=== PATIENT | female | born 1970 | race Caucasian/White ===

== ENCOUNTER 2018-01-03 08:00 | Outpatient (RCR) | payer OTHER, SELFPAY ==
--- NOTE | 2018-01-04 18:41 | HP.FCE ---
HP OT Functional Capacity Eval - Reference Duration Sedentary Sedentary Light Light Light Medium Medium Medium Heavy Very Heavy Heavy Occasional (0-33% of day) Frequent (34-66% of day) Constant (67-100% of day) 10 # Negligible Negligible 15 # 8 # Negligible 20 # 10# Negli. 35 # 18 # 7 # 50 # 25 # 10 # 75 # 100 # >100 # 38 # 50 # >50 # 15 # 20 # >20 # - Patient Information Height: 5 ft 3 in Hand Dominance: R hand - Medical History Medical History Including Restrictions: Rheumatoid Arthritis, Osteoarthritis, fibromyalgia, massive stroke 3 yrs ago, nerve damage to back and goes to pain mngmt to assist with her back, L and R hip replacements, R shoulder sx, L ankle fx w/ pins/plates, jarrett L hip to knee. Left knee donor bodne surgery to prepare for TKR but complication of right femor injury requiring jarrett placement 3 different times. 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 - Pain Pain: Pt demonstrates 6/10 pain in L knee, R cervical spine 7/10 pain. - Work History Work History: Pt is unemployed at this time. 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 - Behavioral Behavioral: calm pleasant behavior, painful after sitting for amount of time. - ADLS ADLS: Pt is independent with ADLs overall, occassionally requires assist with socks/shoes. Needs assist with hygiene of cutting her toenails. She lives in a 1 level house with her spouse. She has 1 plus 1 plateform steps, to enter with 2 handrails. She ambulates with a straight cane in community, furniture walker in house. Her bathroom contains a tub/shower with grab bars, shower chair, and she has a standard commode. She is independent w/ cooking, attempts vaccuming, but her spouse usually ends up helping and her spouse completes laundry in basement. She still drives. - Physical Examination Physical Examination: Pt demonstrates decreased activity tolerance and pain limiting her ability to complete specific tasks. ROM: R UE WFL, L UE WFL except internal rotation, L LE WFL, R LE, limitied hip flexion Strength: Pt demo decreased generalized strength. L UE 3+/5, R UE 3+/5, L LE 3/5, R LE 3+/5 Right Newspaper Carriers Supervisor Strength Average: 18.33 Left Newspaper Carriers Supervisor Strength Average: 25.00 Right Lateral Pinch Average: 1.33 Left Lateral Pinch Average: 3.33 Right Tripod Pinch Average: 1.33 Left Tripod Pinch Average: 2.66 Comments: Limited hand strength Sensation: Numbness Tingling L LE , R LE foot to knee, inconsistant tingling in bilateral fingers Fine Motor: Pt states she has difficulty with opening containers, medication containers, difficulty zipping, unable to button, difficulty with snaps, wears a lot of slip on shoes secondary to difficulty with bending down to tie shoes. Balance: Pt states she has had falls at home when her left leg gives out. - Non Material Handling Activities Bending: She is able to bend to get purse and lift 15lbs. Unable to lift more weight. Squatting: Pt able to squat without resistant. Unable to squat with resistance. Kneeling: Pt unable to kneel for testing. Reaching out/up: Pt able to reach out and up without weight, pt unable to reach out and up with weight. Walking: Pt able to ambulate with cane, 3 minutes then required rest break, fatigues easily and has burning pain in L LE after ambulation. Standing: Pt able to stand for 3 minutes at a time then requires seated rest break. Sitting: Pt able to sit for 35 minutes before having to stand for her back pain. Climbing Stairs: Pt unable to climb full flight of steps. Climbed up/down 7 steps then needed to go find a chair to sit in. - Dynamic Occasional Lifting Capacity Floor Lift: Pt able to lift blue box 15 lbs off floor slightly then had to return back to floor. Was not able to bring box all the way up from floor. Knee Lift: Pt unable to complete lift with box no weight Waist Lift: Pt able to complete waist lift 15lbs. Shoulder Lift: Pt unable to complete shoulder lift with weight. Overhead Lift: Pt unable to complete overhead lift with weight. Carrying: Unable to carry groceries. Pt unable to carry box with 15lbs. Comments: Pt states able to move west from oven with using bilateral hands on her own.
== END 2018-01-03 17:00 | disposition home or self-care (01) ==
LOC: OT 08:00
PROVIDERS: Family Provider Student in an Organized Health Care Education/Training Program; PCP Student in an Organized Health Care Education/Training Program; Visit Provider Student in an Organized Health Care Education/Training Program
DX: M54.5 Low back pain (principal); M79.604 Pain in right leg; M79.605 Pain in left leg; G89.29 Other chronic pain
CPT/HCPCS: 97165

== ENCOUNTER → 2018-01-19 09:39 | Outpatient (CLI) | payer OTHER, SELFPAY ==
[2018-01-19 12:21] LABS: Absolute Lymphocyte Count 1.31 X10^3/ul (0.83-4.51); Absolute Neutrophil Count 6.7 X10^3/uL (2.0-7.7); Basophil# 0.03 X10^3/uL; Basophil% 0.3 % (0-1); Eosinophil# 0.15 X10^3/uL; Eosinophils% 1.7 % (0-5); Hematocrit 43.9 % (37-47); Lymphocyte # 1.31 X10^3/ul (4.0); Lymphocyte % 14.8 % (19-41); Mean Corp Hgb Conc 31.9 g/gl (32-36); Mean Corpuscular Hgb 30.8 pg (27.0-32.0); Mean Corpuscular Volume 96.5 fL (81-99); Mean Platelet Vol. 9.8 fl (6.2-12.0); Monocyte# 0.66 X10^3/uL; Monocyte% 7.4 % (0-10); Neutrophil % 75.7 % (47-70); Platelet Count 334 K/mm3 (150-450); RBC Distribution Width CV 15.3 % (11.6-14.6); RBC Distribution Width SD 52.7 fl (35.1-43.9); Red Blood Count 4.55 M/mm3 (4.2-5.4); White Blood Count 8.9 K/mm3 (4.4-11.0)
[2018-01-19 12:22] LABS: POSITIVE COUNT NO; POSITIVE DIFFERENTIAL NO; POSITIVE MORPHOLOGY NO
[2018-01-19 12:26] LABS: ALB/GLOB Ratio 0.9 RATIO (0.9-2.4); AST(SGOT) 23 U/L (15-37); Alanine Aminotransfer ALT/SGPT 26 U/L (13-56); Albumin, Serum 3.6 g/dL (3.2-5.0); Alkaline Phosphatase 89 U/L (45-117); Anion Gap 9 (5-15); BUN 14 mg/dL (7-18); Calcium,Total 8.4 mg/dL (8.5-10.1); Chloride 105 mmol/L (98-107); Creatinine, Serum 0.67 mg/dL (0.55-1.02); EST Glomerular Filtration Rate 100 mL/min (>60); Est Glom Filt Rate - Afr Amer 121 mL/min (>60); Globulin 3.9 g/dL (2.2-4.2); Glucose 91 mg/dL (74-106); Potassium 3.8 mmol/L (3.5-5.1); Protein, Total 7.5 g/dL (6.4-8.2); Sodium Level 142 mmol/L (136-145)
== END ==
PROVIDERS: Family Provider Student in an Organized Health Care Education/Training Program; PCP Student in an Organized Health Care Education/Training Program; Visit Provider Internal Medicine Rheumatology
DX: M06.09 Rheumatoid arthritis without rheumatoid factor, multiple sites (principal); M79.7 Fibromyalgia; J45.909 Unspecified asthma, uncomplicated; I25.2 Old myocardial infarction; E11.9 Type 2 diabetes mellitus without complications; Z79.899 Other long term (current) drug therapy
CPT/HCPCS: 36415; 80053; 85025

== ENCOUNTER 2018-02-12 22:26 | Emergency (ER) | payer OTHER, SELFPAY ==
[2018-02-12 22:27] VITALS: BP 124/29; PULSE 71; RESP 16; TEMP 36.1; O2SAT 99; BMI 30.1
[2018-02-12 22:55] VITALS: PULSE 87; RESP 21; O2SAT 92
--- NOTE | 2018-02-12 22:57 | ED.VISSUMM ---
- ER Visit Summary Date of Service: 02/12/18 Chief Complaint: [] Restlessness and combative towards family while intoxicated with alcohol History of Present Illness: The patient is a 47 F stated he came from work from work [employer] and his is intoxicated with alcohol. He thinks it might of mixed with her medications. She drinks alcohol frequently. She is on no benzos. He thinks she is on a sleeping pill and some pain pills and he stated that she was jittery and argumentative and brought her in to make sure that she was in renal failure. She has had this acutely in the past. Patient denies any symptoms. Physical Examination: Vital signs reviewed General: Well-nourished well-developed the patient is fidgety and intoxicated. Head: Normocephalic atraumatic Eyes: Pupils equal round and reactive to light extraocular movements intact ENT: TMs clear no hemotympanum no trauma Neck: Nontender full range of motion Cardiovascular: Regular rate rhythm no murmurs normal S1-S2 Respiratory: No distress clear to auscultation bilaterally chest nontender Abdomen: Soft nontender nondistended normal bowel sounds no masses Back: Nontender no CVA tenderness Extremities: Nontender active range of motion ?4 extremities no trauma Skin: Normal color no trauma Neuro alert oriented cranial nerves II through XII intact normal strength sensation reflexes Test Results: [] Emergency Department Course and Treatment: [] Patient given IV fluids. Lab work obtained. Monitored in the department. She slept for several hours. She awoke and without any complaints. She will be discharged. I feel this is secondary to polysubstance intoxication. Treatment Plan: [] Disposition: [] Impression: [] Altered mental status secondary to intoxication This note was generated with [employer] dictation software. It may contain incorrect words, spelling, and punctuation that were not noted in review of the chart prior to signing ED Disposition - Plan for ED Patient: Chief Complaint: Alt LOC Referrals: Jacob Teixeira DO [Primary Care Provider] -
[2018-02-12] MEDS: 0.9% Normal Saline 1,000 ML 1000 ML IV (23:24)
[2018-02-12 23:30] LABS: Bedside Glucose 120 mg/dL (70-110)
--- NOTE | 2018-02-12 23:33 | ED.RN ---
Addendum entered by Karlee Brunner 02/13/18 01:26: PT ON 4L NC. Original Note: PT 87-88% ON ROOM AIR SAT. THIS RN PLACED PT ON 4L NC, PT O2 NOW 97-99% ON 2L NC. PT DROWSY, SPASTIC FLARING OF ARMS AND LEGS. PT AROUSABLE TO CALLING AND LIGHT PAIN. PT FLINCHED WITH IV START. PT MOUTH SUCTIONED BY THIS RN FOR INCREASED ORAL SECRETIONS. SECRETIONS CLEAR. PT AWOKE TO SUCTIONING. PT FAMILY AT BEDSIDE REPORT PT HAS BEEN SNEAKING ALCOHOL. PT TAKES MANY MEDICATIONS, SEES DR. SANDOVAL FOR PAIN MANAGEMENT. NO SEIZURE ACTIVITY NOTED. SPOUSE REPORTS PT AMBULATED TO CAR TO COME TO ED. PT HYPOTENSIVE. NS FLUIDS HUNG. DR. WILCOX INFORMED OF ALL FINDINGS BY THIS RN. NO NEW ORDERS AT THIS TIME. WILL CONTINUE TO MONITOR.
[2018-02-12 23:45] LABS: Anion Gap 8 (5-15); BUN 17 mg/dL (7-18); BUN/Creat Ratio 21.7 RATIO (10-20); Calcium,Total 7.8 mg/dL (8.5-10.1); Chloride 108 mmol/L (98-107); Creatinine, Serum 0.78 mg/dL (0.55-1.02); EST Glomerular Filtration Rate 83 mL/min (>60); Est Glom Filt Rate - Afr Amer 100 mL/min (>60); Estimated Creatinine Clearance 72.17 ml/min; Glucose 100 mg/dL (74-106); Magnesium 2.2 mg/dL (1.6-2.6); Potassium 4.4 mmol/L (3.5-5.1); Sodium Level 140 mmol/L (136-145)
[2018-02-12 23:56] LABS: Hematocrit 36.9 % (37-47); Hemoglobin 12.1 g/dl (12.0-15.0); Mean Corp Hgb Conc 32.8 g/gl (32-36); Mean Corpuscular Hgb 30.8 pg (27.0-32.0); Mean Corpuscular Volume 93.9 fL (81-99); RBC Distribution Width CV 15.7 % (11.6-14.6); RBC Distribution Width SD 54.5 fl (35.1-43.9); Red Blood Count 3.93 M/mm3 (4.2-5.4); White Blood Count 10.1 K/mm3 (4.4-11.0)
[2018-02-12 23:57] LABS: Absolute Lymphocyte Count 1.44 X10^3/ul (0.83-4.51); Absolute Neutrophil Count 7.4 X10^3/uL (2.0-7.7); Basophil# 0.01 X10^3/uL; Basophil% 0.1 % (0-1); Eosinophil# 0.07 X10^3/uL; Eosinophils% 0.7 % (0-5); Lymphocyte # 1.44 X10^3/ul (4.0); Lymphocyte % 14.3 % (19-41); Mean Platelet Vol. 9.3 fl (6.2-12.0); Monocyte# 1.18 X10^3/uL; Monocyte% 11.7 % (0-10); Neutrophil # 7.35 X10^3/uL (2.7-7.7); Neutrophil % 72.9 % (47-70); POSITIVE COUNT NO; POSITIVE DIFFERENTIAL NO; POSITIVE MORPHOLOGY NO; Platelet Count 298 K/mm3 (150-450)
[2018-02-13] VITALS (9 sets, daily range): BP systolic 77–141; BP diastolic 44–89; PULSE 66–79; RESP 11–34; O2SAT 95–100
--- NOTE | 2018-02-13 01:20 | ED.RN ---
PT MOVED TO TRAUMA 2 TO BE CLOSER TO NURSES STATION AT 2330. PT STILL HYPOTENSIVE, PT LESS RESPONSIVE. DR. WILCOX INFORMED AND AT BEDSIDE TO EVALUATE PT. PT FAMILY AT BEDSIDE 18 G IV IN RIGHT AC INITIATED BY CHIVO SIMMONS. PT CONTINUES TO FINISH INTIAL FLUID BOLUS OF NS. PT WITH SNORING RESPIRES, FAMILY REPORTS HX OF SNORING, AND FAMILY HX OF SLEEP APNEA, BUT PT HAS NOT BEEN OFFICIALLY DX WITH SLEEP APNEA.
--- NOTE | 2018-02-13 02:31 | ED.DEP ---
ED Disposition - Plan for ED Patient: Disposition: Home or Assisted Living Chief Complaint: Alt LOC Instructions: ED Altered Loc Referrals: Jacob Teixeira DO [Primary Care Provider] -
[2018-02-13] MEDS: Ondansetron 4 MG/2 ML Vial IV (03:18)
[2018-02-13] MEDS: 0.9% Normal Saline 1,000 ML 200 ML IV (03:18)
== END 2018-02-13 06:23 | disposition home or self-care (01) ==
PROVIDERS: Emergency Provider Emergency Medicine; Family Provider Student in an Organized Health Care Education/Training Program; PCP Student in an Organized Health Care Education/Training Program
DX: F10.129 Alcohol abuse with intoxication, unspecified (principal); T51.0X1A Toxic effect of ethanol, accidental (unintentional), initial encounter; Y90.9 Presence of alcohol in blood, level not specified; I10 Essential (primary) hypertension; M79.7 Fibromyalgia; M06.9 Rheumatoid arthritis, unspecified; Z79.899 Other long term (current) drug therapy
CPT/HCPCS: 80048; 82962; 83735; 85025; 96361; 96374; 99285; J7030; J2405

== ENCOUNTER 2018-03-30 22:44 | Observation (INO) | payer OTHER, SELFPAY ==
[2018-03-30 22:44] VITALS: TEMP 37.1; BMI 31.1
--- NOTE | 2018-03-30 23:32 | EKG12_ITS ---
Test Reason : Blood Pressure : / mmHG Vent. Rate : 143 BPM Atrial Rate : 116 BPM P-R Int : 134 ms QRS Dur : 080 ms QT Int : 354 ms P-R-T Axes : 051 047 051 degrees QTc Int : 546 ms Sinus tachycardia with frequent Premature ventricular complexes Confirmed by HILARIO OWENS, SYBIL ([id number]), proposal editor ALICJA VALENTE ([id number] on 04/04/2018 2:05:38 PM Referred By: ERMA Confirmed By:SYBIL RICH MD
[2018-03-30 23:44] VITALS: BP 169/146; PULSE 85; RESP 20; O2SAT 96
[2018-03-30 23:56] LABS: Bedside Glucose 125 mg/dL (70-110)
[2018-03-31] VITALS (21 sets, daily range): BP systolic 83–137; BP diastolic 44–69; PULSE 74–94; RESP 16–18; TEMP 36.4–37.1; O2SAT 92–96; BMI 31.4; BMI 31.5
[2018-03-31 00:10] LABS: Bacteria 0 SEEN /hpf (None Seen); Mucous, Urine 0 SEEN /hpf (<or=2+); Red Blood Cells-Urine 0 SEEN /hpf (0-5)
[2018-03-31 00:13] LABS: Absolute Lymphocyte Count 0.38 X10^3/ul (0.83-4.51); Absolute Neutrophil Count 5.1 X10^3/uL (2.0-7.7); Hematocrit 38.8 % (37-47); Hemoglobin 12.2 g/dl (12.0-15.0); Lymphocyte # 0.38 X10^3/ul (4.0); Lymphocyte % 5.9 % (19-41); Mean Corp Hgb Conc 31.4 g/gl (32-36); Mean Corpuscular Hgb 31.8 pg (27.0-32.0); Mean Platelet Vol. 9.6 fl (6.2-12.0); Monocyte# 0.93 X10^3/uL; Monocyte% 14.4 % (0-10); Neutrophil # 5.12 X10^3/uL (2.7-7.7); Neutrophil % 79.5 % (47-70); Platelet Count 316 K/mm3 (150-450); RBC Distribution Width CV 16.1 % (11.6-14.6); Red Blood Count 3.84 M/mm3 (4.2-5.4); White Blood Count 6.4 K/mm3 (4.4-11.0)
[2018-03-31 00:14] LABS: POSITIVE COUNT NO; POSITIVE DIFFERENTIAL YES
[2018-03-31 00:15] LABS: Differential Indicated SCAN CRITERIA MET; POSITIVE MORPHOLOGY NO
[2018-03-31 00:16] LABS: Color, Urine Yellow (Yellow); Glucose, Dipstick Normal (Normal); Ketone-Dipstick Negative (Negative); Leukocyte Esterase-Dipstick 25 /ul (Negative); Nitrite-Dipstick Negative (Negative); Occult Blood-Urine 25 /ul (Negative); Protein-Dipstick 30 mg/dl (Negative); Urine Bilirubin Dipstick Negative (Negative); Urine Clarity Sl. Cloudy (Clear); Urine Urobilinogen Normal (Normal)
[2018-03-31 00:18] LABS: Vista UDS pH Range 5
[2018-03-31 00:23] LABS: Lactic Acid 1.6 mmol/L (0.4-2.0)
[2018-03-31 00:25] LABS: Partial Thromboplast Time 26.4 Seconds (24.1-36.2); Prothrombin Time (Protime)PT. 13.5 SECONDS (11.7-14.9)
[2018-03-31 00:29] LABS: Hyaline Cast 10-25 SEEN /lpf (0-5)
[2018-03-31 00:29] LABS: ALB/GLOB Ratio 0.9 RATIO (0.9-2.4); AST(SGOT) 20 U/L (15-37); Alanine Aminotransfer ALT/SGPT 25 U/L (13-56); Albumin, Serum 3.7 g/dL (3.2-5.0); Alkaline Phosphatase 126 U/L (45-117); Anion Gap 9 (5-15); BUN 34 mg/dL (7-18); BUN/Creat Ratio 8.8 RATIO (10-20); Chloride 99 mmol/L (98-107); Creatinine, Serum 3.86 mg/dL (0.55-1.02); EST Glomerular Filtration Rate 13 mL/min (>60); Est Glom Filt Rate - Afr Amer 16 mL/min (>60); Estimated Creatinine Clearance 13.94 ml/min; Globulin 3.9 g/dL (2.2-4.2); Glucose 107 mg/dL (74-106); Potassium 5.8 mmol/L (3.5-5.1); Protein, Total 7.6 g/dL (6.4-8.2); Sodium Level 135 mmol/L (136-145)
[2018-03-31 00:30] LABS: Amorphous Sediment 1+; Squamous Epithelial Cells - UA 25-50 SEEN /hpf (5-10); White Blood Cells 0-5 SEEN /hpf (0-5)
[2018-03-31 00:37] LABS: Amphetamine Urine VISTA NEGATIVE (<1000 ng/mL); Barbiturate Urine VISTA NEGATIVE (< 200 ng/mL); Benzodiazepine Urine VISTA NEGATIVE (< 200 ng/mL); Cocaine Urine VISTA NEGATIVE (< 300 ng/mL); Ecstacy Urine VISTA NEGATIVE (< 500 ng/mL); Methadone Urine VISTA NEGATIVE (< 300 ng/mL); PCP Urine VISTA NEGATIVE (< 25 ng/mL); THC Urine VISTA POSITIVE (< 50 ng/mL)
--- NOTE | 2018-03-31 00:37 | CT_ITS ---
STUDY: CT BRAIN WITHOUT CONTRAST REASON FOR EXAM: Female, 47 years old. Mental status change with nystagmus. Patient has history of previous CVA. RADIATION DOSAGE (If Supplied By Facility): CTDIvol = ( 44.99 ) mGy, DLP = ( 745.49 ) mGycm TECHNIQUE: Transaxial CT imaging of the brain was performed without administration of intravenous contrast material. Multiplanar reformations are submitted for interpretation. Individualized dose optimization techniques were used for this CT. COMPARISON: CT of the head dated August 15, 2013. FINDINGS: Normal soft tissue structures. Normal calvarium. There is encephalomalacia involving the right temporal lobe, right parietal and frontal lobes consistent with old infarct. The appearance has worsened since previous CT. There are areas of decreased attenuation within the white matter tracts of the supratentorial brain, consistent with microvascular disease changes. Normal basal ganglia and thalami. Normal brainstem. Normal cerebellum. There is no intracranial hemorrhage. There is minimal atherosclerotic calcification of intracranial arteries. Normal visualized paranasal sinuses. There are bilateral conchal bullosa. There is some fluid in the right conchal bullosa. CT/Brain/Head without Contrast IMPRESSION: 1. Sequela of large right middle cerebral artery territory infarct with moderate involutional changes which have progressed since the previous CT. 2. No CT evidence of acute intracranial hemorrhage. Electronically Signed: Verna Manzano MD at 1:43 EDT , Service support ,
--- NOTE | 2018-03-31 00:51 | ED.RN ---
PT DOES NOT WANT A CT DONE. NOTIFIED. STATES IS NOT ABLE TO MAKE THAT DECISION AND TO SEND PT FOR SCAN. PT PLACED UP FOR IMAGING
--- NOTE | 2018-03-31 01:59 | ED.DCSUM_ITS ---
- ER Visit Summary Date of Service: 03/31/18 Chief Complaint: Change in mental status and abnormal movement History of Present Illness: The patient is a 47 F who was brought to the emergency department by and family because of confusion, change in mental status and abnormal movement of her extremities. states she had this in the past and it was related to medication. She is disoriented and unable to contribute with respect to history. is not able to give much history other than her complaining of not being able to sit still and he states she has had no vomiting. He has not noted any rash or swelling. There is no history of bruising. She is in pain management and seen by Dr. Armenta. states she has history of renal failure, hypertension, rheumatoid arthritis and fibromyalgia. Per old records a history of overdose. Physical Examination: Patient's vitals were unobtainable. First blood pressure reading was 93/51. She is not hypoxic nor is she febrile. Head is atraumatic normocephalic. Pupils equal round reactive. There is nystagmus noted. TMs normal. Nares patent. Uvula midline. Posterior pharynx without erythema or exudate. Neck is supple. Heart is regular without murmur, gallop or rub. Lungs are clear to auscultation. Abdomen is soft. She has no CVA tenderness noted. There is no skin lesions noted. She does have bruising. Apparently she struck a tree when mowing the yard on Monday. Test Results: CBC is unremarkable other than MCV of 101. Electro panel was sodium 135 and potassium 5.8. Creatinine 3.86. Hepatic profile is marked for an alk phos of 162. Coags normal. Lactate is 1.6, which is normal. Alcohol is 14. Tox screen is positive for opiates and cannabis. CT of the head reveals sequelae of large left middle cerebral artery infarct with no acute process noted. Emergency Department Course and Treatment: To evaluate patient's change in mental status CT of the head was obtained with history of CVA from review of records. This was obtained to rule out bleed and also the fact that she had recent trauma. Tox screen was obtained because of documentation of prior overdose. She has history of alcohol use. Since she has nystagmus abnormal movement inappropriate interaction concerned this may represent a Warnekes encephalopathy reason for IV thiamine. UA is contaminated specimen. EKG sinus rhythm with respiratory variation. The computer is double counting the prominent peaked T waves. Treatment Plan: Since patient is not at baseline and has acute change in mental status further testing is warranted and she will require admission to the hospital. Disposition: Admit PCU Impression: 1. Acute change in mental status 2. History of alcohol use 3. History of drug use 4. Renal failure with creatinine of 3.86. 5. Mild hyperkalemia, 5.8 6. History of hypertension 7. History of prior left hemispheric stroke in the distribution of the middle cerebral artery This note was generated with [employer] dictation software. It may contain incorrect words, spelling, and punctuation that were not noted in review of the chart prior to signing ED Disposition - Plan for ED Patient: Chief Complaint: Overdose Referrals: Jacob Teixeira DO [Primary Care Provider] -
--- NOTE | 2018-03-31 02:41 | EKG12_ITS ---
Test Reason : AM EKG Blood Pressure : / mmHG Vent. Rate : 082 BPM Atrial Rate : 082 BPM P-R Int : 142 ms QRS Dur : 086 ms QT Int : 358 ms P-R-T Axes : 056 060 062 degrees QTc Int : 418 ms Normal sinus rhythm Normal ECG When compared with ECG of 02-SEP-2017 19:31, No significant change was found Diffuse J point elevation, maybe early repolariaztion Confirmed by KARLI LYNN ([id number]), publishing editor AILCJA VALENTE ([id number]) on 04/18/2018 7:18:00 PM Referred By: DR PLUMMER Confirmed By:KARLI LYNN
[2018-03-31] MEDS: 0.9% Normal Saline 1,000 ML 150 ML IV ×2 (03:07→11:47)
[2018-03-31 03:30] LABS: Hematocrit 36.1 % (37-47); Hemoglobin 11.5 g/dl (12.0-15.0); Mean Corp Hgb Conc 31.9 g/gl (32-36); Mean Corpuscular Hgb 31.6 pg (27.0-32.0); Mean Corpuscular Volume 99.2 fL (81-99); Mean Platelet Vol. 9.1 fl (6.2-12.0); Platelet Count 253 K/mm3 (150-450); RBC Distribution Width CV 16.1 % (11.6-14.6); RBC Distribution Width SD 58.1 fl (35.1-43.9); Red Blood Count 3.64 M/mm3 (4.2-5.4); White Blood Count 6.8 K/mm3 (4.4-11.0)
[2018-03-31 03:39] LABS: Scan Indicated on CBC? Y/N NO
--- NOTE | 2018-03-31 03:40 | MRI_ITS ---
STUDY: MRI BRAIN WITHOUT CONTRAST REASON FOR EXAM: Female, 47 years old. Confusion and altered mental status. TECHNIQUE: Standardized multiplanar fat and water weighted pulse sequences were obtained. Multiple images are limited by patient motion. COMPARISON: CT of the head dated March 31, 2018. FINDINGS: There is mild cerebral atrophy with widening of the extra-axial spaces and ventricular dilatation. There are a limited number of small white matter hyperintensities, distributed throughout the deep white matter tracts of the cerebral hemispheres, consistent with mild chronic white matter ischemic changes. There is encephalomalacia involving the right temporal lobe, right frontal and parietal lobes consistent with old infarct. There is abnormal T2 hyperintensity within the brain adjacent to the infarct consistent with gliosis. There is no evidence for recent intracranial ischemia or other cause of cytotoxic edema on diffusion weighted imaging (DWI). Normal T2* images of the brain without demonstrated susceptibility artifact. There is no demonstrated hemosiderin stain. Normal bilateral basal ganglia. Normal thalami. There is no extra-axial fluid accumulation. Normal flow voids within the major intracranial circulation suggesting patency by spin echo criteria. Normal sella turcica, pituitary gland, infundibular stalk, optic chiasm and hypothalamus. Normal tectal plate and pineal gland. Normal midbrain, nba and medulla. Normal cerebellum. There are large basal cisterns. Normal bilateral temporal bones. Normal bilateral internal auditory canals. No demonstrated orbital abnormality, within the constraints of a routine brain study. Normal visualized paranasal sinuses. Normal calvarium and skull base. Normal visualized soft tissue structures. Normal visualized upper cervical spine. MRI/Brain without Contrast IMPRESSION: 1. Involutional changes of the brain, as described above. 2. Technically limited MRI due to patient motion. 3. No MR evidence for acute infarct. Electronically Signed: Verna Manzano MD at 10:34 EDT , Service support ,
[2018-03-31] MEDS: Dextrose 10%-Water 250 ML 125 ML IV (03:54)
[2018-03-31] MEDS: Dextrose 50%-Water 25 GM/50 ML DISP.SYRIN IV (03:57)
--- NOTE | 2018-03-31 04:02 | PCM.HP.STD ---
Problem List (1) Mental confusion Status: Acute (2) ARF (acute renal failure) Status: Acute (3) Chronic low back pain Status: Chronic (4) History of drug overdose Status: Chronic (5) History of fibromyalgia Status: Chronic (6) History of rheumatoid arthritis Status: Chronic (7) Hypertension Status: Chronic History of Present Illness Date of Admission: 03/31/18 Chief Complaint: Alter Mental status The patient is a 47 year old female w/ h/o EtOH abuse, drug abuse, left hemispheric stroke, and HTN admitted for alter mental status. She was unable to provide any history. History is taken . He said that his had jerky movement yesterday. She took pain meds and it helped her. He does not know what pain meds or how much she takes. She was more confused today so he took her to the ED. Past Medical History Past Medical History (Chronic Problems): Chronic Problems Hypertension (Chronic) Tobacco abuse disorder (Chronic) History of rheumatoid arthritis (Chronic) History of fibromyalgia (Chronic) Chronic low back pain (Chronic) History of drug overdose (Chronic) Allergies progesterone Allergy (Verified 02/12/18 22:32) Itching varenicline tartrate [From Chantix] Allergy (Verified 02/12/18 22:32) Other Home Medications: Ambulatory Orders Medication Instructions Recorded Venlafaxine XR [Effexor Xr] 225 mg PO DAILY 01/08/14 Levalbuterol HCl [Xopenex Aerosols] 0.63 mg INHALATION Q8H PRN 03/26/14 Senna [Senokot] 1 tablet PO BID 03/26/14 Hydrocodone Bitart/Apap 5-325 1 - 2 tablet PO Q4H PRN PRN #30 04/07/14 [[place] 5/325] tablet Tizanidine HCl [Zanaflex] 4 mg PO Q6H PRN PRN #60 tablet 04/07/14 Abatacept [Orencia Clickject] 125 mg SQ QWEEK 11/12/16 Furosemide [Lasix] 20 mg PO DAILY 11/12/16 Metoprolol(XL)Succ [Toprol Xl 12.5 mg PO DAILY 11/12/16 (Beta Prudence)] Mirtazapine [Remeron Orally 30 mg PO QHS 11/12/16 Disintegrating] Pregabalin [Lyrica] 60 mg PO DAILY 11/12/16 Surgical History: total hip arthroplasty, - - Multiple surgeries for left femur due to rheumatoid arthritis and osteoarthritis Psychiatric History: No pertinent psych hx [employer] History: No pertinent [employer] history Smoking Status: Current every day smoker Tobacco Use: Cigarettes - *Family History Maternal History Items: No pertinent history Review of Systems Cardiovascular: Denies: Chest Pain, Palpitations Respiratory: Denies: Cough, Shortness of breath at rest, Sputum production Gastrointestinal: Denies: Abdominal Pain, Nausea, Vomiting Musculoskeletal: Denies: Joint Pain, Joint Tenderness Skin: Denies: Rash, Wounds Neurological: Denies: Numbness, Tingling, Focal weakness Psychiatric: Denies: Anxiety, Depression, Homicidal Ideations, Suicidal Ideations Hematologic/ Lymphatic: Denies: Easy Bruising, Easy Bleeding Unable to obtain accurate/complete ROS d/t: Obtain from . Pt unable to provide. VTE Information - Inpt Only VTE Present on Admission: No VTE Mechan Device Prophylaxis: SCD's VTE Pharm Prophylaxis ordered?: Yes Patient Problems: Active and Suspected Problems Mental confusion (Acute) ARF (acute renal failure) (Acute) - Physical Exam General: Confused, Disoriented HEENT: Atraumatic, PERRLA, EOMI, Normocephalic Neck: Supple, No JVD, Negative Carotid Bruits Lungs: Clear to auscultation, Normal air movement Cardiovascular: Regular rate, No murmurs Abdomen: Bowel Sounds Present, Soft, Non Tender Extremities: No edema, Capillary Refill Less than 3 Seconds Skin: No rashes, No breakdown Musculoskeletal: No Tenderness to Palpation of Joints or Extremities Neurological: - - Move all extremities Psych/Mental Status: Delusions Vital Signs Temp Pulse Resp BP Pulse Ox 98.2 F 92 18 137/57 H 94 03/31/18 02:45 03/31/18 02:45 03/31/18 02:45 03/31/18 02:45 03/31/18 02:45 Oxygen Flow Rate (L/min) 2 Oxygen Delivery Method Nasal Cannula Weight: 78 kg Body Mass Index (BMI) 31.4 Laboratory Tests Past 24 Hrs 03/31/18 03/31/18 03/31/18 03:14 03:14 03:14 WBC RBC Hgb Hct MCV MCH MCHC RDW RDW Differential Plt Count MPV Sodium Potassium Chloride Carbon Dioxide Anion Gap BUN Creatinine Est GFR (MDRD) Af Amer Est GFR (MDRD) Non-Af BUN/Creatinine Ratio Glucose Calcium Ammonia 15.0 Troponin I Pending Vitamin B12 Pending Folate Pending TSH Pending 03/31/18 03/31/18 03:14 03:14 WBC 6.8 RBC 3.64 L Hgb 11.5 L Hct 36.1 L MCV 99.2 H MCH 31.6 MCHC 31.9 L RDW 16.1 H RDW Differential 58.1 H Plt Count 253 MPV 9.1 Sodium Pending Potassium Pending Chloride Pending Carbon Dioxide Pending Anion Gap Pending BUN Pending Creatinine Pending Est GFR (MDRD) Af Amer Pending Est GFR (MDRD) Non-Af Pending BUN/Creatinine Ratio Pending Glucose Pending Calcium Pending Ammonia Troponin I Vitamin B12 Folate TSH Assessment/Plan Active and Suspected Problems Mental confusion (Acute) ARF (acute renal failure) (Acute) 47 year old female w/ h/o EtOH abuse, drug abuse, left hemispheric stroke, and HTN admitted for alter mental status. 1) AMS: Probably from decrease narcotics clearance secondary to ARF. CT negative for acute finding. Will get MRI in AM to r/o stroke. Ammonia wnl. Will get B12 / folate and TSH. 2) ARF: UA is dirty sample. Probably azotemia. Hydration. 3) Hyperkalemia: Will give calcium and insulin. Will hold kayexalate given AMS. Serial labs. 4) Chronic issues: EtOH abuse, drug abuse, left hemispheric stroke, and HTN Supportive care. C/w home meds. Hold ACEI.
[2018-03-31 04:21] LABS: Bedside Glucose 83 mg/dL (70-110)
[2018-03-31 04:27] LABS: Anion Gap 9 (5-15); BUN 34 mg/dL (7-18); BUN/Creat Ratio 10.4 RATIO (10-20); Calcium,Total 7.4 mg/dL (8.5-10.1); Chloride 101 mmol/L (98-107); Creatinine, Serum 3.27 mg/dL (0.55-1.02); EST Glomerular Filtration Rate 16 mL/min (>60); Est Glom Filt Rate - Afr Amer 19 mL/min (>60); Estimated Creatinine Clearance 16.46 ml/min; Glucose 85 mg/dL (74-106); Potassium 5.2 mmol/L (3.5-5.1); Sodium Level 136 mmol/L (136-145)
[2018-03-31 04:50] LABS: Folates, (Folic Acid) > 100.00 ng/mL (3.1-55.4)
[2018-03-31 05:01] LABS: Bedside Glucose 135 mg/dL (70-110)
--- NOTE | 2018-03-31 10:10 | NURSING ---
Dr. Salmeron called and spoke to this RN regarding pt. Dr. Salmeron stated that MRI was negative for stroke and that NIHSS could be discontinued.
--- NOTE | 2018-03-31 11:29 | PCM.PN.HOSP ---
Patient Problems: Active and Suspected Problems Mental confusion (Acute) ARF (acute renal failure) (Acute) Subjective: Patient is a 47-year-old female with a history of alcohol and drug abuse, and history of left hemispheric stroke and hypertension was admitted for altered mental status. Patient was unable to give any history at that time and according to who gives a history that and he had complained that patient was having jerking movements. These have resolved with demonstration of pain meds and does not know how much she took. She was found to be confused and so she was brought into the ED. the head was negative for any acute finding. He was managed for altered mental status possibly drug-induced. MRI is pending this morning. Neurology has been consulted. Patient seen and examined this morning. She was alert and oriented and able to communicate. She says she determined much of what happened yesterday but remember that she was a bit confused. She complained of jerking movements of her extremities which were witnessed by adjusto writer operator during review. According to nurse patient is less obtunded and is very alert today. She denies any fever or chills, any cough or chest pain, any shortness of breath, any abdominal pain, any diarrhea vomiting. No history of such tremors in the past. Vitals/I&O's: Vital Signs Temp Pulse Resp BP Pulse Ox 97.9 F 75 16 136/65 H 93 03/31/18 10:09 03/31/18 11:00 03/31/18 10:09 03/31/18 10:09 03/31/18 10:09 Oxygen Flow Rate (L/min) 2 Oxygen Delivery Method Room Air Weight: 171 lb 15.369 oz Body Mass Index (BMI) 31.4 Intake and Output for Last 24 Hours 03/29/18 03/30/18 03/31/18 23:59 23:59 23:59 Intake Total 616 / 616 Balance 616 / 616 General: Alert, Oriented x3, Cooperative HEENT: Atraumatic, PERRLA, EOMI, Normocephalic Oral: Dry Mucosa Neck: Supple, No JVD, Negative Carotid Bruits Lungs: Clear to auscultation, Normal air movement, No rhonchi, - - Had moderate wheezing in mid and lower lung roca. Few crackles auscultated bibasally. Cardiovascular: Regular rate, Regular Rhythm, Normal S1, Normal S2, No murmurs Abdomen: Bowel Sounds Present, Soft, Non Tender, Non-Distended, No Hepato-splenomegaly Extremities: No clubbing, No cyanosis, No edema, Capillary Refill Less than 3 Seconds Skin: No rashes, No breakdown Musculoskeletal: No Tenderness to Palpation of Joints or Extremities Lymphatic: No Cervical, Supraclavicular, or Inguinal Adenopathy Neurological: Cranial nerves II-XII grossly intact, Deep Tendon Reflexes 2+/4 and Symmetrical, Motor Exam 5/5 strength throughout, - - Patient had myoclonic jerks of all extremities during review. Psych/Mental Status: Normal Affect, Appropriate, Alert and oriented to time, place, person, mood and affect Laboratory Results 03/31/18 03:14: Ammonia 15.0 03/31/18 03:14: Troponin I < 0.015, Folate > 100.00 H, TSH 0.80 03/31/18 03:14: Vitamin B12 Pending 03/31/18 03:14: WBC 6.8, RBC 3.64 L, Hgb 11.5 L, Hct 36.1 L, MCV 99.2 H, MCH 31.6, MCHC 31.9 L, RDW 16.1 H, RDW Differential 58.1 H, Plt Count 253, MPV 9.1 03/31/18 03:14: Sodium 136, Potassium 5.2 H, Chloride 101, Carbon Dioxide 26.0, Anion Gap 9, BUN 34 H, Creatinine 3.27 H, Estim Creat Clear Calc 16.46, Est GFR (MDRD) Af Amer 19 L, Est GFR (MDRD) Non-Af 16 L, BUN/Creatinine Ratio 10.4, Glucose 85, Calcium 7.4 L 03/31/18 04:03: POC Glucose 83 03/31/18 04:56: POC Glucose 135 H Current Medications Albuterol/Ipratropium (Duoneb) 3 ml INHALATION Q4H.RT PRN PRN Reason: cough/ SOB Sodium Chloride () 1,000 mls @ 150 mls/hr IV .Q6H40M [facility] [place] Last Admin: 03/31/18 03:07 Dose: 150 mls/hr Magnesium Hydroxide (Milk Of Magnesia) 30 ml PO DAILY PRN PRN PRN Reason: Constipation Polyethylene Glycol (Miralax) 34 gm PO X1 PRN PRN Reason: Bowel Movement Sodium Chloride () 5 - 30 ml IV UD PRN PRN Reason: SALINE FLUSH Medical Necessity - Tobacco Use Smoking Status: Current every day smoker Tobacco Use: Cigarettes Assessment/Plan Active and Suspected Problems Mental confusion (Acute) ARF (acute renal failure) (Acute) 47-year-old female with a history of alcohol abuse, drug abuse, history of left hemispheric stroke with no residual effects and hypertension. She was admitted for altered mental status. CT of head was negative. MRI is pending. 1. Altered mental status likely drug-induced versus stroke Patient's confusion is resolved. Only complains of repeated myoclonic jerks. NIH stroke scale was up to 25 yesterday. Is down to just about [address] Head was negative. Neurology consulted. Will await rec's. MRI pending. Will follow TSH was normal. Vitamin B12 and folate were also normal. 2. Acute renal failure with hyperkalemia, likely due to rhabdomyolysis Baseline creatinine is around 0.78. Creatinine was 3.86 on admission and is down to 3.27 today. UA showed only leukocyte esterase of 25 a renal gallbladder of about 25. However there was 0 RBCs seen. This is concerning for possible rhabdomyolysis. This is further supported by the elevated ALP of 126, though other liver enzymes are WNL K is 5.2 todaY; BUN is 34; eGFR is 19 Will check creatinine kinase levels. Check urine sodium and urine creatinine to check FeNa will get nephrology consult Will also get renal ultrasound. Will give kayexalate for hyperkalemia Hydrate with IV fluid normal saline;on IVF NS @ 150cc/hr. Will increase to 250cc/hr and monitor urine output. Output was 616mls over last 24 hrs UTox was positive for opiates and cannabinoids 3. Hyperkalemia K is 5.2 today. Was 5.8 on admission received kayexalate will monitor; 4. Myoclonic jerks likely due to DYAN and azotemia neurology consulted; will await recs will monitor liver enzymes were WNL 5. HTN: controlled. Will monitor. ACEi and lasix on hold due to DYAN 6.History of left hemispheric stroke: no residual effects. 7. DVT prophylaxis: heparin Code Visit Inpatient E&M: 96004 [facility] Hosp L3
--- NOTE | 2018-03-31 11:43 | PN_ITS ---
Patient Problems: Active and Suspected Problems Mental confusion (Acute) ARF (acute renal failure) (Acute) Subjective: Patient is a 47-year-old female with a history of alcohol and drug abuse, and history of left hemispheric stroke and hypertension was admitted for altered mental status. Patient was unable to give any history at that time and according to who gives a history that and he had complained that patient was having jerking movements. These have resolved with demonstration of pain meds and does not know how much she took. She was found to be confused and so she was brought into the ED. the head was negative for any acute finding. He was managed for altered mental status possibly drug-induced. MRI is pending this morning. Neurology has been consulted. Patient seen and examined this morning. She was alert and oriented and able to communicate. She says she determined much of what happened yesterday but remember that she was a bit confused. She complained of jerking movements of her extremities which were witnessed by life underwriter during review. According to nurse patient is less obtunded and is very alert today. She denies any fever or chills, any cough or chest pain, any shortness of breath, any abdominal pain , any diarrhea vomiting. No history of such tremors in the past. Vitals/I&O's: Vital Signs Temp Pulse Resp BP Pulse Ox 97.9 F 75 16 136/65 H 93 03/31/18 10:09 03/31/18 11:00 03/31/18 10:09 03/31/18 10:09 03/31/18 10:09 Oxygen Flow Rate (L/min) 2 Oxygen Delivery Method Room Air Weight: 171 lb 15.369 oz Body Mass Index (BMI) 31.4 Intake and Output for Last 24 Hours 03/29/18 03/30/18 03/31/18 23:59 23:59 23:59 Intake Total 616 / 616 Balance 616 / 616 General: Alert, Oriented x3, Cooperative HEENT: Atraumatic, PERRLA, EOMI, Normocephalic Oral: Dry Mucosa Neck: Supple, No JVD, Negative Carotid Bruits Lungs: Clear to auscultation, Normal air movement, No rhonchi, - - Had moderate wheezing in mid and lower lung roca. Few crackles auscultated bibasally. Cardiovascular: Regular rate, Regular Rhythm, Normal S1, Normal S2, No murmurs Abdomen: Bowel Sounds Present, Soft, Non Tender, Non-Distended, No Hepato- splenomegaly Extremities: No clubbing, No cyanosis, No edema, Capillary Refill Less than 3 Seconds Skin: No rashes, No breakdown Musculoskeletal: No Tenderness to Palpation of Joints or Extremities Lymphatic: No Cervical, Supraclavicular, or Inguinal Adenopathy Neurological: Cranial nerves II-XII grossly intact, Deep Tendon Reflexes 2+/4 and Symmetrical, Motor Exam 5/5 strength throughout, - - Patient had myoclonic jerks of all extremities during review. Psych/Mental Status: Normal Affect, Appropriate, Alert and oriented to time, place, person, mood and affect Laboratory Results 03/31/18 03:14: Ammonia 15.0 03/31/18 03:14: Troponin I < 0.015, Folate > 100.00 H, TSH 0.80 03/31/18 03:14: Vitamin B12 Pending 03/31/18 03:14: WBC 6.8, RBC 3.64 L, Hgb 11.5 L, Hct 36.1 L, MCV 99.2 H, MCH 31.6, MCHC 31.9 L, RDW 16.1 H, RDW Differential 58.1 H, Plt Count 253, MPV 9.1 03/31/18 03:14: Sodium 136, Potassium 5.2 H, Chloride 101, Carbon Dioxide 26.0, Anion Gap 9, BUN 34 H, Creatinine 3.27 H, Estim Creat Clear Calc 16.46, Est GFR (MDRD) Af Amer 19 L, Est GFR (MDRD) Non-Af 16 L, BUN/Creatinine Ratio 10.4, Glucose 85, Calcium 7.4 L 03/31/18 04:03: POC Glucose 83 03/31/18 04:56: POC Glucose 135 H Current Medications Albuterol/Ipratropium (Duoneb) 3 ml INHALATION Q4H.RT PRN PRN Reason: cough/ SOB Sodium Chloride () 1,000 mls @ 150 mls/hr IV .Q6H40M [facility] Last Admin: 03/31/18 03:07 Dose: 150 mls/hr Magnesium Hydroxide (Milk Of Magnesia) 30 ml PO DAILY PRN PRN PRN Reason: Constipation Polyethylene Glycol (Miralax) 34 gm PO X1 PRN PRN Reason: Bowel Movement Sodium Chloride () 5 - 30 ml IV UD PRN PRN Reason: SALINE FLUSH Medical Necessity - Tobacco Use Smoking Status: Current every day smoker Tobacco Use: Cigarettes Assessment/Plan Active and Suspected Problems Mental confusion (Acute) ARF (acute renal failure) (Acute) 47-year-old female with a history of alcohol abuse, drug abuse, history of left hemispheric stroke with no residual effects and hypertension. She was admitted for altered mental status. CT of head was negative. MRI is pending. 1. Altered mental status likely drug-induced versus stroke * Patient's confusion is resolved. Only complains of repeated myoclonic jerks. * NIH stroke scale was up to 25 yesterday. Is down to just about 1 today. * CT Head was negative. * Neurology consulted. Will await rec's. * MRI pending. Will follow * TSH was normal. Vitamin B12 and folate were also normal. 2. Acute renal failure with hyperkalemia, likely due to rhabdomyolysis * Baseline creatinine is around 0.78. Creatinine was 3.86 on admission and is down to 3.27 today. * UA showed only leukocyte esterase of 25 a renal gallbladder of about 25. However there was 0 RBCs seen. This is concerning for possible rhabdomyolysis. This is further supported by the elevated ALP of 126, though other liver enzymes are WNL * K is 5.2 todaY; BUN is 34; eGFR is 19 * Will check creatinine kinase levels. * Check urine sodium and urine creatinine to check FeNa * will get nephrology consult * Will also get renal ultrasound. Will give kayexalate for hyperkalemia * Hydrate with IV fluid normal saline;on IVF NS @ 150cc/hr. Will increase to 250cc/hr and monitor urine output. Output was 616mls over last 24 hrs * UTox was positive for opiates and cannabinoids * 3. Hyperkalemia * K is 5.2 today. Was 5.8 on admission * received kayexalate * will monitor; * 4. Myoclonic jerks likely due to DYAN and azotemia * neurology consulted; will await recs * will monitor * liver enzymes were WNL 5. HTN: controlled. Will monitor. ACEi and lasix on hold due to DYAN 6.History of left hemispheric stroke: no residual effects. 7. DVT prophylaxis: heparin Code Visit Inpatient E&M: [id number] Subs Hosp L3
--- NOTE | 2018-03-31 11:44 | US_ITS ---
STUDY: RENAL ULTRASOUND - COMPLETE REASON FOR EXAM: Female, 47 years old. Acute renal failure. TECHNIQUE: Ultrasound evaluation of the kidneys was performed with real-time and static avila-scale imaging. Imaging was degraded by patient condition and the presence of bowel gas. COMPARISON: Bilateral renal ultrasound July 11, 2014. FINDINGS: RIGHT KIDNEY: Normal location of the right kidney, with mild renal atrophy compared to previous exam. The right kidney now measures 9.6 x 4.1 x 4.4 cm, compared to 11.0 x 6.1 x 4.9 cm on previous study. There is an overall normal cortex of the right kidney, although cortical thickness is decreased. Borderline increased renal cortical echogenicity. The renal cortex today measures 1.2 cm, but was 1.7 cm previous study. There is no right renal mass or cyst. There are no right renal calculi. There is no right hydronephrosis. DISTAL RIGHT URETER: There is non-visualization of the distal right ureter. There is no demonstrated right ureterovesical junction calculus. There is a visualized right ureteral jet. LEFT KIDNEY: Normal location of the left kidney, with slight renal atrophy compared to previous exam. The left kidney now measures 10.0 x 4.5 x 5.3 cm, compared to 11.0 x 4.9 x 5.3 cm on previous study. There is an overall normal cortex of the right kidney, although cortical thickness is slightly decreased. Borderline to mild increased renal cortical echogenicity. The renal cortex today measures 1.6 cm, but was 1.8 cm previous study. There is no left renal mass or cyst. There are no left renal calculi. There is no left hydronephrosis. DISTAL LEFT URETER: There is non-visualization of the distal left ureter. There is no demonstrated left ureterovesical junction calculus. There is a visualized left ureteral jet. BLADDER: The distended urinary bladder has a volume of 121.7 ml. The empty urinary bladder has a volume of 68.8 ml. There is a normal wall thickness of the distended urinary bladder. There is no demonstrated mass within the urinary bladder. There are no demonstrated bladder calculi. US/Kidney and Bladder IMPRESSION: 1. Mild to moderate post void urinary bladder retention, as noted. No hydronephrosis. 2. Bilateral renal measurements are within normal limits, but mildly decreased in size from previous study, raising concern of mild interval atrophy since 2013. Borderline increased renal cortical echogenicity may also reflect long-standing medical renal disease. Electronically Signed: Garrett Kent MD at 14:16 EDT , Service support ,
[2018-03-31 13:24] LABS: CPK Total, Creatine Kinase 177 U/L (26-192)
--- NOTE | 2018-03-31 13:29 | NURSING ---
pt arrived without pt's home medication list. pt's states he will bring it this evening. no accurate medication list in system at this time
--- NOTE | 2018-03-31 13:36 | PCM.CONS.R ---
Consultation - Renal 03/31/18 PCP/ Referring MD: Requesting physician: [] Primary care physician: Jacob Teixeira Reason for Consultation:: DYAN - History of Present Illness History of Present Illness: The patient is a 47 year old female w/ h/o ETOH abuse, polysubstance abuse with tobacco, alcohol, marijuana, left hemispheric stroke, and HTN admitted for alter mental status. She was unable to provide any history. She was unable to recall events. Chart reviewed from [facility] and [facility]. Her spouse at bedside noticed jerking movements since yesterday with confusion and decreased mentation, increased somnolence. She does have a baseline tremor however not as severe as it is now. She has been taking pain medications but unknown amount and name of drug. She has a history of RA. She has been hospitalized frequently for altered mental status, dehydration. MRI brain without acute findings but technically limited due to motion artifact. Creatinine on 02/12 during ER visit was 0.78. Creatinine this admission was elevated at 3.86 improved to 3.27 today, potassium 5.8 improved to 5.2 today with medical therapy. She states she takes potassium supplements with her Lasix. She complains of wheezing and cough. She smokes about 1.5 pack a day. She did notice a drop in her urinary output. Currently receiving IV fluids. Renal US ordered pending report. Home medications include lasix, norco, flexeril, lyrica and abatacept with prednisone for rheumatoid arthritis. Tox screen was positive for cannabinoids and opiates. She admits to forgetting her meds and then takes a double dose. - Allergies Allergies: Allergies progesterone Allergy (Verified 02/12/18 22:32) Itching varenicline tartrate [From Chantix] Allergy (Verified 02/12/18 22:32) Other - Current Medications Current Medications: Current Medications Albuterol/Ipratropium (Duoneb) 3 ml INHALATION Q4H.RT PRN PRN Reason: cough/ SOB Sodium Chloride () 1,000 mls @ 250 mls/hr IV .Q4H TOO Last Admin: 03/31/18 13:29 Dose: Not Given Magnesium Hydroxide (Milk Of Magnesia) 30 ml PO DAILY PRN PRN PRN Reason: Constipation Polyethylene Glycol (Miralax) 34 gm PO X1 PRN PRN Reason: Bowel Movement Sodium Chloride () 5 - 30 ml IV UD PRN PRN Reason: SALINE FLUSH - Past Medical History Past Medical History (Chronic Problems): Chronic Problems Hypertension (Chronic) Tobacco abuse disorder (Chronic) History of rheumatoid arthritis (Chronic) History of fibromyalgia (Chronic) Chronic low back pain (Chronic) History of drug overdose (Chronic) - Past Surgical History Surgical History: total hip arthroplasty, - - Multiple surgeries for left femur due to rheumatoid arthritis and osteoarthritis - Social History Marital Status: Smoking Status: Current every day smoker Alcohol: Occasional Drugs: Marijuana - Family History Maternal History Items: No pertinent history Review of Systems Constitutional: Reports: Weakness, Fatigue. Denies: Anorexia, Chills, Fever Eyes: Denies: Blurred vision HEENT: Denies: Head Aches Cardiovascular: Reports: Light Headedness. Denies: Chest Pain, Edema, Syncope Respiratory: Reports: Wheezing. Denies: Cough, Shortness of Breath Gastrointestinal: Denies: Abdominal Pain, Constipation, Diarrhea, Nausea, Vomiting Genitourinary: Denies: Dysuria, Retention Musculoskeletal: Reports: Foot Pain, Joint Pain - Hips, knees, ankle. History of rheumatoid arthritis., Joint stiffness. Denies: Arm Pain Neurological: Reports: Confusion, Tremor - Jerking movements, - - Altered mental status Psychiatric: Reports: Anxiety Endocrine: Denies: Change in Body Habitus Hematologic/ Lymphatic: Denies: Anemia, Petechiae Patient Problems: Active and Suspected Problems Mental confusion (Acute) ARF (acute renal failure) (Acute) - Physical Exam General: Alert, Oriented x3, Cooperative, No apparent distress, Well developed, Well nourished, - - Jerking movements in her upper extremity HEENT: PERRLA, EOMI Oral: Dry Mucosa Neck: Supple, No JVD Lungs: Wheezes Cardiovascular: Regular rate, No rub noted Abdomen: Bowel Sounds Present, Soft, Non Tender, Non-Distended, Obese Extremities: No edema Skin: No rashes Musculoskeletal: No Muscle Wasting Neurological: - - Mild clonic movements of her upper extremity, asterixis Psych/Mental Status: Normal Affect, Appropriate, Alert and oriented to time, place, person, mood and affect Vital Signs Temp Pulse Resp BP Pulse Ox 97.9 F 75 16 136/65 H 93 03/31/18 10:09 03/31/18 11:00 03/31/18 10:03/31/18 10:09 03/31/18 10:09 Oxygen Flow Rate (L/min) 2 Oxygen Delivery Method Room Air Weight: 78 kg Body Mass Index (BMI) 31.4 Intake and Output for Last 24 Hours 03/29/18 03/30/18 03/31/18 23:59 23:59 23:59 Intake Total 1324 / 1324 Balance 1324 / 1324 Laboratory Tests Past 24 Hrs 03/31/18 03/31/18 03/31/18 03:14 03:14 03:14 WBC RBC Hgb Hct MCV MCH MCHC RDW RDW Differential Plt Count MPV Sodium Potassium Chloride Carbon Dioxide Anion Gap BUN Creatinine Estim Creat Clear Calc Est GFR (MDRD) Af Amer Est GFR (MDRD) Non-Af BUN/Creatinine Ratio Glucose Calcium Ammonia 15.0 Total Creatine Kinase Troponin I < 0.015 Vitamin B12 Pending Folate > 100.00 H TSH 0.80 03/31/18 03/31/18 03/31/18 03:14 03:14 03:14 WBC 6.8 RBC 3.64 L Hgb 11.5 L Hct 36.1 L MCV 99.2 H MCH 31.6 MCHC 31.9 L RDW 16.1 H RDW Differential 58.1 H Plt Count 253 MPV 9.1 Sodium 136 Potassium 5.2 H Chloride 101 Carbon Dioxide 26.0 Anion Gap 9 BUN 34 H Creatinine 3.27 H Estim Creat Clear Calc 16.46 Est GFR (MDRD) Af Amer 19 L Est GFR (MDRD) Non-Af 16 L BUN/Creatinine Ratio 10.4 Glucose 85 Calcium 7.4 L Ammonia Total Creatine Kinase 177 Troponin I Vitamin B12 Folate TSH POC Glucose 03/31/18 03/31/18 04:56 04:03 POC Glucose 135 H 83 Assessment/Plan Active and Suspected Problems Mental confusion (Acute) ARF (acute renal failure) (Acute) 1. DYAN suspect due to prerenal azotemia from dehydration. Check urine sodium and creatinine for Fena. Continue with IV hydration. Decrease IV rate to 100 cc/min. Agree with discontinuation of Lasix. Kidney ultrasound report. 2. Altered mental status likely due to polysubstance abuse, narcotics, muscle relaxants in the presence of acute renal failure. 3. Myoclonic movements Suspect due to polysubstance use. 4. Hypertension with low blood pressure continue with hydration. 5. Agree with holding Lasix. 6. Hyperkalemia due to renal failure and potassium supplements. Follow low potassium diet. Kayexalate as needed. 7. Daily labs as ordered.
[2018-03-31 15:27] LABS: Anion Gap 5 (5-15); BUN 27 mg/dL (7-18); BUN/Creat Ratio 15.5 RATIO (10-20); Calcium,Total 7.9 mg/dL (8.5-10.1); Chloride 106 mmol/L (98-107); Creatinine, Serum 1.74 mg/dL (0.55-1.02); EST Glomerular Filtration Rate 33 mL/min (>60); Est Glom Filt Rate - Afr Amer 40 mL/min (>60); Estimated Creatinine Clearance 30.93 ml/min; Glucose 77 mg/dL (74-106); Potassium 5.4 mmol/L (3.5-5.1); Sodium Level 137 mmol/L (136-145)
[2018-03-31] MEDS: 0.9% Normal Saline 1,000 ML 100 ML IV ×2 (15:30→21:23)
[2018-03-31 15:44] LABS: Urine Sodium 69 mmol/L (Not Establ.)
[2018-03-31] MEDS: Sodium Polystyrene Sulfonate 15 GM/60 ML UDC 30 GM PO (17:11)
[2018-03-31] MEDS: Mirtazapine 15 MG Tablet 45 MG PO (21:22)
[2018-03-31] MEDS: Atorvastatin Calcium 80 MG Tablet PO (21:22)
[2018-03-31] MEDS: oxyCODONE CR 15 MG Tablet PO (22:20)
[2018-04-01] VITALS (7 sets, daily range): BP systolic 111–144; BP diastolic 78–97; PULSE 75–85; RESP 16–18; TEMP 36.8; O2SAT 93–97
--- NOTE | 2018-04-01 02:41 | EKG12_ITS ---
Test Reason : AM EKG Blood Pressure : / mmHG Vent. Rate : 075 BPM Atrial Rate : 075 BPM P-R Int : 136 ms QRS Dur : 086 ms QT Int : 356 ms P-R-T Axes : 063 056 061 degrees QTc Int : 397 ms Normal sinus rhythm Normal ECG When compared with ECG of 31-MAR-2018 05:26, MANUAL COMPARISON REQUIRED, DATA IS UNCONFIRMED Confirmed by KARLI LYNN ([id number]), development editor ALICJA VALENTE ([id number] on 04/18/2018 7:25:58 PM Referred By: ARUNA Confirmed By:KARLI LYNN
[2018-04-01] MEDS: 0.9% Normal Saline 1,000 ML 100 ML IV (03:49)
[2018-04-01 07:37] LABS: Albumin, Serum 2.9 g/dL (3.2-5.0); BUN 16 mg/dL (7-18); BUN/Creat Ratio 18.2 RATIO (10-20); Calcium,Total 7.6 mg/dL (8.5-10.1); Chloride 108 mmol/L (98-107); Creatinine, Serum 0.88 mg/dL (0.55-1.02); EST Glomerular Filtration Rate 73 mL/min (>60); Est Glom Filt Rate - Afr Amer 88 mL/min (>60); Estimated Creatinine Clearance 61.16 ml/min; Glucose 70 mg/dL (74-106); Phosphorus 2.5 mg/dL (2.5-4.9); Potassium 4.6 mmol/L (3.5-5.1); Sodium Level 140 mmol/L (136-145)
--- NOTE | 2018-04-01 09:16 | PCM.PN.REN ---
Patient Problems: Active and Suspected Problems Mental confusion (Acute) ARF (acute renal failure) (Acute) Subjective: no complaints. Feeling better. Tremors resolved. Renal fxn back to baseline. Potassium level stable. - Physical Exam General: Alert, Oriented x3, Cooperative Neck: Supple Lungs: Rales - rt base Cardiovascular: Regular rate Abdomen: Bowel Sounds Present, Soft, Non Tender, Non-Distended Extremities: No edema Skin: No rashes Vital Signs Temp Pulse Resp BP Pulse Ox 98.3 F 78 18 111/78 97 04/01/18 03:50 04/01/18 06:54 04/01/18 03:50 04/01/18 03:50 04/01/18 07:52 Oxygen Flow Rate (L/min) 2 Oxygen Delivery Method Nasal Cannula Weight: 78 kg Body Mass Index (BMI) 31.4 Intake and Output for Last 24 Hours 03/30/18 03/31/18 04/01/18 23:59 23:59 23:59 Intake Total 3089 / 3089 1980 Output Total 1100 / 1100 Balance 3089 / 3089 881 / 881 Laboratory Tests Past 24 Hrs 03/31/18 03/31/18 03/31/18 03:14 14:25 14:25 Sodium Potassium Chloride Carbon Dioxide Anion Gap BUN Creatinine Estim Creat Clear Calc Est GFR (MDRD) Af Amer Est GFR (MDRD) Non-Af BUN/Creatinine Ratio Glucose Calcium Phosphorus Total Creatine Kinase 177 Albumin Ur Random Sodium 69 Urine Creatinine 152.00 03/31/18 04/01/18 14:40 02:50 Sodium 137 140 Potassium 5.4 H 4.6 Chloride 106 108 H Carbon Dioxide 26.0 26.0 Anion Gap 5 BUN 27 H 16 Creatinine 1.74 H 0.88 Estim Creat Clear Calc 30.93 61.16 Est GFR (MDRD) Af Amer 40 L 88 Est GFR (MDRD) Non-Af 33 L 73 BUN/Creatinine Ratio 15.5 18.2 Glucose 77 70 L Calcium 7.9 L 7.6 L Phosphorus 2.5 Total Creatine Kinase Albumin 2.9 L Ur Random Sodium Urine Creatinine Medical Necessity - Tobacco Use Smoking Status: Current every day smoker Tobacco Use: Cigarettes Assessment/Plan Active and Suspected Problems Mental confusion (Acute) ARF (acute renal failure) (Acute) 1. DAYN due to prerenal azotemia from dehydration. Kidney ultrasound mildly echogenic kidneys but otherwise stable. Creatinine back to baseline. Ok to dc home from renal standpoint. Continue to hold diuretics and potassium supplements. Follow up with me as needed. 2. Altered mental status likely due to polysubstance abuse, narcotics, muscle relaxants in the presence of acute renal failure. 3. Myoclonic movements resolved due to polysubstance use. 4. Hypertension stable 5. Hyperkalemia due to renal failure and potassium supplements resolved.
[2018-04-01] MEDS: Folic Acid 1 MG Tablet 2 MG PO (09:36)
[2018-04-01] MEDS: Ferrous Sulfate 325 MG Tablet PO (09:36)
[2018-04-01] MEDS: Aspirin 81 MG TAB.CHEW PO (09:36)
[2018-04-01] MEDS: oxyCODONE CR 15 MG Tablet PO (09:37)
[2018-04-01] MEDS: Metoprolol Tartrate 25 MG Tablet 12.5 MG PO (09:37)
[2018-04-01] MEDS: Venlafaxine XR 75 MG Capsule 225 MG PO (09:37)
--- NOTE | 2018-04-01 09:57 | PCM.PN.HOSP ---
Subjective: Patient is a 47-year-old female with a history of alcohol and drug abuse, and history of left hemispheric stroke and hypertension was admitted for altered mental status. Patient was unable to give any history at that time and according to who gives a history that and he had complained that patient was having jerking movements. These have resolved with demonstration of pain meds and does not know how much she took. She was found to be confused and so she was brought into the ED. the head was negative for any acute finding. SHe was managed for altered mental status possibly drug-induced. MRI of the brain requested. Neurology consulted. Patient's also was noted to have AK I which was thought to be likely due to prerenal cause. Nephrology was also consulted. Patient seen and examined this morning. She feels very well. Myoclonic jerks have fully resolved. She denies any fever or chills and feels well enough to go home. She denies any cough shortness of breath, abdominal pain, diarrhea vomiting. Review of systems otherwise negative. Vitals/I&O's: Vital Signs Temp Pulse Resp BP Pulse Ox 98.2 F 85 16 144/97 H 93 04/01/18 09:30 04/01/18 09:37 04/01/18 09:30 04/01/18 09:37 04/01/18 09:30 Oxygen Flow Rate (L/min) 2 Oxygen Delivery Method Room Air Weight: 171 lb 15.369 oz Body Mass Index (BMI) 31.4 Intake and Output for Last 24 Hours 03/30/18 03/31/18 04/01/18 23:59 23:59 23:59 Intake Total 3089 / 3089 1980 Output Total 1100 / 1100 Balance 3089 / 3089 881 / 881 General: Alert, Oriented x3, Cooperative, No apparent distress HEENT: Atraumatic, PERRLA, EOMI, Normocephalic Oral: Moist Mucosa Neck: Supple, No JVD, Negative Carotid Bruits Lungs: Clear to auscultation, Normal air movement, No rhonchi, No wheeze, No rales Cardiovascular: Regular rate, Regular Rhythm, Normal S1, Normal S2, No murmurs Abdomen: Bowel Sounds Present, Soft, Non Tender, Non-Distended, No Hepato-splenomegaly Extremities: No clubbing, No cyanosis, No edema, Capillary Refill Less than 3 Seconds Skin: No rashes, No breakdown Musculoskeletal: No Tenderness to Palpation of Joints or Extremities, No Muscle Wasting Lymphatic: No Cervical, Supraclavicular, or Inguinal Adenopathy Neurological: Cranial nerves II-XII grossly intact, Neuro grossly intact, Motor Exam 5/5 strength throughout, - - Myoclonic jerks have resolved Psych/Mental Status: Normal Affect, Appropriate, Alert and oriented to time, place, person, mood and affect Laboratory Results 03/31/18 03:14: Total Creatine Kinase 177 03/31/18 14:25: Ur Random Sodium 69 03/31/18 14:25: Urine Creatinine 152.00 03/31/18 14:40: Sodium 137, Potassium 5.4 H, Chloride 106, Carbon Dioxide 26.0, Anion Gap 5, BUN 27 H, Creatinine 1.74 H, Estim Creat Clear Calc 30.93, Est GFR (MDRD) Af Amer 40 L, Est GFR (MDRD) Non-Af 33 L, BUN/Creatinine Ratio 15.5, Glucose 77, Calcium 7.9 L 04/01/18 02:50: Sodium 140, Potassium 4.6, Chloride 108 H, Carbon Dioxide 26.0, BUN 16, Creatinine 0.88, Estim Creat Clear Calc 61.16, Est GFR (MDRD) Af Amer 88, Est GFR (MDRD) Non-Af 73, BUN/Creatinine Ratio 18.2, Glucose 70 L, Calcium 7.6 L, Phosphorus 2.5, Albumin 2.9 L Current Medications Hydrocodone Bitart/Acetaminophen ([place] 5mg-325mg) 1 - 2 tablet PO Q4H PRN PRN PRN Reason: SEVERE PAIN (6-10/10) Albuterol Sulfate (Ventolin Aerosols) 2.5 mg INHALATION Q4H PRN PRN PRN Reason: SOB &/OR WHEEZING Albuterol/Ipratropium (Duoneb) 3 ml INHALATION Q4H.RT PRN PRN Reason: cough/ SOB Aspirin (Aspirin, Baby) 81 mg PO DAILY@0800 [facility] Last Admin: 04/01/18 09:36 Dose: 81 mg Atorvastatin Calcium (Lipitor) 80 mg PO QHS [facility] Last Admin: 03/31/18 21:22 Dose: 80 mg Estradiol (Estrace Vaginal Cream) gm VAGINAL DAILY [facility] Last Admin: 04/01/18 09:36 Dose: 325 mg Folic Acid (Folic Acid) 2 mg PO DAILY@0800 [facility] Last Admin: 04/01/18 09:36 Dose: 2 mg Magnesium Hydroxide (Milk Of Magnesia) 30 ml PO DAILY PRN PRN PRN Reason: Constipation Methotrexate (Methotrexate) 20 mg PO Q7D [facility] Metoprolol Tartrate (Lopressor (Beta Prudence)) 12.5 mg PO DAILY [facility] Last Admin: 04/01/18 09:37 Dose: 12.5 mg Mirtazapine (Remeron) 45 mg PO QHS [facility] Last Admin: 03/31/18 21:22 Dose: 45 mg Nicotine (Nicoderm Cq (Pbkc)) 21 mg TRANSDERM. DAILY [facility] Last Admin: 04/01/18 09:38 Dose: Not Given Non-Formulary Medication (Abatacept [Orencia Clickject]) 125 mg SQ QWEEK [facility] Oxycodone HCl (Oxycontin) 15 mg PO BID [facility] Last Admin: 04/01/18 09:37 Dose: 15 mg Polyethylene Glycol (Miralax) 34 gm PO X1 PRN PRN Reason: Bowel Movement Sodium Chloride () 5 - 30 ml IV UD PRN PRN Reason: SALINE FLUSH Venlafaxine HCl (Effexor Xr) 225 mg PO DAILY [facility] Last Admin: 04/01/18 09:37 Dose: 225 mg Medical Necessity - Tobacco Use Smoking Status: Current every day smoker Tobacco Use: Cigarettes Assessment/Plan 47-year-old female with a history of alcohol abuse, drug abuse, history of left hemispheric stroke with no residual effects and hypertension. She was admitted for altered mental status. CT of head was negative. MRI brain showed only involutional changes fo the brain; no evidence of acute infarct 1. Altered mental status likely drug-induced resolved. Stroke ruled out with negative CT head and MRI brain patient currently AO x 3. will monitor 2. Acute renal failure with hyperkalemia, likely due to prerenal causes. resolving. CR down to baseline; was 3.86 on admission; now down to 0.88 today renal ultrasounds showed mild reduction in kidney size consistent with medical renal disease. hyperkalemia has resolved; K today is 4.7 nephrology on board. OK to dc from their standpoint. 3. Hyperkalemia resolved with administration of kayexalate. K today is 4.6 will dc lisinopril permanently and start losartan. will monitor; 4. Myoclonic jerks likely due to DYAN and azotemia resolved. 5. HTN: fairly controlled. on metoprolol. lisinopril dced. Will start losartan 25mg daily. Lasix also dced for now, per discussion with nephro. To folow up with PCP and title i director on outpatient basis to decide whether to resume it or not. 6. Rheumatoid arthritis: stable. on methotrexate 7.History of left hemispheric stroke: no residual effects. 7. DVT prophylaxis: heparin Disposition: DC home today to follow-up with PCP and title i director. This note was generated with [employer] dictation software. It may contain incorrect words, spelling, and punctuation that were not noted in checking the note before signing. Code Visit Inpatient E&M: 21915 Subs Hosp L3
--- NOTE | 2018-04-01 10:07 | PN_ITS ---
Subjective: Patient is a 47-year-old female with a history of alcohol and drug abuse, and history of left hemispheric stroke and hypertension was admitted for altered mental status. Patient was unable to give any history at that time and according to who gives a history that and he had complained that patient was having jerking movements. These have resolved with demonstration of pain meds and does not know how much she took. She was found to be confused and so she was brought into the ED. the head was negative for any acute finding. SHe was managed for altered mental status possibly drug-induced. MRI of the brain requested. Neurology consulted. Patient's also was noted to have AK I which was thought to be likely due to prerenal cause. Nephrology was also consulted. Patient seen and examined this morning. She feels very well. Myoclonic jerks have fully resolved. She denies any fever or chills and feels well enough to go home. She denies any cough shortness of breath, abdominal pain, diarrhea vomiting. Review of systems otherwise negative. Vitals/I&O's: Vital Signs Temp Pulse Resp BP Pulse Ox 98.2 F 85 16 144/97 H 93 04/01/18 09:30 04/01/18 09:37 04/01/18 09:30 04/01/18 09:37 04/01/18 09:30 Oxygen Flow Rate (L/min) 2 Oxygen Delivery Method Room Air Weight: 171 lb 15.369 oz Body Mass Index (BMI) 31.4 Intake and Output for Last 24 Hours 03/30/18 03/31/18 04/01/18 23:59 23:59 23:59 Intake Total 3089 / 3089 1980 Output Total 1100 / 1100 Balance 3089 / 3089 881 / 881 General: Alert, Oriented x3, Cooperative, No apparent distress HEENT: Atraumatic, PERRLA, EOMI, Normocephalic Oral: Moist Mucosa Neck: Supple, No JVD, Negative Carotid Bruits Lungs: Clear to auscultation, Normal air movement, No rhonchi, No wheeze, No rales Cardiovascular: Regular rate, Regular Rhythm, Normal S1, Normal S2, No murmurs Abdomen: Bowel Sounds Present, Soft, Non Tender, Non-Distended, No Hepato- splenomegaly Extremities: No clubbing, No cyanosis, No edema, Capillary Refill Less than 3 Seconds Skin: No rashes, No breakdown Musculoskeletal: No Tenderness to Palpation of Joints or Extremities, No Muscle Wasting Lymphatic: No Cervical, Supraclavicular, or Inguinal Adenopathy Neurological: Cranial nerves II-XII grossly intact, Neuro grossly intact, Motor Exam 5/5 strength throughout, - - Myoclonic jerks have resolved Psych/Mental Status: Normal Affect, Appropriate, Alert and oriented to time, place, person, mood and affect Laboratory Results 03/31/18 03:14: Total Creatine Kinase 177 03/31/18 14:25: Ur Random Sodium 69 03/31/18 14:25: Urine Creatinine 152.00 03/31/18 14:40: Sodium 137, Potassium 5.4 H, Chloride 106, Carbon Dioxide 26.0, Anion Gap 5, BUN 27 H, Creatinine 1.74 H, Estim Creat Clear Calc 30.93, Est GFR (MDRD) Af Amer 40 L, Est GFR (MDRD) Non-Af 33 L, BUN/Creatinine Ratio 15.5, Glucose 77, Calcium 7.9 L 04/01/18 02:50: Sodium 140, Potassium 4.6, Chloride 108 H, Carbon Dioxide 26.0, BUN 16, Creatinine 0.88, Estim Creat Clear Calc 61.16, Est GFR (MDRD) Af Amer 88 , Est GFR (MDRD) Non-Af 73, BUN/Creatinine Ratio 18.2, Glucose 70 L, Calcium 7.6 L, Phosphorus 2.5, Albumin 2.9 L Current Medications Hydrocodone Bitart/Acetaminophen ([place] 5mg-325mg) 1 - 2 tablet PO Q4H PRN PRN PRN Reason: SEVERE PAIN (6-10/10) Albuterol Sulfate (Ventolin Aerosols) 2.5 mg INHALATION Q4H PRN PRN PRN Reason: SOB &/OR WHEEZING Albuterol/Ipratropium (Duoneb) 3 ml INHALATION Q4H.RT PRN PRN Reason: cough/ SOB Aspirin (Aspirin, Baby) 81 mg PO DAILY@0800 [facility] Last Admin: 04/01/18 09:36 Dose: 81 mg Atorvastatin Calcium (Lipitor) 80 mg PO QHS [facility] Last Admin: 03/31/18 21:22 Dose: 80 mg Estradiol (Estrace Vaginal Cream) gm VAGINAL DAILY [facility] ([facility]) [facility] Last Admin: 04/01/18 09:36 Dose: 325 mg Folic Acid (Folic Acid) 2 mg PO DAILY@0800 [facility] Last Admin: 04/01/18 09:36 Dose: 2 mg Magnesium Hydroxide (Milk Of Magnesia) 30 ml PO DAILY PRN PRN PRN Reason: Constipation Methotrexate (Methotrexate) 20 mg PO Q7D [facility] Metoprolol Tartrate (Lopressor (Beta Prudence)) 12.5 mg PO DAILY [facility] Last Admin: 04/01/18 09:37 Dose: 12.5 mg Mirtazapine (Remeron) 45 mg PO QHS [facility] Last Admin: 03/31/18 21:22 Dose: 45 mg Nicotine (Nicoderm Cq (Pbkc)) 21 mg TRANSDERM. DAILY [facility] Last Admin: 04/01/18 09:38 Dose: Not Given Non-Formulary Medication (Abatacept [Orencia Clickject]) 125 mg SQ QWEEK [facility] Oxycodone HCl (Oxycontin) 15 mg PO BID [facility] Last Admin: 04/01/18 09:37 Dose: 15 mg Polyethylene Glycol (Miralax) 34 gm PO X1 PRN PRN Reason: Bowel Movement Sodium Chloride () 5 - 30 ml IV UD PRN PRN Reason: SALINE FLUSH Venlafaxine HCl (Effexor Xr) 225 mg PO DAILY [facility] Last Admin: 04/01/18 09:37 Dose: 225 mg Medical Necessity - Tobacco Use Smoking Status: Current every day smoker Tobacco Use: Cigarettes Assessment/Plan 47-year-old female with a history of alcohol abuse, drug abuse, history of left hemispheric stroke with no residual effects and hypertension. She was admitted for altered mental status. CT of head was negative. MRI brain showed only involutional changes fo the brain; no evidence of acute infarct 1. Altered mental status likely drug-induced * resolved. Stroke ruled out with negative CT head and MRI brain * patient currently AO x 3. * will monitor * * 2. Acute renal failure with hyperkalemia, * likely due to prerenal causes. * resolving. * CR down to baseline; was 3.86 on admission; now down to 0.88 today * renal ultrasounds showed mild reduction in kidney size consistent with medical renal disease. * hyperkalemia has resolved; K today is 4.7 * nephrology on board. OK to dc from their standpoint. * 3. Hyperkalemia * resolved with administration of kayexalate. K today is 4.6 * will dc lisinopril permanently and start losartan. * will monitor; * 4. Myoclonic jerks likely due to DYAN and azotemia * resolved. * * 5. HTN: * fairly controlled. on metoprolol. * lisinopril dced. Will start losartan 25mg daily. Lasix also dced for now, per discussion with nephro. To folow up with PCP and melt house supervisor on outpatient basis to decide whether to resume it or not. * 6. Rheumatoid arthritis: stable. on methotrexate 7.History of left hemispheric stroke: no residual effects. 7. DVT prophylaxis: heparin Disposition: DC home today to follow-up with PCP and melt house supervisor. This note was generated with [employer] dictation software. It may contain incorrect words, spelling, and punctuation that were not noted in checking the note before signing. Code Visit Inpatient E&M: 77914 Subs Hosp L3
--- NOTE | 2018-04-01 10:15 | DCINST_ITS ---
- Discharge Diagnoses Current Active Problems: Current Active and Chronic Problems Mental confusion (Acute) ARF (acute renal failure) (Acute) You will use the following diet at home:: Cardiac Your food should be the consistency of: Regular Your liquids should be the consistency of: Regular/Thin Discharge Activity: Return to Normal Activity May resume sexual activity in: No Restrictions Weight Bearing Status: Weight bearing as tolerated Instructions: ED Confusion, ED Altered Loc, Healthy Kidneys, Kidney Disease: Eating Less Sodium Allergies/Adverse Reactions: Allergies progesterone Allergy (Verified 02/12/18 22:32) Itching varenicline tartrate [From Chantix] Allergy (Verified 02/12/18 22:32) Other Medications to take at Discharge Venlafaxine XR [Effexor Xr] 225 mg PO DAILY 01/08/14 Hydrocodone Bitart/Apap 5-325 [[place] 5/325] 1 - 2 tablet PO Q4H PRN PRN #30 tablet 04/07/14 Abatacept [Orencia Clickject] 125 mg SQ QWEEK 11/12/16 Mirtazapine [Remeron Orally Disintegrating] 45 mg PO QHS 11/12/16 Albuterol Inhaler [Ventolin Hfa (SP)] 2 puff INHALATION Q4H PRN PRN 03/31/18 Aspirin 81 mg PO DAILY 03/31/18 Atorvastatin Calcium [Lipitor] 80 mg PO QHS 03/31/18 Esomeprazole Mag Trihydrate [Nexium] 40 mg PO DAILY 03/31/18 Estradiol [Estrace Vaginal Cream] 1 dose VAGINAL DAILY 03/31/18 Ferrous Sulfate [Iron] 1 tablet PO DAILY 03/31/18 Folic Acid 2 mg PO DAILY@0800 03/31/18 Methotrexate 20 mg PO Q7D 03/31/18 Metoprolol Tartrate [Lopressor (beta fan)] 12.5 mg PO DAILY 03/31/18 Nicotine [Nicotine Patch] 1 each TD DAILY 03/31/18 Oxycodone Myristate [Xtampza ER] 13.5 mg PO BID 03/31/18 Losartan Potassium [Cozaar] 25 mg PO DAILY #30 tab 04/01/18 The following prescriptions were given: Losartan Potassium [Cozaar] 25 mg PO DAILY #30 tab Primary Care Physician: Jacob Teixeira DO [Primary Care Provider] - Please follow up with your Primary Care Physician in: two weeks Please Follow Up With: Yamila Perkins DO When: two weeks Proposed Discharge Date: 04/01/18
--- NOTE | 2018-04-01 10:16 | DS.PCM_ITS ---
Discharge Date and Diagnosis Date of Admission: 03/31/18 Date of Discharge: 04/01/18 - Primary Discharge Diagnosis Active and Suspected Problems Mental confusion (Acute) likely drug induced ARF (acute renal failure) (Acute) - Secondary Discharge Diagnosis Chronic Problems Hypertension (Chronic) Tobacco abuse disorder (Chronic) History of rheumatoid arthritis (Chronic) History of fibromyalgia (Chronic) Chronic low back pain (Chronic) History of drug overdose (Chronic) Hospital Course and Treatment Imaging Results: Diagnostic Data Brain CT 03/31/18 00:37 IMPRESSION: 1. Sequela of large right middle cerebral artery territory infarct with moderate involutional changes which have progressed since the previous CT. 2. No CT evidence of acute intracranial hemorrhage. Electronically Signed: Verna Manzano MD at 1:43 EDT , Service support , Brain MRI 03/31/18 03:40 IMPRESSION: 1. Involutional changes of the brain, as described above. 2. Technically limited MRI due to patient motion. 3. No MR evidence for acute infarct. Electronically Signed: Verna Manzano MD at 10:34 EDT , Service support , Renal Ultrasound 03/31/18 11:44 IMPRESSION: 1. Mild to moderate post void urinary bladder retention, as noted. No hydronephrosis. 2. Bilateral renal measurements are within normal limits, but mildly decreased in size from previous study, raising concern of mild interval atrophy since 2013. Borderline increased renal cortical echogenicity may also reflect long-standing medical renal disease. Electronically Signed: Garrett Kent MD at 14:16 EDT , Service support , nephrology Operations: None, - - left DFO, allograft to lateral femoral condyle Procedures: None Summary of Care Provided: Patient is a 47-year-old female with a history of alcohol and drug abuse, and history of left hemispheric stroke and hypertension was admitted for altered mental status on 03/31/18. Patient was unable to give any history at that time. said she had been having associated jerky movements which resolved with taking pain meds that he could not tell exactly how much she took. CT head was ngative for any acute intracranial pathology. MRI was also negative. She was noted to have DYAN with Cr being 3.86 on admission. UA was positive for blood, but no rbc's, and ALP was slightly elevated at 126. A suspicion of rhabdomyolysis was entertained, but this was ruled out with CPK level of ~ 177. Nephrology was consulted, and Cr trended down with IVF resuscitation. Patient's baclofen, lyrica, lisinopril and lasix were held o/a of altered mental status likely due to drugs, and DYAN. Cr trended down to 0.74, altered mental status resolved and patient remained stable. She had hyperkalemia due to Dyan, with K peaking at 5.8, and resolving with administration of kayexalate. At time of discharge, K was 4.6. Renal ultrasound showed mildly decreased renal measurements bilaterally, but still within normal limits and borderline increased renal cortical echogenicity, reflecting long standing medical renal disease. Lisinopril was permanently discontinued o/a of hyperkalemia and patient was started on losartan 25mg daily at discharge. Baclofen and lyrica were also discontinued at discharge. Patient counseled extensively on stoppage of lyrica and baclofen due to altered mental status. She was discharged home on 04/01/18. She is to follow up with her PCP and pediatric neuropsychologist. Discharge Diet: - - cardiac diet Discharge Activity: Return to Normal Activity May resume sexual activity in: No Restrictions Weight Bearing Status: Weight bearing as tolerated Home Medications: Medications to take at Discharge Venlafaxine XR [Effexor Xr] 225 mg PO DAILY 01/08/14 Hydrocodone Bitart/Apap 5-325 [[place] 5/325] 1 - 2 tablet PO Q4H PRN PRN #30 tablet 04/07/14 Abatacept [Orencia Clickject] 125 mg SQ QWEEK 11/12/16 Mirtazapine [Remeron Orally Disintegrating] 45 mg PO QHS 11/12/16 Albuterol Inhaler [Ventolin Hfa (SP)] 2 puff INHALATION Q4H PRN PRN 03/31/18 Aspirin 81 mg PO DAILY 03/31/18 Atorvastatin Calcium [Lipitor] 80 mg PO QHS 03/31/18 Esomeprazole Mag Trihydrate [Nexium] 40 mg PO DAILY 03/31/18 Estradiol [Estrace Vaginal Cream] 1 dose VAGINAL DAILY 03/31/18 Ferrous Sulfate [Iron] 1 tablet PO DAILY 03/31/18 Folic Acid 2 mg PO DAILY@0800 03/31/18 Methotrexate 20 mg PO Q7D 03/31/18 Metoprolol Tartrate [Lopressor (beta fan)] 12.5 mg PO DAILY 03/31/18 Nicotine [Nicotine Patch] 1 each TD DAILY 03/31/18 Oxycodone Myristate [Xtampza ER] 13.5 mg PO BID 03/31/18 Losartan Potassium [Cozaar] 25 mg PO DAILY #30 tab 04/01/18 Following Prescrptions Were Given to Patient: Losartan Potassium [Cozaar] 25 mg PO DAILY #30 tab Primary Care Physician: Jacob Teixeira DO [Primary Care Provider] - Please follow up with your Primary Care Physician in: two weeks Please Follow Up With: Yamila Perkins DO When: two weeks Patient Instructions: Healthy Kidneys, Kidney Disease: Eating Less Sodium, ED Altered Loc, ED Confusion Minutes spent on discharge:: 40 Patient Condition:: Good Medical Necessity - Tobacco Use Smoking Status: Current every day smoker Tobacco Use: Cigarettes Meaningful Use Info Meaningful Use Diagnoses (Choose all that apply): None applicable Code Visit Inpatient E&M: 54887 Disch Hosp
[2018-04-02 13:15] LABS: Vitamin B12 225 pg/mL (211-911)
--- NOTE | 2018-04-05 16:10 | CASEMGMT ---
RN NOVA Discharge F/U phone call Lace: 10 Strata: 3 Call date: 04/05/18 Discharge Date: 04/01/18 Time of Call: 1610 Attempted and no answer at this time, message left for pt to call this RN NOVA back. SStaten IRIS BHATT
== END 2018-04-01 13:00 | disposition home or self-care (01) | DRG 684 ==
LOC: ED 23:36 → PCU 03-31 02:30
PROVIDERS: Internal Medicine Nephrology; Admitting Provider Internal Medicine; Emergency Provider Emergency Medicine; Family Provider Student in an Organized Health Care Education/Training Program; PCP Student in an Organized Health Care Education/Training Program; Visit Provider Student in an Organized Health Care Education/Training Program
DX: N17.9 Acute kidney failure, unspecified (principal); R41.82 Altered mental status, unspecified; M79.7 Fibromyalgia; I10 Essential (primary) hypertension; M06.9 Rheumatoid arthritis, unspecified; F17.210 Nicotine dependence, cigarettes, uncomplicated; E87.5 Hyperkalemia; E86.0 Dehydration; M54.5 Low back pain; G89.29 Other chronic pain; F12.10 Cannabis abuse, uncomplicated; F10.10 Alcohol abuse, uncomplicated; Y90.0 Blood alcohol level of less than 20 mg/100 ml; F11.10 Opioid abuse, uncomplicated; Z86.73 Personal history of transient ischemic attack (TIA), and cerebral infarction without residual deficits; Z86.59 Personal history of other mental and behavioral disorders; Z79.82 Long term (current) use of aspirin; Z79.899 Other long term (current) drug therapy; G25.3 Myoclonus
CPT/HCPCS: 36415; 70450; 70551; 76770; 80048; 80053; 80069; 80307; 80320; 81001; 82140; 82550; 82570; 82607; 82746; 82962; 83605; 84300; 84443; 84484; 85025; 85027; 85610; 85730; 87040; 87086; 87088; 93005; 96361; 96365; 96375; 97162; 97166; 99218; 99284; 99406; J7030; J7040; J7050; P9612; G0378; G0480; J0610; J3490

== ENCOUNTER → 2018-04-10 10:55 | Outpatient (CLI) | payer OTHER, SELFPAY ==
--- NOTE | 2018-04-10 10:55 | DT_ITS ---
This patient was seen during an EMR downtime April 09, 2018 - April 16, 2018. This patient may have a combination of paper and electronic documentation or all paper documentation. All documentation is viewable within the e-chart portion of [employer] for each patient visit.
[2018-04-16 17:19] LABS: BUN 17 mg/dL (7-18); BUN/Creat Ratio 19.5 RATIO (10-20); Creatinine, Serum 0.87 mg/dL (0.55-1.02); EST Glomerular Filtration Rate 74 mL/min (>60); Est Glom Filt Rate - Afr Amer 90 mL/min (>60); Glucose 111 mg/dL (74-106); Protein, Total 7.9 g/dL (6.4-8.2)
[2018-04-16 17:20] LABS: ALB/GLOB Ratio 0.9 RATIO (0.9-2.4); AST(SGOT) 25 U/L (15-37); Alanine Aminotransfer ALT/SGPT 27 U/L (13-56); Albumin, Serum 3.7 g/dL (3.2-5.0); Alkaline Phosphatase 117 U/L (45-117); Anion Gap 10 (5-15); Calcium,Total 9.3 mg/dL (8.5-10.1); Chloride 101 mmol/L (98-107); Globulin 4.2 g/dL (2.2-4.2); Potassium 4.6 mmol/L (3.5-5.1); Sodium Level 141 mmol/L (136-145)
[2018-04-16 17:49] LABS: Hematocrit 44.6 % (37-47); Hemoglobin 14.2 g/dl (12.0-15.0); Mean Corp Hgb Conc 31.8 g/gl (32-36); Mean Corpuscular Hgb 31.4 pg (27.0-32.0); Mean Corpuscular Volume 98.7 fL (81-99); RBC Distribution Width CV 15.8 % (11.6-14.6); Red Blood Count 4.52 M/mm3 (4.2-5.4); White Blood Count 13.1 K/mm3 (4.4-11.0)
[2018-04-16 17:50] LABS: Absolute Lymphocyte Count 1.77 X10^3/ul (0.83-4.51); Absolute Neutrophil Count 9.7 X10^3/uL (2.0-7.7); Basophil# 0.04 X10^3/uL; Basophil% 0.3 % (0-1); Eosinophil# 0.06 X10^3/uL; Eosinophils% 0.5 % (0-5); Lymphocyte # 1.77 X10^3/ul (4.0); Lymphocyte % 13.5 % (19-41); Mean Platelet Vol. 9.5 fl (6.2-12.0); Monocyte# 1.47 X10^3/uL; Monocyte% 11.2 % (0-10); Neutrophil # 9.72 X10^3/uL (2.7-7.7); POSITIVE COUNT NO; POSITIVE DIFFERENTIAL NO; POSITIVE MORPHOLOGY NO; Platelet Count 351 K/mm3 (150-450); RBC Distribution Width SD 56.1 fl (35.1-43.9)
== END ==
PROVIDERS: Family Provider Student in an Organized Health Care Education/Training Program; PCP Student in an Organized Health Care Education/Training Program; Visit Provider Internal Medicine Rheumatology
DX: M06.09 Rheumatoid arthritis without rheumatoid factor, multiple sites (principal); Z79.899 Other long term (current) drug therapy; M79.7 Fibromyalgia; J45.909 Unspecified asthma, uncomplicated; I63.8 Other cerebral infarction; E11.9 Type 2 diabetes mellitus without complications
CPT/HCPCS: 36415; 80053; 85025

== ENCOUNTER 2018-04-23 17:17 | Inpatient (IN) | payer OTHER, SELFPAY ==
[2018-04-23] VITALS (11 sets, daily range): BP systolic 60–124; BP diastolic 48–65; PULSE 103–152; RESP 20–27; TEMP 36.6–37.2; O2SAT 94–98; BMI 29.7; BMI 29.8
[2018-04-23] MEDS: 0.9% Normal Saline 1,000 ML 1000 ML IV (18:10)
[2018-04-23] MEDS: 0.9% Normal Saline 1,000 ML 999 ML IV ×2 (18:10→19:00)
--- NOTE | 2018-04-23 18:12 | EKG12_ITS ---
Test Reason : Blood Pressure : / mmHG Vent. Rate : 104 BPM Atrial Rate : 104 BPM P-R Int : 122 ms QRS Dur : 090 ms QT Int : 364 ms P-R-T Axes : 064 074 078 degrees QTc Int : 478 ms Sinus tachycardia Otherwise normal ECG Confirmed by REJI OWENS, MARCIANO ([id number]), writer editor ALICJA VALENTE ([id number] on 04/25/2018 3:36:13 PM Referred By: Ariella Guillermo Confirmed By:MARCIANO MENDOZA MD
--- NOTE | 2018-04-23 18:22 | CT_ITS ---
STUDY: CT ABDOMEN AND PELVIS WITHOUT CONTRAST REASON FOR EXAM: Female, 47 years old. Right-sided abdominal pain and diarrhea x1 week RADIATION DOSAGE (If Supplied By Facility): CTDIvol = ( 12.52 ) mGy, DLP = ( 1024.33 ) mGycm TECHNIQUE: Transaxial images were obtained from the dome of the diaphragm to the symphysis pubis without oral contrast, and without intravenous contrast. Sagittal and coronal images were reconstructed. Individualized dose optimization techniques were used for this CT. COMPARISON: None. FINDINGS: The study is limited, being performed without oral and intravenous contrast. The visualized lung bases are unremarkable. The visualized portions of the heart are within normal limits. Normal liver. Normal gallbladder and extrahepatic biliary system. Normal spleen. Normal pancreas. Normal bilateral adrenal glands. Normal right kidney. Normal left kidney. There is a small hiatal hernia. There is mild dilatation with air-fluid levels of several loops of proximal small bowel. The distal small bowel appears normal. Normal colon. There is non-visualization of the appendix. There are calcified plaques of the abdominal aorta. Normal inferior vena cava. Normal retroperitoneum. The majority of the pelvic images are limited due to scanning artifact caused by bilateral hip implants. The urinary bladder is poorly visualized. There is a small umbilical hernia containing fat. Bilateral hip implants are noted. There is minimal endplate spondylosis of the lumbar vertebrae. CT/Abdomen/Pelvis without Cont IMPRESSION: 1. Small hiatal hernia. 2. Mild dilatation with air-fluid levels of several loops of proximal small bowel. This may represent a mild focal ileus. 3. Limited evaluation of pelvic structures due to artifact caused by bilateral hip replacements. 4. Small fat-containing umbilical hernia. 5. There is no evidence of free intra-abdominal or intrapelvic air or fluid. Electronically Signed: Hipolito Monteiro MD at 20:44 EDT , Service support ,
--- NOTE | 2018-04-23 18:23 | RAD_ITS ---
STUDY: X-RAY CHEST REASON FOR EXAM: Female, 47 years old. Low blood pressure TECHNIQUE: Frontal and lateral views COMPARISON: September 02, 2017 FINDINGS: The lungs are clear and expanded. There is no demonstrated pleural abnormality. Normal size heart. Normal mediastinum and audrey. Normal visualized pulmonary arteries. Normal visualized aortic arch and descending thoracic aorta. Degenerative changes of the thoracic spine. Normal visualized ribs, clavicles, and shoulders. There is no demonstrated abnormality of the visualized soft tissue structures of the upper abdomen. RAD/Chest PA and Lateral IMPRESSION: Normal x-ray examination of the chest. Electronically Signed: Chaitanya Mace DO at 19:55 EDT Tel [phone], Service support ,
--- NOTE | 2018-04-23 18:24 | ED.VISSUMM ---
- ER Visit Summary Date of Service: 04/23/18 Chief Complaint: [Dizziness] History of Present Illness: The patient is a 47 F [who presents the emergency department with 4-5 days of dizziness. She has been having copious loose watery diarrhea nonbloody for the past 4-5 days. For a while it was every 10 minutes. No nausea or vomiting. She has lower abdominal pain and cramping. No fevers or chills. She states that she feels dizzy and sometimes her vision gets blurry and she fell 6 times today.] Physical Examination: [] Pressure 70 systolic heart rate 118 no fever WN WD NAD PERRL EOMI Dry mucous membranes NECK supple and nontender, no masses RRR no murmur rub or gallop, no peripheral edema, symmetric radial pulses End expiratory wheezing no respiratory distress ABDOMEN is soft tenderness in the suprapubic and right lower quadrant, normal bowel sounds, no distension, no rebound or guarding SKIN perirectal excoriation of the skin with no open wounds or abscesses Alert and Oriented x3, CN II-XII in tact, no motor or sensory deficits, gait normal No lymphadenopathy Test Results: [] Emergency Department Course and Treatment: [Given fluids. Patient was given 3 L of fluids. Blood pressure did improve. Heart rate did improve. She had a leukocytosis of 13.3. CT showed ileus. Urinalysis is pending. Barrier cream was placed around the rectum for her excoriation. Labs were significant for acute renal failure with creatinine of 2.95. We were unable to obtain lactic acid. I do think the patient likely has hypotension and acute renal failure from severe dehydration from her diarrhea. Enteric stool culture is pending. She will be admitted to the hospital.] Treatment Plan: [] Disposition: [Admit] Impression: [1. Diarrhea 2. Acute renal failure 3. Hypotension fluid responsive] This note was generated with [employer] dictation software. It may contain incorrect words, spelling, and punctuation that were not noted in review of the chart prior to signing ED Disposition - Plan for ED Patient: Chief Complaint: Dizziness Referrals: Jacob Teixeira DO [Primary Care Provider] -
[2018-04-23 18:51] LABS: Absolute Lymphocyte Count 0.76 X10^3/ul (0.83-4.51); Absolute Neutrophil Count 11.3 X10^3/uL (2.0-7.7); Basophil# 0.01 X10^3/uL; Basophil% 0.1 % (0-1); Eosinophil# 0.02 X10^3/uL; Eosinophils% 0.2 % (0-5); Hematocrit 38.8 % (37-47); Hemoglobin 12.7 g/dl (12.0-15.0); Lymphocyte # 0.76 X10^3/ul (4.0); Lymphocyte % 5.7 % (19-41); Mean Corp Hgb Conc 32.7 g/gl (32-36); Mean Corpuscular Hgb 31.4 pg (27.0-32.0); Mean Corpuscular Volume 95.8 fL (81-99); Mean Platelet Vol. 9.6 fl (6.2-12.0); Monocyte# 1.13 X10^3/uL; Monocyte% 8.5 % (0-10); Neutrophil # 11.32 X10^3/uL (2.7-7.7); Neutrophil % 85.1 % (47-70); POSITIVE COUNT NO; POSITIVE DIFFERENTIAL NO; POSITIVE MORPHOLOGY NO; Platelet Count 175 K/mm3 (150-450); RBC Distribution Width CV 15.3 % (11.6-14.6); RBC Distribution Width SD 53.2 fl (35.1-43.9); Red Blood Count 4.05 M/mm3 (4.2-5.4); White Blood Count 13.3 K/mm3 (4.4-11.0)
[2018-04-23 19:14] LABS: ALB/GLOB Ratio 0.9 RATIO (0.9-2.4); AST(SGOT) 34 U/L (15-37); Alanine Aminotransfer ALT/SGPT 25 U/L (13-56); Albumin, Serum 3.1 g/dL (3.2-5.0); Alkaline Phosphatase 80 U/L (45-117); Anion Gap 9 (5-15); BUN 19 mg/dL (7-18); BUN/Creat Ratio 6.4 RATIO (10-20); Calcium,Total 7.8 mg/dL (8.5-10.1); Chloride 99 mmol/L (98-107); Creatinine, Serum 2.95 mg/dL (0.55-1.02); EST Glomerular Filtration Rate 18 mL/min (>60); Est Glom Filt Rate - Afr Amer 22 mL/min (>60); Estimated Creatinine Clearance 19.08 ml/min; Globulin 3.4 g/dL (2.2-4.2); Glucose 100 mg/dL (74-106); Potassium 3.4 mmol/L (3.5-5.1); Protein, Total 6.5 g/dL (6.4-8.2); Sodium Level 133 mmol/L (136-145)
--- NOTE | 2018-04-23 19:25 | NURSING ---
LAB CALLED WITH POSITIVE OCCULT BLOOD - IRIS HONEYCUTT NOTIFIED
--- NOTE | 2018-04-23 20:02 | ED.RN ---
NOTIFIED OF THE PT LACTIC OF 2.0
[2018-04-23 20:19] LABS: Bacteria 0 SEEN /hpf (None Seen); Mucous, Urine 0 SEEN /hpf (<or=2+); White Blood Cells 0 SEEN /hpf (0-5)
[2018-04-23 20:20] LABS: Color, Urine Yellow (Yellow); Glucose, Dipstick Normal (Normal); Ketone-Dipstick Negative (Negative); Leukocyte Esterase-Dipstick 25 /ul (Negative); Nitrite-Dipstick Negative (Negative); Occult Blood-Urine 150 /ul (Negative); Protein-Dipstick 30 mg/dl (Negative); Specific Gravity, Urine 1.005 (1.002-1.030); Urine Bilirubin Dipstick Negative (Negative); Urine Clarity Clear (Clear); Urine Urobilinogen Normal (Normal); Urine pH 6.5 (5.0 - 8.0)
--- NOTE | 2018-04-23 20:31 | ED.RN ---
lab called and stated the lactic acid level was too clotted at this time and unable to give results. Previous results are not correct and should be disregarded. At this time well will not attempt to redraw. Dr. Dumont made aware of this.
[2018-04-23] MEDS: 0.9% Normal Saline 1,000 ML 150 ML IV (21:06)
[2018-04-23 21:11] LABS: Red Blood Cells-Urine 0-5 SEEN /hpf (0-5); Squamous Epithelial Cells - UA 0-5 SEEN /hpf (5-10)
--- NOTE | 2018-04-23 21:26 | HP.PCM_ITS ---
Problem List (1) Diarrhea Status: Acute Qualifiers: Diarrhea type: presumed infectious Qualified Code(s): R19.7 - Diarrhea, unspecified (2) ARF (acute renal failure) Status: Acute Qualifiers: Acute renal failure type: unspecified Qualified Code(s): N17.9 - Acute kidney failure, unspecified (3) Tobacco abuse disorder Status: Chronic (4) History of rheumatoid arthritis Status: Chronic (5) History of fibromyalgia Status: Chronic (6) Chronic low back pain Status: Chronic History of Present Illness Date of Admission: 04/23/18 Chief Complaint: DIARRHEA, DIZZY The patient is a 47 year old female patient who presents to the ER with the chief complaint of diarrhea. Onset of this began five days ago with several loose stools daily. She denies travel or sick contacts. No recent antibiotic exposure either. She has fallen six times today and was dizzy and having blurry vision as a result of her dehydration. Kidney function shows acute renal failure and she is starting to feel better with IV hydration. She will be admitted for observation for IV hydration. Past Medical History Past Medical History (Chronic Problems): Chronic Problems Hypertension (Chronic) Tobacco abuse disorder (Chronic) History of rheumatoid arthritis (Chronic) History of fibromyalgia (Chronic) Chronic low back pain (Chronic) History of drug overdose (Chronic) Allergies progesterone Allergy (Verified 04/23/18 17:18) Itching varenicline tartrate [From Chantix] Allergy (Verified 04/23/18 17:18) Other Home Medications: Ambulatory Orders Medication Instructions Recorded Venlafaxine XR [Effexor Xr] 225 mg PO DAILY 01/08/14 Abatacept [Orencia Clickject] 125 mg SQ QWEEK 11/12/16 Mirtazapine [Remeron Orally 45 mg PO QHS 11/12/16 Disintegrating] Albuterol Inhaler [Ventolin Hfa 2 puff INHALATION Q4H PRN PRN 03/31/18 (SP)] Aspirin 81 mg PO DAILY 03/31/18 Atorvastatin Calcium [Lipitor] 80 mg PO QHS 03/31/18 Esomeprazole Mag Trihydrate 40 mg PO DAILY 03/31/18 [Nexium] Estradiol [Estrace Vaginal Cream] 1 dose VAGINAL DAILY 03/31/18 Ferrous Sulfate [Iron] 1 tablet PO DAILY 03/31/18 Folic Acid 2 mg PO DAILY@0800 03/31/18 Methotrexate 20 mg PO Q7D 03/31/18 Metoprolol Tartrate [Lopressor 12.5 mg PO DAILY 03/31/18 (beta fan)] Nicotine [Nicotine Patch] 1 each TD DAILY 03/31/18 Oxycodone Myristate [Xtampza ER] 13.5 mg PO BID 03/31/18 Losartan Potassium [Cozaar] 25 mg PO DAILY #30 tab 04/01/18 Hydrocodone/Acetaminophen [Vicodin 1 each PO BID 04/23/18 Es 7.5-300 mg Tablet] Surgical History: total hip arthroplasty, - - Multiple surgeries for left femur due to rheumatoid arthritis and osteoarthritis Smoking Status: Current every day smoker - *Family History Maternal History Items: No pertinent history Review of Systems Constitutional: Reports: Weakness, Fatigue. Denies: Chills, Fever, Weight Change HEENT: Denies: Head Aches, Sinus Congestion, Sinus Drainage Cardiovascular: Denies: Chest Pain, Palpitations Respiratory: Denies: Cough, Shortness of breath at rest, Sputum production Gastrointestinal: Reports: Diarrhea, Nausea. Denies: Abdominal Pain, Vomiting Genitourinary: Denies: Dysuria Musculoskeletal: Reports: Joint Pain. Denies: Joint Tenderness Skin: Denies: Rash, Wounds Neurological: Denies: Numbness, Tingling, Focal weakness Psychiatric: Denies: Anxiety, Depression, Homicidal Ideations, Suicidal Ideations Hematologic/ Lymphatic: Denies: Easy Bruising, Easy Bleeding VTE Information - Inpt Only VTE Present on Admission: No VTE Mechan Device Prophylaxis: None VTE Pharm Prophylaxis ordered?: Yes Patient Problems: Active and Suspected Problems Diarrhea (Acute) - Physical Exam General: Alert, Oriented x3, Cooperative HEENT: Atraumatic, Normocephalic Neck: Supple Lungs: Clear to auscultation, Normal air movement Cardiovascular: Regular rate, Regular Rhythm, Normal S1, Normal S2, No murmurs Abdomen: Soft, Non Tender, Hypoactive Bowel Sounds, Obese Extremities: No edema, Capillary Refill Less than 3 Seconds Skin: No rashes Musculoskeletal: No Tenderness to Palpation of Joints or Extremities Neurological: Neuro grossly intact Psych/Mental Status: Normal Affect, Appropriate Vital Signs Temp Pulse Resp BP Pulse Ox 97.9 F 103 H 24 H 107/65 98 04/23/18 17:18 04/23/18 21:02 04/23/18 21:02 04/23/18 21:02 04/23/18 21:02 Oxygen Flow Rate (L/min) 2 Oxygen Delivery Method Nasal Cannula Weight: 167 lb 12.348 oz Body Mass Index (BMI) 29.7 Finger Stick Blood Glucose 120 Microbiology Past 72 Hours 04/23/18 18:17 Stool Occult Blood (ARNOLDO) - Final Stool Occult Blood Positive Laboratory Tests Past 24 Hrs 04/23/18 04/23/18 04/23/18 18:35 18:35 18:35 WBC 13.3 H RBC 4.05 L Hgb 12.7 Hct 38.8 MCV 95.8 MCH 31.4 MCHC 32.7 RDW 15.3 H RDW Differential 53.2 H Plt Count 175 MPV 9.6 Immature Gran % (Auto) 0.400 Neut % (Auto) 85.1 H Lymph % (Auto) 5.7 L [place] % (Auto) 8.5 Eos % (Auto) 0.2 Baso % (Auto) 0.1 Absolute Neuts (auto) 11.3 H Absolute Lymphs (auto) 0.76 L Total Counted Not Reportable Sodium 133 L Potassium 3.4 L Chloride 99 Carbon Dioxide 25.0 Anion Gap 9 BUN 19 H Creatinine 2.95 H Estim Creat Clear Calc 19.08 Est GFR (MDRD) Af Amer 22 L Est GFR (MDRD) Non-Af 18 L BUN/Creatinine Ratio 6.4 L Glucose 100 Lactic Acid Calcium 7.8 L Total Bilirubin 0.50 AST 34 ALT 25 Alkaline Phosphatase 80 Troponin I < 0.015 Total Protein 6.5 Albumin 3.1 L Globulin 3.4 Albumin/Globulin Ratio 0.9 Cortisol 27.20 H Urine Color Urine Clarity Urine pH Ur Specific [place] Urine Protein Urine Glucose (UA) Urine Ketones Urine Occult Blood Urine Nitrite Urine Bilirubin Urine Urobilinogen Ur Leukocyte Esterase Urine RBC Urine WBC Ur Squamous Epith Cells Urine Bacteria Urine Mucus 04/23/18 04/23/18 19:02 20:10 WBC RBC Hgb Hct MCV MCH MCHC RDW RDW Differential Plt Count MPV Immature Gran % (Auto) Neut % (Auto) Lymph % (Auto) [place] % (Auto) Eos % (Auto) Baso % (Auto) Absolute Neuts (auto) Absolute Lymphs (auto) Total Counted Sodium Potassium Chloride Carbon Dioxide Anion Gap BUN Creatinine Estim Creat Clear Calc Est GFR (MDRD) Af Amer Est GFR (MDRD) Non-Af BUN/Creatinine Ratio Glucose Lactic Acid Cancelled Calcium Total Bilirubin AST ALT Alkaline Phosphatase Troponin I Total Protein Albumin Globulin Albumin/Globulin Ratio Cortisol Urine Color Yellow Urine Clarity Clear Urine pH 6.5 Ur Specific [place] 1.005 Urine Protein 30 H Urine Glucose (UA) Normal Urine Ketones Negative Urine Occult Blood 150 H Urine Nitrite Negative Urine Bilirubin Negative Urine Urobilinogen Normal Ur Leukocyte Esterase 25 H Urine RBC 0-5 SEEN Urine WBC 0 SEEN Ur Squamous Epith Cells 0-5 SEEN Urine Bacteria 0 SEEN Urine Mucus 0 SEEN Assessment/Plan All Active Problems Mental confusion (Acute) ARF (acute renal failure) (Acute) Diarrhea (Acute) Chronic Problems Hypertension (Chronic) Tobacco abuse disorder (Chronic) History of rheumatoid arthritis (Chronic) History of fibromyalgia (Chronic) Chronic low back pain (Chronic) History of drug overdose (Chronic) Plan - admit to medical surgical floor - soft diet as tolerated - IV normal saline at 150cc/hour - CBC, BMP in am - continue routine home medications for stable medical conditions - she asked several times about her pain medications and I am concerned that she has opiate dependency. - LMWH for DVT prophylaxis Code Visit OBSV E&M: 52351 Initial observation care L2
[2018-04-23 22:48] LABS: Lactic Acid 1.3 mmol/L (0.4-2.0)
[2018-04-23] MEDS: Mirtazapine 15 MG Tablet 45 MG PO (23:06)
[2018-04-23] MEDS: Atorvastatin Calcium 80 MG Tablet PO (23:06)
[2018-04-23] MEDS: HYDROcodone Bitartrate/Apap 5/325 Tablet PO (23:07)
[2018-04-24] VITALS (9 sets, daily range): BP systolic 83–132; BP diastolic 46–82; PULSE 64–109; RESP 16–20; TEMP 36.3–37.7; O2SAT 93–97
[2018-04-24] MEDS: oxyCODONE CR 15 MG Tablet PO ×3 (03:28→22:17)
[2018-04-24] MEDS: Menthol/Lanolin/Calamine/Znox 113 GM Tube 1 APPLIC TOPICAL ×3 (03:30→22:17)
[2018-04-24] MEDS: Albuterol 2.5 MG/3 ML VIAL.NEB. INHALATION ×3 (04:00→20:40)
[2018-04-24] MEDS: 0.9% Normal Saline 1,000 ML 150 ML IV ×3 (04:30→20:24)
--- NOTE | 2018-04-24 04:46 | RAD_ITS ---
STUDY: X-RAY - RIGHT ANKLE REASON FOR EXAM: Female, 47 years old. Fall. TECHNIQUE: 3 view(s) of the ankle. COMPARISON: None. FINDINGS: Alignment is normal. Oblique mildly displaced fracture distal metaphysis fibula. Tibia is normal. Mortise joint well-maintained. Mild lateral soft tissue swelling. RAD/Ankle min 3 Views IMPRESSION: Mildly displaced fracture of the distal fibula with adjacent soft tissue swelling. Electronically Signed: Nicolás Fishman MD at 6:14 EDT , Service support ,
[2018-04-24 06:07] LABS: Absolute Lymphocyte Count 1.34 X10^3/ul (0.83-4.51); Absolute Neutrophil Count 7.8 X10^3/uL (2.0-7.7); Basophil# 0.01 X10^3/uL; Basophil% 0.1 % (0-1); Eosinophil# 0.11 X10^3/uL; Eosinophils% 1.1 % (0-5); Hematocrit 34.2 % (37-47); Hemoglobin 11.1 g/dl (12.0-15.0); Lymphocyte # 1.34 X10^3/ul (4.0); Mean Corp Hgb Conc 32.5 g/gl (32-36); Mean Corpuscular Hgb 31.9 pg (27.0-32.0); Mean Corpuscular Volume 98.3 fL (81-99); Mean Platelet Vol. 10.1 fl (6.2-12.0); Monocyte# 0.98 X10^3/uL; Monocyte% 9.5 % (0-10); Neutrophil # 7.83 X10^3/uL (2.7-7.7); Neutrophil % 75.9 % (47-70); Platelet Count 160 K/mm3 (150-450); RBC Distribution Width CV 15.4 % (11.6-14.6); RBC Distribution Width SD 52.9 fl (35.1-43.9); Red Blood Count 3.48 M/mm3 (4.2-5.4); White Blood Count 10.3 K/mm3 (4.4-11.0)
[2018-04-24 06:14] LABS: POSITIVE COUNT NO; POSITIVE DIFFERENTIAL NO; POSITIVE MORPHOLOGY NO
[2018-04-24 06:30] LABS: Anion Gap 7 (5-15); BUN 14 mg/dL (7-18); BUN/Creat Ratio 11.2 RATIO (10-20); Calcium,Total 6.9 mg/dL (8.5-10.1); Chloride 108 mmol/L (98-107); Creatinine, Serum 1.25 mg/dL (0.55-1.02); EST Glomerular Filtration Rate 48 mL/min (>60); Est Glom Filt Rate - Afr Amer 58 mL/min (>60); Estimated Creatinine Clearance 45.03 ml/min; Glucose 84 mg/dL (74-106); Potassium 3.5 mmol/L (3.5-5.1); Sodium Level 137 mmol/L (136-145)
--- NOTE | 2018-04-24 06:31 | NURSING ---
Left a message for Dr. Arevalo to call back to [facility] regarding a consult.
--- NOTE | 2018-04-24 07:11 | PCM.PN.BLA ---
Progress Note The patient is a 47-year-old female with a past medical history of tobacco dependence, rheumatoid arthritis, fibromyalgia, narcotic dependence on long-acting oxycodone, chronic low back pain and hypertension who presented to the emergency department at [facility] on 04/23/2018 complaining of diarrhea for the preceding 5 days. She denied any recent antibiotic usage. She complained of dizziness and had fallen 6 times on 04/23/2018. Vital signs at presentation to the emergency room were temperature 97.9, pulse rate 118, blood pressure 70/49, respiratory rate 27 and she was 94% saturated on room air. White blood cell count was elevated at 13.3 and hemoglobin was 12.7. Platelets were within normal limits. There were 85% neutrophils. Sodium was low at 133 and potassium was low at 3.4. The BUN was 19 with a creatinine of 2.95. Creatinine on 04/10/2018 was 0.87. Lactic acid was 1.3. UA was unremarkable. A CT scan of the abdomen and pelvis was obtained and showed a small hiatal hernia and mild dilatation with air-fluid levels of several loops of proximal small bowel. Stool Hemoccult was positive. She is chronically on immunosuppressive agents and takes Orencia and methotrexate. She was admitted to the hospital for hydration for diarrhea. After she went to the medical surgical floor she started to complain of right ankle pain and x-ray was obtained and showed mildly displaced fracture of the distal fibula with adjacent soft tissue swelling. Dr. Arevalo has been consulted. Tmax over the past 24 hours is 99.9. Pressure improved with hydration and the current blood pressure is 106/57. Lab today shows a white blood cell count of 10.3 with 76% neutrophils. Hemoglobin is 11.1 and platelets are 160,000. Creatinine has decreased from 2.95 at admission to 1.25 today with hydration. Enteric pathogen panel is negative. Fecal leukocytes are positive. O&P are pending. PT was seen independently and in conjunction with Paolo SALGUERO. Pain is adequately controlled. I agree with the PE as documented by Paolo with no exceptions. The plan of care was discussed with Paolo and orders have been written. Also discussed plan for treatment of the displaced fibula fracture with Dr. Arevalo. She is at high risk for infection since she is on 2 immunosuppressive agents for treatment of rheumatoid arthritis. The fibula is minimally displaced and the decision was made to place her in a cast with nonweightbearing as opposed to pinning the bone. She will be nonweightbearing on the right lower extremity and with her widespread arthritis may need to go to [facility] at discharge.
--- NOTE | 2018-04-24 07:23 | NURSING ---
New orders to collect stool for cdiff, lab will obtain from specimen collected in ED.
--- NOTE | 2018-04-24 07:24 | PN_ITS ---
Progress Note The patient is a 47-year-old female with a past medical history of tobacco dependence, rheumatoid arthritis, fibromyalgia, narcotic dependence on long- acting oxycodone, chronic low back pain and hypertension who presented to the emergency department at [facility] on 04/23/2018 complaining of diarrhea for the preceding 5 days. She denied any recent antibiotic usage. She complained of dizziness and had fallen 6 times on 04/23/2018. Vital signs at presentation to the emergency room were temperature 97.9, pulse rate 118, blood pressure 70/49, respiratory rate 27 and she was 94% saturated on room air. White blood cell count was elevated at 13.3 and hemoglobin was 12.7. Platelets were within normal limits. There were 85% neutrophils. Sodium was low at 133 and potassium was low at 3.4. The BUN was 19 with a creatinine of 2.95. Creatinine on 04/10/2018 was 0.87. Lactic acid was 1.3. UA was unremarkable. A CT scan of the abdomen and pelvis was obtained and showed a small hiatal hernia and mild dilatation with air-fluid levels of several loops of proximal small bowel. Stool Hemoccult was positive. She is chronically on immunosuppressive agents and takes Orencia and methotrexate. She was admitted to the hospital for hydration for diarrhea. After she went to the medical surgical floor she started to complain of right ankle pain and x-ray was obtained and showed mildly displaced fracture of the distal fibula with adjacent soft tissue swelling. Dr. Arevalo has been consulted. Tmax over the past 24 hours is 99.9. Pressure improved with hydration and the current blood pressure is 106/57. Lab today shows a white blood cell count of 10.3 with 76% neutrophils. Hemoglobin is 11.1 and platelets are 160,000. Creatinine has decreased from 2.95 at admission to 1.25 today with hydration. Enteric pathogen panel is negative. Fecal leukocytes are positive. O&P are pending. PT was seen independently and in conjunction with Paolo SALGUERO. Pain is adequately controlled. I agree with the PE as documented by Paolo with no exceptions. The plan of care was discussed with Paolo and orders have been written. Also discussed plan for treatment of the displaced fibula fracture with Dr. Arevalo. She is at high risk for infection since she is on 2 immunosuppressive agents for treatment of rheumatoid arthritis. The fibula is minimally displaced and the decision was made to place her in a cast with nonweightbearing as opposed to pinning the bone. She will be nonweightbearing on the right lower extremity and with her widespread arthritis may need to go to halfway at discharge.
[2018-04-24] MEDS: HYDROcodone Bitartrate/Apap 5/325 Tablet PO ×2 (07:50→20:15)
[2018-04-24] MEDS: 0.9% NaCl Peripheral Flush Adult/Peds IV ×2 (07:51→10:30)
--- NOTE | 2018-04-24 09:15 | PCM.PROGNOTE ---
Patient Problems: Active and Suspected Problems Diarrhea (Acute) Subjective: Patient presented to the ER yesterday after falling 6 times, she broke ankle in process. She was found to be dehydrated. - Physical Exam General: Alert, Oriented x3, Cooperative, No apparent distress Vital Signs Temp Pulse Resp BP Pulse Ox 99.9 F H 109 H 18 106/57 L 96 04/24/18 03:15 04/24/18 04:00 04/24/18 04:00 04/24/18 03:15 04/24/18 04:00 Oxygen Flow Rate (L/min) 2 Oxygen Delivery Method Nasal Cannula Weight: 76.4 kg Body Mass Index (BMI) 29.8 Intake and Output for Last 24 Hours 04/22/18 04/23/18 04/24/18 23:59 23:59 23:59 Intake Total 2192 / 2192 Output Total 600 / 600 Balance 1592 / 1592 Laboratory Tests Past 24 Hrs 04/23/18 04/24/18 04/24/18 22:11 05:40 05:40 WBC 10.3 RBC 3.48 L Hgb 11.1 L Hct 34.2 L MCV 98.3 MCH 31.9 MCHC 32.5 RDW 15.4 H RDW Differential 52.9 H Plt Count 160 MPV 10.1 Immature Gran % (Auto) 0.400 Neut % (Auto) 75.9 H Lymph % (Auto) 13.0 L [place] % (Auto) 9.5 Eos % (Auto) 1.1 Baso % (Auto) 0.1 Absolute Neuts (auto) 7.8 H Absolute Lymphs (auto) 1.34 Total Counted Not Reportable Sodium 137 Potassium 3.5 Chloride 108 H Carbon Dioxide 22.0 Anion Gap 7 BUN 14 Creatinine 1.25 H Estim Creat Clear Calc 45.03 Est GFR (MDRD) Af Amer 58 L Est GFR (MDRD) Non-Af 48 L BUN/Creatinine Ratio 11.2 Glucose 84 Lactic Acid 1.3 Calcium 6.9 L Medical Necessity - Tobacco Use Smoking Status: Current every day smoker Tobacco Use: Cigarettes Assessment/Plan All Active Problems Mental confusion (Acute) ARF (acute renal failure) (Acute) Diarrhea (Acute) Right fibular fracture - mild displacement Rheumatoid arthritis Nicotine dependence Narcotic dependence Fibromyalgia Reviewed findings with patient, reviewed the options. Also reviewed with Dr. Valerio. Given findings, and patient's overall health status we will proceed with nonsurgical management at this time. Patient agrees, she is well aware on possibility of development of arthritis. Recommended tobacco cessation - she relates she is trying to quit. Today a below knee fiberglass posterior splint was applied to the right side. Keep clean, dry and intact. No weightbearing right foot/ankle. Keep right foot/ankle elevated. Patient to follow up with [facility] at [facility] in 1 week, sooner if needed. This was discussed with patient and she agreed with plan.
--- NOTE | 2018-04-24 09:22 | CON.PCM_ITS ---
Reason for Consult Date of Consultation: 04/24/18 Reason for Consultation: Right ankle fracture History of Present Illness: The patient is a 47 year old female with history of tobacco dependence, rheumatoid arthritis, fibromyalgia, narcotic dependence, HTN, chronic low back pain presented to ER on 04/23/18 due to diarrhea for 5 days. She was dehydrated. She relates she fell 6 times, in process she injured her right ankle. Xrays were obtained which showed mild displaced lateral malleolus fracture. She is admitted at this time. She relates to some pain to the lateral ankle. She does relate to previous left ankle fracture several years ago which required surgery. She has no other foot/ankle complaints. She is resting comfortably in bed with right foot/ankle resting on pillows. Past Medical History Past Medical History (Chronic Problems): Chronic Problems Hypertension (Chronic) Tobacco abuse disorder (Chronic) History of rheumatoid arthritis (Chronic) History of fibromyalgia (Chronic) Chronic low back pain (Chronic) History of drug overdose (Chronic) Allergies progesterone Allergy (Verified 04/23/18 17:18) Itching varenicline tartrate [From Chantix] Allergy (Verified 04/23/18 22:24) suicidal Home Medications: Ambulatory Orders Medication Instructions Recorded Venlafaxine XR [Effexor Xr] 225 mg PO DAILY 01/08/14 Abatacept [Orencia Clickject] 125 mg SQ MO 11/12/16 Mirtazapine [Remeron Orally 45 mg PO QHS 11/12/16 Disintegrating] Albuterol Inhaler [Ventolin Hfa 2 puff INHALATION Q4H PRN PRN 03/31/18 (SP)] Aspirin 81 mg PO DAILY 03/31/18 Atorvastatin Calcium [Lipitor] 80 mg PO QHS 03/31/18 Esomeprazole Mag Trihydrate 40 mg PO DAILY 03/31/18 [Nexium] Estradiol [Estrace Vaginal Cream] 1 dose VAGINAL DAILY 03/31/18 Ferrous Sulfate [Iron] 1 tablet PO DAILY 03/31/18 Folic Acid 2 mg PO DAILY@0800 03/31/18 Methotrexate 20 mg PO MO 03/31/18 Metoprolol Tartrate [Lopressor 12.5 mg PO DAILY 03/31/18 (beta fan)] Nicotine [Nicotine Patch] 1 each TD DAILY 03/31/18 Oxycodone Myristate [Xtampza ER] 13.5 mg PO BID 03/31/18 Losartan Potassium [Cozaar] 25 mg PO DAILY #30 tab 04/01/18 Hydrocodone/Acetaminophen [Vicodin 1 each PO BID 04/23/18 Es 7.5-300 mg Tablet] Surgical History: total hip arthroplasty, - - Multiple surgeries for left femur due to rheumatoid arthritis and osteoarthritis Smoking Status: Current every day smoker Tobacco Use: Cigarettes - *Family History Maternal History Items: No pertinent history Review of Systems Constitutional: Denies: Chills, Fever Respiratory: Denies: Shortness of Breath Gastrointestinal: Denies: Nausea, Vomiting Musculoskeletal: Reports: Back Pain, Joint Pain, Joint stiffness, - - Right ankle pain as noted in HPI. Patient Problems: Active and Suspected Problems Diarrhea (Acute) Objective: Right ankle xrays reviewed from 04/24/18: there is mild displacement of the distal fibula/lateral malleolus fracture, otherwise no other fractures or dislocations noted. No periosteal reaction or osteolysis. Overall ankle intact. - Physical Exam General: Alert, Oriented x3, Cooperative, No apparent distress Extremities: Capillary Refill Less than 3 Seconds, No Calf Tenderness, Peripheral Pulses Normal, - - There is POP to the right lateral malleolus c/w fracture, there is some tenderness to the lateral malleolus as well with ROM, there is no pain to the medial ankle or posterior ankle, there is no other POP or pain on ROM to the rest of the foot/ankle. There are no open lesions, no streaking, no drainage, no maloder, no fluctuance, no cellulitis, no crepitus to the foot/ankle bilateral. CFT < 2 seconds to all toes, pedal pulses intact and normal temperature bilateral foot/ankle. Sensations intact and motor function intact to the foot/ankle. Muscle strength intact bilateral foot/ankle. No masses, no dislocations bilateral foot/ankle. Psych/Mental Status: Alert and oriented to time, place, person, mood and affect Vital Signs Temp Pulse Resp BP Pulse Ox 99.9 F H 109 H 18 106/57 L 96 04/24/18 03:15 04/24/18 04:00 04/24/18 04:00 04/24/18 03:15 04/24/18 04:00 Oxygen Flow Rate (L/min) 2 Oxygen Delivery Method Nasal Cannula Weight: 76.4 kg Body Mass Index (BMI) 29.8 Intake and Output for Last 24 Hours 04/22/18 04/23/18 04/24/18 23:59 23:59 23:59 Intake Total 2192 / 2192 Output Total 600 / 600 Balance 1592 / 1592 Laboratory Tests Past 24 Hrs 04/23/18 04/24/18 04/24/18 22:11 05:40 05:40 WBC 10.3 RBC 3.48 L Hgb 11.1 L Hct 34.2 L MCV 98.3 MCH 31.9 MCHC 32.5 RDW 15.4 H RDW Differential 52.9 H Plt Count 160 MPV 10.1 Immature Gran % (Auto) 0.400 Neut % (Auto) 75.9 H Lymph % (Auto) 13.0 L Sequoyah % (Auto) 9.5 Eos % (Auto) 1.1 Baso % (Auto) 0.1 Absolute Neuts (auto) 7.8 H Absolute Lymphs (auto) 1.34 Total Counted Not Reportable Sodium 137 Potassium 3.5 Chloride 108 H Carbon Dioxide 22.0 Anion Gap 7 BUN 14 Creatinine 1.25 H Estim Creat Clear Calc 45.03 Est GFR (MDRD) Af Amer 58 L Est GFR (MDRD) Non-Af 48 L BUN/Creatinine Ratio 11.2 Glucose 84 Lactic Acid 1.3 Calcium 6.9 L Assessment/Plan All Active Problems Mental confusion (Acute) ARF (acute renal failure) (Acute) Diarrhea (Acute) Right fibular fracture - mild displacement rheumatoid arthritis Narcotic dependence Nicotine dependence Fibromyalgia Reviewed findings with patient, reviewed the options. Also reviewed with Dr. Valerio. Given findings, and patient's overall health status we will proceed with nonsurgical management at this time as surgical intervention would be high risk for healing and other possible complications. Patient agrees, she is well aware on possibility of development of arthritis. Recommended tobacco cessation - she relates she is trying to quit. Today a below knee fiberglass posterior splint was applied to the right side. Keep clean, dry and intact. No weightbearing right foot/ankle. Keep right foot/ ankle elevated. Patient to follow up with [facility] at [facility] in 1 week, sooner if needed. This was discussed with patient and she agreed with plan.
[2018-04-24] MEDS: Aspirin 81 MG TAB.CHEW PO (10:30)
[2018-04-24] MEDS: Pantoprazole Sodium 40 MG Tablet PO (10:30)
[2018-04-24] MEDS: Venlafaxine XR 75 MG Capsule 225 MG PO (10:30)
--- NOTE | 2018-04-24 16:28 | PCM.PROGNOTE ---
Patient Problems: Active and Suspected Problems Diarrhea (Acute) Subjective: One episode diarrhea this AM. Tolerated full liquids through lunch. No abdominal pain, nausea, vomiting. Will attempt full diet for dinner. Pt did poorly with PTOT. She is NWB right leg 2/2 distal fibular fx. Splint per Dr. Arevalo. Left leg functions is poor. D/w physical therapy - she has a great deal of difficulty as her left leg has left hip repair, left knee repair, and left ankle repair. Upper body unable to compensate well 2/2 RA. Pain in left leg but controlled on home chronic pain medication doses. Pt may need rehab if she is unable to perform well with the right leg in the walking roller. - Physical Exam General: Alert, Oriented x3, Cooperative HEENT: Atraumatic, PERRLA, EOMI, Normocephalic Neck: Supple, No JVD, Negative Carotid Bruits Lungs: Clear to auscultation, Normal air movement Cardiovascular: Regular rate, No murmurs Abdomen: Bowel Sounds Present, Soft, Non Tender Extremities: No edema, Capillary Refill Less than 3 Seconds Skin: No rashes, No breakdown Musculoskeletal: No Tenderness to Palpation of Joints or Extremities, - - right leg splinted. PMS intact. Neurological: Cranial nerves II-XII grossly intact Psych/Mental Status: Normal Affect, Appropriate, Alert and oriented to time, place, person, mood and affect Vital Signs Temp Pulse Resp BP Pulse Ox 97.3 F L 106 H 16 109/57 L 93 04/24/18 14:00 04/24/18 14:00 04/24/18 14:00 04/24/18 14:00 04/24/18 14:00 Oxygen Flow Rate (L/min) 2 Oxygen Delivery Method Room Air Weight: 76.4 kg Body Mass Index (BMI) 29.8 Intake and Output for Last 24 Hours 04/22/18 04/23/18 04/24/18 23:59 23:59 23:59 Intake Total 3270 / 3270 Output Total 1700 / 1700 Balance 1570 / 1570 Laboratory Tests Past 24 Hrs 04/23/18 04/24/18 04/24/18 22:11 05:40 05:40 WBC 10.3 RBC 3.48 L Hgb 11.1 L Hct 34.2 L MCV 98.3 MCH 31.9 MCHC 32.5 RDW 15.4 H RDW Differential 52.9 H Plt Count 160 MPV 10.1 Immature Gran % (Auto) 0.400 Neut % (Auto) 75.9 H Lymph % (Auto) 13.0 L Glasscock % (Auto) 9.5 Eos % (Auto) 1.1 Baso % (Auto) 0.1 Absolute Neuts (auto) 7.8 H Absolute Lymphs (auto) 1.34 Total Counted Not Reportable Sodium 137 Potassium 3.5 Chloride 108 H Carbon Dioxide 22.0 Anion Gap 7 BUN 14 Creatinine 1.25 H Estim Creat Clear Calc 45.03 Est GFR (MDRD) Af Amer 58 L Est GFR (MDRD) Non-Af 48 L BUN/Creatinine Ratio 11.2 Glucose 84 Lactic Acid 1.3 Calcium 6.9 L Medical Necessity - Tobacco Use Smoking Status: Current every day smoker Tobacco Use: Cigarettes Assessment/Plan All Active Problems Mental confusion (Acute) ARF (acute renal failure) (Acute) Diarrhea (Acute) 1. Acute gastroenteritis - suspect viral - improved. CT with ? ileus. Diarrhea and sweats x 5 days, now resolved. tolerating diet. No GI sx now. last diarrhea this am. Advance diet. + fecel occult blood. + fecal lactoferrin. negative enteric panel, c diff neg, WBC resolved. Afebrile. Mildly tachy. 2. right distal fibular fx 2/2 fall at home - podiatry following. s/p splint. pain controlled. nwb. 3. DYAN 2/2 dehydration - improved. IV fluids. 4. Hypotension with syncope 2/2 dehydration - resolving. continue fluids overnight as she still is still mildly tachy. Check Orthos tonight and tomorrow am. 5. Debility - nwb 6. RA - continue home meds. 7. fibro - continue home meds. 8. Nicotine abuse - patch if desired 9. HTN - monitor with hypotension DVT ppx: SCDs DC planning: PTOT, may actually need placed due to fracture, poor left leg, poor upper body compensation. This patient was seen by Paolo Renteria PA-C under the supervision of Dr. Valerio
[2018-04-24] MEDS: Acetaminophen 325 MG Tablet 650 MG PO (18:44)
[2018-04-24] MEDS: Atorvastatin Calcium 80 MG Tablet PO (22:17)
[2018-04-24] MEDS: Mirtazapine 15 MG Tablet 45 MG PO (22:17)
[2018-04-25 02:30] VITALS: BP 133/79; PULSE 99; RESP 18; TEMP 36.9; O2SAT 94
[2018-04-25] MEDS: Menthol/Lanolin/Calamine/Znox 113 GM Tube 1 APPLIC TOPICAL (02:40)
[2018-04-25] MEDS: 0.9% Normal Saline 1,000 ML 150 ML IV (02:40)
[2018-04-25] MEDS: Acetaminophen 325 MG Tablet 650 MG PO (04:55)
[2018-04-25 06:22] LABS: Absolute Lymphocyte Count 1.33 X10^3/ul (0.83-4.51); Absolute Neutrophil Count 6.2 X10^3/uL (2.0-7.7); Basophil# 0.01 X10^3/uL; Basophil% 0.1 % (0-1); Eosinophil# 0.14 X10^3/uL; Eosinophils% 1.6 % (0-5); Hematocrit 35.1 % (37-47); Lymphocyte # 1.33 X10^3/ul (4.0); Lymphocyte % 15.6 % (19-41); Mean Corp Hgb Conc 31.3 g/gl (32-36); Mean Corpuscular Hgb 32.1 pg (27.0-32.0); Mean Corpuscular Volume 102.3 fL (81-99); Mean Platelet Vol. 10.2 fl (6.2-12.0); Monocyte# 0.87 X10^3/uL; Monocyte% 10.2 % (0-10); Neutrophil # 6.15 X10^3/uL (2.7-7.7); Neutrophil % 72.1 % (47-70); Platelet Count 156 K/mm3 (150-450); RBC Distribution Width CV 15.1 % (11.6-14.6); RBC Distribution Width SD 55.5 fl (35.1-43.9); Red Blood Count 3.43 M/mm3 (4.2-5.4); White Blood Count 8.5 K/mm3 (4.4-11.0)
[2018-04-25 06:24] LABS: POSITIVE DIFFERENTIAL NO
[2018-04-25 06:32] LABS: POSITIVE COUNT NO; POSITIVE MORPHOLOGY NO
[2018-04-25 06:52] LABS: Anion Gap 7 (5-15); BUN 7 mg/dL (7-18); BUN/Creat Ratio 10.3 RATIO (10-20); Calcium,Total 6.3 mg/dL (8.5-10.1); Chloride 111 mmol/L (98-107); Creatinine, Serum 0.68 mg/dL (0.55-1.02); EST Glomerular Filtration Rate 98 mL/min (>60); Est Glom Filt Rate - Afr Amer 118 mL/min (>60); Estimated Creatinine Clearance 82.78 ml/min; Glucose 73 mg/dL (74-106); Potassium 3.7 mmol/L (3.5-5.1); Sodium Level 140 mmol/L (136-145)
[2018-04-25 07:46] VITALS: BP 156/90; PULSE 104; RESP 18; TEMP 36.9; O2SAT 94
[2018-04-25 07:56] VITALS: BP 145/86; BP 152/99; BP 156/90; PULSE 104; PULSE 107; PULSE 110
[2018-04-25 08:28] VITALS: BP 156/90; PULSE 106
[2018-04-25] MEDS: Venlafaxine XR 75 MG Capsule 225 MG PO (08:28)
[2018-04-25] MEDS: Metoprolol Tartrate 25 MG Tablet 12.5 MG PO (08:28)
[2018-04-25] MEDS: Losartan Potassium 25 MG Tablet PO (08:28)
[2018-04-25] MEDS: Pantoprazole Sodium 40 MG Tablet PO (08:29)
[2018-04-25] MEDS: HYDROcodone Bitartrate/Apap 5/325 Tablet PO (08:29)
[2018-04-25] MEDS: Aspirin 81 MG TAB.CHEW PO (08:29)
[2018-04-25 09:30] LABS: Albumin, Serum 2.6 g/dL (3.2-5.0)
--- NOTE | 2018-04-25 10:45 | CASEMGMT ---
Social Work THANG spoke with PT who states pt performed trial with knee walker and pt did well and will be able to return home with a knee walker. THANG met with pt in room and discussed d/c plan. Pt confirms that she did well with knee walker and feels she can return home at this time. Pt is able to provide transportation and assist at home. Pt states her sister will come and stay as well to assist her with ADLs and IADLs as needed. Pt lives in a one story home and has a wheel chair, shower chair, walker and cane. Pt will need a knee walker and would prefer to use [employer]. Pt inquiring about cost. Phone call to pt insurance and DME is covered with 90% coinsurance and deductible has been met. Call to [employer] and they do have knee walkers to rent for $75/month. Met with pt and informed of the above cost information. 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 Call placed to [employer] and referral made. Script and face sheet faxed to [employer]. Pt aware. No other d/c needs at this time. Plan: home with family, pt will obtain knee walker from [employer] IRENE Valle
[2018-04-25 11:36] VITALS: BP 159/96; PULSE 94
[2018-04-25] MEDS: LORazepam 1 MG Tablet PO (11:39)
[2018-04-25] MEDS: oxyCODONE CR 15 MG Tablet PO (11:39)
--- NOTE | 2018-04-25 12:35 | NURSING ---
pt stated she was leaving the unit, states she had talked with her nurse shruti about it. pt signed vol.assumption of risk forms. pt also shown clip board where to sign out and back in. pt also strongly encouraged to stay on the unit for optimal healing and care. pt also informed that if physician is aware of her leaving the unit may dc all her narcotics. pt verbalized understanding and denies all further needs.
[2018-04-25 12:37] LABS: Calcium, Urine (Random) < 5.0 mg/dL (Not Estab.)
[2018-04-25 12:47] LABS: PTHIN 168.6 pg/mL (18.4-80.1)
[2018-04-25 12:49] LABS: Vitamin D,25 Hydroxy 22.6 ng/mL (29.95-100.01)
[2018-04-25] MEDS: Calcium Carbonate 500 MG Tablet PO (12:54)
--- NOTE | 2018-04-25 13:14 | PCM.DC ---
- Discharge Diagnoses Current Active Problems: Current Active and Chronic Problems Diarrhea (Acute) You will use the following diet at home:: Cardiac - <2 g sodium daily Your food should be the consistency of: Regular Your liquids should be the consistency of: Regular/Thin Discharge Activity: Return to Normal Activity Additional Instructions: weight bearing as directed by podiatry Allergies/Adverse Reactions: Allergies progesterone Allergy (Verified 04/23/18 17:18) Itching varenicline tartrate [From Chantix] Allergy (Verified 04/23/18 22:24) suicidal Medications to take at Discharge Venlafaxine XR [Effexor Xr] 225 mg PO DAILY 01/08/14 Abatacept [Orencia Clickject] 125 mg SQ MO 11/12/16 Mirtazapine [Remeron Orally Disintegrating] 45 mg PO QHS 11/12/16 Albuterol Inhaler [Ventolin Hfa] 2 puff INHALATION Q4H PRN PRN 03/31/18 Aspirin 81 mg PO DAILY 03/31/18 Atorvastatin Calcium [Lipitor] 80 mg PO QHS 03/31/18 Esomeprazole Mag Trihydrate [Nexium] 40 mg PO DAILY 03/31/18 Estradiol [Estrace Vaginal Cream] 1 dose VAGINAL DAILY 03/31/18 Ferrous Sulfate [Iron] 1 tablet PO DAILY 03/31/18 Folic Acid 2 mg PO DAILY@0800 03/31/18 Methotrexate 20 mg PO MO 03/31/18 Metoprolol Tartrate [Lopressor (beta fan)] 12.5 mg PO DAILY 03/31/18 Nicotine [Nicotine Patch] 1 each TD DAILY 03/31/18 Oxycodone Myristate [Xtampza ER] 13.5 mg PO BID 03/31/18 Losartan Potassium [Cozaar] 25 mg PO DAILY #30 tab 04/01/18 Hydrocodone/Acetaminophen [Vicodin Es 7.5-300 mg Tablet] 1 each PO BID 04/23/18 Acetaminophen [Tylenol Tablet] 650 mg PO Q6H PRN PRN tablet 04/25/18 Calcium Carbonate [Tums] 500 mg PO TIDCM #90 tab 04/25/18 Ergocalciferol [Vitamin D] 50,000 unit PO We@1000 #4 cap 04/25/18 The following prescriptions were given: Calcium Carbonate [Tums] 500 mg PO TIDCM #90 tab Ergocalciferol [Vitamin D] 50,000 unit PO We@1000 #4 cap Primary Care Physician: Jacob Teixeira DO [Primary Care Provider] - Please follow up with your Primary Care Physician in: 1-2 weeks Please Follow Up With: Kota Arevalo DPM Proposed Discharge Date: 04/25/18
--- NOTE | 2018-04-25 13:16 | PCM.DC.SUM ---
Discharge Date and Diagnosis - Problem List Patient Problems: Active and Suspected Problems Diarrhea (Acute) Date of Admission: 04/23/18 Date of Discharge: 04/25/18 - Primary Discharge Diagnosis Active and Suspected Problems Diarrhea (Acute) - acute viral gastroenteritis DYAN 2/2 dehydration Hypotension and syncope 2/2 dehydration Acute right distal fibular fx 2/2 syncope Hypocalcemia and vitamin D deficiency Debility Fibromyalgia Nicotine abuse HTN - Secondary Discharge Diagnosis Chronic Problems Hypertension (Chronic) Tobacco abuse disorder (Chronic) History of rheumatoid arthritis (Chronic) History of fibromyalgia (Chronic) Chronic low back pain (Chronic) History of drug overdose (Chronic) Hospital Course and Treatment Imaging Results: RAD/Ankle min 3 Views IMPRESSION: Mildly displaced fracture of the distal fibula with adjacent soft tissue swelling. CT/Abdomen/Pelvis without Cont IMPRESSION: 1. Small hiatal hernia. 2. Mild dilatation with air-fluid levels of several loops of proximal small bowel. This may represent a mild focal ileus. 3. Limited evaluation of pelvic structures due to artifact caused by bilateral hip replacements. 4. Small fat-containing umbilical hernia. 5. There is no evidence of free intra-abdominal or intrapelvic air or fluid. RAD/Chest PA and Lateral IMPRESSION: Normal x-ray examination of the chest. Consults: Yanging: podiatry Operations: - - splint right leg. Procedures: None Summary of Care Provided: Physical exam on day of discharge: General: Resting comfortably NAD Psych: A/Ox3 normal affect HEENT: PEARRLA AT NC Neck: Supple NT CV: RRR no m/t/r/g/h Resp: CTA Abd: [id number] Soft NT no guarding or rigidity Ext: RLE in splint, PMS intact. Skin: W/D normal turgor Lymph/Heme: No active bleeding or adenopathy Neuro: CN2-12 intact Hospital course: The patient is a 47 year old F with a history of fibromyalgia, arthritis, hypertension, nicotine abuse who presented to the emergency room with severe diarrhea for 5 days, multiple syncopal episodes and right ankle fracture. This was confirmed with x-ray. She had very low blood pressure. She was given aggressive IV hydration. She was in [place] I felt to be secondary to dehydration from the copious diarrhea. CT scan of the abdomen showed possible ileus. She was felt to have gastroenteritis suspected viral. She is admitted to the medical surgical floor given supportive care. Podiatry was consulted for her distal fibular fracture. This was placed in a splint. She is seen by physical therapy who were able to get her up and moving with a wheeled device for her right leg as she is nonweightbearing. Her pain was controlled with her home medication regimen for her chronic pain syndrome. Her diet was advanced slowly and she had no issues with abdominal pain, further diarrhea, or nausea or vomiting. She is discharged home in stable condition. Also while she was here she was noted to have very low calcium, serum albumin was checked in order to obtain a corrected calcium which was also low. Her vitamin D level was low, PTH was high, she was started on calcium and vitamin D supplements and will need to follow-up with her PCP for this. Please follow up with Dr. Arevalo for the fracture. This patient was seen by Paolo Renteria PA-C under the supervision of Doctor Iman. [] Discharge Diet: Low fat/ Low Cholesterol, 2000 mg Sodium Diet Discharge Activity: Return to Normal Activity Home Medications: Medications to take at Discharge Venlafaxine XR [Effexor Xr] 225 mg PO DAILY 01/08/14 Abatacept [Orencia Clickject] 125 mg SQ MO 11/12/16 Mirtazapine [Remeron Orally Disintegrating] 45 mg PO QHS 11/12/16 Albuterol Inhaler [Ventolin Hfa] 2 puff INHALATION Q4H PRN PRN 03/31/18 Aspirin 81 mg PO DAILY 03/31/18 Atorvastatin Calcium [Lipitor] 80 mg PO QHS 03/31/18 Esomeprazole Mag Trihydrate [Nexium] 40 mg PO DAILY 03/31/18 Estradiol [Estrace Vaginal Cream] 1 dose VAGINAL DAILY 03/31/18 Ferrous Sulfate [Iron] 1 tablet PO DAILY 03/31/18 Folic Acid 2 mg PO DAILY@0800 03/31/18 Methotrexate 20 mg PO MO 03/31/18 Metoprolol Tartrate [Lopressor (beta fan)] 12.5 mg PO DAILY 03/31/18 Nicotine [Nicotine Patch] 1 each TD DAILY 03/31/18 Oxycodone Myristate [Xtampza ER] 13.5 mg PO BID 03/31/18 Losartan Potassium [Cozaar] 25 mg PO DAILY #30 tab 04/01/18 Hydrocodone/Acetaminophen [Vicodin Es 7.5-300 mg Tablet] 1 each PO BID 04/23/18 Acetaminophen [Tylenol Tablet] 650 mg PO Q6H PRN PRN tablet 04/25/18 Calcium Carbonate [Tums] 500 mg PO TIDCM #90 tab 04/25/18 Ergocalciferol [Vitamin D] 50,000 unit PO We@1000 #4 cap 04/25/18 Following Prescrptions Were Given to Patient: Calcium Carbonate [Tums] 500 mg PO TIDCM #90 tab Ergocalciferol [Vitamin D] 50,000 unit PO We@1000 #4 cap Primary Care Physician: Jacob Teixeira DO [Primary Care Provider] - Please follow up with your Primary Care Physician in: 1-2 weeks Please Follow Up With: Kota Arevalo DPM Disposition: Home Minutes spent on discharge:: 35 Patient Condition:: Stable Medical Necessity - Tobacco Use Smoking Status: Current every day smoker Tobacco Use: Cigarettes Meaningful Use Info Meaningful Use Diagnoses (Choose all that apply): None applicable
--- NOTE | 2018-04-25 15:04 | NURSING ---
pt had removed her own IV was found wheeling herself to the elevator aggitated and stating she was leaving the unit she was not willing to wait on her script for vitamin d to be returned with a signiture on it. did talk pt into atleast coming over to nurses' station so this nurse could get her the discharge instructions and script for phillip. discharge instructions given, assured iv was out. mechanical maintenance supervisor escorted pt down elevator. primary RN informed.
--- NOTE | 2018-04-27 15:45 | CASEMGMT ---
RN CM Discharge Follow-up Phone Call: TANIA: Ly Strata: 3 Call Date: 04/27/18 Discharge Date: 04/25/18 Time of Call: 1545 Duration: 1 min Admitting Diagnosis: Dehydration, ARF, Gastroenteritis, ankle fracture. RN CM attempted follow-up phone call after recent hospitalization. Unable to leave message. RN CM will attempt again at a later time.
== END 2018-04-25 15:08 | disposition home or self-care (01) | DRG 392 ==
LOC: ED 20:12 → MS3 21:41
PROVIDERS: Physician Assistant; Admitting Provider Family Medicine; Emergency Provider Emergency Medicine; Family Provider Student in an Organized Health Care Education/Training Program; PCP Student in an Organized Health Care Education/Training Program; Visit Provider Internal Medicine
DX: A08.4 Viral intestinal infection, unspecified (principal); N17.9 Acute kidney failure, unspecified; M06.9 Rheumatoid arthritis, unspecified; M79.7 Fibromyalgia; M54.5 Low back pain; G89.29 Other chronic pain; I10 Essential (primary) hypertension; E86.0 Dehydration; F17.210 Nicotine dependence, cigarettes, uncomplicated; S82.61XA Displaced fracture of lateral malleolus of right fibula, initial encounter for closed fracture; W19.XXXA Unspecified fall, initial encounter; Y92.009 Unspecified place in unspecified non-institutional (private) residence as the place of occurrence of the external cause; R53.81 Other malaise; Z79.899 Other long term (current) drug therapy; I95.9 Hypotension, unspecified
CPT/HCPCS: 36415; 71046; 73610; 74176; 80048; 80053; 81001; 82040; 82274; 82306; 82340; 82533; 82570; 82652; 83605; 83630; 83970; 84484; 85025; 87177; 87209; 87493; 87506; 93005; 94640; 97110; 97116; 97162; 97165; 97530; 97802; 99284; 99406; J7030; J7040; A4216; J0610

== ENCOUNTER 2018-05-03 07:44 | Observation (INO) | payer OTHER, SELFPAY ==
[2018-05-03] VITALS (14 sets, daily range): BP systolic 105–147; BP diastolic 60–86; PULSE 67–97; RESP 16–18; TEMP 35.8–37.1; O2SAT 95–98; BMI 25.7; BMI 29.0
--- NOTE | 2018-05-03 08:04 | EKG12_ITS ---
Test Reason : DYSRHYTHMIA Blood Pressure : / mmHG Vent. Rate : 078 BPM Atrial Rate : 078 BPM P-R Int : 114 ms QRS Dur : 080 ms QT Int : 376 ms P-R-T Axes : -10 051 058 degrees QTc Int : 428 ms Normal sinus rhythm Normal ECG Confirmed by REJI OWENS, MARCIANO ([id number]), tape editor ALICJA VALENTE ([id number] on 05/07/2018 2:58:49 PM Referred By: Ariella Guillermo Confirmed By:MARCIANO MENDOZA MD
--- NOTE | 2018-05-03 08:04 | CT_ITS ---
STUDY: CT BRAIN WITHOUT CONTRAST REASON FOR EXAM: Female, 47 years old. Mental status changes. Confusion. Multiple falls. History of prior stroke. RADIATION DOSAGE (If Supplied By Facility): CTDIvol = ( 60.81 ) mGy, DLP = ( 998.67 ) mGycm TECHNIQUE: Transaxial CT imaging of the brain was performed without administration of intravenous contrast material. Individualized dose optimization techniques were used for this CT. COMPARISON: Comparison is made with prior examination dated March 31, 2018. FINDINGS: Normal soft tissue structures. Normal calvarium. Stable encephalomalacia involving the right temporal lobe, parietal and frontal lobes incomplete old infarction. This is unchanged. Normal white matter tracts of the cerebral hemispheres. Old lacunar infarct of the right basal ganglion. Normal brainstem. Normal cerebellum. There is no intracranial hemorrhage. There are no findings of an acute ischemic infarction. Normal visualized paranasal sinuses. CT/Brain/Head without Contrast IMPRESSION: Evidence of a assess for malacia and prior infarction involving the distribution of the right middle cerebral artery territory. No acute abnormality is seen at this time. Electronically Signed: Quirino Horan MD at 8:54 EDT Tel [phone], Service support ,
--- NOTE | 2018-05-03 08:09 | ED.VISSUMM ---
- ER Visit Summary Date of Service: 05/03/18 Chief Complaint: Mental status changes History of Present Illness: The patient is a 47 F with history of prior episodes just like this in the past 3-4 months, presents with about 12 hours of confusion. No focal signs. She should be remembering certain facts, per her son she is quite forgetful. She is somewhat slurring her speech. She denies any pain. There are some abnormal behavioral patterns, she apparently has an ankle fracture and will not keep her splint on. She does not remember exactly where she has. No history of trauma in the past few days although she has fallen quite a bit in the last few months. Physical Examination: Patient responds to my questions but does not know why she is here. She appears chronically ill but not acutely ill. Moist mucous membranes, no obvious facial deformity No C-spine tenderness supple neck. Regular rate and rhythm without any obvious murmurs Clear lungs bilaterally speaking in full sentences without any obvious respiratory distress Abdomen soft and nontender no guarding or rebound She has ankle tenderness and multiple bruises throughout her skin. She is alert but disoriented, she has no focal deficit. GCS is 14. Emergency Department Course and Treatment: She did not significantly improve. She was observed in the emergency department, because she is not safe to go home I will admit her to the hospital for observation. Based on her prior events she will likely improve in the next 12-24 hours. I talked to the family since I did find THC in her urine along with the opiates, about the fact that this is likely the cause of her encephalopathy and when she is improved she needs to be counseled. She did have a history of alcoholism, apparently she has been with her son for the past few days and has not had any alcohol, I did give her thiamine in case this is Warneke's. 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 It may contain incorrect words, spelling, and punctuation that were not noted in review of the chart prior to signing ED Disposition - Plan for ED Patient: Chief Complaint: Mental Status Change Referrals: Jacob Teixeira DO [Primary Care Provider] -
[2018-05-03 08:47] LABS: Absolute Lymphocyte Count 1.67 X10^3/ul (0.83-4.51); Absolute Neutrophil Count 6.4 X10^3/uL (2.0-7.7); Basophil# 0.02 X10^3/uL; Basophil% 0.2 % (0-1); Differential Indicated SCAN CRITERIA MET; Eosinophil# 0.07 X10^3/uL; Eosinophils% 0.7 % (0-5); Hematocrit 39.1 % (37-47); Hemoglobin 12.4 g/dl (12.0-15.0); Lymphocyte # 1.67 X10^3/ul (4.0); Lymphocyte % 16.8 % (19-41); Mean Corp Hgb Conc 31.7 g/gl (32-36); Mean Corpuscular Hgb 31.2 pg (27.0-32.0); Mean Corpuscular Volume 98.2 fL (81-99); Mean Platelet Vol. 9.1 fl (6.2-12.0); Monocyte# 1.69 X10^3/uL; Neutrophil # 6.39 X10^3/uL (2.7-7.7); Neutrophil % 64.2 % (47-70); POSITIVE COUNT NO; POSITIVE DIFFERENTIAL YES; POSITIVE MORPHOLOGY YES; Platelet Count 358 K/mm3 (150-450); RBC Distribution Width CV 15.8 % (11.6-14.6); RBC Distribution Width SD 56.2 fl (35.1-43.9); Red Blood Count 3.98 M/mm3 (4.2-5.4)
[2018-05-03 08:57] LABS: AST(SGOT) 20 U/L (15-37); Alanine Aminotransfer ALT/SGPT 22 U/L (13-56); Albumin, Serum 3.6 g/dL (3.2-5.0); Alkaline Phosphatase 81 U/L (45-117); Anion Gap 8 (5-15); BUN 18 mg/dL (7-18); BUN/Creat Ratio 11.5 RATIO (10-20); Calcium,Total 9.4 mg/dL (8.5-10.1); Chloride 106 mmol/L (98-107); Creatinine, Serum 1.57 mg/dL (0.55-1.02); EST Glomerular Filtration Rate 37 mL/min (>60); Est Glom Filt Rate - Afr Amer 45 mL/min (>60); Estimated Creatinine Clearance 37.43 ml/min; Globulin 3.6 g/dL (2.2-4.2); Glucose 88 mg/dL (74-106); Potassium 3.9 mmol/L (3.5-5.1); Protein, Total 7.2 g/dL (6.4-8.2); Sodium Level 143 mmol/L (136-145)
[2018-05-03] MEDS: Thiamine Hydrochloride 200 MG/2 ML Vial 100 MG IV (09:22)
[2018-05-03 09:33] LABS: Alcohol, Blood (Medical)-Serum < 3.0 mg/dL
[2018-05-03 09:37] LABS: Color, Urine Yellow (Yellow); Glucose, Dipstick Normal (Normal); Ketone-Dipstick 15 mg/dl (Negative); Leukocyte Esterase-Dipstick 25 /ul (Negative); Nitrite-Dipstick Negative (Negative); Occult Blood-Urine 150 /ul (Negative); Protein-Dipstick 30 mg/dl (Negative); Urine Clarity Sl. Cloudy (Clear); Urine Urobilinogen 1 mg/dl (Normal)
[2018-05-03 09:38] LABS: Urine Bilirubin Dipstick 1 mg/dL (Negative)
[2018-05-03 09:48] LABS: Amphetamine Urine VISTA NEGATIVE (<1000 ng/mL); Barbiturate Urine VISTA NEGATIVE (< 200 ng/mL); Benzodiazepine Urine VISTA NEGATIVE (< 200 ng/mL); Cocaine Urine VISTA NEGATIVE (< 300 ng/mL); Ecstacy Urine VISTA NEGATIVE (< 500 ng/mL); Methadone Urine VISTA NEGATIVE (< 300 ng/mL); PCP Urine VISTA NEGATIVE (< 25 ng/mL); THC Urine VISTA POSITIVE (< 50 ng/mL); Vista UDS pH Range 5
--- NOTE | 2018-05-03 10:06 | CM.ED ---
Social Work Note Face to face with the pt, her spouse, and son. Introduced self and role at [facility]. The pt reports to live with her in a one-story home with 2-3 SELENA. Denies access issues. DME consists of a knee walker, cane and walker. Pt has been using the knee walker and uses a cane at her baseline. Per the spouse she typically completed ADL's independently. She fractured her ankle about 1-2 weeks ago he states and was supposed to have his hard casted yesterday, but she did not go d/t to her confusion she has been experiencing. He believes this was to be done at [facility], but is not sure. Confirms that the pt's PCP is Jacob Teixeira DO and she also sees Dr. Armenta and Dr. Chen. Preferred pharmacy is [facility] in [place]. Unsure of discharge needs at this time and made aware that there is case management on the unit that the pt will be assigned to that will follow for any discharge needs. Lori Robledo, DIRECTOR OF SALES MARKETING, [employer]
--- NOTE | 2018-05-03 10:09 | HP.PCM_ITS ---
Problem List (1) Altered mental status Status: Acute Qualifiers: Altered mental status type: delirium Qualified Code(s): R41.0 - Disorientation, unspecified (2) ARF (acute renal failure) Status: Acute Qualifiers: Acute renal failure type: unspecified Qualified Code(s): N17.9 - Acute kidney failure, unspecified (3) Hypertension Status: Chronic Qualifiers: Hypertension type: essential hypertension Qualified Code(s): I10 - Essential (primary) hypertension (4) History of rheumatoid arthritis Status: Chronic (5) History of fibromyalgia Status: Chronic (6) Chronic low back pain Status: Chronic Qualifiers: Back pain laterality: unspecified Sciatica laterality: sciatica laterality unspecified History of Present Illness Date of Admission: 05/03/18 Chief Complaint: Altered mental status The patient is a 47-year-old female with past medical history of fibromyalgia, rheumatoid arthritis, hypertension, history of drug use, recently admitted and discharged with multiple syncopal episodes from severe diarrhea and found to have right ankle fracture. Patient was discharged with normal creatinine. She was to follow-up with podiatry today for follow-up after splinting. Patient was reportedly to the ED by the family with more than 12 hours episode of confusion. Patient has had prior episodes like this in the past. Workup had been negative. Family was not available to answer my questions. Urine toxicology done in the ED showed opiates and marijuana. She had a CT scan of the brain that did not show any acute intracranial process. Vitals in the ED showed blood pressure of 90 6.4F, heart rate of 90, blood pressure 116/73, respiratory rate of 16, SPO2 is 95% on room air. Admitting blood work showed RBC count of 10.0, Hb 12.4, platelet of 358. Sodium was 143, potassium was 3.9, chloride 106, bicarbonate 29, BUN 18, creatinine was 1.57. She was discharged with a normal creatinine. UA shows slightly cloudy urine, protein of 30, nitrite was negative and leukocyte esterase was 25 Past Medical History Past Medical History (Chronic Problems): Chronic Problems Hypertension (Chronic) Tobacco abuse disorder (Chronic) History of rheumatoid arthritis (Chronic) History of fibromyalgia (Chronic) Chronic low back pain (Chronic) History of drug overdose (Chronic) Allergies progesterone Allergy (Verified 05/03/18 07:49) Itching varenicline tartrate [From Chantix] Allergy (Verified 05/03/18 07:49) suicidal Home Medications: Ambulatory Orders Medication Instructions Recorded Venlafaxine XR [Effexor Xr] 225 mg PO DAILY 01/08/14 Abatacept [Orencia Clickject] 125 mg SQ MO 11/12/16 Mirtazapine [Remeron Orally 45 mg PO QHS 11/12/16 Disintegrating] Albuterol Inhaler [Ventolin Hfa] 2 puff INHALATION Q4H PRN PRN 03/31/18 Aspirin 81 mg PO DAILY 03/31/18 Atorvastatin Calcium [Lipitor] 80 mg PO QHS 03/31/18 Esomeprazole Mag Trihydrate 40 mg PO DAILY 03/31/18 [Nexium] Estradiol [Estrace Vaginal Cream] 1 dose VAGINAL DAILY 03/31/18 Ferrous Sulfate [Iron] 1 tablet PO DAILY 03/31/18 Folic Acid 2 mg PO DAILY@0800 03/31/18 Methotrexate 20 mg PO MO 03/31/18 Metoprolol Tartrate [Lopressor 12.5 mg PO DAILY 03/31/18 (beta fan)] Nicotine [Nicotine Patch] 1 each TD DAILY 03/31/18 Oxycodone Myristate [Xtampza ER] 13.5 mg PO BID 03/31/18 Losartan Potassium [Cozaar] 25 mg PO DAILY #30 tab 04/01/18 Hydrocodone/Acetaminophen [Vicodin 1 each PO BID 04/23/18 Es 7.5-300 mg Tablet] Acetaminophen [Tylenol Tablet] 650 mg PO Q6H PRN PRN tablet 04/25/18 Calcium Carbonate [Tums] 500 mg PO TIDCM #90 tab 04/25/18 Baclofen [Baclofen] 10 mg PO BID 05/03/18 Furosemide [Lasix] 20 mg PO DAILY 05/03/18 Pregabalin [Lyrica] 150 mg PO BID 05/03/18 Rosuvastatin Calcium [Crestor] 40 mg PO DAILY 05/03/18 Surgical History: total hip arthroplasty, - - Multiple surgeries for left femur due to rheumatoid arthritis and osteoarthritis Psychiatric History: Depression 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 MANAGEMENT TRAINER 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: No pertinent MEDICAL MANAGEMENT TRAINER history Lives: Spouse/ Significant Other, With Family Smoking Status: Current every day smoker Tobacco Use: Cigarettes Alcohol: Occasional Drugs: Marijuana, - - opiates - *Family History Maternal History Items: No pertinent history Paternal History Items: No pertinent history Review of Systems Unable to obtain accurate/complete ROS d/t: patient has altered mental status, confused, oriented to self, lethargic VTE Information - Inpt Only VTE Present on Admission: No VTE Pharm Prophylaxis ordered?: Yes Patient Problems: Active and Suspected Problems Altered mental status (Acute) - Physical Exam General: Confused - oriented only to self, Lethargic HEENT: Atraumatic, PERRLA, EOMI, Normocephalic Oral: Dry Mucosa Neck: Supple Lungs: Clear to auscultation, Normal air movement Cardiovascular: Regular rate, Regular Rhythm, Normal S1, Normal S2, No murmurs Abdomen: Bowel Sounds Present, Soft, Non Tender, Non-Distended, No Hepato- splenomegaly Extremities: - - Lower extremity in splint with Leonel wraps Skin: No rashes Musculoskeletal: No Tenderness to Palpation of Joints or Extremities Lymphatic: No Cervical, Supraclavicular, or Inguinal Adenopathy Neurological: Cranial nerves II-XII grossly intact, Neuro grossly intact, Motor Exam 5/5 strength throughout Psych/Mental Status: Normal Affect, Appropriate Vital Signs Temp Pulse Resp BP Pulse Ox 96.4 F L 90 18 138/86 H 96 05/03/18 07:45 05/03/18 10:00 05/03/18 10:00 05/03/18 10:00 05/03/18 10:00 Oxygen Delivery Method Room Air Weight: 68.039 kg Body Mass Index (BMI) 25.7 Finger Stick Blood Glucose 120 Laboratory Tests Past 24 Hrs 05/03/18 05/03/18 05/03/18 08:25 08:25 08:25 WBC 10.0 RBC 3.98 L Hgb 12.4 Hct 39.1 MCV 98.2 MCH 31.2 MCHC 31.7 L RDW 15.8 H RDW Differential 56.2 H Plt Count 358 MPV 9.1 Immature Gran % (Auto) 1.100 H Neut % (Auto) 64.2 Lymph % (Auto) 16.8 L [place] % (Auto) 17.0 H Eos % (Auto) 0.7 Baso % (Auto) 0.2 Absolute Neuts (auto) 6.4 Absolute Lymphs (auto) 1.67 Total Counted Not Reportable Sodium 143 Potassium 3.9 Chloride 106 Carbon Dioxide 29.0 Anion Gap 8 BUN 18 Creatinine 1.57 H Estim Creat Clear Calc 37.43 Est GFR (MDRD) Af Amer 45 L Est GFR (MDRD) Non-Af 37 L BUN/Creatinine Ratio 11.5 Glucose 88 Calcium 9.4 Total Bilirubin 0.30 AST 20 ALT 22 Alkaline Phosphatase 81 Total Protein 7.2 Albumin 3.6 Globulin 3.6 Albumin/Globulin Ratio 1.0 Urine Color Urine Clarity Urine pH Ur Specific [place] Urine Protein Urine Glucose (UA) Urine Ketones Urine Occult Blood Urine Nitrite Urine Bilirubin Urine Urobilinogen Ur Leukocyte Esterase Urine Opiates Screen Urine Methadone Screen Ur Barbiturates Screen Ur Phencyclidine Scrn Ur Amphetamines Screen U Methamphetamin-MDMA U Benzodiazepines Scrn Urine Cocaine Screen U Cannabinoids Screen Ur Drug Screen Comment Ethyl Alcohol < 3.0 05/03/18 05/03/18 09:30 09:30 WBC RBC Hgb Hct MCV MCH MCHC RDW RDW Differential Plt Count MPV Immature Gran % (Auto) Neut % (Auto) Lymph % (Auto) [place] % (Auto) Eos % (Auto) Baso % (Auto) Absolute Neuts (auto) Absolute Lymphs (auto) Total Counted Sodium Potassium Chloride Carbon Dioxide Anion Gap BUN Creatinine Estim Creat Clear Calc Est GFR (MDRD) Af Amer Est GFR (MDRD) Non-Af BUN/Creatinine Ratio Glucose Calcium Total Bilirubin AST ALT Alkaline Phosphatase Total Protein Albumin Globulin Albumin/Globulin Ratio Urine Color Yellow Urine Clarity Sl. Cloudy Urine pH 5.0 Ur Specific [place] 1.020 Urine Protein 30 H Urine Glucose (UA) Normal Urine Ketones 15 H Urine Occult Blood 150 H Urine Nitrite Negative Urine Bilirubin 1 H Urine Urobilinogen 1 H Ur Leukocyte Esterase 25 H Urine Opiates Screen POSITIVE H Urine Methadone Screen NEGATIVE Ur Barbiturates Screen NEGATIVE Ur Phencyclidine Scrn NEGATIVE Ur Amphetamines Screen NEGATIVE U Methamphetamin-MDMA NEGATIVE U Benzodiazepines Scrn NEGATIVE Urine Cocaine Screen NEGATIVE U Cannabinoids Screen POSITIVE H Ur Drug Screen Comment Ethyl Alcohol Assessment/Plan All Active Problems Mental confusion (Acute) ARF (acute renal failure) (Acute) Diarrhea (Acute) Altered mental status (Acute) 47-year-old female with past medical history of fibromyalgia, rheumatoid arthritis, hypertension, history of drug use, recently admitted and discharged with multiple syncopal episodes from severe diarrhea and found to have right ankle fracture. 1. Altered mental status secondary to likely narcotic medications, marijuana use, patient's urine tox is positive for marijuana and opiates, CT scan of brain is negative for any acute intracranial process, will hold opioids, IV fluids, monitor mentation and vitals closely. 2. DYAN likely secondary to dehydration, will continue IV fluids, check BMP in a.m. 3. Recent right ankle fracture, will consult podiatry, would need repeat x-rays of the ankle 4. Hypertension 5. Fibromyalgia/rheumatoid arthritis/chronic low back pain, will hold most of the medications as those are sedating, scheduled Tylenol 1000 mg p.o. 3 times daily would monitor the chest mentation, if it improves we will introduce medications gradually. 6. Hyperlipidemia, on statin 7. Iron Deficiency anemia, on p.o. iron and folic acid 8. DVT prophylaxis with heparin subcu Code Visit Inpatient E&M: 98194 Init Hosp L3
--- NOTE | 2018-05-03 10:28 | NURSING ---
Zoya charge nurse notified may transfer patient to PCU.
--- NOTE | 2018-05-03 11:56 | NURSING ---
call placed to trish SIMMONS who will be taking over care on [facility] for this pt
[2018-05-03] MEDS: Calcium Carbonate 500 MG Tablet PO ×2 (13:15→18:30)
[2018-05-03] MEDS: 0.9% Normal Saline 1,000 ML 100 ML IV (13:15)
--- NOTE | 2018-05-03 14:35 | RAD_ITS ---
STUDY: X-RAY - RIGHT ANKLE REASON FOR EXAM: Female, 47 years old. Trauma, status post fall TECHNIQUE: 2 view(s) of the ankle. COMPARISON: 04/24/2018 FINDINGS: Splinting material tears fine bony detail. The distal fibular fracture is seen without significant change in alignment. There is continued mild lateral displacement of the distal fibular fracture. RAD/Ankle 2 Views IMPRESSION: No change in alignment to the distal fibular fracture. Electronically Signed: Evan Sheehan DO at 17:00 EDT Tel , Service support ,
--- NOTE | 2018-05-03 20:39 | PCM.CONS.GEN ---
Problem List (1) Fracture of fibula, right, closed Status: Acute Qualifiers: Encounter type: subsequent encounter Fibula location: distal Fracture healing: with routine healing (2) Tobacco abuse disorder Status: Chronic (3) History of rheumatoid arthritis Status: Chronic (4) History of fibromyalgia Status: Chronic Reason for Consult Date of Consultation: 05/03/18 Reason for Consultation: right fibula fracture History of Present Illness: The patient is a 47 year old F was seen bedside for right fibula fracture sustained last week. She was since readmitted to the hospital for drug related overdose and confusion. She admits she has been walking on her fractured limb but denies removing her splint. She denies lower extremity cramping, burning or tingling. Her pain is localized to the fracture site. She denies new leg injuries. Past Medical History Past Medical History (Chronic Problems): Chronic Problems Hypertension (Chronic) Tobacco abuse disorder (Chronic) History of rheumatoid arthritis (Chronic) History of fibromyalgia (Chronic) Chronic low back pain (Chronic) History of drug overdose (Chronic) Allergies progesterone Allergy (Verified 05/03/18 07:49) Itching varenicline tartrate [From Chantix] Allergy (Verified 05/03/18 07:49) suicidal Home Medications: Ambulatory Orders Medication Instructions Recorded Venlafaxine XR [Effexor Xr] 225 mg PO DAILY 01/08/14 Abatacept [Orencia Clickject] 125 mg SQ MO 11/12/16 Mirtazapine [Remeron Orally 45 mg PO QHS 11/12/16 Disintegrating] Albuterol Inhaler [Ventolin Hfa] 2 puff INHALATION Q4H PRN PRN 03/31/18 Aspirin 81 mg PO DAILY 03/31/18 Atorvastatin Calcium [Lipitor] 80 mg PO QHS 03/31/18 Esomeprazole Mag Trihydrate 40 mg PO DAILY 03/31/18 [Nexium] Estradiol [Estrace Vaginal Cream] 1 dose VAGINAL DAILY 03/31/18 Ferrous Sulfate [Iron] 1 tablet PO DAILY 03/31/18 Folic Acid 2 mg PO DAILY@0800 03/31/18 Methotrexate 20 mg PO MO 03/31/18 Metoprolol Tartrate [Lopressor 12.5 mg PO DAILY 03/31/18 (beta fan)] Nicotine [Nicotine Patch] 1 each TD DAILY 03/31/18 Oxycodone Myristate [Xtampza ER] 13.5 mg PO BID 03/31/18 Losartan Potassium [Cozaar] 25 mg PO DAILY #30 tab 04/01/18 Hydrocodone/Acetaminophen [Vicodin 1 each PO BID 04/23/18 Es 7.5-300 mg Tablet] Acetaminophen [Tylenol Tablet] 650 mg PO Q6H PRN PRN tablet 04/25/18 Calcium Carbonate [Tums] 500 mg PO TIDCM #90 tab 04/25/18 Baclofen [Baclofen] 10 mg PO BID 05/03/18 Furosemide [Lasix] 20 mg PO DAILY 05/03/18 Pregabalin [Lyrica] 150 mg PO BID 05/03/18 Rosuvastatin Calcium [Crestor] 40 mg PO DAILY 05/03/18 Surgical History: total hip arthroplasty, - - Multiple surgeries for left femur due to rheumatoid arthritis and osteoarthritis Psychiatric History: Depression 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 Denies: Incoordination, Numbness, Tingling Patient Problems: Active and Suspected Problems Altered mental status (Acute) Fracture of fibula, right, closed (Acute) - Physical Exam General: Alert, Oriented x3, Cooperative HEENT: Atraumatic Extremities: No cyanosis, Capillary Refill Less than 3 Seconds - all digits right foot, No Calf Tenderness - negative fatimah and sinclair sign bilateral, Edema - ankle, Peripheral Pulses Normal - 2/4 dp and pt pulse, right Skin: Ulcer/ Wound - no fracture blister, no erythema, no infection, no streaking. mild ecchymosis noted Musculoskeletal: No Tenderness to Palpation of Joints or Extremities, No Muscle Wasting, - - passive smooth gliding sagittal plane range of motion of ankle (right) noted.pain to palpate distal fibula fracture. no pain to palpate ankle joint line, medial malleolus, navicular, fifth metatarsal base or with calcaneal compression Neurological: Sensory exam intact to light touch and pain - foot and ankle dermatomes are intact Psych/Mental Status: Normal Affect, Appropriate Vital Signs Temp Pulse Resp BP Pulse Ox 98.2 F 81 18 147/81 H 98 05/03/18 17:44 05/03/18 17:44 05/03/18 17:45 05/03/18 17:44 05/03/18 17:44 Oxygen Delivery Method Room Air Weight: 74.2 kg Body Mass Index (BMI) 29.0 Intake and Output for Last 24 Hours 05/01/18 05/02/18 05/03/18 23:59 23:59 23:59 Intake Total 1100 / 1100 Balance 1100 / 1100 Assessment/Plan All Active Problems Mental confusion (Acute) ARF (acute renal failure) (Acute) Diarrhea (Acute) Altered mental status (Acute) Fracture of fibula, right, closed (Acute) Right fibular fracture - mild displacement / unchanged from initial exam (SER2) rheumatoid arthritis Narcotic dependence Nicotine dependence Fibromyalgia Vit D deficiency Reviewed findings with patient, reviewed the options. I reviewed and discussed the xrays (ap, lateral ankle without further displacement of the spiral oblique distal fibula fracture, no acute fracture, mortise is well aligned). Given findings, and patient's overall health status we will proceed with nonsurgical management at this time as surgical intervention would be high risk for healing and other possible complications. Patient agrees to continue with this plan, she is well aware on possibility of development of arthritis. Her posterior mold splint was reapplied with clean osbaldo wraps; to remain on weightbearing. To keep clean and dry. A fiberglass shortleg cast will be applied when she follows up in the outpatient setting next week. Recommended continued tobacco cessation. Her vitamin D was reviewed at 22.6; I recommend vit D supplementation of at least 3000 units daily. I answered all of her questions. Tonia Trejo, [facility] [phone]
--- NOTE | 2018-05-03 20:50 | DCINST_ITS ---
Discharge Diet: No Restrictions Discharge Activity: May not drive while taking narcotic pain medications., Use Walker, Use Crutches Weight Bearing Status: No weight bearing - keep splint to right lower limb intact until follow up Keep extremity elevated above heart level: Right Leg Additional Activity Instructions:: stop smoking activities. take Vit D supplementation Call your doctor if you observe: Fever of 101 or Higher, Numbness or Tingling, Change in Color, Shortness of breath, Swelling in the ankles, Chest pain, Calf discomfort, Uncontrolled pain Cleanse incision/area with: Keep Dressing Clean & Dry Allergies/Adverse Reactions: Allergies progesterone Allergy (Verified 05/03/18 07:49) Itching varenicline tartrate [From Chantix] Allergy (Verified 05/03/18 07:49) suicidal Medications to take at Discharge Venlafaxine XR [Effexor Xr] 225 mg PO DAILY 01/08/14 Abatacept [Orencia Clickject] 125 mg SQ MO 11/12/16 Mirtazapine [Remeron Orally Disintegrating] 45 mg PO QHS 11/12/16 Albuterol Inhaler [Ventolin Hfa] 2 puff INHALATION Q4H PRN PRN 03/31/18 Aspirin 81 mg PO DAILY 03/31/18 Atorvastatin Calcium [Lipitor] 80 mg PO QHS 03/31/18 Esomeprazole Mag Trihydrate [Nexium] 40 mg PO DAILY 03/31/18 Estradiol [Estrace Vaginal Cream] 1 dose VAGINAL DAILY 03/31/18 Ferrous Sulfate [Iron] 1 tablet PO DAILY 03/31/18 Folic Acid 2 mg PO DAILY@0800 03/31/18 Methotrexate 20 mg PO MO 03/31/18 Metoprolol Tartrate [Lopressor (beta fan)] 12.5 mg PO DAILY 03/31/18 Nicotine [Nicotine Patch] 1 each TD DAILY 03/31/18 Oxycodone Myristate [Xtampza ER] 13.5 mg PO BID 03/31/18 Losartan Potassium [Cozaar] 25 mg PO DAILY #30 tab 04/01/18 Hydrocodone/Acetaminophen [Vicodin Es 7.5-300 mg Tablet] 1 each PO BID 04/23/18 Acetaminophen [Tylenol Tablet] 650 mg PO Q6H PRN PRN tablet 04/25/18 Calcium Carbonate [Tums] 500 mg PO TIDCM #90 tab 04/25/18 Baclofen [Baclofen] 10 mg PO BID 05/03/18 Furosemide [Lasix] 20 mg PO DAILY 05/03/18 Pregabalin [Lyrica] 150 mg PO BID 05/03/18 Rosuvastatin Calcium [Crestor] 40 mg PO DAILY 05/03/18 Primary Care Physician: Jacob Teixeira DO [Primary Care Provider] - Please Follow Up With: Kota Arevalo DPM When: next week at [facility]; [phone]
[2018-05-03] MEDS: Metoprolol Tartrate 25 MG Tablet 12.5 MG PO (21:14)
[2018-05-03] MEDS: Heparin Injection (Vial) 5,000 UNIT/ML VIAL 5000 UNIT SC (21:15)
[2018-05-03] MEDS: Atorvastatin Calcium 80 MG Tablet PO (21:16)
[2018-05-04] VITALS (7 sets, daily range): BP systolic 115–159; BP diastolic 64–99; PULSE 72–89; RESP 16–18; TEMP 36.4–36.8; O2SAT 95–99
[2018-05-04] MEDS: 0.9% Normal Saline 1,000 ML 100 ML IV ×2 (00:28→08:08)
[2018-05-04] MEDS: Folic Acid 1 MG Tablet 2 MG PO (09:09)
[2018-05-04] MEDS: Ferrous Sulfate 325 MG Tablet PO (09:09)
[2018-05-04] MEDS: Aspirin 81 MG TAB.CHEW PO (09:09)
[2018-05-04 09:10] LABS: Anion Gap 6 (5-15); BUN 11 mg/dL (7-18); BUN/Creat Ratio 16.7 RATIO (10-20); Calcium,Total 8.4 mg/dL (8.5-10.1); Chloride 109 mmol/L (98-107); Creatinine, Serum 0.66 mg/dL (0.55-1.02); EST Glomerular Filtration Rate 101 mL/min (>60); Est Glom Filt Rate - Afr Amer 123 mL/min (>60); Estimated Creatinine Clearance 85.29 ml/min; Glucose 71 mg/dL (74-106); Sodium Level 141 mmol/L (136-145)
[2018-05-04] MEDS: Calcium Carbonate 500 MG Tablet PO ×2 (09:10→11:55)
[2018-05-04] MEDS: Pantoprazole Sodium 40 MG Tablet PO (10:09)
[2018-05-04] MEDS: Metoprolol Tartrate 25 MG Tablet 12.5 MG PO (10:09)
[2018-05-04] MEDS: Heparin Injection (Vial) 5,000 UNIT/ML VIAL 5000 UNIT SC (10:09)
--- NOTE | 2018-05-04 11:40 | PCM.DC ---
- Discharge Diagnoses Current Active Problems: Current Active and Chronic Problems Altered mental status (Acute) Fracture of fibula, right, closed (Acute) Reason(s) for Visit for Discharge Instructions: Altered mental status You will use the following diet at home:: Cardiac Your food should be the consistency of: Regular Your liquids should be the consistency of: Regular/Thin Discharge Activity: May not drive while taking narcotic pain medications., Use Walker, Use Crutches Weight Bearing Status: No weight bearing - keep splint to right lower limb intact until follow up Keep extremity elevated above heart level: Right Leg Additional Activity Instructions:: stop smoking activities. take Vit D supplementation Call your doctor if you observe: Fever of 101 or Higher, Numbness or Tingling, Change in Color, Shortness of breath, Swelling in the ankles, Chest pain, Calf discomfort, Uncontrolled pain Cleanse incision/area with: Keep Dressing Clean & Dry Allergies/Adverse Reactions: Allergies progesterone Allergy (Verified 05/03/18 07:49) Itching varenicline tartrate [From Chantix] Allergy (Verified 05/03/18 07:49) suicidal Medications to take at Discharge Venlafaxine XR [Effexor Xr] 225 mg PO DAILY 01/08/14 Abatacept [Orencia Clickject] 125 mg SQ MO 11/12/16 Mirtazapine [Remeron Orally Disintegrating] 45 mg PO QHS 11/12/16 Albuterol Inhaler [Ventolin Hfa] 2 puff INHALATION Q4H PRN PRN 03/31/18 Aspirin 81 mg PO DAILY 03/31/18 Atorvastatin Calcium [Lipitor] 80 mg PO QHS 03/31/18 Esomeprazole Mag Trihydrate [Nexium] 40 mg PO DAILY 03/31/18 Estradiol [Estrace Vaginal Cream] 1 dose VAGINAL DAILY 03/31/18 Ferrous Sulfate [Iron] 1 tablet PO DAILY 03/31/18 Folic Acid 2 mg PO DAILY@0800 03/31/18 Methotrexate 20 mg PO MO 03/31/18 Metoprolol Tartrate [Lopressor (beta fan)] 12.5 mg PO DAILY 03/31/18 Nicotine [Nicotine Patch] 1 each TD DAILY 03/31/18 Oxycodone Myristate [Xtampza ER] 13.5 mg PO BID 03/31/18 Losartan Potassium [Cozaar] 25 mg PO DAILY #30 tab 04/01/18 Hydrocodone/Acetaminophen [Vicodin Es 7.5-300 mg Tablet] 1 each PO BID 04/23/18 Acetaminophen [Tylenol Tablet] 650 mg PO Q6H PRN PRN tablet 04/25/18 Calcium Carbonate [Tums] 500 mg PO TIDCM #90 tab 04/25/18 Baclofen [Baclofen] 10 mg PO BID 05/03/18 Furosemide [Lasix] 20 mg PO DAILY 05/03/18 Pregabalin [Lyrica] 150 mg PO BID 05/03/18 Rosuvastatin Calcium [Crestor] 40 mg PO DAILY 05/03/18 Primary Care Physician: Jacob Teixeira DO [Primary Care Provider] - Please follow up with your Primary Care Physician in: within 2 weeks Please Follow Up With: Kota Arevalo DPM When: [facility]; [phone] Please Follow Up With: Tan Armenta MD When: within 2 weeks Proposed Discharge Date: 05/04/18
--- NOTE | 2018-05-04 11:42 | PCM.DC.SUM ---
Discharge Date and Diagnosis Date of Admission: 05/03/18 Date of Discharge: 05/04/18 - Primary Discharge Diagnosis Active and Suspected Problems Altered mental status (Acute) Fracture of fibula, right, closed (Acute) Acute kidney injury - Secondary Discharge Diagnosis Chronic Problems Hypertension (Chronic) Tobacco abuse disorder (Chronic) History of rheumatoid arthritis (Chronic) History of fibromyalgia (Chronic) Chronic low back pain (Chronic) History of drug overdose (Chronic) Hospital Course and Treatment Imaging Results: Clinical Impression(s) from Imaging Studies Brain CT 05/03/18 08:04 IMPRESSION: Evidence of a assess for malacia and prior infarction involving the distribution of the right middle cerebral artery territory. No acute abnormality is seen at this time. Electronically Signed: Quirino Horan MD at 8:54 EDT Tel [phone], Service support , Ankle X-Ray 05/03/18 14:35 IMPRESSION: No change in alignment to the distal fibular fracture. Electronically Signed: Evan Sheehan DO at 17:00 EDT Tel , Service support , None Operations: None, - - splint right leg. Procedures: None Summary of Care Provided: 47-year-old female with past medical history of fibromyalgia, rheumatoid arthritis, hypertension, history of drug use, recently admitted and discharged with multiple syncopal episodes from severe diarrhea and found to have right ankle fracture. 1. Altered mental status secondary to likely narcotic medications, marijuana use, patient's urine tox is positive for marijuana and opiates, CT scan of brain is negative for any acute intracranial process. She was recently given some opioid medication. She was admitted to telemetry bed, her home opioids were held, her mentation improved with hydration. It was resolved in the morning 2. DYAN likely secondary to dehydration, resolved with IV fluid hydration, will repeat BMP in the outpatient 3. Recent right ankle fracture,podiatry was consulted, repeat x-rays did not show any further displacement, patient will be followed up in the outpatient for fiberglass cast 4. Hypertension, controlled, continue home medication 5. Fibromyalgia/rheumatoid arthritis/chronic low back pain, changes made to medications per discharge medication reconciliation. 6. Hyperlipidemia, on statin 7. Iron Deficiency anemia, on p.o. iron and folic acid Discharge Diet: No Restrictions Discharge Activity: May not drive while taking narcotic pain medications., Use Walker, Use Crutches Weight Bearing Status: No weight bearing - keep splint to right lower limb intact until follow up Keep extremity elevated above heart level: Right Leg Additional Activity Instructions:: stop smoking activities. take Vit D supplementation Call your doctor if you observe: Fever of 101 or Higher, Numbness or Tingling, Change in Color, Shortness of breath, Swelling in the ankles, Chest pain, Calf discomfort, Uncontrolled pain Cleanse incision/area with: Keep Dressing Clean & Dry Home Medications: Medications to take at Discharge Venlafaxine XR [Effexor Xr] 225 mg PO DAILY 01/08/14 Abatacept [Orencia Clickject] 125 mg SQ MO 11/12/16 Mirtazapine [Remeron Orally Disintegrating] 45 mg PO QHS 11/12/16 Albuterol Inhaler [Ventolin Hfa] 2 puff INHALATION Q4H PRN PRN 03/31/18 Aspirin 81 mg PO DAILY 03/31/18 Atorvastatin Calcium [Lipitor] 80 mg PO QHS 03/31/18 Esomeprazole Mag Trihydrate [Nexium] 40 mg PO DAILY 03/31/18 Estradiol [Estrace Vaginal Cream] 1 dose VAGINAL DAILY 03/31/18 Ferrous Sulfate [Iron] 1 tablet PO DAILY 03/31/18 Folic Acid 2 mg PO DAILY@0800 03/31/18 Methotrexate 20 mg PO MO 03/31/18 Metoprolol Tartrate [Lopressor (beta fan)] 12.5 mg PO DAILY 03/31/18 Nicotine [Nicotine Patch] 1 each TD DAILY 03/31/18 Oxycodone Myristate [Xtampza ER] 13.5 mg PO BID 03/31/18 Losartan Potassium [Cozaar] 25 mg PO DAILY #30 tab 04/01/18 Hydrocodone/Acetaminophen [Vicodin Es 7.5-300 mg Tablet] 1 each PO BID 04/23/18 Calcium Carbonate [Tums] 500 mg PO TIDCM #90 tab 04/25/18 Baclofen 10 mg PO BID 05/03/18 Furosemide [Lasix] 20 mg PO DAILY 05/03/18 Pregabalin [Lyrica] 150 mg PO BID 05/03/18 Rosuvastatin Calcium [Crestor] 40 mg PO DAILY 05/03/18 Mirtazapine [Remeron] 15 mg PO QHS #30 tab 05/04/18 Following Prescrptions Were Given to Patient: Mirtazapine [Remeron] 15 mg PO QHS #30 tab Primary Care Physician: Jacob Teixeira DO [Primary Care Provider] - Please follow up with your Primary Care Physician in: within 2 weeks Please Follow Up With: Kota Arevalo DPM When: next week at [facility]; [phone] Please Follow Up With: Tan Armenta MD When: within 2 weeks Disposition: Home Minutes spent on discharge:: 40 Patient Condition:: Stable Medical Necessity - Tobacco Use Smoking Status: Current every day smoker Tobacco Use: Cigarettes Meaningful Use Info Meaningful Use Diagnoses (Choose all that apply): None applicable Code Visit Inpatient E&M: 74731 Disch Hosp
== END 2018-05-04 13:09 | disposition home or self-care (01) ==
LOC: ED 08:25 → PCU 10:49 → MS3 12:39
PROVIDERS: Admitting Provider Internal Medicine; Emergency Provider Emergency Medicine; Family Provider Student in an Organized Health Care Education/Training Program; PCP Student in an Organized Health Care Education/Training Program; Visit Provider Internal Medicine
DX: R41.82 Altered mental status, unspecified (principal); N17.9 Acute kidney failure, unspecified; I10 Essential (primary) hypertension; M06.9 Rheumatoid arthritis, unspecified; M79.7 Fibromyalgia; G89.29 Other chronic pain; M54.5 Low back pain; S82.831D Other fracture of upper and lower end of right fibula, subsequent encounter for closed fracture with routine healing; W19.XXXD Unspecified fall, subsequent encounter; E78.5 Hyperlipidemia, unspecified; D50.9 Iron deficiency anemia, unspecified; F17.210 Nicotine dependence, cigarettes, uncomplicated; R47.81 Slurred speech; F10.21 Alcohol dependence, in remission; Z79.899 Other long term (current) drug therapy; Z79.82 Long term (current) use of aspirin; F32.9 Major depressive disorder, single episode, unspecified; F11.20 Opioid dependence, uncomplicated; E55.9 Vitamin D deficiency, unspecified
CPT/HCPCS: 70450; 73600; 80048; 80053; 80307; 80320; 81002; 85025; 93005; 96361; 96372; 96374; 97162; 97166; 99218; 99285; 99406; J7030; J7040; P9612; A4216; G0378; G0480

== ENCOUNTER → 2018-05-29 11:52 | Outpatient (CLI) | payer OTHER, SELFPAY ==
[2018-05-29 12:35] LABS: Amphetamine Urine VISTA NEGATIVE (<1000 ng/mL); Barbiturate Urine VISTA NEGATIVE (< 200 ng/mL); Benzodiazepine Urine VISTA NEGATIVE (< 200 ng/mL); Cocaine Urine VISTA NEGATIVE (< 300 ng/mL); Ecstacy Urine VISTA NEGATIVE (< 500 ng/mL); Methadone Urine VISTA NEGATIVE (< 300 ng/mL); PCP Urine VISTA NEGATIVE (< 25 ng/mL); THC Urine VISTA NEGATIVE (< 50 ng/mL); Vista UDS pH Range 5
== END ==
PROVIDERS: Family Provider Student in an Organized Health Care Education/Training Program; PCP Student in an Organized Health Care Education/Training Program; Visit Provider Anesthesiology Pain Medicine
DX: F11.20 Opioid dependence, uncomplicated (principal)
CPT/HCPCS: 80307

== ENCOUNTER 2018-07-29 19:49 | Inpatient (IN) | payer OTHER, SELFPAY ==
[2018-07-29] VITALS (7 sets, daily range): BP systolic 65–166; BP diastolic 45–100; PULSE 72–112; RESP 12–18; TEMP 35.8; O2SAT 0–100; BMI 27.5
[2018-07-29 20:01] LABS: Bedside Glucose 130 mg/dL (70-110)
--- NOTE | 2018-07-29 20:05 | CT_ITS ---
STUDY: CT BRAIN WITHOUT CONTRAST REASON FOR EXAM: Female, 47 years old. Altered mental status, overdose. RADIATION DOSAGE (If Supplied By Facility): CTDIvol = ( 44.99 ) mGy, DLP = ( 796.11 ) mGycm TECHNIQUE: Transaxial CT imaging of the brain was performed without administration of intravenous contrast material. Individualized dose optimization techniques were used for this CT. COMPARISON: Noncontrast CT brain May 03, 2018. FINDINGS: Endotracheal and nasogastric tubes are present. There is moderate volume retained mucus in the posterior nasopharynx. Incidental note of bilateral kate bullosa of the middle turbinates. Normal soft tissue structures. Normal calvarium. Normal size ventricles and extra-axial spaces for the patient's age. Normal white matter tracts of the cerebral hemispheres. 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 Normal brainstem. Normal cerebellum. There is no intracranial hemorrhage. Again seen is right temporoparietal encephalomalacia consistent with old infarct. There are no findings of an acute ischemic infarction. Normal visualized paranasal sinuses. CT/Brain/Head without Contrast IMPRESSION: 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 No acute edge cranial pathology. Electronically Signed: Garrett Kent MD at 22:46 EDT , Service support ,
--- NOTE | 2018-07-29 20:06 | EKG12_ITS ---
Test Reason : Blood Pressure : / mmHG Vent. Rate : 074 BPM Atrial Rate : 074 BPM P-R Int : 126 ms QRS Dur : 094 ms QT Int : 458 ms P-R-T Axes : 040 066 074 degrees QTc Int : 508 ms Normal sinus rhythm Prolonged QT Abnormal ECG Confirmed by REJI OWENS, MARCIANO ([id number]), supervising film or videotape editor ALICJA VALENTE ([id number]) on 08/01/2018 9:01:39 AM Referred By: SHEILA Confirmed By:MARCIANO MENDOZA MD
[2018-07-29] MEDS: Naloxone 2 MG/2 ML Syringe IV (20:15)
[2018-07-29 20:20] LABS: Absolute Lymphocyte Count 0.42 X10^3/ul (0.83-4.51); Absolute Neutrophil Count 5.6 X10^3/uL (2.0-7.7); Basophil# 0.01 X10^3/uL; Basophil% 0.2 % (0-1); Eosinophil# 0.02 X10^3/uL; Eosinophils% 0.3 % (0-5); Hematocrit 20.2 % (37-47); Hemoglobin 6.2 g/dl (12.0-15.0); Lymphocyte # 0.42 X10^3/ul (4.0); Lymphocyte % 6.4 % (19-41); Mean Corp Hgb Conc 30.7 g/gl (32-36); Mean Corpuscular Hgb 31.5 pg (27.0-32.0); Mean Corpuscular Volume 102.5 fL (81-99); Mean Platelet Vol. 8.5 fl (6.2-12.0); Monocyte# 0.54 X10^3/uL; Monocyte% 8.2 % (0-10); Neutrophil # 5.55 X10^3/uL (2.7-7.7); Neutrophil % 84.3 % (47-70); Platelet Count 165 K/mm3 (150-450); RBC Distribution Width CV 15.6 % (11.6-14.6); Red Blood Count 1.97 M/mm3 (4.2-5.4); White Blood Count 6.6 K/mm3 (4.4-11.0)
--- NOTE | 2018-07-29 20:20 | RAD_ITS ---
STUDY: X-RAY CHEST REASON FOR EXAM: Female, 47 years old. Cough. TECHNIQUE: Single frontal view of the chest. COMPARISON: April 23, 2018 FINDINGS: There is mild hyperexpansion. There is no demonstrated pleural abnormality. Normal size heart. Normal mediastinum and audrey. Normal visualized pulmonary arteries. Normal visualized aortic arch and descending thoracic aorta. Normal visualized thoracic spine. Normal visualized ribs, clavicles, and shoulders. There is no demonstrated abnormality of the visualized soft tissue structures of the upper abdomen. RAD/Chest 1 View (Portable) IMPRESSION: Mild hyperexpansion. No acute pathology. Electronically Signed: Price Aguilar MD at 20:51 EDT , Service support ,
[2018-07-29 20:21] LABS: Differential Indicated SCAN CRITERIA MET; POSITIVE COUNT NO; POSITIVE DIFFERENTIAL YES; POSITIVE MORPHOLOGY NO
[2018-07-29] MEDS: 0.9% Normal Saline 1,000 ML 1000 ML IV ×2 (20:22)
--- NOTE | 2018-07-29 20:35 | NURSING ---
PATIENT ARRIVED VIA CAR BROUGHT BY . PATIENT WAS FOUND IN THE PASSENGER SEAT, RESPONSIVE TO PAIN BUT NOT MAKING ANY PURPOSEFUL MOVEMENTS AND COULD NOT MAINTAIN ALERTNESS. PATIENT WAS PULLED OUT OF THE CAR AND BROUGHT INTO THE ED BY WHEELCHAIR TO THE ROOM. WAS AT THE PATIENT'S BEDSIDE THE WHOLE TIME. PATIENT REMAINED REMAINED UNRESPONSIVE.
[2018-07-29 20:44] LABS: ALB/GLOB Ratio 0.8 RATIO (0.9-2.4); AST(SGOT) 14 U/L (15-37); Alanine Aminotransfer ALT/SGPT 12 U/L (13-56); Albumin, Serum 1.9 g/dL (3.2-5.0); Alkaline Phosphatase 87 U/L (45-117); Anion Gap 11 (5-15); BUN 9 mg/dL (7-18); BUN/Creat Ratio 7.9 RATIO (10-20); Calcium,Total < 5.0 mg/dL (8.5-10.1); Chloride 125 mmol/L (98-107); Creatinine, Serum 1.14 mg/dL (0.55-1.02); EST Glomerular Filtration Rate 54 mL/min (>60); Est Glom Filt Rate - Afr Amer 65 mL/min (>60); Estimated Creatinine Clearance 49.38 ml/min; Globulin 2.4 g/dL (2.2-4.2); Glucose 65 mg/dL (74-106); Potassium 2.4 mmol/L (3.5-5.1); Protein, Total 4.3 g/dL (6.4-8.2); Sodium Level 150 mmol/L (136-145)
[2018-07-29 20:45] LABS: Alcohol, Blood (Medical)-Serum < 3.0 mg/dL
[2018-07-29 20:47] LABS: Pregnancy, Serum, hCG Quali. NEGATIVE Negative (0-9 Nonpreg)
[2018-07-29 20:50] LABS: Platelet Estimate ADEQUATE (ADEQ)
[2018-07-29] MEDS: Succinylcholine Chloride 200 MG/10 ML Vial 100 MG IV (20:50)
[2018-07-29 20:51] LABS: Lactic Acid 1.4 mmol/L (0.4-2.0)
[2018-07-29 20:51] LABS: Anisocytosis RARE; Macrocytosis 1+
[2018-07-29 20:56] LABS: Base Excess -9 mmol/L (-2 to +2); Bicarbonate 18.8 mmol/L (22-26); Blood Gas Specimen Type ART; O2 Delivery Device Room Air; PO2 58 mmHG (75-100); SITE L Radial; SO2 83 % (95-99); Total Carbon Dioxide 20 mmol/L; pCO2 49.2 mmHg (35-45); pH 7.19 (7.35-7.45)
[2018-07-29] MEDS: Midazolam 5 MG/ML Syringe 4 MG IV ×2 (21:01→22:30)
--- NOTE | 2018-07-29 21:01 | RAD_ITS ---
STUDY: X-RAY - ABDOMEN/PELVIS REASON FOR EXAM: Female, 47 years old. Enteric tube placement TECHNIQUE: Single AP view of the abdomen / pelvis. COMPARISON: CT dated 04/23/2018 FINDINGS: There is an enteric tube noted with its tip in the proximal stomach. However, the side port is just above the GE junction. This should be advanced approximately 10 cm for improved positioning. There are air-filled mildly dilated loops of small bowel in the left upper quadrant which may be due to ileus or obstruction. The visualized osseous structures are within normal limits. RAD/Abdomen Single View (Portable) IMPRESSION: Enteric tube tip in the proximal stomach. However, the side port is just above the GE junction. This should be advanced approximately 10 cm for improved positioning. Air-filled mildly dilated loops of small bowel in the left upper quadrant which may be due to ileus or obstruction. Electronically Signed: Jono Summers, at 21:48 EDT Tel , Service support ,
--- NOTE | 2018-07-29 21:07 | RAD_ITS ---
STUDY: X-RAY CHEST REASON FOR EXAM: Female, 47 years old. Endotracheal tube placement. Verification. TECHNIQUE: Single frontal view of the chest. COMPARISON: July 29, 2018 FINDINGS: An NG tube is been placed. One of the sideholes are approximately 4 cm above the gastroesophageal junction. The endotracheal tube tip is 4.1 cm above the philippe. There is stable hyperexpansion. There is no demonstrated pleural abnormality. Normal size heart. Normal mediastinum and audrey. Normal visualized pulmonary arteries. Normal visualized aortic arch and descending thoracic aorta. Normal visualized thoracic spine. Normal visualized ribs, clavicles, and shoulders. There is no demonstrated abnormality of the visualized soft tissue structures of the upper abdomen. RAD/Chest 1 View (Portable) IMPRESSION: Stable hyperexpansion. Endotracheal tube tip 4.1 cm above the philippe. One sidehole of the NG tube 4 cm above the gastroesophageal junction. Electronically Signed: Price Aguilar MD at 21:54 EDT , Service support ,
[2018-07-29] MEDS: Midazolam 2 MG/2 ML Syringe IV (21:17)
[2018-07-29 21:23] LABS: Acetaminophen (Tylenol) Level < 2.0 ug/mL (10.0-30.0); Salicylate 2.4 mg/dL (2.8-20.0)
[2018-07-29 21:33] LABS: Absolute Neutrophil Count 13.7 X10^3/uL (2.0-7.7); Basophil# 0.02 X10^3/uL; Eosinophils% 0.1 % (0-5); Hemoglobin 14.5 g/dl (12.0-15.0); Platelet Count 364 K/mm3 (150-450); RBC Distribution Width CV 15.5 % (11.6-14.6)
[2018-07-29 21:39] LABS: Hematocrit 45.8 % (37-47); Mean Corp Hgb Conc 31.7 g/gl (32-36); Mean Corpuscular Hgb 32.2 pg (27.0-32.0); Mean Corpuscular Volume 101.8 fL (81-99); Mean Platelet Vol. 9.1 fl (6.2-12.0); POSITIVE COUNT NO; POSITIVE DIFFERENTIAL NO; POSITIVE MORPHOLOGY NO; RBC Distribution Width SD 57.4 fl (35.1-43.9); White Blood Count 16.5 K/mm3 (4.4-11.0)
[2018-07-29 21:40] LABS: Absolute Lymphocyte Count 1.22 X10^3/ul (0.83-4.51); Basophil% 0.5 % (0-1); Eosinophil# 0.05 X10^3/uL; Lymphocyte # 1.22 X10^3/ul (4.0); Lymphocyte % 7.4 % (19-41); Monocyte# 1.37 X10^3/uL; Monocyte% 8.3 % (0-10); Neutrophil # 13.73 X10^3/uL (2.7-7.7); Neutrophil % 83.4 % (47-70)
[2018-07-29 21:49] LABS: ALB/GLOB Ratio 0.8 RATIO (0.9-2.4); AST(SGOT) 24 U/L (15-37); Alanine Aminotransfer ALT/SGPT 22 U/L (13-56); Albumin, Serum 3.3 g/dL (3.2-5.0); Alkaline Phosphatase 154 U/L (45-117); Anion Gap 11 (5-15); BUN 14 mg/dL (7-18); BUN/Creat Ratio 6.6 RATIO (10-20); Calcium,Total 7.5 mg/dL (8.5-10.1); Chloride 110 mmol/L (98-107); Creatinine, Serum 2.11 mg/dL (0.55-1.02); EST Glomerular Filtration Rate 26 mL/min (>60); Est Glom Filt Rate - Afr Amer 32 mL/min (>60); Estimated Creatinine Clearance 26.68 ml/min; Glucose 97 mg/dL (74-106); Protein, Total 7.3 g/dL (6.4-8.2); Sodium Level 142 mmol/L (136-145)
--- NOTE | 2018-07-29 22:12 | CT_ITS ---
STUDY: CT ABDOMEN AND PELVIS WITHOUT CONTRAST REASON FOR EXAM: Female, 47 years old. Overdose RADIATION DOSAGE (If Supplied By Facility): CTDIvol = ( 18.17 ) mGy, DLP = ( 830.65 ) mGycm TECHNIQUE: Transaxial images were obtained from the dome of the diaphragm to the symphysis pubis without oral contrast, and without intravenous contrast. Sagittal and coronal images were reconstructed. Individualized dose optimization techniques were used for this CT. COMPARISON: None. FINDINGS: Evaluation of the abdominal viscera is limited in the absence of intravenous contrast. Streak artifact from the patient's arms being at her sides further limits evaluation. The visualized lung bases are clear. The visualized portions of the heart and pericardium are within normal limits. There are no calcified gallstones present. The liver is low in density, consistent with fatty infiltration. The spleen is normal in size. The pancreas demonstrates an unremarkable unenhanced appearance. The adrenal glands are within normal limits. There are no renal or ureteral stones. There is no hydronephrosis. Normal visualized stomach. There is an enteric tube noted with its tip in the stomach. The side-port is at the GE junction. This could be advanced 5 - 10 cm for improved positioning. There is a small hiatal hernia. There are mildly dilated loops of small bowel noted in the upper abdomen. This may represent an ileus or a low-grade obstruction. The appendix is visualized and appears normal. The aorta is normal in caliber. There is no abdominal or pelvic free air, free fluid, fluid collection or lymphadenopathy. There are no destructive osseous lesions. The patient is status post bilateral hip arthroplasty. CT/Abdomen/Pelvis without Cont IMPRESSION: Mildly dilated loops of small bowel the upper abdomen which may be due to ileus or a low-grade obstruction. Enteric tube tip in the proximal stomach. This could be advanced 5-10 cm for improved positioning. Fatty liver. Electronically Signed: Jono Summers, at 23:30 EDT Tel , Service support ,
[2018-07-29 22:59] LABS: Color, Urine Yellow (Yellow); Glucose, Dipstick Normal (Normal); Ketone-Dipstick 15 mg/dl (Negative); Leukocyte Esterase-Dipstick 25 /ul (Negative); Nitrite-Dipstick Negative (Negative); Occult Blood-Urine 150 /ul (Negative); Protein-Dipstick 100 mg/dl (Negative); Specific Gravity, Urine 1.015 (1.002-1.030); Urine Bilirubin Dipstick Negative (Negative); Urine Clarity Clear (Clear); Urine Urobilinogen Normal (Normal)
[2018-07-29 23:05] LABS: Red Blood Cells-Urine 0-5 SEEN /hpf (0-5); White Blood Cells 0-5 SEEN /hpf (0-5)
[2018-07-29 23:06] LABS: Bacteria 1+ /hpf (None Seen); Hyaline Cast 0-5 SEEN /lpf (0-5); Mucous, Urine 1+ /hpf (<or=2+); Squamous Epithelial Cells - UA 5-10 SEEN /hpf (5-10)
[2018-07-29 23:09] LABS: Amphetamine Urine VISTA NEGATIVE (<1000 ng/mL); Barbiturate Urine VISTA NEGATIVE (< 200 ng/mL); Benzodiazepine Urine VISTA POSITIVE (< 200 ng/mL); Cocaine Urine VISTA NEGATIVE (< 300 ng/mL); Ecstacy Urine VISTA NEGATIVE (< 500 ng/mL); Methadone Urine VISTA NEGATIVE (< 300 ng/mL); PCP Urine VISTA NEGATIVE (< 25 ng/mL); THC Urine VISTA NEGATIVE (< 50 ng/mL); Vista UDS pH Range 6
[2018-07-30] VITALS (42 sets, daily range): BP systolic 76–175; BP diastolic 45–107; PULSE 68–116; RESP 14–23; TEMP 36.1–37.9; O2SAT 94–100; BMI 27.9
--- NOTE | 2018-07-30 00:08 | ED.VISSUMM ---
- ER Visit Summary Date of Service: 07/30/18 Chief Complaint: Unresponsive History of Present Illness: The patient is a 47 F who presents unresponsive. The individual with her states that she has a history of accidentally taking too many meds. She had last been seen a couple of hours before he found her unresponsive with snoring respirations. Further history is really unable to be obtained. Physical Examination: Initial blood pressure 68/45 heart rate respiratory rate normal Initial GCS of 9 no focal or lateralizing deficits she does open her eyes localized pain Heart is regular rate and rhythm Snoring respirations no rales no wheezing No evidence of trauma Pupils are equally round reactive to light Abdomen soft nondistended Test Results: EKG shows sinus rhythm at a rate of 74 Laboratory studies notable for white blood cell count 16.5, creatinine 2.11. Aspirin negative. Tylenol negative. Alcohol negative. ABG shows pH 7.19, PCO2 49, PO2 of 58. Troponin negative. Lactic acid 1.4. negative. Chest x-ray shows no acute process. Repeat chest x-ray shows endotracheal tube in place an NG tube with 1 hole above the GE junction. CT the head showed old right temporal encephalomalacia. CT the abdomen shows mildly dilated small bowel loops in the left upper abdomen suggestive of ileus versus low-grade obstruction. Emergency Department Course and Treatment: The initial laboratory studies I do not believe are accurate. The patient had had a distal right arm IV which been flushed with saline. A new IV was established above this and blood drawn at the time of IV start and I believe the initial laboratory studies are contaminated with saline so they were repeated. Initially the patient did have a gag reflex. I was then notified by nursing staff that she seemed to be worsening and they are concerned about her ability to protect her airway. Checking gag reflex at this time she did not have a gag reflex. Patient was still significantly sedated so did not require sedation with our side was given succinylcholine and then intubated on first attempt with a Betty blade a 97 a half endotracheal tube. There was change in the easy cap and equal breath sounds bilaterally. Chest x-ray confirmed satisfactory placement. Her NG was advanced after CT and x-rays have been obtained. I suspect this is related to baclofen overdose which could also contribute to ileus. Patient discussed with the strategic debriefing officer, Dr. Orosco as well as the hospitalist and will be admitted to the ICU. Treatment Plan: [] Disposition: Admit Impression: Suspected baclofen overdose Acute respiratory failure Ileus versus low-grade bowel obstruction This note was generated with [employer] dictation software. It may contain incorrect words, spelling, and punctuation that were not noted in review of the chart prior to signing ED Disposition - Plan for ED Patient: Chief Complaint: Overdose Referrals: Jacob Teixeira DO [Primary Care Provider] -
[2018-07-30] MEDS: Propofol 10MG/Ml 1,000 MG/100 ML Bottle 2.145 MG CONT INF (01:15)
[2018-07-30] MEDS: Chlorhexidine 15 ML PO ×3 (02:00→21:49)
[2018-07-30 02:20] LABS: Base Excess -9 mmol/L (-2 to +2); Bicarbonate 17.8 mmol/L (22-26); Blood Gas Specimen Type ART; FI02 30; Mode A-C; O2 Delivery Device Vent; PEEP 5; PO2 81 mmHG (75-100); RR 14; SITE R Radial; SO2 94 % (95-99); Time Given 207; Total Carbon Dioxide 19 mmol/L; Vt 450; pCO2 38.6 mmHg (35-45); pH 7.27 (7.35-7.45)
[2018-07-30] MEDS: Albuterol 2.5 MG/3 ML VIAL.NEB. INHALATION ×4 (02:32→22:47)
--- NOTE | 2018-07-30 03:31 | HP.PCM_ITS ---
Problem List (1) HLD (hyperlipidemia) Status: Chronic (2) Anemia Status: Chronic (3) Hypertension Status: Chronic Qualifiers: (4) History of rheumatoid arthritis Status: Chronic (5) History of fibromyalgia Status: Chronic (6) Chronic low back pain Status: Chronic (7) Drug overdose Status: Acute History of Present Illness Date of Admission: 07/30/18 Chief Complaint: Drug overdose The patient is a 47 year old F with a PMH as above who present from home by EMS for a what appears to be a drug overdose. She is currently intubated and sedated so the history is obtained from the who states that earlier today she was very function and was cutting the grass on their riding lawn- mower. He found her a little time later after she had finished and she was sleeping in the chair and appeared to be sedated. He tried to wake her and she would respond but could not maintain a conversation with her as she would continue to fall back asleep. She was brought to the ER who decided to intubate to protect her air-way since she was a GCS of 9. She was not hypoxic prior to intubation. In discussing with the , ghassan Varela, has on occasion been confused on which medications she has already taken and may take more than she is prescribed. Looking on her printed medication list provided by the , she is not on any narcotics. Past Medical History Past Medical History (Chronic Problems): Chronic Problems HLD (hyperlipidemia) (Chronic) Anemia (Chronic) Hypertension (Chronic) Tobacco abuse disorder (Chronic) History of rheumatoid arthritis (Chronic) History of fibromyalgia (Chronic) Chronic low back pain (Chronic) History of drug overdose (Chronic) Allergies progesterone Allergy (Verified 07/29/18 19:52) Itching varenicline tartrate [From Chantix] Allergy (Verified 07/29/18 19:52) suicidal Home Medications: Ambulatory Orders Medication Instructions Recorded Venlafaxine XR [Effexor Xr] 225 mg PO DAILY 01/08/14 Abatacept [Orencia Clickject] 125 mg SQ MO 11/12/16 Mirtazapine [Remeron Orally 45 mg PO QHS 11/12/16 Disintegrating] Albuterol Inhaler [Ventolin Hfa] 2 puff INHALATION Q4H PRN PRN 03/31/18 Aspirin 81 mg PO DAILY 03/31/18 Atorvastatin Calcium [Lipitor] 80 mg PO QHS 03/31/18 Esomeprazole Mag Trihydrate 40 mg PO DAILY 03/31/18 [Nexium] Estradiol [Estrace Vaginal Cream] 1 dose VAGINAL DAILY 03/31/18 Ferrous Sulfate [Iron] 1 tablet PO DAILY 03/31/18 Folic Acid 2 mg PO DAILY@0800 03/31/18 Methotrexate 20 mg PO MO 03/31/18 Metoprolol Tartrate [Lopressor 12.5 mg PO DAILY 03/31/18 (beta fan)] Nicotine [Nicotine Patch] 1 each TD DAILY 03/31/18 Oxycodone Myristate [Xtampza ER] 13.5 mg PO BID 03/31/18 Losartan Potassium [Cozaar] 25 mg PO DAILY #30 tab 04/01/18 Hydrocodone/Acetaminophen [Vicodin 1 each PO BID 04/23/18 Es 7.5-300 mg Tablet] Calcium Carbonate [Tums] 500 mg PO TIDCM #90 tab 04/25/18 Baclofen 10 mg PO BID 05/03/18 Furosemide [Lasix] 20 mg PO DAILY 05/03/18 Pregabalin [Lyrica] 150 mg PO BID 05/03/18 Rosuvastatin Calcium [Crestor] 40 mg PO DAILY 05/03/18 Mirtazapine [Remeron] 15 mg PO QHS #30 tab 05/04/18 Lisinopril [Zestril] 07/29/18 Surgical History: total hip arthroplasty, - - Multiple surgeries for left femur due to rheumatoid arthritis and osteoarthritis Psychiatric History: Depression 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 SPECIALIST 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: No pertinent CORPORATE 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 SPECIALIST history Smoking Status: Current every day smoker Alcohol: None Drugs: None - *Family History Maternal History Items: No pertinent history Paternal History Items: No pertinent history Review of Systems Unable to obtain accurate/complete ROS d/t: intubation and sedation VTE Information - Inpt Only VTE Present on Admission: No Patient Problems: Active and Suspected Problems Drug overdose (Acute) - Physical Exam General: - - Intubated and sedated HEENT: Atraumatic Oral: Dry Mucosa Neck: Supple, No JVD Lungs: Clear to auscultation, Normal air movement, No rhonchi, No wheeze, No rales Cardiovascular: Regular rate, Regular Rhythm, Normal S1, Normal S2, No murmurs Abdomen: Soft, Non-Distended, No Hepato-splenomegaly Extremities: No edema, Capillary Refill Less than 3 Seconds Skin: No rashes, No breakdown Psych/Mental Status: - - sedated Vital Signs Temp Pulse Resp BP Pulse Ox 97.7 F L 92 16 127/78 H 96 07/30/18 02:30 07/30/18 02:30 07/30/18 02:30 07/30/18 02:30 07/30/18 02:30 Oxygen Delivery Method Mechanical Ventilator Weight: 157 lb 10.088 oz Body Mass Index (BMI) 27.9 Laboratory Tests Past 24 Hrs 07/30/18 02:13 Specimen Type ART Sample Site R Radial pH 7.27 L Bicarbonate Actual 17.8 L POC Total CO2 19 Base Excess -9 L O2 Saturation 94 L O2 % 30 ABG pCO2 38.6 ABG pO2 81 Respiration Rate 14 O2 Delivery Device Vent Minute Volume 6.00 Vent Mode A-C Tidal Volume 450 POC PEEP 5 Blood Gas Notified Whom HOSP MD Blood Gas Notified Time 207 Assessment/Plan All Active Problems Mental confusion (Acute) ARF (acute renal failure) (Acute) Diarrhea (Acute) Altered mental status (Acute) Fracture of fibula, right, closed (Acute) Drug overdose (Acute) 1. Drug overdose/Metabolic acidosis - Intubated to protect her airway with a GCS of 9 - Likely drug is baclofen so supportive measures only - She did get narcan in the ED - Propofol/Fentanyl for sedation - c/w OG and bacon - UDS is positive for benzo which she is not prescribed 2. RA - Can continue her methotrexate when extubated a long with her folic acid 3. Chronic back pain/fibromyalgia - on lyrica and baclofen, she would likely benefit from a pain management consult as an outpatient if she has had multiple overdoses on her current regimen - Would avoid narcotics as an outpatient - May benefit from cymbalta 4. Anemia - H/H is stable - c/w her iron replacement 5. HTN/HLD/DYAN - She is currently stable - C/w her losartan but hold the lasix in the setting of her DYAN - Current Cr is 2.11 her baseline is around 1 - IVF@100 DVT: Heparin/SCDs GI: Famotidine Diet: NPO Code Visit Inpatient E&M: 08365 Init Hosp L3
--- NOTE | 2018-07-30 04:20 | RAD_ITS ---
STUDY: X-RAY CHEST REASON FOR EXAM: Female, 47 years old. Shortness of breath. TECHNIQUE: Single AP portable view of the chest. COMPARISON: 07/29/2018. FINDINGS: Endotracheal tube tip is 4.0 cm above the philippe. Nasogastric tube tip and sidehole are both within the gastric fundus. There is no demonstrated pneumothorax. The lungs are clear and expanded. There is no demonstrated pleural abnormality. Normal size heart. Normal mediastinum and audrey. Normal visualized pulmonary arteries. Normal visualized aortic arch and descending thoracic aorta. There are multilevel degenerative changes of the visualized thoracic spine. There is degenerative arthrosis of the right shoulder. There is no demonstrated abnormality of the visualized soft tissue structures of the upper abdomen. RAD/Chest 1 View (Portable) IMPRESSION: Tubes are in adequate position. No evidence for acute cardiopulmonary pathology. Electronically Signed: Jaswinder Ricketts MD at 5:26 EDT , Service support ,
[2018-07-30 04:38] LABS: Hemoglobin 14.7 g/dl (12.0-15.0); Mean Corp Hgb Conc 32.7 g/gl (32-36); Mean Corpuscular Hgb 33.2 pg (27.0-32.0); Mean Corpuscular Volume 101.6 fL (81-99); Mean Platelet Vol. 9.2 fl (6.2-12.0); Platelet Count 355 K/mm3 (150-450); RBC Distribution Width CV 15.5 % (11.6-14.6); RBC Distribution Width SD 57.5 fl (35.1-43.9); Red Blood Count 4.43 M/mm3 (4.2-5.4); White Blood Count 12.4 K/mm3 (4.4-11.0)
[2018-07-30 04:39] LABS: Scan Indicated on CBC? Y/N NO
[2018-07-30] MEDS: 0.9% Normal Saline 1,000 ML 100 ML IV ×2 (06:18→16:24)
[2018-07-30 06:30] LABS: Anion Gap 13 (5-15); BUN 15 mg/dL (7-18); BUN/Creat Ratio 9.6 RATIO (10-20); CPK Total, Creatine Kinase 82 U/L (26-192); Calcium,Total 7.7 mg/dL (8.5-10.1); Chloride 113 mmol/L (98-107); Creatinine, Serum 1.56 mg/dL (0.55-1.02); EST Glomerular Filtration Rate 37 mL/min (>60); Est Glom Filt Rate - Afr Amer 45 mL/min (>60); Glucose 60 mg/dL (74-106); Sodium Level 145 mmol/L (136-145); Triglycerides 160 mg/dL
--- NOTE | 2018-07-30 08:53 | PCM.HOSP.N ---
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 H&P, vitals, labs and plan of management reviewed. In summary, this is a 47-year-old female with history of RA, fibromyalgia, low back pain and history of drug overdose was admitted for drug overdose, of baclofen. Patient was intubated for airway protection. Patient had a GCS of 9 intubated in ER. As per H&P, patient was confused so she overdosed unintentionally baclofen. On exam Intubated and sedated. On IV propofol. Trying to change from propofol to Precedex drip patient had low blood pressure.. Lungs: Air entry bilaterally equal. Heart S1-S2 regular. Neuro sedated. Assessment and plan: 1. Acute encephalopathy most probably toxic encephalopathy secondary to drug overdose from baclofen: Currently on vent support. Chicken Buyer has been consulted for vent management. 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 No acute intracranial pathology. 2. Leukocytosis most probably inflammatory: UA shows 1+ bacteria, 0-5 WBC small LE 25 negative for pyuria/UTI. U tox positive for benzodiazepines. Chest x-ray negative. CT abdomen shows mildly dilated loops of small bowel probably ileus. Lactic acid normal 3. Rheumatological disease: RA, chronic back pain, fibromyalgia: She is on methotrexate, Lyrica, baclofen at home. Currently these medications are on hold. 4. Acute kidney injury other chronic comorbidities include anemia chronic iron deficits anemia, hypertension, dyslipidemia DVT prophylaxis: Heparin 5000 units twice daily Active Medications Albuterol Sulfate (Ventolin Aerosols) 2.5 mg INHALATION Q2H PRN PRN PRN Reason: SOB &/OR WHEEZING Albuterol Sulfate (Ventolin Aerosols) 2.5 mg INHALATION Q4H.RT TOO Last Admin: 07/30/18 07:03 Dose: 2.5 mg Chlorhexidine Gluconate () 15 ml PO BID TOO Last Admin: 07/30/18 02:00 Dose: 15 ml Famotidine (Pepcid) 20 mg GT BID [facility] Heparin Sodium (Porcine) (Heparin Na) 5,000 unit SC Q12 [facility] Sodium Chloride () 1,000 mls @ 100 mls/hr IV .Q10H TOO Last Admin: 07/30/18 06:18 Dose: 100 mls/hr Fentanyl () 100 mls @ 2.5 mls/hr IV .Q40H TOO Last Admin: 07/30/18 01:15 Dose: 2.5 mls/hr Propofol (Diprivan) 1,000 mg in 100 mls @ 2.145 mls/hr CONT INF .Q12H TOO; 5 MCG/KG/MIN PRN Reason: Protocol Last Admin: 07/30/18 01:15 Dose: 2.145 mls/hr Dexmedetomidine HCl 400 mcg/ (Sodium Chloride) 100 mls @ 8.93 mls/hr IV .[id number] TOO; 0.5 MCG/KG/HR PRN Reason: Protocol Last Admin: 07/30/18 06:39 Dose: 8.93 mls/hr Magnesium Hydroxide (Milk Of Magnesia) 30 ml PO DAILY PRN PRN PRN Reason: Constipation Ondansetron HCl (Zofran) 4 mg IV Q8H PRN PRN PRN Reason: Nausea Sodium Chloride () 5 - 30 ml IV UD PRN PRN Reason: SALINE FLUSH
--- NOTE | 2018-07-30 09:03 | CCHN_ITS ---
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 H&P, vitals, labs and plan of management reviewed. In summary, this is a 47-year-old female with history of RA, fibromyalgia, low back pain and history of drug overdose was admitted for drug overdose, of baclofen. Patient was intubated for airway protection. Patient had a GCS of 9 intubated in ER. As per H&P, patient was confused so she overdosed unintentionally baclofen. On exam Intubated and sedated. On IV propofol. Trying to change from propofol to Precedex drip patient had low blood pressure.. Lungs: Air entry bilaterally equal. Heart S1-S2 regular. Neuro sedated. Assessment and plan: 1. Acute encephalopathy most probably toxic encephalopathy secondary to drug overdose from baclofen: Currently on vent support. Project Management Professor has been consulted for vent management. 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 No acute intracranial pathology. 2. Leukocytosis most probably inflammatory: UA shows 1+ bacteria, 0-5 WBC small LE 25 negative for pyuria/UTI. U tox positive for benzodiazepines. Chest x-ray negative. CT abdomen shows mildly dilated loops of small bowel probably ileus. Lactic acid normal 3. Rheumatological disease: RA, chronic back pain, fibromyalgia: She is on methotrexate, Lyrica, baclofen at home. Currently these medications are on hold. 4. Acute kidney injury other chronic comorbidities include anemia chronic iron deficits anemia, hypertension, dyslipidemia DVT prophylaxis: Heparin 5000 units twice daily Active Medications Albuterol Sulfate (Ventolin Aerosols) 2.5 mg INHALATION Q2H PRN PRN PRN Reason: SOB &/OR WHEEZING Albuterol Sulfate (Ventolin Aerosols) 2.5 mg INHALATION Q4H.RT TOO Last Admin: 07/30/18 07:03 Dose: 2.5 mg Chlorhexidine Gluconate () 15 ml PO BID TOO Last Admin: 07/30/18 02:00 Dose: 15 ml Famotidine (Pepcid) 20 mg GT BID [facility] Heparin Sodium (Porcine) (Heparin Na) 5,000 unit SC Q12 [facility] Sodium Chloride () 1,000 mls @ 100 mls/hr IV .Q10H TOO Last Admin: 07/30/18 06:18 Dose: 100 mls/hr Fentanyl () 100 mls @ 2.5 mls/hr IV .Q40H TOO Last Admin: 07/30/18 01:15 Dose: 2.5 mls/hr Propofol (Diprivan) 1,000 mg in 100 mls @ 2.145 mls/hr CONT INF .Q12H TOO; 5 MCG/KG/MIN PRN Reason: Protocol Last Admin: 07/30/18 01:15 Dose: 2.145 mls/hr Dexmedetomidine HCl 400 mcg/ (Sodium Chloride) 100 mls @ 8.93 mls/hr IV .[id number] TOO; 0.5 MCG/KG/HR PRN Reason: Protocol Last Admin: 07/30/18 06:39 Dose: 8.93 mls/hr Magnesium Hydroxide (Milk Of Magnesia) 30 ml PO DAILY PRN PRN PRN Reason: Constipation Ondansetron HCl (Zofran) 4 mg IV Q8H PRN PRN PRN Reason: Nausea Sodium Chloride () 5 - 30 ml IV UD PRN PRN Reason: SALINE FLUSH
--- NOTE | 2018-07-30 09:49 | PCM.CON.CC ---
Problem List (1) Mental confusion Status: Acute (2) ARF (acute renal failure) Status: Acute Qualifiers: Acute renal failure type: unspecified Qualified Code(s): N17.9 - Acute kidney failure, unspecified (3) Altered mental status Status: Acute Qualifiers: Altered mental status type: delirium Qualified Code(s): R41.0 - Disorientation, unspecified (4) HLD (hyperlipidemia) Status: Chronic (5) Anemia Status: Chronic (6) Drug overdose Status: Acute (7) Hypertension Status: Chronic Qualifiers: (8) Tobacco abuse disorder Status: Chronic (9) History of rheumatoid arthritis Status: Chronic (10) History of fibromyalgia Status: Chronic (11) Chronic low back pain Status: Chronic Reason for Consult Date of Consultation: 07/30/18 Reason for Consultation: Respiratory failure History of Present Illness: The patient is a 47 year old F, with past medical history listed below, who presented to [facility] on 07/30/2018 secondary to decreased mental status. Was reportedly at her baseline function earlier in the day. Patient reportedly had been unresponsive for a couple of hours with snoring respirations. Patient's reports patient has a history of forgetting that she took her baclofen and taking extra doses. reportedly did not think this was intentional overdose. On presentation to the emergency room, patient was noted to be hypotensive at 68/45. Tox screen was negative except for benzodiazepines. Patient had an ABG showing a respiratory acidosis, so patient was intubated and transferred to the intensive care unit. While in the intensive care unit, patient has had borderline blood pressures. Patient was initially on propofol therapy, but this had to be switched to Precedex secondary to hypotension. Patient has not received any pressor therapy or fluid boluses. No fevers have been noted. Patient has been saturating well on 30% FiO2. I was called to the bedside by nursing secondary to patient opening eyes and movement of the shoulders. There was some concern for seizure, but on my arrival, patient was able to visually track both myself and the bedside nurse. Movement stopped Patient reportedly recently had a lower extremity fracture leading to decreased mobility. Patient does have a history of rheumatoid arthritis. Patient is a current every day smoker, but reportedly does not drink alcohol or use drugs. No reported suicide attempts or suicidal ideation is reported by the . Past Medical History Past Medical History (Chronic Problems): Chronic Problems HLD (hyperlipidemia) (Chronic) Anemia (Chronic) Hypertension (Chronic) Tobacco abuse disorder (Chronic) History of rheumatoid arthritis (Chronic) History of fibromyalgia (Chronic) Chronic low back pain (Chronic) History of drug overdose (Chronic) Allergies progesterone Allergy (Verified 07/29/18 19:52) Itching varenicline tartrate [From Chantix] Allergy (Verified 07/29/18 19:52) suicidal Home Medications: Ambulatory Orders Medication Instructions Recorded Venlafaxine XR [Effexor Xr] 225 mg PO DAILY 01/08/14 Abatacept [Orencia Clickject] 125 mg SQ MO 11/12/16 Mirtazapine [Remeron Orally 45 mg PO QHS 11/12/16 Disintegrating] Albuterol Inhaler [Ventolin Hfa] 2 puff INHALATION Q4H PRN PRN 03/31/18 Aspirin 81 mg PO DAILY 03/31/18 Atorvastatin Calcium [Lipitor] 80 mg PO QHS 03/31/18 Esomeprazole Mag Trihydrate 40 mg PO DAILY 03/31/18 [Nexium] Estradiol [Estrace Vaginal Cream] 1 dose VAGINAL DAILY 03/31/18 Ferrous Sulfate [Iron] 1 tablet PO DAILY 03/31/18 Folic Acid 2 mg PO DAILY@0800 03/31/18 Methotrexate 20 mg PO MO 03/31/18 Metoprolol Tartrate [Lopressor 12.5 mg PO DAILY 03/31/18 (beta fan)] Nicotine [Nicotine Patch] 1 each TD DAILY 03/31/18 Oxycodone Myristate [Xtampza ER] 13.5 mg PO BID 03/31/18 Losartan Potassium [Cozaar] 25 mg PO DAILY #30 tab 04/01/18 Hydrocodone/Acetaminophen [Vicodin 1 each PO BID 04/23/18 Es 7.5-300 mg Tablet] Calcium Carbonate [Tums] 500 mg PO TIDCM #90 tab 04/25/18 Baclofen 10 mg PO BID 05/03/18 Furosemide [Lasix] 20 mg PO DAILY 05/03/18 Pregabalin [Lyrica] 150 mg PO BID 05/03/18 Rosuvastatin Calcium [Crestor] 40 mg PO DAILY 05/03/18 Mirtazapine [Remeron] 15 mg PO QHS #30 tab 05/04/18 Lisinopril [Zestril] 07/29/18 Surgical History: total hip arthroplasty, - - Multiple surgeries for left femur due to rheumatoid arthritis and osteoarthritis Psychiatric History: Depression DIRECTOR MARKETING 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 History: No pertinent DIRECTOR MARKETING 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 history Smoking Status: Current every day smoker Alcohol: None Drugs: None - *Family History Maternal History Items: No pertinent history Paternal History Items: No pertinent history Review of Systems Comment: Intubated and sedated. See HPI. Patient Problems: Active and Suspected Problems Drug overdose (Acute) Objective: Chest x-ray was personally reviewed. No infiltrates are appreciated. Endotracheal tube is slightly high, but acceptable. - Physical Exam General: - - Intubated and sedated. RASS -1. Good ventilator synchrony noted. HEENT: Atraumatic, PERRLA, EOMI, Normocephalic, - - No scleral icterus or injection noted. Oral: Moist Mucosa, No Gingival or Mucosal Lesions/ Ulcerations Neck: Supple, No JVD, No Nodes, Trachea Midline Lungs: No rhonchi, No wheeze, No rales, Diminished, - - Symmetric expansion. No dullness to percussion. Cardiovascular: Regular rate, Regular Rhythm, Normal S1, Normal S2, No murmurs, No rub noted, No Gallop Abdomen: Bowel Sounds Present, Soft, Non Tender, Non-Distended Extremities: No clubbing, No cyanosis, Capillary Refill Less than 3 Seconds, Edema Skin: No rashes Musculoskeletal: No Tenderness to Palpation of Joints or Extremities Lymphatic: No Cervical, Supraclavicular, or Inguinal Adenopathy Neurological: Neuro grossly intact Psych/Mental Status: Flat Affect Vital Signs Temp Pulse Resp BP Pulse Ox 37.0 C 78 17 86/68 L 97 07/30/18 09:00 07/30/18 09:00 07/30/18 09:00 07/30/18 09:00 07/30/18 09:00 Oxygen Delivery Method Mechanical Ventilator Weight: 71.5 kg Body Mass Index (BMI) 27.9 Intake and Output for Last 24 Hours 07/28/18 07/29/18 07/30/18 23:59 23:59 23:59 Intake Total 436.2 / 436.2 Output Total 250 / 250 Balance 186.2 / 186.2 Laboratory Tests Past 24 Hrs 07/30/18 07/30/18 07/30/18 02:13 04:30 04:30 WBC 12.4 H RBC 4.43 Hgb 14.7 Hct 45.0 MCV 101.6 H MCH 33.2 H MCHC 32.7 RDW 15.5 H RDW Differential 57.5 H Plt Count 355 MPV 9.2 Specimen Type ART Sample Site R Radial pH 7.27 L Bicarbonate Actual 17.8 L POC Total CO2 19 Base Excess -9 L O2 Saturation 94 L O2 % 30 ABG pCO2 38.6 ABG pO2 81 Respiration Rate 14 O2 Delivery Device Vent Minute Volume 6.00 Vent Mode A-C Tidal Volume 450 POC PEEP 5 Blood Gas Notified Whom [facility] Blood Gas Notified Time 207 Sodium Cancelled Potassium Cancelled Chloride Cancelled Carbon Dioxide Cancelled Anion Gap Cancelled BUN Cancelled Creatinine Cancelled Estim Creat Clear Calc Cancelled Est GFR (MDRD) Af Amer Cancelled Est GFR (MDRD) Non-Af Cancelled BUN/Creatinine Ratio Cancelled Glucose Cancelled Calcium Cancelled Total Creatine Kinase Triglycerides 07/30/18 07/30/18 04:30 05:25 WBC RBC Hgb Hct MCV MCH MCHC RDW RDW Differential Plt Count MPV Specimen Type Sample Site pH Bicarbonate Actual POC Total CO2 Base Excess O2 Saturation O2 % ABG pCO2 ABG pO2 Respiration Rate O2 Delivery Device Minute Volume Vent Mode Tidal Volume POC PEEP Blood Gas Notified Whom Blood Gas Notified Time Sodium 145 Potassium 4.0 Chloride 113 H Carbon Dioxide 19.0 L Anion Gap 13 BUN 15 Creatinine 1.56 H Estim Creat Clear Calc 34.50 Est GFR (MDRD) Af Amer 45 L Est GFR (MDRD) Non-Af 37 L BUN/Creatinine Ratio 9.6 L Glucose 60 L Calcium 7.7 L Total Creatine Kinase Cancelled 82 Triglycerides Cancelled 160 Clinical Impression(s) from Imaging Studies Brain CT 07/29/18 20:05 IMPRESSION: 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 No acute edge cranial pathology. Electronically Signed: Garrett Kent MD at 22:46 EDT , Service support , Chest X-Ray 07/29/18 20:20 IMPRESSION: Mild hyperexpansion. No acute pathology. Electronically Signed: Price Aguilar MD at 20:51 EDT , Service support , KUB X-Ray 07/29/18 21:01 IMPRESSION: Enteric tube tip in the proximal stomach. However, the side port is just above the GE junction. This should be advanced approximately 10 cm for improved positioning. Air-filled mildly dilated loops of small bowel in the left upper quadrant which may be due to ileus or obstruction. Electronically Signed: Jono Summers, at 21:48 EDT Tel , Service support , Chest X-Ray 07/29/18 21:07 IMPRESSION: Stable hyperexpansion. Endotracheal tube tip 4.1 cm above the philippe. One sidehole of the NG tube 4 cm above the gastroesophageal junction. Electronically Signed: Price Aguilar MD at 21:54 EDT , Service support , Abdomen/Pelvis CT 07/29/18 22:12 IMPRESSION: Mildly dilated loops of small bowel the upper abdomen which may be due to ileus or a low-grade obstruction. Enteric tube tip in the proximal stomach. This could be advanced 5-10 cm for improved positioning. Fatty liver. Electronically Signed: Jono Summers, at 23:30 EDT Tel , Service support , Chest X-Ray 07/30/18 04:20 IMPRESSION: Tubes are in adequate position. No evidence for acute cardiopulmonary pathology. Electronically Signed: Jaswinder Ricketts MD at 5:26 EDT , Service support , Assessment/Plan Active and Suspected Problems Drug overdose (Acute) RECOMMENDATIONS: 1. Transition from propofol to Precedex sedation 2. Will bolus as necessary for hypotension 3. Okay to initiate tube feeds 4. Continue with aerosol therapy 5. Spontaneous breathing and awakening trials per protocol IMPRESSIONS: 1. Unintentional baclofen overdose Currently on supportive measures. Will bolus IV fluids as necessary for hypotension. Patient was transitioned to Precedex therapy secondary to hypotension with propofol. Patient does have a benzodiazepine on her tox screen, but not on her home medication list. Will have to reevaluate once patient is extubated. 2. Rheumatoid arthritis on methotrexate Patient is not acting as though she is infected at this time. Patient can continue with methotrexate and folic acid. Continue to monitor. 3. Acute kidney injury [place] prerenal in etiology. Patient is on losartan and Lasix. Baseline creatinine appears to be around 1. Patient is being hydrated at this time. We will continue to monitor on a daily basis. 4. Acute combined respiratory failure/metabolic acidosis Likely secondary to baclofen overdose. Patient does not have any infiltrates on chest x-ray. Patient is on bronchodilators. Continue with spontaneous awakening and breathing trials per protocol. Anticipate mechanical ventilation over the next 24 hours. 5. Chronic back pain/fibromyalgia/hypertension/hyperlipidemia/limited mobility H care, management, recovery and prognosis. Patient is on a fentanyl drip at this time. Pepcid and heparin prophylaxis. TIME: 35 minutes critical care time spent addressing patient's acute combined respiratory failure, unintentional baclofen overdose, review of all data and collaboration with care team (7 AM to 10 AM) Code Visit 9xxxx: [id number] Critical care first hour
--- NOTE | 2018-07-30 09:54 | CON.PCM_ITS ---
Problem List (1) Mental confusion Status: Acute (2) ARF (acute renal failure) Status: Acute Qualifiers: Acute renal failure type: unspecified Qualified Code(s): N17.9 - Acute kidney failure, unspecified (3) Altered mental status Status: Acute Qualifiers: Altered mental status type: delirium Qualified Code(s): R41.0 - Disorientation, unspecified (4) HLD (hyperlipidemia) Status: Chronic (5) Anemia Status: Chronic (6) Drug overdose Status: Acute (7) Hypertension Status: Chronic Qualifiers: (8) Tobacco abuse disorder Status: Chronic (9) History of rheumatoid arthritis Status: Chronic (10) History of fibromyalgia Status: Chronic (11) Chronic low back pain Status: Chronic Reason for Consult Date of Consultation: 07/30/18 Reason for Consultation: Respiratory failure History of Present Illness: The patient is a 47 year old F, with past medical history listed below, who p resented to [facility] on 07/30/2018 secondary to decreased mental status. Was reportedly at her baseline function earlier in the day. Patient reportedly had been unresponsive for a couple of hours with snoring respirations. Patient's reports patient has a history of forgetting that she took her baclofen and taking extra doses. reportedly did not think this was intentional overdose. On presentation to the emergency room, patient was noted to be hypotensive at 68/45. Tox screen was negative except for benzodiazepines. Patient had an ABG showing a respiratory acidosis, so patient was intubated and transferred to the intensive care unit. While in the intensive care unit, patient has had borderline blood pressures. Patient was initially on propofol therapy, but this had to be switched to Precedex secondary to hypotension. Patient has not received any pressor therapy or fluid boluses. No fevers have been noted. Patient has been saturating well on 30% FiO2. I was called to the bedside by nursing secondary to patient opening eyes and movement of the shoulders. There was some concern for seizure, but on my arrival, patient was able to visually track both myself and the bedside nurse. Movement stopped Patient reportedly recently had a lower extremity fracture leading to decreased mobility. Patient does have a history of rheumatoid arthritis. Patient is a current every day smoker, but reportedly does not drink alcohol or use drugs. No reported suicide attempts or suicidal ideation is reported by the . Past Medical History Past Medical History (Chronic Problems): Chronic Problems HLD (hyperlipidemia) (Chronic) Anemia (Chronic) Hypertension (Chronic) Tobacco abuse disorder (Chronic) History of rheumatoid arthritis (Chronic) History of fibromyalgia (Chronic) Chronic low back pain (Chronic) History of drug overdose (Chronic) Allergies progesterone Allergy (Verified 07/29/18 19:52) Itching varenicline tartrate [From Chantix] Allergy (Verified 07/29/18 19:52) suicidal Home Medications: Ambulatory Orders Medication Instructions Recorded Venlafaxine XR [Effexor Xr] 225 mg PO DAILY 01/08/14 Abatacept [Orencia Clickject] 125 mg SQ MO 11/12/16 Mirtazapine [Remeron Orally 45 mg PO QHS 11/12/16 Disintegrating] Albuterol Inhaler [Ventolin Hfa] 2 puff INHALATION Q4H PRN PRN 03/31/18 Aspirin 81 mg PO DAILY 03/31/18 Atorvastatin Calcium [Lipitor] 80 mg PO QHS 03/31/18 Esomeprazole Mag Trihydrate 40 mg PO DAILY 03/31/18 [Nexium] Estradiol [Estrace Vaginal Cream] 1 dose VAGINAL DAILY 03/31/18 Ferrous Sulfate [Iron] 1 tablet PO DAILY 03/31/18 Folic Acid 2 mg PO DAILY@0800 03/31/18 Methotrexate 20 mg PO MO 03/31/18 Metoprolol Tartrate [Lopressor 12.5 mg PO DAILY 03/31/18 (beta fan)] Nicotine [Nicotine Patch] 1 each TD DAILY 03/31/18 Oxycodone Myristate [Xtampza ER] 13.5 mg PO BID 03/31/18 Losartan Potassium [Cozaar] 25 mg PO DAILY #30 tab 04/01/18 Hydrocodone/Acetaminophen [Vicodin 1 each PO BID 04/23/18 Es 7.5-300 mg Tablet] Calcium Carbonate [Tums] 500 mg PO TIDCM #90 tab 04/25/18 Baclofen 10 mg PO BID 05/03/18 Furosemide [Lasix] 20 mg PO DAILY 05/03/18 Pregabalin [Lyrica] 150 mg PO BID 05/03/18 Rosuvastatin Calcium [Crestor] 40 mg PO DAILY 05/03/18 Mirtazapine [Remeron] 15 mg PO QHS #30 tab 05/04/18 Lisinopril [Zestril] 07/29/18 Surgical History: total hip arthroplasty, - - Multiple surgeries for left femur due to rheumatoid arthritis and osteoarthritis Psychiatric History: Depression [employer] History: No pertinent [employer] history Smoking Status: Current every day smoker Alcohol: None Drugs: None - *Family History Maternal History Items: No pertinent history Paternal History Items: No pertinent history Review of Systems Comment: Intubated and sedated. See HPI. Patient Problems: Active and Suspected Problems Drug overdose (Acute) Objective: Chest x-ray was personally reviewed. No infiltrates are appreciated. Endotracheal tube is slightly high, but acceptable. - Physical Exam General: - - Intubated and sedated. RASS -1. Good ventilator synchrony noted. HEENT: Atraumatic, PERRLA, EOMI, Normocephalic, - - No scleral icterus or injection noted. Oral: Moist Mucosa, No Gingival or Mucosal Lesions/ Ulcerations Neck: Supple, No JVD, No Nodes, Trachea Midline Lungs: No rhonchi, No wheeze, No rales, Diminished, - - Symmetric expansion. No dullness to percussion. Cardiovascular: Regular rate, Regular Rhythm, Normal S1, Normal S2, No murmurs, No rub noted, No Gallop Abdomen: Bowel Sounds Present, Soft, Non Tender, Non-Distended Extremities: No clubbing, No cyanosis, Capillary Refill Less than 3 Seconds, Edema Skin: No rashes Musculoskeletal: No Tenderness to Palpation of Joints or Extremities Lymphatic: No Cervical, Supraclavicular, or Inguinal Adenopathy Neurological: Neuro grossly intact Psych/Mental Status: Flat Affect Vital Signs Temp Pulse Resp BP Pulse Ox 37.0 C 78 17 86/68 L 97 07/30/18 09:00 07/30/18 09:00 07/30/18 09:00 07/30/18 09:00 07/30/18 09:00 Oxygen Delivery Method Mechanical Ventilator Weight: 71.5 kg Body Mass Index (BMI) 27.9 Intake and Output for Last 24 Hours 07/28/18 07/29/18 07/30/18 23:59 23:59 23:59 Intake Total 436.2 / 436.2 Output Total 250 / 250 Balance 186.2 / 186.2 Laboratory Tests Past 24 Hrs 07/30/18 07/30/18 07/30/18 02:13 04:30 04:30 WBC 12.4 H RBC 4.43 Hgb 14.7 Hct 45.0 MCV 101.6 H MCH 33.2 H MCHC 32.7 RDW 15.5 H RDW Differential 57.5 H Plt Count 355 MPV 9.2 Specimen Type ART Sample Site R Radial pH 7.27 L Bicarbonate Actual 17.8 L POC Total CO2 19 Base Excess -9 L O2 Saturation 94 L O2 % 30 ABG pCO2 38.6 ABG pO2 81 Respiration Rate 14 O2 Delivery Device Vent Minute Volume 6.00 Vent Mode A-C Tidal Volume 450 POC PEEP 5 Blood Gas Notified Whom [facility] Blood Gas Notified Time 207 Sodium Cancelled Potassium Cancelled Chloride Cancelled Carbon Dioxide Cancelled Anion Gap Cancelled BUN Cancelled Creatinine Cancelled Estim Creat Clear Calc Cancelled Est GFR (MDRD) Af Amer Cancelled Est GFR (MDRD) Non-Af Cancelled BUN/Creatinine Ratio Cancelled Glucose Cancelled Calcium Cancelled Total Creatine Kinase Triglycerides 07/30/18 07/30/18 04:30 05:25 WBC RBC Hgb Hct MCV MCH MCHC RDW RDW Differential Plt Count MPV Specimen Type Sample Site pH Bicarbonate Actual POC Total CO2 Base Excess O2 Saturation O2 % ABG pCO2 ABG pO2 Respiration Rate O2 Delivery Device Minute Volume Vent Mode Tidal Volume POC PEEP Blood Gas Notified Whom Blood Gas Notified Time Sodium 145 Potassium 4.0 Chloride 113 H Carbon Dioxide 19.0 L Anion Gap 13 BUN 15 Creatinine 1.56 H Estim Creat Clear Calc 34.50 Est GFR (MDRD) Af Amer 45 L Est GFR (MDRD) Non-Af 37 L BUN/Creatinine Ratio 9.6 L Glucose 60 L Calcium 7.7 L Total Creatine Kinase Cancelled 82 Triglycerides Cancelled 160 Clinical Impression(s) from Imaging Studies Brain CT 07/29/18 20:05 IMPRESSION: 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 No acute edge cranial pathology. Electronically Signed: Garrett Kent MD at 22:46 EDT , Service support , Chest X-Ray 07/29/18 20:20 IMPRESSION: Mild hyperexpansion. No acute pathology. Electronically Signed: Price Aguilar MD at 20:51 EDT , Service support , KUB X-Ray 07/29/18 21:01 IMPRESSION: Enteric tube tip in the proximal stomach. However, the side port is just above the GE junction. This should be advanced approximately 10 cm for improved positioning. Air-filled mildly dilated loops of small bowel in the left upper quadrant which may be due to ileus or obstruction. Electronically Signed: Jono Summers, at 21:48 EDT Tel , Service support , Chest X-Ray 07/29/18 21:07 IMPRESSION: Stable hyperexpansion. Endotracheal tube tip 4.1 cm above the philippe. One sidehole of the NG tube 4 cm above the gastroesophageal junction. Electronically Signed: Price Aguilar MD at 21:54 EDT , Service support , Abdomen/Pelvis CT 07/29/18 22:12 IMPRESSION: Mildly dilated loops of small bowel the upper abdomen which may be due to ileus or a low-grade obstruction. Enteric tube tip in the proximal stomach. This could be advanced 5-10 cm for improved positioning. Fatty liver. Electronically Signed: Jono Summers, at 23:30 EDT Tel , Service support , Chest X-Ray 07/30/18 04:20 IMPRESSION: Tubes are in adequate position. No evidence for acute cardiopulmonary pathology. Electronically Signed: Jaswinder Ricketts MD at 5:26 EDT , Service support , Assessment/Plan Active and Suspected Problems Drug overdose (Acute) RECOMMENDATIONS: 1. Transition from propofol to Precedex sedation 2. Will bolus as necessary for hypotension 3. Okay to initiate tube feeds 4. Continue with aerosol therapy 5. Spontaneous breathing and awakening trials per protocol IMPRESSIONS: 1. Unintentional baclofen overdose Currently on supportive measures. Will bolus IV fluids as necessary for hypotension. Patient was transitioned to Precedex therapy secondary to hypotension with propofol. Patient does have a benzodiazepine on her tox screen, but not on her home medication list. Will have to reevaluate once patient is extubated. 2. Rheumatoid arthritis on methotrexate Patient is not acting as though she is infected at this time. Patient can continue with methotrexate and folic acid. Continue to monitor. 3. Acute kidney injury [place] prerenal in etiology. Patient is on losartan and Lasix. Baseline creatinine appears to be around 1. Patient is being hydrated at this time. We will continue to monitor on a daily basis. 4. Acute combined respiratory failure/metabolic acidosis Likely secondary to baclofen overdose. Patient does not have any infiltrates on chest x-ray. Patient is on bronchodilators. Continue with spontaneous awakening and breathing trials per protocol. Anticipate mechanical ventilation over the next 24 hours. 5. Chronic back pain/fibromyalgia/hypertension/hyperlipidemia/limited mobility H care, management, recovery and prognosis. Patient is on a fentanyl drip at this time. Pepcid and heparin prophylaxis. TIME: 35 minutes critical care time spent addressing patient's acute combined respiratory failure, unintentional baclofen overdose, review of all data and collaboration with care team (7 AM to 10 AM) Code Visit [id number]: [id number] Critical care first hour
--- NOTE | 2018-07-30 10:30 | CASEMGMT ---
IRIS BHATT assessment completed. See Link. DC PLAN: undetermined. -Pt remains on ventilator, in ICU. IRIS BHATT spoke with . Per , medication overdosing was not believed to be intentional. States pt was not depressed or had not verbalized any thoughts re: depression. - would like pt to return home on dc. States he works 7 days a week. IRIS BHATT discussed pt may need assistance first 24 hours, ? Home health depending on her needs. felt he could be home or have family/friend stay with her. -PT/OT evaluations pending. Gonzalo TURCIOSN RN ACM
[2018-07-30] MEDS: Heparin Injection (Vial) 5,000 UNIT/ML VIAL 5000 UNIT SC ×2 (10:53→21:48)
[2018-07-30] MEDS: Famotidine 20 MG Tablet GT ×2 (10:55→21:48)
[2018-07-30] MEDS: Vital AF 1.2 Cal Liquid 1,000 ML 60 ML GT (12:38)
[2018-07-30] MEDS: LORazepam 2 MG/ML Syringe IV ×2 (18:17→21:44)
[2018-07-30 20:11] LABS: Bedside Glucose 117 mg/dL (70-110)
[2018-07-30] MEDS: 0.9% NaCl Peripheral Flush Adult/Peds IV (21:45)
[2018-07-31] VITALS (43 sets, daily range): BP systolic 82–192; BP diastolic 52–109; PULSE 79–119; RESP 14–23; TEMP 36.8–38.8; O2SAT 92–100
[2018-07-31] MEDS: LORazepam 2 MG/ML Syringe IV ×4 (00:29→12:43)
[2018-07-31] MEDS: 0.9% NaCl Peripheral Flush Adult/Peds IV ×5 (00:32→12:43)
[2018-07-31] MEDS: 0.9% Normal Saline 1,000 ML 100 ML IV (01:26)
[2018-07-31] MEDS: Acetaminophen 650 MG/20 ML UDC NG ×2 (03:05→17:20)
[2018-07-31 04:54] LABS: Anion Gap 12 (5-15); BUN 20 mg/dL (7-18); BUN/Creat Ratio 21.2 RATIO (10-20); Calcium,Total 7.6 mg/dL (8.5-10.1); Chloride 115 mmol/L (98-107); Creatinine, Serum 0.94 mg/dL (0.55-1.02); EST Glomerular Filtration Rate 67 mL/min (>60); Est Glom Filt Rate - Afr Amer 81 mL/min (>60); Estimated Creatinine Clearance 59.89 ml/min; Glucose 144 mg/dL (74-106); Potassium 3.4 mmol/L (3.5-5.1); Sodium Level 148 mmol/L (136-145)
[2018-07-31 05:12] LABS: Absolute Lymphocyte Count 0.97 X10^3/ul (0.83-4.51); Basophil# 0.02 X10^3/uL; Basophil% 0.1 % (0-1); Eosinophil# 0.05 X10^3/uL; Eosinophils% 0.3 % (0-5); Hematocrit 38.6 % (37-47); Lymphocyte # 0.97 X10^3/ul (4.0); Lymphocyte % 6.2 % (19-41); Mean Corp Hgb Conc 31.1 g/gl (32-36); Mean Corpuscular Hgb 31.6 pg (27.0-32.0); Mean Corpuscular Volume 101.6 fL (81-99); Mean Platelet Vol. 9.5 fl (6.2-12.0); Monocyte# 1.47 X10^3/uL; Monocyte% 9.4 % (0-10); Neutrophil # 13.04 X10^3/uL (2.7-7.7); Neutrophil % 83.7 % (47-70); Platelet Count 248 K/mm3 (150-450); RBC Distribution Width SD 55.2 fl (35.1-43.9); White Blood Count 15.6 K/mm3 (4.4-11.0)
[2018-07-31 05:15] LABS: Differential Indicated SCAN CRITERIA MET; POSITIVE COUNT NO; POSITIVE DIFFERENTIAL NO; POSITIVE MORPHOLOGY YES
--- NOTE | 2018-07-31 05:28 | NURSING ---
Pt failed her weaning trial due to agitation, elevated BP at 192/105, after admin of labetolol, elevated temp of 101.9, after administration of tylenol for fever. Copious amounts of secretions suctioned from ETT, creamy in color and thick.
--- NOTE | 2018-07-31 05:55 | RAD_ITS ---
STUDY: X-RAY CHEST REASON FOR EXAM: Female, 47 years old. Intubated. Shortness of breath. TECHNIQUE: AP portable chest. COMPARISON: July 30, 2018. FINDINGS: Endotracheal tube tip 3.1 cm above the philippe. Nasogastric tube seen looped in the stomach with the tip at the gastric cardia. Lungs hypoinflated. No focal infiltrates or effusions. Minimal bibasilar subsegmental atelectasis. Normal size heart. Normal mediastinum and audrey. Normal visualized pulmonary arteries. Normal visualized aortic arch and descending thoracic aorta. Normal visualized thoracic spine. Normal visualized ribs, clavicles, and shoulders. There is no demonstrated abnormality of the visualized soft tissue structures of the upper abdomen. RAD/Chest 1 View (Portable) IMPRESSION: No acute cardiopulmonary disease. Endotracheal tube tip in its expected location. Nasogastric tube tip looped in the stomach with the tip at the gastric cardia. This is satisfactory for suction. Electronically Signed: Nicolás Fishman MD at 7:16 EDT , Service support ,
--- NOTE | 2018-07-31 06:37 | PCM.PN.INT ---
Subjective: Patient with copious secretions overnight. Patient also noted to have elevated temperature. Patient was actually hypertensive requiring initiation of labetalol as needed. Patient continues to have intermittent episodes of agitation with sitting up. Sputum culture was sent overnight, but no blood cultures. General: - - Intubated and sedated. Appears older than stated age. HEENT: Atraumatic, PERRLA, EOMI, Normocephalic, - - No scleral icterus or injection noted. Oral: Moist Mucosa, No Gingival or Mucosal Lesions/ Ulcerations Neck: Supple, No JVD, No Nodes, Trachea Midline Lungs: No wheeze, No rales, Diminished, Rhonchi - Bilateral, - - Symmetric expansion. No dullness to percussion. Cardiovascular: Regular rate, Regular Rhythm, Normal S1, Normal S2, No murmurs, No rub noted, No Gallop Abdomen: Bowel Sounds Present, Soft, Non Tender, Non-Distended Extremities: No clubbing, No cyanosis, Capillary Refill Less than 3 Seconds, Edema Skin: No rashes, No breakdown Musculoskeletal: No Tenderness to Palpation of Joints or Extremities Lymphatic: No Cervical, Supraclavicular, or Inguinal Adenopathy Neurological: Cranial nerves II-XII grossly intact, Neuro grossly intact, Motor Exam 5/5 strength throughout Psych/Mental Status: Flat Affect, Impulsive Vital Signs Temp Pulse Resp BP Pulse Ox 38.6 C H 92 17 164/98 H 98 07/31/18 06:00 07/31/18 06:00 07/31/18 06:00 07/31/18 06:00 07/31/18 06:00 Oxygen Delivery Method Mechanical Ventilator Weight: 72.2 kg Body Mass Index (BMI) 27.9 Finger Stick Blood Glucose 120 Intake and Output for Last 24 Hours 07/29/18 07/30/18 07/31/18 23:59 23:59 23:59 Intake Total 4723.2 / 4723.2 1283.4 / 1283.4 Output Total 760 / 760 300 / 300 Balance 3963.2 / 3963.2 983.4 / 983.4 Labs (Last 48 Hours) 07/29/18 07/29/18 07/29/18 19:55 20:00 20:00 WBC 6.6 RBC 1.97 L Hgb 6.2 L Hct 20.2 L MCV 102.5 H MCH 31.5 MCHC 30.7 L RDW 15.6 H RDW Differential 58.0 H Plt Count 165 MPV 8.5 Immature Gran % (Auto) 0.600 Neut % (Auto) 84.3 H Lymph % (Auto) 6.4 L [place] % (Auto) 8.2 Eos % (Auto) 0.3 Baso % (Auto) 0.2 Absolute Neuts (auto) 5.6 Absolute Lymphs (auto) 0.42 L Total Counted Not Reportable Differential Comment SEE COMMENT Platelet Estimate ADEQUATE Anisocytosis RARE Macrocytosis 1+ Specimen Type Sample Site pH Bicarbonate Actual POC Total CO2 Base Excess O2 Saturation O2 % ABG pCO2 ABG pO2 Dexter Test Respiration Rate O2 Delivery Device Minute Volume Vent Mode Tidal Volume POC PEEP Blood Gas Notified Whom Blood Gas Notified Time Sodium 150 H Potassium 2.4 L* Chloride 125 H Carbon Dioxide 14.0 L Anion Gap 11 BUN 9 Creatinine 1.14 H Estim Creat Clear Calc 49.38 Est GFR (MDRD) Af Amer 65 Est GFR (MDRD) Non-Af 54 L BUN/Creatinine Ratio 7.9 L Glucose 65 L Lactic Acid Calcium < 5.0 L* Total Bilirubin 0.30 AST 14 L ALT 12 L Alkaline Phosphatase 87 Total Creatine Kinase Troponin I < 0.015 Total Protein 4.3 L Albumin 1.9 L Globulin 2.4 Albumin/Globulin Ratio 0.8 L Triglycerides Serum , Qual Urine Color Urine Clarity Urine pH Ur Specific [place] Urine Protein Urine Glucose (UA) Urine Ketones Urine Occult Blood Urine Nitrite Urine Bilirubin Urine Urobilinogen Ur Leukocyte Esterase Urine RBC Urine WBC Ur Squamous Epith Cells Urine Bacteria Hyaline Casts Urine Mucus Salicylates Urine Opiates Screen Urine Methadone Screen Acetaminophen Ur Barbiturates Screen Ur Phencyclidine Scrn Ur Amphetamines Screen U Methamphetamin-MDMA U Benzodiazepines Scrn Urine Cocaine Screen U Cannabinoids Screen Ur Drug Screen Comment Ethyl Alcohol POC Glucose 130 H 07/29/18 07/29/18 07/29/18 20:20 20:20 20:20 WBC RBC Hgb Hct MCV MCH MCHC RDW RDW Differential Plt Count MPV Immature Gran % (Auto) Neut % (Auto) Lymph % (Auto) Whiteside % (Auto) Eos % (Auto) Baso % (Auto) Absolute Neuts (auto) Absolute Lymphs (auto) Total Counted Differential Comment Platelet Estimate Anisocytosis Macrocytosis Specimen Type Sample Site pH Bicarbonate Actual POC Total CO2 Base Excess O2 Saturation O2 % ABG pCO2 ABG pO2 Dexter Test Respiration Rate O2 Delivery Device Minute Volume Vent Mode Tidal Volume POC PEEP Blood Gas Notified Whom Blood Gas Notified Time Sodium Potassium Chloride Carbon Dioxide Anion Gap BUN Creatinine Estim Creat Clear Calc Est GFR (MDRD) Af Amer Est GFR (MDRD) Non-Af BUN/Creatinine Ratio Glucose Lactic Acid Calcium Total Bilirubin AST ALT Alkaline Phosphatase Total Creatine Kinase Troponin I Total Protein Albumin Globulin Albumin/Globulin Ratio Triglycerides Serum , Qual NEGATIVE Urine Color Urine Clarity Urine pH Ur Specific [place] Urine Protein Urine Glucose (UA) Urine Ketones Urine Occult Blood Urine Nitrite Urine Bilirubin Urine Urobilinogen Ur Leukocyte Esterase Urine RBC Urine WBC Ur Squamous Epith Cells Urine Bacteria Hyaline Casts Urine Mucus Salicylates 2.4 L Urine Opiates Screen Urine Methadone Screen Acetaminophen < 2.0 L Ur Barbiturates Screen Ur Phencyclidine Scrn Ur Amphetamines Screen U Methamphetamin-MDMA U Benzodiazepines Scrn Urine Cocaine Screen U Cannabinoids Screen Ur Drug Screen Comment Ethyl Alcohol < 3.0 POC Glucose 07/29/18 07/29/18 07/29/18 20:20 20:42 21:20 WBC 16.5 H RBC 4.50 Hgb 14.5 Hct 45.8 MCV 101.8 H MCH 32.2 H MCHC 31.7 L RDW 15.5 H RDW Differential 57.4 H Plt Count 364 MPV 9.1 Immature Gran % (Auto) 0.500 Neut % (Auto) 83.4 H Lymph % (Auto) 7.4 L [place] % (Auto) 8.3 Eos % (Auto) 0.1 Baso % (Auto) 0.5 Absolute Neuts (auto) 13.7 H Absolute Lymphs (auto) 1.22 Total Counted Not Reportable Differential Comment Platelet Estimate Anisocytosis Macrocytosis Specimen Type ART Sample Site L Radial pH 7.19 L* Bicarbonate Actual 18.8 L POC Total CO2 20 Base Excess -9 L O2 Saturation 83 L O2 % ABG pCO2 49.2 H ABG pO2 58 L Dexter Test NA Respiration Rate O2 Delivery Device Room Air Minute Volume Vent Mode Tidal Volume POC PEEP Blood Gas Notified Whom ED Blood Gas Notified Time Sodium Potassium Chloride Carbon Dioxide Anion Gap BUN Creatinine Estim Creat Clear Calc Est GFR (MDRD) Af Amer Est GFR (MDRD) Non-Af BUN/Creatinine Ratio Glucose Lactic Acid 1.4 Calcium Total Bilirubin AST ALT Alkaline Phosphatase Total Creatine Kinase Troponin I Total Protein Albumin Globulin Albumin/Globulin Ratio Triglycerides Serum , Qual Urine Color Urine Clarity Urine pH Ur Specific [place] Urine Protein Urine Glucose (UA) Urine Ketones Urine Occult Blood Urine Nitrite Urine Bilirubin Urine Urobilinogen Ur Leukocyte Esterase Urine RBC Urine WBC Ur Squamous Epith Cells Urine Bacteria Hyaline Casts Urine Mucus Salicylates Urine Opiates Screen Urine Methadone Screen Acetaminophen Ur Barbiturates Screen Ur Phencyclidine Scrn Ur Amphetamines Screen U Methamphetamin-MDMA U Benzodiazepines Scrn Urine Cocaine Screen U Cannabinoids Screen Ur Drug Screen Comment Ethyl Alcohol POC Glucose 07/29/18 07/29/18 07/29/18 21:20 22:44 22:44 WBC RBC Hgb Hct MCV MCH MCHC RDW RDW Differential Plt Count MPV Immature Gran % (Auto) Neut % (Auto) Lymph % (Auto) [place] % (Auto) Eos % (Auto) Baso % (Auto) Absolute Neuts (auto) Absolute Lymphs (auto) Total Counted Differential Comment Platelet Estimate Anisocytosis Macrocytosis Specimen Type Sample Site pH Bicarbonate Actual POC Total CO2 Base Excess O2 Saturation O2 % ABG pCO2 ABG pO2 Dexter Test Respiration Rate O2 Delivery Device Minute Volume Vent Mode Tidal Volume POC PEEP Blood Gas Notified Whom Blood Gas Notified Time Sodium 142 Potassium 4.0 Chloride 110 H Carbon Dioxide 21.0 Anion Gap 11 BUN 14 Creatinine 2.11 H Estim Creat Clear Calc 26.68 Est GFR (MDRD) Af Amer 32 L Est GFR (MDRD) Non-Af 26 L BUN/Creatinine Ratio 6.6 L Glucose 97 Lactic Acid Calcium 7.5 L Total Bilirubin 0.40 AST 24 ALT 22 Alkaline Phosphatase 154 H Total Creatine Kinase Troponin I Total Protein 7.3 Albumin 3.3 Globulin 4.0 Albumin/Globulin Ratio 0.8 L Triglycerides Serum , Qual Urine Color Yellow Urine Clarity Clear Urine pH 6.0 Ur Specific [place] 1.015 Urine Protein 100 H Urine Glucose (UA) Normal Urine Ketones 15 H Urine Occult Blood 150 H Urine Nitrite Negative Urine Bilirubin Negative Urine Urobilinogen Normal Ur Leukocyte Esterase 25 H Urine RBC 0-5 SEEN Urine WBC 0-5 SEEN Ur Squamous Epith Cells 5-10 SEEN Urine Bacteria 1+ Hyaline Casts 0-5 SEEN Urine Mucus 1+ Salicylates Urine Opiates Screen NEGATIVE Urine Methadone Screen NEGATIVE Acetaminophen Ur Barbiturates Screen NEGATIVE Ur Phencyclidine Scrn NEGATIVE Ur Amphetamines Screen NEGATIVE U Methamphetamin-MDMA NEGATIVE U Benzodiazepines Scrn POSITIVE H Urine Cocaine Screen NEGATIVE U Cannabinoids Screen NEGATIVE Ur Drug Screen Comment Ethyl Alcohol POC Glucose 07/29/18 07/30/18 07/30/18 23:33 02:13 04:30 WBC 12.4 H RBC 4.43 Hgb 14.7 Hct 45.0 MCV 101.6 H MCH 33.2 H MCHC 32.7 RDW 15.5 H RDW Differential 57.5 H Plt Count 355 MPV 9.2 Immature Gran % (Auto) Neut % (Auto) Lymph % (Auto) [place] % (Auto) Eos % (Auto) Baso % (Auto) Absolute Neuts (auto) Absolute Lymphs (auto) Total Counted Differential Comment Platelet Estimate Anisocytosis Macrocytosis Specimen Type ART Sample Site R Radial pH 7.27 L Bicarbonate Actual 17.8 L POC Total CO2 19 Base Excess -9 L O2 Saturation 94 L O2 % 30 ABG pCO2 38.6 ABG pO2 81 Dexter Test Respiration Rate 14 O2 Delivery Device Vent Minute Volume 6.00 Vent Mode A-C Tidal Volume 450 POC PEEP 5 Blood Gas Notified Whom [facility] Blood Gas Notified Time 207 Sodium Potassium Chloride Carbon Dioxide Anion Gap BUN Creatinine Estim Creat Clear Calc Est GFR (MDRD) Af Amer Est GFR (MDRD) Non-Af BUN/Creatinine Ratio Glucose Lactic Acid 1.0 Calcium Total Bilirubin AST ALT Alkaline Phosphatase Total Creatine Kinase Troponin I Total Protein Albumin Globulin Albumin/Globulin Ratio Triglycerides Serum , Qual Urine Color Urine Clarity Urine pH Ur Specific [place] Urine Protein Urine Glucose (UA) Urine Ketones Urine Occult Blood Urine Nitrite Urine Bilirubin Urine Urobilinogen Ur Leukocyte Esterase Urine RBC Urine WBC Ur Squamous Epith Cells Urine Bacteria Hyaline Casts Urine Mucus Salicylates Urine Opiates Screen Urine Methadone Screen Acetaminophen Ur Barbiturates Screen Ur Phencyclidine Scrn Ur Amphetamines Screen U Methamphetamin-MDMA U Benzodiazepines Scrn Urine Cocaine Screen U Cannabinoids Screen Ur Drug Screen Comment Ethyl Alcohol POC Glucose 07/30/18 07/30/18 07/30/18 04:30 04:30 05:25 WBC RBC Hgb Hct MCV MCH MCHC RDW RDW Differential Plt Count MPV Immature Gran % (Auto) Neut % (Auto) Lymph % (Auto) [place] % (Auto) Eos % (Auto) Baso % (Auto) Absolute Neuts (auto) Absolute Lymphs (auto) Total Counted Differential Comment Platelet Estimate Anisocytosis Macrocytosis Specimen Type Sample Site pH Bicarbonate Actual POC Total CO2 Base Excess O2 Saturation O2 % ABG pCO2 ABG pO2 Dexter Test Respiration Rate O2 Delivery Device Minute Volume Vent Mode Tidal Volume POC PEEP Blood Gas Notified Whom Blood Gas Notified Time Sodium Cancelled 145 Potassium Cancelled 4.0 Chloride Cancelled 113 H Carbon Dioxide Cancelled 19.0 L Anion Gap Cancelled 13 BUN Cancelled 15 Creatinine Cancelled 1.56 H Estim Creat Clear Calc Cancelled 34.50 Est GFR (MDRD) Af Amer Cancelled 45 L Est GFR (MDRD) Non-Af Cancelled 37 L BUN/Creatinine Ratio Cancelled 9.6 L Glucose Cancelled 60 L Lactic Acid Calcium Cancelled 7.7 L Total Bilirubin AST ALT Alkaline Phosphatase Total Creatine Kinase Cancelled 82 Troponin I Total Protein Albumin Globulin Albumin/Globulin Ratio Triglycerides Cancelled 160 Serum , Qual Urine Color Urine Clarity Urine pH Ur Specific [place] Urine Protein Urine Glucose (UA) Urine Ketones Urine Occult Blood Urine Nitrite Urine Bilirubin Urine Urobilinogen Ur Leukocyte Esterase Urine RBC Urine WBC Ur Squamous Epith Cells Urine Bacteria Hyaline Casts Urine Mucus Salicylates Urine Opiates Screen Urine Methadone Screen Acetaminophen Ur Barbiturates Screen Ur Phencyclidine Scrn Ur Amphetamines Screen U Methamphetamin-MDMA U Benzodiazepines Scrn Urine Cocaine Screen U Cannabinoids Screen Ur Drug Screen Comment Ethyl Alcohol POC Glucose 07/30/18 07/31/18 07/31/18 20:03 04:20 04:20 WBC 15.6 H RBC 3.80 L Hgb 12.0 Hct 38.6 MCV 101.6 H MCH 31.6 MCHC 31.1 L RDW 15.0 H RDW Differential 55.2 H Plt Count 248 MPV 9.5 Immature Gran % (Auto) 0.300 Neut % (Auto) 83.7 H Lymph % (Auto) 6.2 L [place] % (Auto) 9.4 Eos % (Auto) 0.3 Baso % (Auto) 0.1 Absolute Neuts (auto) 13.0 H Absolute Lymphs (auto) 0.97 Total Counted Not Reportable Differential Comment Platelet Estimate Anisocytosis Macrocytosis Specimen Type Sample Site pH Bicarbonate Actual POC Total CO2 Base Excess O2 Saturation O2 % ABG pCO2 ABG pO2 Dexter Test Respiration Rate O2 Delivery Device Minute Volume Vent Mode Tidal Volume POC PEEP Blood Gas Notified Whom Blood Gas Notified Time Sodium 148 H Potassium 3.4 L Chloride 115 H Carbon Dioxide 21.0 Anion Gap 12 BUN 20 H Creatinine 0.94 Estim Creat Clear Calc 59.89 Est GFR (MDRD) Af Amer 81 Est GFR (MDRD) Non-Af 67 BUN/Creatinine Ratio 21.2 H Glucose 144 H Lactic Acid Calcium 7.6 L Total Bilirubin AST ALT Alkaline Phosphatase Total Creatine Kinase Troponin I Total Protein Albumin Globulin Albumin/Globulin Ratio Triglycerides Serum , Qual Urine Color Urine Clarity Urine pH Ur Specific [place] Urine Protein Urine Glucose (UA) Urine Ketones Urine Occult Blood Urine Nitrite Urine Bilirubin Urine Urobilinogen Ur Leukocyte Esterase Urine RBC Urine WBC Ur Squamous Epith Cells Urine Bacteria Hyaline Casts Urine Mucus Salicylates Urine Opiates Screen Urine Methadone Screen Acetaminophen Ur Barbiturates Screen Ur Phencyclidine Scrn Ur Amphetamines Screen U Methamphetamin-MDMA U Benzodiazepines Scrn Urine Cocaine Screen U Cannabinoids Screen Ur Drug Screen Comment Ethyl Alcohol POC Glucose 117 H Medical Necessity - Tobacco Use Smoking Status: Current every day smoker Assessment/Plan All Active Problems Mental confusion (Acute) ARF (acute renal failure) (Acute) Diarrhea (Acute) Altered mental status (Acute) Fracture of fibula, right, closed (Acute) Drug overdose (Acute) RECOMMENDATIONS: 1. Continue Precedex sedation 2. Yeh culture, add empiric steroids for pneumonia 3. Continue aggressive pulmonary toileting 4. Continue with aerosol therapy 5. Spontaneous breathing and awakening trials per protocol IMPRESSIONS: 1. Unintentional baclofen overdose Currently on supportive measures. Will bolus IV fluids as necessary for hypotension initially, but patient now hypertensive. May transition back to propofol therapy if continues to be agitated. Patient does have a benzodiazepine on her tox screen, but not on her home medication list. Will have to reevaluate once patient is extubated. 2. Rheumatoid arthritis on methotrexate Patient is not acting as though she is infected at this time. Likely need to hold methotrexate given patient's development of probable sepsis. Continue to monitor. 3. Acute kidney injury RESOLVED > likely prerenal in etiology. Patient is on losartan and Lasix. Baseline creatinine appears to be around 1. Patient is being hydrated at this time. We will continue to monitor on a daily basis. 4. Acute combined respiratory failure/metabolic acidosis Likely secondary to baclofen overdose. Patient does not have any infiltrates on chest x-ray. Patient is on bronchodilators. Continue with spontaneous awakening and breathing trials per protocol. Anticipate mechanical ventilation over the next 24 hours. 5. Chronic back pain/fibromyalgia/hypertension/hyperlipidemia/limited mobility Complicates care, management, recovery and prognosis. Patient is on a fentanyl drip at this time. Pepcid and heparin prophylaxis. 6. Severe sepsis Patient's chest x-ray shows a questionable right lower lobe infiltrate. Unclear if patient had an aspiration event secondary to mental status initially. Sputum cultures have been sent. Will obtain blood cultures and initiate empiric antibiotics. TIME: 45 minutes critical care time spent addressing patient's acute combined respiratory failure, unintentional baclofen overdose, review of all data and collaboration with care team (6 AM to 6:50 AM) Code Visit [id number]: [id number] Critical care first hour
[2018-07-31] MEDS: Albuterol 2.5 MG/3 ML VIAL.NEB. INHALATION ×5 (06:43→22:31)
[2018-07-31] MEDS: Propofol 10MG/Ml 1,000 MG/100 ML Bottle 2.166 MG CONT INF ×2 (08:35→16:29)
[2018-07-31] MEDS: Ceftriaxone 1 GM/50 ML BAG IV (09:20)
[2018-07-31] MEDS: Chlorhexidine 15 ML PO ×2 (09:21→20:23)
[2018-07-31] MEDS: Losartan Potassium 25 MG Tablet GT (09:21)
[2018-07-31] MEDS: Heparin Injection (Vial) 5,000 UNIT/ML VIAL 5000 UNIT SC ×2 (09:22→21:25)
[2018-07-31] MEDS: Metoprolol Tartrate 25 MG Tablet 12.5 MG GT (09:22)
[2018-07-31] MEDS: Famotidine 20 MG Tablet GT ×2 (09:23→21:25)
[2018-07-31] MEDS: Polyethylene Glycol 3350 17 GM PACKET 34 GM GT (09:23)
[2018-07-31] MEDS: Senna/Docusate Sodium 1 Tablet 2 TABLET GT ×2 (09:23→21:25)
--- NOTE | 2018-07-31 09:32 | PCM.PN.HOSP ---
Patient Problems: Active and Suspected Problems Drug overdose (Acute) Subjective: Patient is still intubated on ventilator. Febrile, T-max 101.7 Fahrenheit. Discussed with the near the bedside. Patient has history of COPD and you just intermittently albuterol inhaler. I think patient also has obstructive sleep apnea but does not use CPAP machine at home although she recommended. Vitals/I&O's: Vital Signs Temp Pulse Resp BP Pulse Ox 101.5 F H 92 17 144/87 H 96 07/31/18 08:00 07/31/18 09:22 07/31/18 08:00 07/31/18 09:22 07/31/18 08:00 Oxygen Delivery Method Mechanical Ventilator Weight: 159 lb 2.78 oz Body Mass Index (BMI) 27.9 Finger Stick Blood Glucose 120 Intake and Output for Last 24 Hours 07/29/18 07/30/18 07/31/18 23:59 23:59 23:59 Intake Total 4723.2 / 4723.2 1283.4 / 1283.4 Output Total 760 / 760 300 / 300 Balance 3963.2 / 3963.2 983.4 / 983.4 General: - - Sedated on Precedex drip HEENT: Atraumatic, PERRLA, EOMI, Normocephalic Neck: Supple, No JVD, Negative Carotid Bruits Lungs: Rhonchi, - - Vent support Cardiovascular: Regular rate, Regular Rhythm, Normal S1, Normal S2, No murmurs Abdomen: Bowel Sounds Present, Soft, Non Tender, Non-Distended Extremities: Capillary Refill Less than 3 Seconds, Edema Skin: No rashes, No breakdown Musculoskeletal: No Tenderness to Palpation of Joints or Extremities Neurological: Cranial nerves II-XII grossly intact Psych/Mental Status: Normal Affect, Appropriate Laboratory Results 07/30/18 20:03: POC Glucose 117 H 07/31/18 04:20: Sodium 148 H, Potassium 3.4 L, Chloride 115 H, Carbon Dioxide 21.0, Anion Gap 12, BUN 20 H, Creatinine 0.94, Estim Creat Clear Calc 59.89, Est GFR (MDRD) Af Amer 81, Est GFR (MDRD) Non-Af 67, BUN/Creatinine Ratio 21.2 H, Glucose 144 H, Calcium 7.6 L 07/31/18 04:20: WBC 15.6 H, RBC 3.80 L, Hgb 12.0, Hct 38.6, MCV 101.6 H, MCH 31.6, MCHC 31.1 L, RDW 15.0 H, RDW Differential 55.2 H, Plt Count 248, MPV 9.5, Immature Gran % (Auto) 0.300, Neut % (Auto) 83.7 H, Lymph % (Auto) 6.2 L, [place] % (Auto) 9.4, Eos % (Auto) 0.3, Baso % (Auto) 0.1, Absolute Neuts (auto) 13.0 H, Absolute Lymphs (auto) 0.97, Total Counted Not Reportable Current Medications Acetaminophen (Tylenol Liquid) 650 mg NG Q6H PRN PRN PRN Reason: Fever >101 Last Admin: 07/31/18 03:05 Dose: 650 mg Albuterol Sulfate (Ventolin Aerosols) 2.5 mg INHALATION Q2H PRN PRN PRN Reason: SOB &/OR WHEEZING Albuterol Sulfate (Ventolin Aerosols) 2.5 mg INHALATION Q4H.RT [facility] Last Admin: 07/31/18 06:43 Dose: 2.5 mg Azithromycin (Zithromax 200mg/5ml) 250 mg GT DAILY [facility] Stop: 08/04/18 10:01 Chlorhexidine Gluconate () 15 ml PO BID [facility] Last Admin: 07/31/18 09:21 Dose: 15 ml Famotidine (Pepcid) 20 mg GT BID [facility] Last Admin: 07/31/18 09:23 Dose: 20 mg Guaifenesin (Robitussin) 10 ml GT Q4H PRN PRN PRN Reason: Thick secretions Heparin Sodium (Porcine) (Heparin Na) 5,000 unit SC Q12 [facility] Last Admin: 07/31/18 09:22 Dose: 5,000 unit Fentanyl () 100 mls @ 2.5 mls/hr IV .Q40H [facility] Last Admin: 07/31/18 01:26 Dose: 2.5 mls/hr Enteral Nutritional Formula (Vital Af 1.2 Allen Liquid) 1,000 mls @ 60 mls/hr GT .[id number] [facility] Last Admin: 07/31/18 01:05 Dose: Not Given Ceftriaxone Sodium (Rocephin) 1 gm in 50 mls @ 100 mls/hr IV Q24 [facility] Last Admin: 07/31/18 09:20 Dose: 100 mls/hr Propofol (Diprivan) 1,000 mg in 100 mls @ 2.166 mls/hr CONT INF .Q12H [facility]; Protocol Last Admin: 07/31/18 08:35 Dose: 2.166 mls/hr Labetalol HCl (Trandate) 20 mg IV Q6H PRN PRN PRN Reason: SBP>160 Last Admin: 07/31/18 03:00 Dose: 20 mg Lorazepam (Ativan) 2 mg IV Q2H PRN PRN PRN Reason: RESTLESSNESS Last Admin: 07/31/18 07:38 Dose: 2 mg Losartan Potassium (Cozaar) 25 mg GT DAILY [facility] Last Admin: 07/31/18 09:21 Dose: 25 mg Magnesium Hydroxide (Milk Of Magnesia) 30 ml PO DAILY PRN PRN PRN Reason: Constipation Metoprolol Tartrate (Lopressor (Beta Prudence)) 12.5 mg GT DAILY [facility] Last Admin: 07/31/18 09:22 Dose: 12.5 mg Ondansetron HCl (Zofran) 4 mg IV Q8H PRN PRN PRN Reason: Nausea Polyethylene Glycol (Miralax) 17 gm GT BID [facility] Polyethylene Glycol (Miralax) 34 gm GT X1 ONE Stop: 07/31/18 10:01 Last Admin: 07/31/18 09:23 Dose: 34 gm Senna/Docusate Sodium (Senokot-S, Gloria-Colace) 2 tablet GT BID [facility] Last Admin: 07/31/18 09:23 Dose: 2 tablet Sodium Chloride () 5 - 30 ml IV UD PRN PRN Reason: SALINE FLUSH Last Admin: 07/31/18 07:38 Dose: 30 ml Medical Necessity - Tobacco Use Smoking Status: Current every day smoker Assessment/Plan All Active Problems Mental confusion (Acute) ARF (acute renal failure) (Acute) Diarrhea (Acute) Altered mental status (Acute) Fracture of fibula, right, closed (Acute) Drug overdose (Acute) This is a 47-year-old female with history of RA, fibromyalgia, low back pain and history of drug overdose was admitted for drug overdose, of baclofen. Patient was intubated for airway protection. Patient had a GCS of 9 intubated in ER. As per H&P, patient was confused so she overdosed unintentionally baclofen. As per , she also has history of COPD and possible obstructive sleep apnea, noncompliant with CPAP. Assessment and plan: 1. Acute encephalopathy most probably toxic encephalopathy secondary to drug overdose from baclofen: Currently on vent support. Repair Welder has been consulted for vent management. 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 No acute intracranial pathology. 2. Acute hypoxic and hypercarbic combined respiratory failure with metabolic acidosis. Mild hypokalemia: K3.4. Bicarb 21. First ABG was 7.1 / on room air. Repeat ABG 7.27/30 on 30% FiO2/450/14/5. On vent support. Potassium being replaced Severe sepsis: Patient has leukocytosis. Chest x-ray shows hypoinflated with no focal infiltrates or effusion. Minimal bibasilar subsegmental atelectasis..: UA shows 1+ bacteria, 0-5 WBC small LE 25 negative for pyuria/UTI. U tox positive for benzodiazepines. Chest x-ray negative. CT abdomen shows mildly dilated loops of small bowel probably ileus. Lactic acid normal. Empirically on Rocephin and Zithromax for suspected pneumonia until cultures are fully reported 3. Rheumatological disease: RA, chronic back pain, fibromyalgia: She is on methotrexate, Lyrica, baclofen at home. Currently these medications are on hold. 4. Acute kidney injury, prerenal: Resolved. other chronic comorbidities include anemia chronic iron deficits anemia, hypertension, dyslipidemia DVT prophylaxis: Heparin 5000 units twice daily Laboratory Results 07/30/18 20:03: POC Glucose 117 H 07/31/18 04:20: Sodium 148 H, Potassium 3.4 L, Chloride 115 H, Carbon Dioxide 21.0, Anion Gap 12, BUN 20 H, Creatinine 0.94, Estim Creat Clear Calc 59.89, Est GFR (MDRD) Af Amer 81, Est GFR (MDRD) Non-Af 67, BUN/Creatinine Ratio 21.2 H, Glucose 144 H, Calcium 7.6 L 07/31/18 04:20: WBC 15.6 H, RBC 3.80 L, Hgb 12.0, Hct 38.6, MCV 101.6 H, MCH 31.6, MCHC 31.1 L, RDW 15.0 H, RDW Differential 55.2 H, Plt Count 248, MPV 9.5, Immature Gran % (Auto) 0.300, Neut % (Auto) 83.7 H, Lymph % (Auto) 6.2 L, [place] % (Auto) 9.4, Eos % (Auto) 0.3, Baso % (Auto) 0.1, Absolute Neuts (auto) 13.0 H, Absolute Lymphs (auto) 0.97, Total Counted Not Reportable 07/31/18 04:20: Total Creatine Kinase Pending, Triglycerides Pending Clinical Impression(s) from Imaging Studies Brain CT 07/29/18 20:05 IMPRESSION: 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 No acute edge cranial pathology. Abdomen/Pelvis CT 07/29/18 22:12 IMPRESSION: Mildly dilated loops of small bowel the upper abdomen which may be due to ileus or a low-grade obstruction. Enteric tube tip in the proximal stomach. This could be advanced 5-10 cm for improved positioning. Fatty liver. Chest X-Ray 07/31/18 05:55 IMPRESSION: No acute cardiopulmonary disease. Endotracheal tube tip in its expected location. Nasogastric tube tip looped in the stomach with the tip at the gastric cardia. This is satisfactory for suction. Active Medications Acetaminophen (Tylenol Liquid) 650 mg NG Q6H PRN PRN PRN Reason: Fever >101 Last Admin: 07/31/18 03:05 Dose: 650 mg Albuterol Sulfate (Ventolin Aerosols) 2.5 mg INHALATION Q2H PRN PRN PRN Reason: SOB &/OR WHEEZING Albuterol Sulfate (Ventolin Aerosols) 2.5 mg INHALATION Q4H.RT [facility]OO Last Admin: 07/31/18 06:43 Dose: 2.5 mg Azithromycin (Zithromax 200mg/5ml) 250 mg GT DAILY [facility] Stop: 08/04/18 10:01 Chlorhexidine Gluconate () 15 ml PO BID TOO Last Admin: 07/31/18 09:21 Dose: 15 ml Famotidine (Pepcid) 20 mg GT BID [facility] Last Admin: 07/31/18 09:23 Dose: 20 mg Guaifenesin (Robitussin) 10 ml GT Q4H PRN PRN PRN Reason: Thick secretions Heparin Sodium (Porcine) (Heparin Na) 5,000 unit SC Q12 [facility] Last Admin: 07/31/18 09:22 Dose: 5,000 unit Fentanyl () 100 mls @ 2.5 mls/hr IV .Q40H [facility] Last Admin: 07/31/18 01:26 Dose: 2.5 mls/hr Enteral Nutritional Formula (Vital Af 1.2 Allen Liquid) 1,000 mls @ 60 mls/hr GT .[id number] [facility] Last Admin: 07/31/18 01:05 Dose: Not Given Ceftriaxone Sodium (Rocephin) 1 gm in 50 mls @ 100 mls/hr IV Q24 [facility] Last Admin: 07/31/18 09:20 Dose: 100 mls/hr Propofol (Diprivan) 1,000 mg in 100 mls @ 2.166 mls/hr CONT INF .Q12H [facility]; Protocol Last Admin: 07/31/18 08:35 Dose: 2.166 mls/hr Labetalol HCl (Trandate) 20 mg IV Q6H PRN PRN PRN Reason: SBP>160 Last Admin: 07/31/18 03:00 Dose: 20 mg Lorazepam (Ativan) 2 mg IV Q2H PRN PRN PRN Reason: RESTLESSNESS Last Admin: 07/31/18 07:38 Dose: 2 mg Losartan Potassium (Cozaar) 25 mg GT DAILY [facility] Last Admin: 07/31/18 09:21 Dose: 25 mg Magnesium Hydroxide (Milk Of Magnesia) 30 ml PO DAILY PRN PRN PRN Reason: Constipation Metoprolol Tartrate (Lopressor (Beta Prudence)) 12.5 mg GT DAILY [facility] Last Admin: 07/31/18 09:22 Dose: 12.5 mg Ondansetron HCl (Zofran) 4 mg IV Q8H PRN PRN PRN Reason: Nausea Polyethylene Glycol (Miralax) 17 gm GT BID [facility] Polyethylene Glycol (Miralax) 34 gm GT X1 ONE Stop: 07/31/18 10:01 Last Admin: 07/31/18 09:23 Dose: 34 gm Senna/Docusate Sodium (Senokot-S, Gloria-Colace) 2 tablet GT BID [facility] Last Admin: 07/31/18 09:23 Dose: 2 tablet Sodium Chloride () 5 - 30 ml IV UD PRN PRN Reason: SALINE FLUSH Last Admin: 07/31/18 07:38 Dose: 30 ml Code Visit Inpatient E&M: 76382 Subs Hosp L3
--- NOTE | 2018-07-31 09:36 | PN_ITS ---
Patient Problems: Active and Suspected Problems Drug overdose (Acute) Subjective: Patient is still intubated on ventilator. Febrile, T-max 101.7 Fahrenheit. Discussed with the near the bedside. Patient has history of COPD and you just intermittently albuterol inhaler. I think patient also has obstructive sleep apnea but does not use CPAP machine at home although she recommended. Vitals/I&O's: Vital Signs Temp Pulse Resp BP Pulse Ox 101.5 F H 92 17 144/87 H 96 07/31/18 08:00 07/31/18 09:22 07/31/18 08:00 07/31/18 09:22 07/31/18 08:00 Oxygen Delivery Method Mechanical Ventilator Weight: 159 lb 2.78 oz Body Mass Index (BMI) 27.9 Finger Stick Blood Glucose 120 Intake and Output for Last 24 Hours 07/29/18 07/30/18 07/31/18 23:59 23:59 23:59 Intake Total 4723.2 / 4723.2 1283.4 / 1283.4 Output Total 760 / 760 300 / 300 Balance 3963.2 / 3963.2 983.4 / 983.4 General: - - Sedated on Precedex drip HEENT: Atraumatic, PERRLA, EOMI, Normocephalic Neck: Supple, No JVD, Negative Carotid Bruits Lungs: Rhonchi, - - Vent support Cardiovascular: Regular rate, Regular Rhythm, Normal S1, Normal S2, No murmurs Abdomen: Bowel Sounds Present, Soft, Non Tender, Non-Distended Extremities: Capillary Refill Less than 3 Seconds, Edema Skin: No rashes, No breakdown Musculoskeletal: No Tenderness to Palpation of Joints or Extremities Neurological: Cranial nerves II-XII grossly intact Psych/Mental Status: Normal Affect, Appropriate Laboratory Results 07/30/18 20:03: POC Glucose 117 H 07/31/18 04:20: Sodium 148 H, Potassium 3.4 L, Chloride 115 H, Carbon Dioxide 21.0, Anion Gap 12, BUN 20 H, Creatinine 0.94, Estim Creat Clear Calc 59.89, Est GFR (MDRD) Af Amer 81, Est GFR (MDRD) Non-Af 67, BUN/Creatinine Ratio 21.2 H, Glucose 144 H, Calcium 7.6 L 07/31/18 04:20: WBC 15.6 H, RBC 3.80 L, Hgb 12.0, Hct 38.6, MCV 101.6 H, MCH 31.6, MCHC 31.1 L, RDW 15.0 H, RDW Differential 55.2 H, Plt Count 248, MPV 9.5, Immature Gran % (Auto) 0.300, Neut % (Auto) 83.7 H, Lymph % (Auto) 6.2 L, [place] % (Auto) 9.4, Eos % (Auto) 0.3, Baso % (Auto) 0.1, Absolute Neuts (auto) 13.0 H, Absolute Lymphs (auto) 0.97, Total Counted Not Reportable Current Medications Acetaminophen (Tylenol Liquid) 650 mg NG Q6H PRN PRN PRN Reason: Fever >101 Last Admin: 07/31/18 03:05 Dose: 650 mg Albuterol Sulfate (Ventolin Aerosols) 2.5 mg INHALATION Q2H PRN PRN PRN Reason: SOB &/OR WHEEZING Albuterol Sulfate (Ventolin Aerosols) 2.5 mg INHALATION Q4H.RT [facility] Last Admin: 07/31/18 06:43 Dose: 2.5 mg Azithromycin (Zithromax 200mg/5ml) 250 mg GT DAILY [facility] Stop: 08/04/18 10:01 Chlorhexidine Gluconate () 15 ml PO BID [facility] Last Admin: 07/31/18 09:21 Dose: 15 ml Famotidine (Pepcid) 20 mg GT BID [facility] Last Admin: 07/31/18 09:23 Dose: 20 mg Guaifenesin (Robitussin) 10 ml GT Q4H PRN PRN PRN Reason: Thick secretions Heparin Sodium (Porcine) (Heparin Na) 5,000 unit SC Q12 [facility] Last Admin: 07/31/18 09:22 Dose: 5,000 unit Fentanyl () 100 mls @ 2.5 mls/hr IV .Q40H [facility] Last Admin: 07/31/18 01:26 Dose: 2.5 mls/hr Enteral Nutritional Formula (Vital Af 1.2 Allen Liquid) 1,000 mls @ 60 mls/hr GT .[id number] [facility] Last Admin: 07/31/18 01:05 Dose: Not Given Ceftriaxone Sodium (Rocephin) 1 gm in 50 mls @ 100 mls/hr IV Q24 [facility] Last Admin: 07/31/18 09:20 Dose: 100 mls/hr Propofol (Diprivan) 1,000 mg in 100 mls @ 2.166 mls/hr CONT INF .Q12H [facility]; Protocol Last Admin: 07/31/18 08:35 Dose: 2.166 mls/hr Labetalol HCl (Trandate) 20 mg IV Q6H PRN PRN PRN Reason: SBP>160 Last Admin: 07/31/18 03:00 Dose: 20 mg Lorazepam (Ativan) 2 mg IV Q2H PRN PRN PRN Reason: RESTLESSNESS Last Admin: 07/31/18 07:38 Dose: 2 mg Losartan Potassium (Cozaar) 25 mg GT DAILY [facility] Last Admin: 07/31/18 09:21 Dose: 25 mg Magnesium Hydroxide (Milk Of Magnesia) 30 ml PO DAILY PRN PRN PRN Reason: Constipation Metoprolol Tartrate (Lopressor (Beta Prudence)) 12.5 mg GT DAILY [facility] Last Admin: 07/31/18 09:22 Dose: 12.5 mg Ondansetron HCl (Zofran) 4 mg IV Q8H PRN PRN PRN Reason: Nausea Polyethylene Glycol (Miralax) 17 gm GT BID [facility] Polyethylene Glycol (Miralax) 34 gm GT X1 ONE Stop: 07/31/18 10:01 Last Admin: 07/31/18 09:23 Dose: 34 gm Senna/Docusate Sodium (Senokot-S, Gloria-Colace) 2 tablet GT BID [facility] Last Admin: 07/31/18 09:23 Dose: 2 tablet Sodium Chloride () 5 - 30 ml IV UD PRN PRN Reason: SALINE FLUSH Last Admin: 07/31/18 07:38 Dose: 30 ml Medical Necessity - Tobacco Use Smoking Status: Current every day smoker Assessment/Plan All Active Problems Mental confusion (Acute) ARF (acute renal failure) (Acute) Diarrhea (Acute) Altered mental status (Acute) Fracture of fibula, right, closed (Acute) Drug overdose (Acute) This is a 47-year-old female with history of RA, fibromyalgia, low back pain and history of drug overdose was admitted for drug overdose, of baclofen. Patient was intubated for airway protection. Patient had a GCS of 9 intubated in ER. As per H&P, patient was confused so she overdosed unintentionally baclofen. As per , she also has history of COPD and possible obstructive sleep apnea, noncompliant with CPAP. Assessment and plan: 1. Acute encephalopathy most probably toxic encephalopathy secondary to drug overdose from baclofen: Currently on vent support. Gis Professor has been consulted for vent management. 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 No acute intracranial pathology. 2. Acute hypoxic and hypercarbic combined respiratory failure with metabolic acidosis. Mild hypokalemia: K3.4. Bicarb 21. First ABG was 7.1 / on room air. Repeat ABG 7.27/30 on 30% FiO2/450/14/5. On vent support. Potassium being replaced Severe sepsis: Patient has leukocytosis. Chest x-ray shows hypoinflated with no focal infiltrates or effusion. Minimal bibasilar subsegmental atelectasis..: UA shows 1+ bacteria, 0-5 WBC small LE 25 negative for pyuria/UTI. U tox positive for benzodiazepines. Chest x-ray negative. CT abdomen shows mildly dilated loops of small bowel probably ileus. Lactic acid normal. Empirically on Rocephin and Zithromax for suspected pneumonia until cultures are fully reported 3. Rheumatological disease: RA, chronic back pain, fibromyalgia: She is on methotrexate, Lyrica, baclofen at home. Currently these medications are on hold. 4. Acute kidney injury, prerenal: Resolved. other chronic comorbidities include anemia chronic iron deficits anemia, hypertension, dyslipidemia DVT prophylaxis: Heparin 5000 units twice daily Laboratory Results 07/30/18 20:03: POC Glucose 117 H 07/31/18 04:20: Sodium 148 H, Potassium 3.4 L, Chloride 115 H, Carbon Dioxide 21.0, Anion Gap 12, BUN 20 H, Creatinine 0.94, Estim Creat Clear Calc 59.89, Est GFR (MDRD) Af Amer 81, Est GFR (MDRD) Non-Af 67, BUN/Creatinine Ratio 21.2 H, Glucose 144 H, Calcium 7.6 L 07/31/18 04:20: WBC 15.6 H, RBC 3.80 L, Hgb 12.0, Hct 38.6, MCV 101.6 H, MCH 31.6, MCHC 31.1 L, RDW 15.0 H, RDW Differential 55.2 H, Plt Count 248, MPV 9.5, Immature Gran % (Auto) 0.300, Neut % (Auto) 83.7 H, Lymph % (Auto) 6.2 L, [place] % (Auto) 9.4, Eos % (Auto) 0.3, Baso % (Auto) 0.1, Absolute Neuts (auto) 13.0 H, Absolute Lymphs (auto) 0.97, Total Counted Not Reportable 07/31/18 04:20: Total Creatine Kinase Pending, Triglycerides Pending Clinical Impression(s) from Imaging Studies Brain CT 07/29/18 20:05 IMPRESSION: 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 No acute edge cranial pathology. Abdomen/Pelvis CT 07/29/18 22:12 IMPRESSION: Mildly dilated loops of small bowel the upper abdomen which may be due to ileus or a low-grade obstruction. Enteric tube tip in the proximal stomach. This could be advanced 5-10 cm for improved positioning. Fatty liver. Chest X-Ray 07/31/18 05:55 IMPRESSION: No acute cardiopulmonary disease. Endotracheal tube tip in its expected location. Nasogastric tube tip looped in the stomach with the tip at the gastric cardia. This is satisfactory for suction. Active Medications Acetaminophen (Tylenol Liquid) 650 mg NG Q6H PRN PRN PRN Reason: Fever >101 Last Admin: 07/31/18 03:05 Dose: 650 mg Albuterol Sulfate (Ventolin Aerosols) 2.5 mg INHALATION Q2H PRN PRN PRN Reason: SOB &/OR WHEEZING Albuterol Sulfate (Ventolin Aerosols) 2.5 mg INHALATION Q4H.RT TOO Last Admin: 07/31/18 06:43 Dose: 2.5 mg Azithromycin (Zithromax 200mg/5ml) 250 mg GT DAILY [facility] Stop: 08/04/18 10:01 Chlorhexidine Gluconate () 15 ml PO BID TOO Last Admin: 07/31/18 09:21 Dose: 15 ml Famotidine (Pepcid) 20 mg GT BID [facility] Last Admin: 07/31/18 09:23 Dose: 20 mg Guaifenesin (Robitussin) 10 ml GT Q4H PRN PRN PRN Reason: Thick secretions Heparin Sodium (Porcine) (Heparin Na) 5,000 unit SC Q12 [facility] Last Admin: 07/31/18 09:22 Dose: 5,000 unit Fentanyl () 100 mls @ 2.5 mls/hr IV .Q40H [facility] Last Admin: 07/31/18 01:26 Dose: 2.5 mls/hr Enteral Nutritional Formula (Vital Af 1.2 Allen Liquid) 1,000 mls @ 60 mls/hr GT .[id number] [facility] Last Admin: 07/31/18 01:05 Dose: Not Given Ceftriaxone Sodium (Rocephin) 1 gm in 50 mls @ 100 mls/hr IV Q24 [facility] Last Admin: 07/31/18 09:20 Dose: 100 mls/hr Propofol (Diprivan) 1,000 mg in 100 mls @ 2.166 mls/hr CONT INF .Q12H [facility]; Protocol Last Admin: 07/31/18 08:35 Dose: 2.166 mls/hr Labetalol HCl (Trandate) 20 mg IV Q6H PRN PRN PRN Reason: SBP>160 Last Admin: 07/31/18 03:00 Dose: 20 mg Lorazepam (Ativan) 2 mg IV Q2H PRN PRN PRN Reason: RESTLESSNESS Last Admin: 07/31/18 07:38 Dose: 2 mg Losartan Potassium (Cozaar) 25 mg GT DAILY [facility] Last Admin: 07/31/18 09:21 Dose: 25 mg Magnesium Hydroxide (Milk Of Magnesia) 30 ml PO DAILY PRN PRN PRN Reason: Constipation Metoprolol Tartrate (Lopressor (Beta Prudence)) 12.5 mg GT DAILY [facility] Last Admin: 07/31/18 09:22 Dose: 12.5 mg Ondansetron HCl (Zofran) 4 mg IV Q8H PRN PRN PRN Reason: Nausea Polyethylene Glycol (Miralax) 17 gm GT BID [facility] Polyethylene Glycol (Miralax) 34 gm GT X1 ONE Stop: 07/31/18 10:01 Last Admin: 07/31/18 09:23 Dose: 34 gm Senna/Docusate Sodium (Senokot-S, Gloria-Colace) 2 tablet GT BID [facility] Last Admin: 07/31/18 09:23 Dose: 2 tablet Sodium Chloride () 5 - 30 ml IV UD PRN PRN Reason: SALINE FLUSH Last Admin: 07/31/18 07:38 Dose: 30 ml Code Visit Inpatient E&M: [id number] Subs Hosp L3
[2018-07-31 09:50] LABS: CPK Total, Creatine Kinase 128 U/L (26-192); Triglycerides 226 mg/dL
[2018-07-31] MEDS: Azithromycin 200MG/5ML 500 MG GT (11:05)
[2018-07-31] MEDS: Vital AF 1.2 Cal Liquid 1,000 ML 60 ML GT (13:09)
--- NOTE | 2018-07-31 15:33 | NURSING ---
Teaching of pt's chronic medical conditions deferred until pt no longer sedated on vent and able to participate in discussion
[2018-07-31 21:21] LABS: Bedside Glucose 103 mg/dL (70-110)
[2018-07-31] MEDS: Polyethylene Glycol 3350 17 GM PACKET GT (21:25)
[2018-08-01] VITALS (45 sets, daily range): BP systolic 90–143; BP diastolic 52–110; PULSE 89–137; RESP 14–36; TEMP 37.4–38.4; O2SAT 30–100
[2018-08-01] MEDS: Propofol 10MG/Ml 1,000 MG/100 ML Bottle 2.166 MG CONT INF ×5 (00:36→23:46)
[2018-08-01] MEDS: Albuterol 2.5 MG/3 ML VIAL.NEB. INHALATION ×6 (03:07→23:39)
[2018-08-01] MEDS: Acetaminophen 650 MG/20 ML UDC NG ×2 (03:27→11:55)
[2018-08-01] MEDS: CHLORHEXIDINE GLUC 2% CLOTH 1 EACH TOWELETTE TOPICAL (03:48)
[2018-08-01 04:32] LABS: Anion Gap 9 (5-15); BUN 10 mg/dL (7-18); BUN/Creat Ratio 15.1 RATIO (10-20); Calcium,Total 8.1 mg/dL (8.5-10.1); Chloride 112 mmol/L (98-107); Creatinine, Serum 0.66 mg/dL (0.55-1.02); EST Glomerular Filtration Rate 100 mL/min (>60); Est Glom Filt Rate - Afr Amer 122 mL/min (>60); Estimated Creatinine Clearance 85.29 ml/min; Glucose 99 mg/dL (74-106); Potassium 3.3 mmol/L (3.5-5.1); Sodium Level 146 mmol/L (136-145)
[2018-08-01 04:49] LABS: Absolute Lymphocyte Count 1.17 X10^3/ul (0.83-4.51); Absolute Neutrophil Count 12.9 X10^3/uL (2.0-7.7); Basophil# 0.01 X10^3/uL; Basophil% 0.1 % (0-1); Eosinophil# 0.08 X10^3/uL; Eosinophils% 0.5 % (0-5); Hematocrit 35.4 % (37-47); Hemoglobin 11.1 g/dl (12.0-15.0); Lymphocyte # 1.17 X10^3/ul (4.0); Lymphocyte % 7.6 % (19-41); Mean Corp Hgb Conc 31.4 g/gl (32-36); Mean Corpuscular Hgb 31.5 pg (27.0-32.0); Mean Corpuscular Volume 100.6 fL (81-99); Mean Platelet Vol. 9.4 fl (6.2-12.0); Monocyte# 1.28 X10^3/uL; Monocyte% 8.3 % (0-10); Neutrophil # 12.86 X10^3/uL (2.7-7.7); Neutrophil % 83.3 % (47-70); Platelet Count 192 K/mm3 (150-450); RBC Distribution Width CV 15.4 % (11.6-14.6); RBC Distribution Width SD 56.4 fl (35.1-43.9); Red Blood Count 3.52 M/mm3 (4.2-5.4); White Blood Count 15.4 K/mm3 (4.4-11.0)
[2018-08-01 05:05] LABS: Differential Indicated SCAN CRITERIA MET; POSITIVE COUNT NO; POSITIVE DIFFERENTIAL NO; POSITIVE MORPHOLOGY YES
[2018-08-01 05:17] LABS: Differential Comment SCANNED
[2018-08-01] MEDS: LORazepam 2 MG/ML Syringe IV ×4 (05:19→19:30)
--- NOTE | 2018-08-01 05:32 | CPS ---
SBT TRIAL NOT PERFORMED. PT FAILED SAT DUE TO TACHYCARDIA AND RASS +2.
--- NOTE | 2018-08-01 05:55 | RAD_ITS ---
STUDY: X-RAY CHEST REASON FOR EXAM: Female, 47 years old. Shortness of breath. TECHNIQUE: Single AP portable view of the chest. COMPARISON: Comparison is made with prior study dated July 31, 2018. FINDINGS: An endotracheal tube is in situ. The tip is at 3 cm proximal to the philippe. An oral gastric tube is seen with the tip in the body of the stomach. Since prior study, there has been progressive infiltration in the right lower lobe with a small right pleural effusion. Mild increased markings at the left lung base. There is no demonstrated pleural abnormality. Normal size heart. Normal mediastinum and audrey. Normal visualized pulmonary arteries. Normal visualized aortic arch and descending thoracic aorta. There are diffuse degenerative changes of the visualized thoracic spine. Normal visualized ribs, clavicles, and shoulders. There is no demonstrated abnormality of the visualized soft tissue structures of the upper abdomen. RAD/Chest 1 View (Portable) IMPRESSION: Since prior study, there has been progressive infiltrate in the right lower lobe with a small right pleural effusion. Mild left basilar atelectasis. Electronically Signed: Quirino Horan MD at 9:07 EDT Tel [phone], Service support ,
[2018-08-01 06:26] LABS: Bedside Glucose 119 mg/dL (70-110)
--- NOTE | 2018-08-01 06:43 | PN_ITS ---
Subjective: Patient did okay overnight. Patient continues to have periods of agitation despite propofol and fentanyl. Patient has been persistently febrile, but hemodynamically stable. Patient has tolerated tube feeds. Patient was unable to have a spontaneous breathing trial this morning. Objective: Chest x-ray reviewed and shows developing right lower lobe infiltrate General: - - RASS 0 to -1. Appears older than stated age. HEENT: Atraumatic, PERRLA, EOMI, Normocephalic, - - No scleral icterus or injection noted. Slight ptosis noted of the right eye. Oral: Moist Mucosa, No Gingival or Mucosal Lesions/ Ulcerations Neck: Supple, No JVD, No Nodes, Trachea Midline Lungs: No rales, Diminished, Rhonchi - Right base, Wheezes - Sporadic, - - Symmetric expansion. No dullness to percussion. Cardiovascular: Normal S1, Normal S2, No murmurs, No rub noted, No Gallop, Tachycardic Abdomen: Bowel Sounds Present, Soft, Non Tender, Non-Distended Extremities: No clubbing, No cyanosis, Capillary Refill Less than 3 Seconds, Edema - Trace Skin: - - No significant change compared to previous Musculoskeletal: No Tenderness to Palpation of Joints or Extremities Lymphatic: No Cervical, Supraclavicular, or Inguinal Adenopathy Neurological: Neuro grossly intact Psych/Mental Status: Flat Affect, Impulsive Vital Signs Temp Pulse Resp BP Pulse Ox 38.2 C H 113 H 16 124/69 H 99 08/01/18 06:00 08/01/18 06:00 08/01/18 06:00 08/01/18 06:00 08/01/18 06:00 Oxygen Delivery Method Mechanical Ventilator Weight: 74.8 kg Body Mass Index (BMI) 27.9 Finger Stick Blood Glucose 120 Intake and Output for Last 24 Hours 07/30/18 07/31/18 08/01/18 23:59 23:59 23:59 Intake Total 4723.2 / 4723.2 2481.4 / 2481.4 1411.4 / 1411.4 Output Total 760 / 760 950 / 950 650 / 650 Balance 3963.2 / 3963.2 1531.4 / 1531.4 761.4 / 761.4 Labs (Last 48 Hours) 07/30/18 07/31/18 07/31/18 20:03 04:20 04:20 WBC 15.6 H RBC 3.80 L Hgb 12.0 Hct 38.6 MCV 101.6 H MCH 31.6 MCHC 31.1 L RDW 15.0 H RDW Differential 55.2 H Plt Count 248 MPV 9.5 Immature Gran % (Auto) 0.300 Neut % (Auto) 83.7 H Lymph % (Auto) 6.2 L [place] % (Auto) 9.4 Eos % (Auto) 0.3 Baso % (Auto) 0.1 Absolute Neuts (auto) 13.0 H Absolute Lymphs (auto) 0.97 Total Counted Not Reportable Differential Comment Sodium 148 H Potassium 3.4 L Chloride 115 H Carbon Dioxide 21.0 Anion Gap 12 BUN 20 H Creatinine 0.94 Estim Creat Clear Calc 59.89 Est GFR (MDRD) Af Amer 81 Est GFR (MDRD) Non-Af 67 BUN/Creatinine Ratio 21.2 H Glucose 144 H Calcium 7.6 L Total Creatine Kinase Triglycerides MRSA (PCR) POC Glucose 117 H 07/31/18 07/31/18 08/01/18 04:20 21:17 04:08 WBC 15.4 H RBC 3.52 L Hgb 11.1 L Hct 35.4 L MCV 100.6 H MCH 31.5 MCHC 31.4 L RDW 15.4 H RDW Differential 56.4 H Plt Count 192 MPV 9.4 Immature Gran % (Auto) 0.200 Neut % (Auto) 83.3 H Lymph % (Auto) 7.6 L [place] % (Auto) 8.3 Eos % (Auto) 0.5 Baso % (Auto) 0.1 Absolute Neuts (auto) 12.9 H Absolute Lymphs (auto) 1.17 Total Counted Not Reportable Differential Comment SCANNED Sodium Potassium Chloride Carbon Dioxide Anion Gap BUN Creatinine Estim Creat Clear Calc Est GFR (MDRD) Af Amer Est GFR (MDRD) Non-Af BUN/Creatinine Ratio Glucose Calcium Total Creatine Kinase 128 Triglycerides 226 H MRSA (PCR) POC Glucose 103 08/01/18 08/01/18 08/01/18 04:08 06:15 06:16 WBC RBC Hgb Hct MCV MCH MCHC RDW RDW Differential Plt Count MPV Immature Gran % (Auto) Neut % (Auto) Lymph % (Auto) [place] % (Auto) Eos % (Auto) Baso % (Auto) Absolute Neuts (auto) Absolute Lymphs (auto) Total Counted Differential Comment Sodium 146 H Potassium 3.3 L Chloride 112 H Carbon Dioxide 25.0 Anion Gap 9 BUN 10 Creatinine 0.66 Estim Creat Clear Calc 85.29 Est GFR (MDRD) Af Amer 122 Est GFR (MDRD) Non-Af 100 BUN/Creatinine Ratio 15.1 Glucose 99 Calcium 8.1 L Total Creatine Kinase Triglycerides MRSA (PCR) Pending POC Glucose 119 H Microbiology 07/30/18 22:05 Sputum, Induced/Lukens Gram Stain - Final Clinical Impression(s) from Imaging Studies Chest X-Ray 07/31/18 05:55 IMPRESSION: No acute cardiopulmonary disease. Endotracheal tube tip in its expected location. Nasogastric tube tip looped in the stomach with the tip at the gastric cardia. This is satisfactory for suction. Electronically Signed: Nicolás Fishman MD at 7:16 EDT , Service support , Medical Necessity - Tobacco Use Smoking Status: Current every day smoker Assessment/Plan All Active Problems Mental confusion (Acute) ARF (acute renal failure) (Acute) Diarrhea (Acute) Altered mental status (Acute) Fracture of fibula, right, closed (Acute) Drug overdose (Acute) RECOMMENDATIONS: 1. Continue sedation 2. Yeh culture, add empiric steroids for pneumonia 3. Continue aggressive pulmonary toileting 4. Continue with aerosol therapy 5. Spontaneous breathing and awakening trials per protocol 6. Check MRSA swab, empiric vancomycin IMPRESSIONS: 1. Unintentional baclofen overdose Currently on supportive measures. Sedation appears to be improved on propofol therapy. Patient does have a benzodiazepine on her tox screen, but not on her home medication list. Will have to reevaluate once patient is extubated. 2. Rheumatoid arthritis on methotrexate Patient is not acting as though she is infected at this time. Likely need to hold methotrexate given patient's development of probable sepsis. Continue to monitor. 3. Acute kidney injury RESOLVED > likely prerenal in etiology. Patient is on losartan and Lasix. Baseline creatinine appears to be around 1. Patient is being hydrated at this time. We will continue to monitor on a daily basis. 4. Acute combined respiratory failure/metabolic acidosis Likely secondary to baclofen overdose. Patient now showing an infiltrate in the right lower lobe. Clinical suspicion for aspiration during decreased mental status. Still with copious secretions noted from the endotracheal tube. Sputum culture is pending, but Gram stain shows staph organisms. Will obtain an MRSA swab and initiate empiric vancomycin given persistent fevers despite appropriate MSSA antibiotics. Potentially discontinue once culture data available. 5. Chronic back pain/fibromyalgia/hypertension/hyperlipidemia/limited mobility Complicates care, management, recovery and prognosis. Patient is on a fentanyl drip at this time. Pepcid and heparin prophylaxis. 6. Severe sepsis Patient's chest x-ray now shows a right lower lobe infiltrate. Unclear if patient had an aspiration event secondary to mental status initially. Sputum cultures have been sent. Continue antibiotics TIME: 35 minutes critical care time spent addressing patient's acute combined respiratory failure, unintentional baclofen overdose, review of all data and collaboration with care team (5:20 AM to 6:30 AM) Code Visit [id number]: [id number] Critical care first hour
--- NOTE | 2018-08-01 07:28 | PN_ITS ---
Patient Problems: Active and Suspected Problems Drug overdose (Acute) Subjective: The patient was seen and examined. She was intermittently agitated last night and required Ativan. Patient persistently still has fever, T-max 101 Fahrenheit Patient is on propofol and fentanyl. Vitals/I&O's: Vital Signs Temp Pulse Resp BP Pulse Ox 100.4 F H 101 H 14 103/63 100 08/01/18 07:00 08/01/18 07:00 08/01/18 07:00 08/01/18 07:00 08/01/18 07:00 Oxygen Delivery Method Mechanical Ventilator Weight: 164 lb 14.492 oz Body Mass Index (BMI) 27.9 Finger Stick Blood Glucose 120 Intake and Output for Last 24 Hours 07/30/18 07/31/18 08/01/18 23:59 23:59 23:59 Intake Total 4723.2 / 4723.2 2481.4 / 2481.4 1411.4 / 1411.4 Output Total 760 / 760 950 / 950 650 / 650 Balance 3963.2 / 3963.2 1531.4 / 1531.4 761.4 / 761.4 General: - - Intermittent waking up even on propofol and fentanyl. HEENT: Atraumatic, PERRLA, EOMI, Normocephalic Neck: Supple, No JVD, Negative Carotid Bruits Lungs: Diminished, Rhonchi, - - On vent support Cardiovascular: Regular rate, No murmurs Abdomen: Bowel Sounds Present, Soft, Non Tender, Non-Distended Extremities: Edema Skin: No rashes, No breakdown Musculoskeletal: No Tenderness to Palpation of Joints or Extremities Neurological: Cranial nerves II-XII grossly intact Microbiology Past 72 Hours 07/30/18 22:05 Sputum, Induced/Lukens Gram Stain - Final Laboratory Results 07/31/18 04:20: Total Creatine Kinase 128, Triglycerides 226 H 07/31/18 21:17: POC Glucose 103 08/01/18 04:08: WBC 15.4 H, RBC 3.52 L, Hgb 11.1 L, Hct 35.4 L, MCV 100.6 H, MCH 31.5, MCHC 31.4 L, RDW 15.4 H, RDW Differential 56.4 H, Plt Count 192, MPV 9.4, Immature Gran % (Auto) 0.200, Neut % (Auto) 83.3 H, Lymph % (Auto) 7.6 L, [place] % (Auto) 8.3, Eos % (Auto) 0.5, Baso % (Auto) 0.1, Absolute Neuts (auto) 12.9 H, Absolute Lymphs (auto) 1.17, Total Counted Not Reportable, Differential Comment SCANNED 08/01/18 04:08: Sodium 146 H, Potassium 3.3 L, Chloride 112 H, Carbon Dioxide 25.0, Anion Gap 9, BUN 10, Creatinine 0.66, Estim Creat Clear Calc 85.29, Est GFR (MDRD) Af Amer 122, Est GFR (MDRD) Non-Af 100, BUN/Creatinine Ratio 15.1, Glucose 99, Calcium 8.1 L 08/01/18 06:15: MRSA (PCR) Pending 08/01/18 06:16: POC Glucose 119 H Current Medications Acetaminophen (Tylenol Liquid) 650 mg NG Q6H PRN PRN PRN Reason: Fever >101 Last Admin: 08/01/18 03:27 Dose: 650 mg Albuterol Sulfate (Ventolin Aerosols) 2.5 mg INHALATION Q2H PRN PRN PRN Reason: SOB &/OR WHEEZING Albuterol Sulfate (Ventolin Aerosols) 2.5 mg INHALATION Q4H.RT [facility] Last Admin: 08/01/18 06:53 Dose: 2.5 mg Azithromycin (Zithromax 200mg/5ml) 250 mg GT DAILY [facility] Stop: 08/04/18 10:01 Chlorhexidine Gluconate () 15 ml PO BID [facility] Last Admin: 07/31/18 20:23 Dose: 15 ml Chlorhexidine Gluconate () 1 each TOPICAL DAILY [facility] Last Admin: 08/01/18 03:48 Dose: 1 each Famotidine (Pepcid) 20 mg GT BID [facility] Last Admin: 07/31/18 21:25 Dose: 20 mg Guaifenesin (Robitussin) 10 ml GT Q4H PRN PRN PRN Reason: Thick secretions Heparin Sodium (Porcine) (Heparin Na) 5,000 unit SC Q12 [facility] Last Admin: 07/31/18 21:25 Dose: 5,000 unit Fentanyl () 100 mls @ 2.5 mls/hr IV .Q40H [facility] Last Admin: 08/01/18 03:27 Dose: 2.5 mls/hr Enteral Nutritional Formula (Vital Af 1.2 Allen Liquid) 1,000 mls @ 60 mls/hr GT .[id number] [facility] Last Admin: 07/31/18 13:09 Dose: 60 mls/hr Ceftriaxone Sodium (Rocephin) 1 gm in 50 mls @ 100 mls/hr IV Q24 [facility] Last Admin: 07/31/18 09:20 Dose: 100 mls/hr Propofol (Diprivan) 1,000 mg in 100 mls @ 2.166 mls/hr CONT INF .Q12H [facility]; Protocol Last Admin: 08/01/18 05:36 Dose: 2.166 mls/hr Vancomycin IV Pharmacy to Dose (1 ea/ Sodium Chloride) 500 mls @ 250 mls/hr IV X1 PRN; Protocol PRN Reason: Rx to Dose Vancomycin HCl 2,000 mg/ (Sodium Chloride) 540 mls @ 250 mls/hr IV X1 ONE Stop: 08/01/18 09:39 Last Admin: 08/01/18 07:25 Dose: 250 mls/hr Labetalol HCl (Trandate) 20 mg IV Q6H PRN PRN PRN Reason: SBP>160 Last Admin: 07/31/18 03:00 Dose: 20 mg Lorazepam (Ativan) 2 mg IV Q2H PRN PRN PRN Reason: RESTLESSNESS Last Admin: 08/01/18 05:19 Dose: 2 mg Losartan Potassium (Cozaar) 25 mg GT DAILY [facility] Last Admin: 07/31/18 09:21 Dose: 25 mg Magnesium Hydroxide (Milk Of Magnesia) 30 ml PO DAILY PRN PRN PRN Reason: Constipation Metoprolol Tartrate (Lopressor (Beta Prudence)) 12.5 mg GT DAILY [facility] Last Admin: 07/31/18 09:22 Dose: 12.5 mg Ondansetron HCl (Zofran) 4 mg IV Q8H PRN PRN PRN Reason: Nausea Polyethylene Glycol (Miralax) 17 gm GT BID [facility] Last Admin: 07/31/18 21:25 Dose: 17 gm [facility] Last Admin: 08/01/18 06:29 Dose: 40 meq Senna/Docusate Sodium (Senokot-S, Gloria-Colace) 2 tablet GT BID [facility] Last Admin: 07/31/18 21:25 Dose: 2 tablet Sodium Chloride () 5 - 30 ml IV UD PRN PRN Reason: SALINE FLUSH Last Admin: 07/31/18 12:43 Dose: 10 ml Medical Necessity - Tobacco Use Smoking Status: Current every day smoker Assessment/Plan All Active Problems Mental confusion (Acute) ARF (acute renal failure) (Acute) Diarrhea (Acute) Altered mental status (Acute) Fracture of fibula, right, closed (Acute) Drug overdose (Acute) This is a 47-year-old female with history of RA, fibromyalgia, low back pain and history of drug overdose was admitted for drug overdose, of baclofen. Patient was intubated for airway protection. Patient had a GCS of 9 intubated in ER. As per H&P, patient was confused so she overdosed unintentionally baclofen. As per , she also has history of COPD and possible obstructive sleep apnea, noncompliant with CPAP. Assessment and plan: 1. Acute encephalopathy most probably toxic encephalopathy secondary to drug overdose from baclofen: Currently on vent support. Assisted Living Coordinator has been consulted for vent management. 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 No acute intracranial pathology. 2. Acute hypoxic and hypercarbic combined respiratory failure with metabolic acidosis. Mild hypokalemia: K3.4. Bicarb 21. First ABG was 7.1 950/58 on room air. Repeat ABG 7.27/30 9/81 on 30% FiO2/450/14/5. On vent support. Potassium being replaced 3. Rheumatological disease: RA, chronic back pain, fibromyalgia: She is on methotrexate, Lyrica, baclofen at home. Currently these medications are on hold. 4. Acute kidney injury, prerenal: Resolved. 5. Severe sepsis most probably from right lower lobe aspiration pneumonia, Clincally present after admission although event of aspiration might have happened before admission, prior to intubation in ER: Patient developed fever on the second day of admission on 07/30. Initially chest x-ray showed questionable right lower lobe infiltrate with minimal bibasilar infiltrates. Today's chest x-ray shows right lower lobe infiltrate. UA shows 1+ bacteria, 0-5 WBC small LE 25 negative for pyuria/UTI. Initial admitting Chest x-ray showed no consolidation or infiltrates. CT abdomen shows mildly dilated loops of small bowel probably ileus. Lactic acid normal. Initially was on Ceftin and Zithromax. Sputum culture Gram stain shows 3+ gram-positive cocci in clusters. We will culture pending. Change the antibiotic to IV Zosyn. other chronic comorbidities include anemia chronic iron deficits anemia, hypertension, dyslipidemia DVT prophylaxis: Heparin 5000 units twice daily Laboratory Results 07/30/18 20:03: POC Glucose 117 H 07/31/18 04:20: Sodium 148 H, Potassium 3.4 L, Chloride 115 H, Carbon Dioxide 21.0, Anion Gap 12, BUN 20 H, Creatinine 0.94, Estim Creat Clear Calc 59.89, Est GFR (MDRD) Af Amer 81, Est GFR (MDRD) Non-Af 67, BUN/Creatinine Ratio 21.2 H, Glucose 144 H, Calcium 7.6 L 07/31/18 04:20: WBC 15.6 H, RBC 3.80 L, Hgb 12.0, Hct 38.6, MCV 101.6 H, MCH 31.6, MCHC 31.1 L, RDW 15.0 H, RDW Differential 55.2 H, Plt Count 248, MPV 9.5, Immature Gran % (Auto) 0.300, Neut % (Auto) 83.7 H, Lymph % (Auto) 6.2 L, [place] % (Auto) 9.4, Eos % (Auto) 0.3, Baso % (Auto) 0.1, Absolute Neuts (auto) 13.0 H, Absolute Lymphs (auto) 0.97, Total Counted Not Reportable 07/31/18 04:20: Total Creatine Kinase Pending, Triglycerides Pending Clinical Impression(s) from Imaging Studies Brain CT 07/29/18 20:05 IMPRESSION: 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 No acute edge cranial pathology. Abdomen/Pelvis CT 07/29/18 22:12 IMPRESSION: Mildly dilated loops of small bowel the upper abdomen which may be due to ileus or a low-grade obstruction. Enteric tube tip in the proximal stomach. This could be advanced 5-10 cm for improved positioning. Fatty liver. Chest X-Ray 07/31/18 05:55 IMPRESSION: No acute cardiopulmonary disease. Endotracheal tube tip in its expected location. Nasogastric tube tip looped in the stomach with the tip at the gastric cardia. This is satisfactory for suction. Active Medications Acetaminophen (Tylenol Liquid) 650 mg NG Q6H PRN PRN PRN Reason: Fever >101 Last Admin: 07/31/18 03:05 Dose: 650 mg Albuterol Sulfate (Ventolin Aerosols) 2.5 mg INHALATION Q2H PRN PRN PRN Reason: SOB &/OR WHEEZING Albuterol Sulfate (Ventolin Aerosols) 2.5 mg INHALATION Q4H.RT [facility] Last Admin: 07/31/18 06:43 Dose: 2.5 mg Azithromycin (Zithromax 200mg/5ml) 250 mg GT DAILY [facility] Stop: 08/04/18 10:01 Chlorhexidine Gluconate () 15 ml PO BID [facility] Last Admin: 07/31/18 09:21 Dose: 15 ml Famotidine (Pepcid) 20 mg GT BID [facility] Last Admin: 07/31/18 09:23 Dose: 20 mg Guaifenesin (Robitussin) 10 ml GT Q4H PRN PRN PRN Reason: Thick secretions Heparin Sodium (Porcine) (Heparin Na) 5,000 unit SC Q12 [facility] Last Admin: 07/31/18 09:22 Dose: 5,000 unit Fentanyl () 100 mls @ 2.5 mls/hr IV .Q40H [facility] Last Admin: 07/31/18 01:26 Dose: 2.5 mls/hr Enteral Nutritional Formula (Vital Af 1.2 Allen Liquid) 1,000 mls @ 60 mls/hr GT .[id number] [facility] Last Admin: 07/31/18 01:05 Dose: Not Given Ceftriaxone Sodium (Rocephin) 1 gm in 50 mls @ 100 mls/hr IV Q24 [facility] Last Admin: 07/31/18 09:20 Dose: 100 mls/hr Propofol (Diprivan) 1,000 mg in 100 mls @ 2.166 mls/hr CONT INF .Q12H [facility]; Protocol Last Admin: 07/31/18 08:35 Dose: 2.166 mls/hr Labetalol HCl (Trandate) 20 mg IV Q6H PRN PRN PRN Reason: SBP>160 Last Admin: 07/31/18 03:00 Dose: 20 mg Lorazepam (Ativan) 2 mg IV Q2H PRN PRN PRN Reason: RESTLESSNESS Last Admin: 07/31/18 07:38 Dose: 2 mg Losartan Potassium (Cozaar) 25 mg GT DAILY [facility] Last Admin: 07/31/18 09:21 Dose: 25 mg Magnesium Hydroxide (Milk Of Magnesia) 30 ml PO DAILY PRN PRN PRN Reason: Constipation Metoprolol Tartrate (Lopressor (Beta Prudence)) 12.5 mg GT DAILY [facility] Last Admin: 07/31/18 09:22 Dose: 12.5 mg Ondansetron HCl (Zofran) 4 mg IV Q8H PRN PRN PRN Reason: Nausea Polyethylene Glycol (Miralax) 17 gm GT BID [facility] Polyethylene Glycol (Miralax) 34 gm GT X1 ONE Stop: 07/31/18 10:01 Last Admin: 07/31/18 09:23 Dose: 34 gm Senna/Docusate Sodium (Senokot-S, Gloria-Colace) 2 tablet GT BID [facility] Last Admin: 07/31/18 09:23 Dose: 2 tablet Sodium Chloride () 5 - 30 ml IV UD PRN PRN Reason: SALINE FLUSH Last Admin: 07/31/18 07:38 Dose: 30 ml Code Visit Inpatient E&M: 16424 Subs Hosp L3
--- NOTE | 2018-08-01 07:29 | PCM.RX.CS ---
Consult Pharmacy has been consulted to manage selected antiobiotic: Vancomycin Type of Consult: New start Suspected Infection: Other Labs: Sodium 146 mmol/L (136-145) H 08/01/18 04:08 Potassium 3.3 mmol/L (3.5-5.1) L 08/01/18 04:08 Chloride 112 mmol/L (98-107) H 08/01/18 04:08 Carbon Dioxide 25.0 mmol/L (21.0-32.0) 08/01/18 04:08 Anion Gap 9 (5-15) 08/01/18 04:08 BUN 10 mg/dL (7-18) 08/01/18 04:08 Creatinine 0.66 mg/dL (0.55-1.02) 08/01/18 04:08 Est GFR (MDRD) Af Amer 122 mL/min (>60) 08/01/18 04:08 Est GFR (MDRD) Non-Af 100 mL/min (>60) 08/01/18 04:08 BUN/Creatinine Ratio 15.1 RATIO (10-20) 08/01/18 04:08 Glucose 99 mg/dL (74-106) 08/01/18 04:08 Microbiology: Microbiology 07/30/18 22:05 Sputum, Induced/Lukens Gram Stain - Final Weight used for dosin.8 kg Estimated Creatinine Clearance: 85 ML/MIN Goal Trough: 15-20 mcg/mL Pharmacy Plan for Drug Dosinmg IV x1 load, then continue at 1250mg IV q12h. Obtain trough before the 4th total dose. Pharmacy Service will continue to monitor and adjust dosing as required. Follow-Up Labs: Trough Vancomycin Labs to be done on [date and time ordered]: 08/02/18 19:30 before the dose at 20:00
[2018-08-01] MEDS: Heparin Injection (Vial) 5,000 UNIT/ML VIAL 5000 UNIT SC ×2 (09:39→21:12)
[2018-08-01] MEDS: Senna/Docusate Sodium 1 Tablet 2 TABLET GT ×2 (09:39→21:14)
[2018-08-01] MEDS: Chlorhexidine 15 ML PO ×2 (09:39→21:11)
[2018-08-01] MEDS: Losartan Potassium 25 MG Tablet GT (09:39)
[2018-08-01] MEDS: Polyethylene Glycol 3350 17 GM PACKET GT ×2 (09:40→21:12)
[2018-08-01] MEDS: Metoprolol Tartrate 25 MG Tablet 12.5 MG GT (09:40)
[2018-08-01] MEDS: Famotidine 20 MG Tablet GT ×2 (09:44→21:13)
[2018-08-01] MEDS: Ceftriaxone 1 GM/50 ML BAG IV (09:44)
[2018-08-01] MEDS: Azithromycin 200MG/5ML 250 MG GT (09:44)
[2018-08-01] MEDS: Piperacil/Tazobactam 3.375 GM/50 ML ML IV ×2 (10:48→21:17)
[2018-08-01 12:14] LABS: M R Staph aureus DNA By PCR Negative (Negative); Probe Check PASS; Specimen Processing Control PASS
[2018-08-01] MEDS: 0.9% NaCl Peripheral Flush Adult/Peds IV (12:18)
[2018-08-01] MEDS: Vital AF 1.2 Cal Liquid 1,000 ML 60 ML GT (15:02)
[2018-08-01] MEDS: QUEtiapine 25 MG Tablet 50 MG PO (21:16)
[2018-08-02] VITALS (45 sets, daily range): BP systolic 87–148; BP diastolic 47–102; PULSE 73–134; RESP 14–32; TEMP 37–37.7; O2SAT 90–100
[2018-08-02] MEDS: CHLORHEXIDINE GLUC 2% CLOTH 1 EACH TOWELETTE TOPICAL (04:08)
[2018-08-02] MEDS: Propofol 10MG/Ml 1,000 MG/100 ML Bottle 2.166 MG CONT INF ×4 (04:36→21:57)
[2018-08-02] MEDS: Piperacil/Tazobactam 3.375 GM/50 ML ML IV ×3 (05:25→21:57)
[2018-08-02 05:33] LABS: Absolute Lymphocyte Count 0.94 X10^3/ul (0.83-4.51); Absolute Neutrophil Count 6.7 X10^3/uL (2.0-7.7); Basophil# 0.01 X10^3/uL; Basophil% 0.1 % (0-1); Differential Indicated SCAN CRITERIA MET; Eosinophils% 1.1 % (0-5); Hematocrit 33.4 % (37-47); Hemoglobin 10.4 g/dl (12.0-15.0); Lymphocyte # 0.94 X10^3/ul (4.0); Lymphocyte % 10.7 % (19-41); Mean Corp Hgb Conc 31.1 g/gl (32-36); Mean Corpuscular Hgb 31.3 pg (27.0-32.0); Mean Corpuscular Volume 100.6 fL (81-99); Mean Platelet Vol. 9.8 fl (6.2-12.0); Monocyte# 1.03 X10^3/uL; Monocyte% 11.7 % (0-10); Neutrophil % 76.3 % (47-70); POSITIVE COUNT NO; POSITIVE DIFFERENTIAL NO; POSITIVE MORPHOLOGY YES; Platelet Count 176 K/mm3 (150-450); RBC Distribution Width CV 15.8 % (11.6-14.6); RBC Distribution Width SD 57.6 fl (35.1-43.9); Red Blood Count 3.32 M/mm3 (4.2-5.4); White Blood Count 8.8 K/mm3 (4.4-11.0)
[2018-08-02 05:39] LABS: Anion Gap 9 (5-15); BUN 9 mg/dL (7-18); BUN/Creat Ratio 17.6 RATIO (10-20); Calcium,Total 8.4 mg/dL (8.5-10.1); Chloride 112 mmol/L (98-107); Creatinine, Serum 0.51 mg/dL (0.55-1.02); EST Glomerular Filtration Rate 136 mL/min (>60); Est Glom Filt Rate - Afr Amer 164 mL/min (>60); Estimated Creatinine Clearance 110.38 ml/min; Glucose 82 mg/dL (74-106); Potassium 3.6 mmol/L (3.5-5.1); Sodium Level 147 mmol/L (136-145)
--- NOTE | 2018-08-02 05:55 | RAD_ITS ---
STUDY: X-RAY CHEST REASON FOR EXAM: Female, 47 years old. Shortness of breath, intubated TECHNIQUE: Single AP portable view of the chest. COMPARISON: 08/01/2018 FINDINGS: Endotracheal tube tip is unchanged, tip is superior to the philippe. An arrow is outlining the enteric neck or monitors There is stable opacification of the right mid and lower lung parenchyma, right pleural effusion. There is atelectasis or early infiltrate in the left base, unchanged since previous exam. The left hemidiaphragm is elevated. There is no demonstrated pleural abnormality. Normal size heart. Normal mediastinum and audrey. Normal visualized pulmonary arteries. Normal visualized aortic arch and descending thoracic aorta. Age-appropriate thoracic spine. Normal visualized ribs, clavicles, and shoulders. There is no demonstrated abnormality of the visualized soft tissue structures of the upper abdomen. RAD/Chest 1 View (Portable) IMPRESSION: Lines as above. There is more hazy parenchymal opacification in the right lung which is probably secondary to layering effusion and probable underlying airspace disease. Stable atelectasis versus early infiltrate left base. Electronically Signed: Magnolia Oseguera MD at 4:43 EDT , Service support ,
--- NOTE | 2018-08-02 06:00 | EKG12_ITS ---
Test Reason : AM EKG Blood Pressure : / mmHG Vent. Rate : 093 BPM Atrial Rate : 093 BPM P-R Int : 130 ms QRS Dur : 080 ms QT Int : 358 ms P-R-T Axes : 056 072 085 degrees QTc Int : 445 ms Normal sinus rhythm Normal ECG Confirmed by Yamila Wilson ([id number]), scientific editor ALICJA VALENTE ([id number] on 08/06/2018 3:36:24 PM Referred By: KEN Confirmed By:Yamila Wilson
--- NOTE | 2018-08-02 06:27 | PN_ITS ---
Subjective: Patient did okay overnight. Nursing reported improved secretions compared to previous. Patient did not have any documented fever overnight. Patient did have a spontaneous awakening trial this morning, but this had to be discontinued secondary to increased heart rate and respiratory rate. Patient continues to tolerate tube feeds. No hemodynamic instability has been reported. General: - - Intubated and sedated. RASS -1. Appears older than stated age. HEENT: Atraumatic, PERRLA, EOMI, Normocephalic, - - Slight scleral injection without icterus Oral: Moist Mucosa, No Gingival or Mucosal Lesions/ Ulcerations Neck: Supple, No JVD, No Nodes, Trachea Midline Lungs: No wheeze, No rales, Diminished, Rhonchi - Right greater than left, - - Symmetric expansion. No dullness to percussion. Cardiovascular: Normal S1, Normal S2, No murmurs, No rub noted, No Gallop, Tachycardic Abdomen: Bowel Sounds Present, Soft, Non Tender, Non-Distended Extremities: No clubbing, No cyanosis, No edema, Capillary Refill Less than 3 Seconds Skin: No rashes, No breakdown Musculoskeletal: No Tenderness to Palpation of Joints or Extremities Lymphatic: No Cervical, Supraclavicular, or Inguinal Adenopathy Neurological: Neuro grossly intact Psych/Mental Status: Flat Affect, Impulsive Vital Signs Temp Pulse Resp BP Pulse Ox 37.4 C H 96 14 99/70 97 08/02/18 06:00 08/02/18 06:00 08/02/18 06:00 08/02/18 06:00 08/02/18 06:00 Oxygen Delivery Method Mechanical Ventilator Weight: 77.1 kg Body Mass Index (BMI) 27.9 Finger Stick Blood Glucose 120 Intake and Output for Last 24 Hours 07/31/18 08/01/18 08/02/18 23:59 23:59 23:59 Intake Total 2481.4 / 2481.4 4047.4 / 4047.4 1606.3 / 1606.3 Output Total 950 / 950 1300 / 1300 750 / 750 Balance 1531.4 / 1531.4 2747.4 / 2747.4 856.3 / 856.3 Labs (Last 48 Hours) 07/31/18 07/31/18 08/01/18 04:20 21:17 04:08 WBC 15.4 H RBC 3.52 L Hgb 11.1 L Hct 35.4 L MCV 100.6 H MCH 31.5 MCHC 31.4 L RDW 15.4 H RDW Differential 56.4 H Plt Count 192 MPV 9.4 Immature Gran % (Auto) 0.200 Neut % (Auto) 83.3 H Lymph % (Auto) 7.6 L [place] % (Auto) 8.3 Eos % (Auto) 0.5 Baso % (Auto) 0.1 Absolute Neuts (auto) 12.9 H Absolute Lymphs (auto) 1.17 Total Counted Not Reportable Differential Comment SCANNED Sodium Potassium Chloride Carbon Dioxide Anion Gap BUN Creatinine Estim Creat Clear Calc Est GFR (MDRD) Af Amer Est GFR (MDRD) Non-Af BUN/Creatinine Ratio Glucose Calcium Total Creatine Kinase 128 Triglycerides 226 H MRSA (PCR) POC Glucose 103 08/01/18 08/01/18 08/01/18 04:08 06:15 06:16 WBC RBC Hgb Hct MCV MCH MCHC RDW RDW Differential Plt Count MPV Immature Gran % (Auto) Neut % (Auto) Lymph % (Auto) [place] % (Auto) Eos % (Auto) Baso % (Auto) Absolute Neuts (auto) Absolute Lymphs (auto) Total Counted Differential Comment Sodium 146 H Potassium 3.3 L Chloride 112 H Carbon Dioxide 25.0 Anion Gap 9 BUN 10 Creatinine 0.66 Estim Creat Clear Calc 85.29 Est GFR (MDRD) Af Amer 122 Est GFR (MDRD) Non-Af 100 BUN/Creatinine Ratio 15.1 Glucose 99 Calcium 8.1 L Total Creatine Kinase Triglycerides MRSA (PCR) Negative POC Glucose 119 H 08/02/18 08/02/18 05:00 05:00 WBC 8.8 RBC 3.32 L Hgb 10.4 L Hct 33.4 L MCV 100.6 H MCH 31.3 MCHC 31.1 L RDW 15.8 H RDW Differential 57.6 H Plt Count 176 MPV 9.8 Immature Gran % (Auto) 0.100 Neut % (Auto) 76.3 H Lymph % (Auto) 10.7 L [place] % (Auto) 11.7 H Eos % (Auto) 1.1 Baso % (Auto) 0.1 Absolute Neuts (auto) 6.7 Absolute Lymphs (auto) 0.94 Total Counted Pending Differential Comment Sodium 147 H Potassium 3.6 Chloride 112 H Carbon Dioxide 26.0 Anion Gap 9 BUN 9 Creatinine 0.51 L Estim Creat Clear Calc 110.38 Est GFR (MDRD) Af Amer 164 Est GFR (MDRD) Non-Af 136 BUN/Creatinine Ratio 17.6 Glucose 82 Calcium 8.4 L Total Creatine Kinase Triglycerides MRSA (PCR) POC Glucose Microbiology 07/30/18 22:05 Sputum, Induced/Lukens Gram Stain - Final 07/30/18 22:05 Sputum, Induced/Lukens Respiratory Culture - Final Moraxella(Walt.)Catarrhalis Clinical Impression(s) from Imaging Studies Chest X-Ray 08/01/18 05:55 IMPRESSION: Since prior study, there has been progressive infiltrate in the right lower lobe with a small right pleural effusion. Mild left basilar atelectasis. Electronically Signed: Quirino Horan MD at 9:07 EDT Tel [phone], Service support , Chest X-Ray 08/02/18 05:55 IMPRESSION: Lines as above. There is more hazy parenchymal opacification in the right lung which is probably secondary to layering effusion and probable underlying airspace disease. Stable atelectasis versus early infiltrate left base. Electronically Signed: Magnolia Oseguera MD at 4:43 EDT , Service support , Medical Necessity - Tobacco Use Smoking Status: Current every day smoker Assessment/Plan All Active Problems Mental confusion (Acute) ARF (acute renal failure) (Acute) Diarrhea (Acute) Altered mental status (Acute) Fracture of fibula, right, closed (Acute) Drug overdose (Acute) RECOMMENDATIONS: 1. Continue sedation, increase Seroquel 2. Possibly narrow antibiotic spectrum later today 3. Continue aggressive pulmonary toileting 4. Continue with aerosol therapy 5. Spontaneous breathing and awakening trials per protocol 6. Okay to discontinue vancomycin IMPRESSIONS: 1. Unintentional baclofen overdose Currently on supportive measures. Sedation appears to be improved on propofol therapy. Patient was placed on Seroquel overnight with improvement in agitation. Will increase Seroquel tonight. Patient does have a benzodiazepine on her tox screen, but not on her home medication list. Will have to reevaluate once patient is extubated. 2. Rheumatoid arthritis on methotrexate Patient with active pneumonia secondary to Moraxella. Likely need to hold methotrexate given patient's development of probable sepsis. Continue to monitor. 3. Acute kidney injury RESOLVED > likely prerenal in etiology. Patient is on losartan and Lasix. Baseline creatinine appears to be around 1. Patient is being hydrated at this time. We will continue to monitor on a daily basis. 4. Acute combined respiratory failure/metabolic acidosis Likely secondary to baclofen overdose initially. Patient now showing an infiltrate in the right lower lobe. Clinical suspicion for aspiration during decreased mental status. Still with copious secretions noted from the endotracheal tube. Patient growing Moraxella species. Likely narrow antibiotic spectrum later today. Okay to discontinue vancomycin. Secretions and leukocytosis are improving. Continue aggressive pulmonary toileting. 5. Chronic back pain/fibromyalgia/hypertension/hyperlipidemia/limited mobility Complicates care, management, recovery and prognosis. Patient is on a fentanyl drip at this time. Pepcid and heparin prophylaxis. 6. Severe sepsis Patient's chest x-ray now shows a right lower lobe infiltrate. Unclear if patient had an aspiration event secondary to mental status initially. Continue antibiotics TIME: 37 minutes critical care time spent addressing patient's acute combined respiratory failure, unintentional baclofen overdose, review of all data and collaboration with care team (5:20 AM to 6:00 AM) Code Visit 9xxxx: [id number] Critical care first hour
[2018-08-02] MEDS: Albuterol 2.5 MG/3 ML VIAL.NEB. INHALATION ×5 (06:46→22:47)
[2018-08-02] MEDS: Vital AF 1.2 Cal Liquid 1,000 ML 60 ML GT (08:15)
[2018-08-02] MEDS: LORazepam 2 MG/ML Syringe IV (08:42)
[2018-08-02] MEDS: QUEtiapine 25 MG Tablet 50 MG GT (10:47)
[2018-08-02] MEDS: Chlorhexidine 15 ML PO ×2 (10:48→22:00)
[2018-08-02] MEDS: Heparin Injection (Vial) 5,000 UNIT/ML VIAL 5000 UNIT SC ×2 (10:50→22:00)
[2018-08-02] MEDS: Losartan Potassium 25 MG Tablet GT (10:51)
[2018-08-02] MEDS: Metoprolol Tartrate 25 MG Tablet 12.5 MG GT (10:51)
[2018-08-02] MEDS: Famotidine 20 MG Tablet GT ×2 (10:52→22:01)
[2018-08-02] MEDS: Senna/Docusate Sodium 1 Tablet 2 TABLET GT ×2 (10:53→22:01)
--- NOTE | 2018-08-02 10:58 | CASEMGMT ---
SW/CM participated in ICU rounds this morning, pt's present. SW/CM will continue to follow for discharge planning and social service needs when appropriate. AMAURI Garcia, GLASS FORMING ENGINEER
--- NOTE | 2018-08-02 12:27 | PCM.PN.HOSP ---
Patient Problems: Active and Suspected Problems Drug overdose (Acute) Subjective: Seen and examined. Patient is still gets agitated and restless, tachycardia and tachypnea on spontaneous breathing trial. No fever overnight. Discussed with the nursing staff. Vitals/I&O's: Vital Signs Temp Pulse Resp BP Pulse Ox 99.1 F 93 14 94/63 93 08/02/18 12:00 08/02/18 12:00 08/02/18 12:00 08/02/18 12:00 08/02/18 12:00 Oxygen Delivery Method Mechanical Ventilator Weight: 169 lb 15.622 oz Body Mass Index (BMI) 27.9 Finger Stick Blood Glucose 120 Intake and Output for Last 24 Hours 07/31/18 08/01/18 08/02/18 23:59 23:59 23:59 Intake Total 2481.4 / 2481.4 4047.4 / 4047.4 2624.3 / 2624.3 Output Total 950 / 950 1300 / 1300 1200 / 1200 Balance 1531.4 / 1531.4 2747.4 / 2747.4 1424.3 / 1424.3 General: - - Sedated on propofol and Fentanyl HEENT: Atraumatic, PERRLA, EOMI, Normocephalic Neck: Supple, No JVD, Negative Carotid Bruits Lungs: Diminished, Rales, Rhonchi Cardiovascular: Regular rate, Regular Rhythm, Normal S1, Normal S2, No murmurs Abdomen: Bowel Sounds Present, Soft, Non Tender, Non-Distended Extremities: No edema, Capillary Refill Less than 3 Seconds Skin: No rashes, No breakdown Musculoskeletal: No Tenderness to Palpation of Joints or Extremities Neurological: Cranial nerves II-XII grossly intact Psych/Mental Status: Normal Affect, Appropriate Microbiology Past 72 Hours 07/30/18 22:05 Sputum, Induced/Lukens Gram Stain - Final 07/30/18 22:05 Sputum, Induced/Lukens Respiratory Culture - Final Moraxella(Walt.)Catarrhalis Laboratory Results 08/02/18 05:00: WBC 8.8, RBC 3.32 L, Hgb 10.4 L, Hct 33.4 L, MCV 100.6 H, MCH 31.3, MCHC 31.1 L, RDW 15.8 H, RDW Differential 57.6 H, Plt Count 176, MPV 9.8, Immature Gran % (Auto) 0.100, Neut % (Auto) 76.3 H, Lymph % (Auto) 10.7 L, [place] % (Auto) 11.7 H, Eos % (Auto) 1.1, Baso % (Auto) 0.1, Absolute Neuts (auto) 6.7, Absolute Lymphs (auto) 0.94, Total Counted Not Reportable 08/02/18 05:00: Sodium 147 H, Potassium 3.6, Chloride 112 H, Carbon Dioxide 26.0, Anion Gap 9, BUN 9, Creatinine 0.51 L, Estim Creat Clear Calc 110.38, Est GFR (MDRD) Af Amer 164, Est GFR (MDRD) Non-Af 136, BUN/Creatinine Ratio 17.6, Glucose 82, Calcium 8.4 L Current Medications Acetaminophen (Tylenol Liquid) 650 mg NG Q6H PRN PRN PRN Reason: Fever >101 Last Admin: 08/01/18 11:55 Dose: 650 mg Albuterol Sulfate (Ventolin Aerosols) 2.5 mg INHALATION Q2H PRN PRN PRN Reason: SOB &/OR WHEEZING Albuterol Sulfate (Ventolin Aerosols) 2.5 mg INHALATION Q4H.RT [facility] Last Admin: 08/02/18 11:12 Dose: 2.5 mg Chlorhexidine Gluconate () 15 ml PO BID [facility] Last Admin: 08/02/18 10:48 Dose: 15 ml Chlorhexidine Gluconate () 1 each TOPICAL DAILY [facility] Last Admin: 08/02/18 04:08 Dose: 1 each Famotidine (Pepcid) 20 mg GT BID [facility] Last Admin: 08/02/18 10:52 Dose: 20 mg Guaifenesin (Robitussin) 10 ml GT Q4H PRN PRN PRN Reason: Thick secretions Heparin Sodium (Porcine) (Heparin Na) 5,000 unit SC Q12 [facility] Last Admin: 08/02/18 10:50 Dose: 5,000 unit Fentanyl () 100 mls @ 2.5 mls/hr IV .Q40H [facility] Last Admin: 08/02/18 11:24 Dose: 2.5 mls/hr Propofol (Diprivan) 1,000 mg in 100 mls @ 2.166 mls/hr CONT INF .Q12H [facility]; Protocol Last Admin: 08/02/18 11:24 Dose: 2.166 mls/hr Piperacillin Sod/Tazobactam Sod (Zosyn) 3.375 gm in 50 mls @ 12.5 mls/hr IV Q8 [facility] Last Admin: 08/02/18 05:25 Dose: 12.5 mls/hr Enteral Nutritional Formula (Vital Af 1.2 Allen Liquid) 1,000 mls @ 60 mls/hr GT .[id number] [facility] Last Admin: 08/02/18 08:15 Dose: 60 mls/hr Labetalol HCl (Trandate) 20 mg IV Q6H PRN PRN PRN Reason: SBP>160 Last Admin: 07/31/18 03:00 Dose: 20 mg Lorazepam (Ativan) 2 mg IV Q2H PRN PRN PRN Reason: RESTLESSNESS Last Admin: 08/02/18 08:42 Dose: 2 mg Losartan Potassium (Cozaar) 25 mg GT DAILY [facility] Last Admin: 08/02/18 10:51 Dose: 25 mg Magnesium Hydroxide (Milk Of Magnesia) 30 ml PO DAILY PRN PRN PRN Reason: Constipation Metoprolol Tartrate (Lopressor (Beta Prudence)) 12.5 mg GT DAILY [facility] Last Admin: 08/02/18 10:51 Dose: 12.5 mg Ondansetron HCl (Zofran) 4 mg IV Q8H PRN PRN PRN Reason: Nausea Polyethylene Glycol (Miralax) 17 gm GT BID [facility] Last Admin: 08/01/18 21:12 Dose: 17 gm Potassium Bicarb/Potassium Chloride (Potassium Chl 25 Meq Eff (For Liquid)) 50 meq GT BID [facility] Last Admin: 08/02/18 10:52 Dose: 50 meq Quetiapine Fumarate (Seroquel) 100 mg NG QHS [facility] Senna/Docusate Sodium (Senokot-S, Gloria-Colace) 2 tablet GT BID [facility] Last Admin: 08/02/18 10:53 Dose: 2 tablet Sodium Chloride () 5 - 30 ml IV UD PRN PRN Reason: SALINE FLUSH Last Admin: 08/01/18 12:18 Dose: 10 ml Medical Necessity - Tobacco Use Smoking Status: Current every day smoker Assessment/Plan All Active Problems Mental confusion (Acute) ARF (acute renal failure) (Acute) Diarrhea (Acute) Altered mental status (Acute) Fracture of fibula, right, closed (Acute) Drug overdose (Acute) This is a 47-year-old female with history of RA, fibromyalgia, low back pain and history of drug overdose was admitted for drug overdose, of baclofen. Patient was intubated for airway protection. Patient had a GCS of 9 intubated in ER. As per H&P, patient was confused so she overdosed unintentionally baclofen. As per , she also has history of COPD and possible obstructive sleep apnea, noncompliant with CPAP. Assessment and plan: 1. Acute encephalopathy most probably toxic encephalopathy secondary to drug overdose from baclofen: Currently on vent support. Aircraft Quality Control Inspector has been consulted for vent management. 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 No acute intracranial pathology. 2. Acute hypoxic and hypercarbic combined respiratory failure with metabolic acidosis. Mild hypokalemia: K3.4. Bicarb 21. First ABG was 7.1 /58 on room air. Repeat ABG 7.27/30 on 30% FiO2/450/14/5. On vent support. Potassium being replaced 3. Rheumatological disease: RA, chronic back pain, fibromyalgia: She is on methotrexate, Lyrica, baclofen at home. Currently these medications are on hold. 4. Acute kidney injury, prerenal: Resolved. 5. Severe sepsis most probably from right lower lobe aspiration pneumonia, Clincally present after admission although event of aspiration might have happened before admission, prior to intubation in ER: Patient developed fever on the second day of admission on 07/30. Initially chest x-ray showed questionable right lower lobe infiltrate with minimal bibasilar infiltrates. Today's chest x-ray shows right lower lobe infiltrate. UA shows 1+ bacteria, 0-5 WBC small LE 25 negative for pyuria/UTI. Initial admitting Chest x-ray showed no consolidation or infiltrates. CT abdomen shows mildly dilated loops of small bowel probably ileus. Lactic acid normal. Initially was on Ceftin and Zithromax. Respiratory culture is showing Moraxella catarrhalis but sensitivity report pending. Change the antibiotic to IV Zosyn. other chronic comorbidities include anemia chronic iron deficits anemia, hypertension, dyslipidemia DVT prophylaxis: Heparin 5000 units twice daily Microbiology Past 72 Hours 07/31/18 07:05 Blood Culture (Wb) - Right Forearm Blood Culture - Preliminary No growth in 48 hours. 07/31/18 06:55 Blood Culture (Wb) - Line Draw Blood Culture - Preliminary No growth in 48 hours. 07/30/18 22:05 Sputum, Induced/Lukens Gram Stain - Final 07/30/18 22:05 Sputum, Induced/Lukens Respiratory Culture - Final Moraxella(Walt.)Catarrhalis Laboratory Results 08/02/18 05:00: WBC 8.8, RBC 3.32 L, Hgb 10.4 L, Hct 33.4 L, MCV 100.6 H, MCH 31.3, MCHC 31.1 L, RDW 15.8 H, RDW Differential 57.6 H, Plt Count 176, MPV 9.8, Immature Gran % (Auto) 0.100, Neut % (Auto) 76.3 H, Lymph % (Auto) 10.7 L, [place] % (Auto) 11.7 H, Eos % (Auto) 1.1, Baso % (Auto) 0.1, Absolute Neuts (auto) 6.7, Absolute Lymphs (auto) 0.94, Total Counted Not Reportable 08/02/18 05:00: Sodium 147 H, Potassium 3.6, Chloride 112 H, Carbon Dioxide 26.0, Anion Gap 9, BUN 9, Creatinine 0.51 L, Estim Creat Clear Calc 110.38, Est GFR (MDRD) Af Amer 164, Est GFR (MDRD) Non-Af 136, BUN/Creatinine Ratio 17.6, Glucose 82, Calcium 8.4 L Clinical Impression(s) from Imaging Studies Brain CT 07/29/18 20:05 IMPRESSION: 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 No acute edge cranial pathology. Abdomen/Pelvis CT 07/29/18 22:12 IMPRESSION: Mildly dilated loops of small bowel the upper abdomen which may be due to ileus or a low-grade obstruction. Enteric tube tip in the proximal stomach. This could be advanced 5-10 cm for improved positioning. Fatty liver. Chest X-Ray 07/31/18 05:55 IMPRESSION: No acute cardiopulmonary disease. Endotracheal tube tip in its expected location. Nasogastric tube tip looped in the stomach with the tip at the gastric cardia. This is satisfactory for suction. Code Visit Inpatient E&M: 98486 Subs Hosp L3
--- NOTE | 2018-08-02 13:06 | CASEMGMT ---
SW spoke w/pt's at the bedside, offered support. states pt has been like this two times before(on a vent). reports his mother and her father as supportive. He states his mother came to visit but did not stay long, as it was difficult for her to see pt like this. asked about when pt is discharged, if she needs to leave right away, as he works up in [place]. SW explained that when pt is discharged, there is no time frame other than pt needs to leave on the day discharged. also asked about if pt were to leave before discharge. He does not know that pt would do this, but is just wondering. states that in the past she called her father and he came to pick her up( states he is not very good with directions however). SW explained that patients do have their own free will, and if pt were to try to leave against medical advice, the staff would encourage her to stay to finish her treatment. However, patients have the right to leave against medical advice. SW explained to is available for support or to assist with any additional questions, will check in w/him again tomorrow. AMAURI Garcia, TANKER SERVICEMAN
[2018-08-02] MEDS: Polyethylene Glycol 3350 17 GM PACKET GT ×2 (17:23→22:01)
[2018-08-02] MEDS: QUEtiapine 100 MG Tablet NG (22:01)
[2018-08-03] VITALS (29 sets, daily range): BP systolic 103–160; BP diastolic 65–115; PULSE 80–122; RESP 14–28; TEMP 36.6–37.3; O2SAT 92–99
[2018-08-03] MEDS: Propofol 10MG/Ml 1,000 MG/100 ML Bottle 2.166 MG CONT INF (01:53)
[2018-08-03] MEDS: Albuterol 2.5 MG/3 ML VIAL.NEB. INHALATION ×6 (02:48→23:05)
[2018-08-03 04:41] LABS: Anion Gap 8 (5-15); BUN 8 mg/dL (7-18); BUN/Creat Ratio 15.5 RATIO (10-20); Calcium,Total 9.5 mg/dL (8.5-10.1); Chloride 109 mmol/L (98-107); Creatinine, Serum 0.52 mg/dL (0.55-1.02); EST Glomerular Filtration Rate 134 mL/min (>60); Est Glom Filt Rate - Afr Amer 162 mL/min (>60); Estimated Creatinine Clearance 108.26 ml/min; Glucose 92 mg/dL (74-106); Potassium 4.3 mmol/L (3.5-5.1); Sodium Level 146 mmol/L (136-145)
[2018-08-03 04:45] LABS: Absolute Lymphocyte Count 1.05 X10^3/ul (0.83-4.51); Absolute Neutrophil Count 3.9 X10^3/uL (2.0-7.7); Basophil# 0.01 X10^3/uL; Basophil% 0.2 % (0-1); Eosinophil# 0.15 X10^3/uL; Eosinophils% 2.4 % (0-5); Hematocrit 34.1 % (37-47); Hemoglobin 10.9 g/dl (12.0-15.0); Lymphocyte # 1.05 X10^3/ul (4.0); Lymphocyte % 16.5 % (19-41); Mean Corpuscular Hgb 32.2 pg (27.0-32.0); Mean Corpuscular Volume 100.6 fL (81-99); Monocyte# 1.18 X10^3/uL; Monocyte% 18.6 % (0-10); Neutrophil # 3.93 X10^3/uL (2.7-7.7); Neutrophil % 61.7 % (47-70); Platelet Count 215 K/mm3 (150-450); RBC Distribution Width CV 15.6 % (11.6-14.6); RBC Distribution Width SD 55.9 fl (35.1-43.9); Red Blood Count 3.39 M/mm3 (4.2-5.4); White Blood Count 6.4 K/mm3 (4.4-11.0)
[2018-08-03 04:47] LABS: Differential Indicated SCAN CRITERIA MET; POSITIVE COUNT NO; POSITIVE DIFFERENTIAL NO; POSITIVE MORPHOLOGY YES
[2018-08-03] MEDS: Haloperidol Lactate 5 MG/ML Vial IV (05:28)
[2018-08-03 06:11] LABS: Allen Test POS; Base Excess 5 mmol/L (-2 to +2); Bicarbonate 28.4 mmol/L (22-26); Blood Gas Specimen Type ART; FI02 30; Mode CPAP PS; O2 Delivery Device Vent; PEEP 5; PO2 62 mmHG (75-100); PS 5; SITE L Radial; SO2 93 % (95-99); Time Given 558; Total Carbon Dioxide 30 mmol/L; pCO2 39.4 mmHg (35-45); pH 7.47 (7.35-7.45)
[2018-08-03] MEDS: CHLORHEXIDINE GLUC 2% CLOTH 1 EACH TOWELETTE TOPICAL (06:15)
[2018-08-03] MEDS: Piperacil/Tazobactam 3.375 GM/50 ML ML IV ×3 (06:15→22:02)
--- NOTE | 2018-08-03 06:24 | PN_ITS ---
Subjective: Patient did okay overnight. Patient did have some issues with agitation, but was able to tolerate spontaneous awakening trial this morning. Patient did get somewhat anxious and agitated during spontaneous breathing trial. Patient was given Haldol to help and was able to complete an hour. ABG at the end of her spontaneous breathing trial showed adequate oxygenation and ventilation. Patient does vocalize. No stridor was appreciated following extubation. General: Alert, Cooperative, Disoriented, - - Able to vocalize. Appears older than stated age. Needs redirected frequently HEENT: Atraumatic, PERRLA, EOMI, Normocephalic, - - No scleral icterus or injection noted. Oral: Moist Mucosa, No Gingival or Mucosal Lesions/ Ulcerations, - - Fair dentition Neck: Supple, No JVD, No Nodes, Trachea Midline Lungs: No wheeze, No rales, Diminished, Rhonchi - Improves with coughing, - - Symmetric expansion. No dullness to percussion. Cardiovascular: Normal S1, Normal S2, No murmurs, No rub noted, No Gallop, Tachycardic Abdomen: Bowel Sounds Present, Soft, Non Tender, Non-Distended, Obese Extremities: No clubbing, No cyanosis, No edema, Capillary Refill Less than 3 Seconds Skin: No rashes, No breakdown Musculoskeletal: No Tenderness to Palpation of Joints or Extremities Lymphatic: No Cervical, Supraclavicular, or Inguinal Adenopathy Neurological: Cranial nerves II-XII grossly intact, Neuro grossly intact Psych/Mental Status: Anxious, Impulsive, Restless Vital Signs Temp Pulse Resp BP Pulse Ox 37.1 C 107 H 19 H 160/115 H 96 08/03/18 06:00 08/03/18 06:00 08/03/18 06:00 08/03/18 06:00 08/03/18 06:00 Oxygen Delivery Method Mechanical Ventilator Weight: 76.4 kg Body Mass Index (BMI) 27.9 Finger Stick Blood Glucose 120 Intake and Output for Last 24 Hours 08/01/18 08/02/18 08/03/18 23:59 23:59 23:59 Intake Total 4047.4 / 4047.4 3661.7 / 3661.7 788.3 / 788.3 Output Total 1300 / 1300 1900 / 1900 900 / 900 Balance 2747.4 / 2747.4 1761.7 / 1761.7 -111.7 / -111.7 Labs (Last 48 Hours) 08/01/18 08/01/18 08/02/18 06:15 06:16 05:00 WBC 8.8 RBC 3.32 L Hgb 10.4 L Hct 33.4 L MCV 100.6 H MCH 31.3 MCHC 31.1 L RDW 15.8 H RDW Differential 57.6 H Plt Count 176 MPV 9.8 Immature Gran % (Auto) 0.100 Neut % (Auto) 76.3 H Lymph % (Auto) 10.7 L [place] % (Auto) 11.7 H Eos % (Auto) 1.1 Baso % (Auto) 0.1 Absolute Neuts (auto) 6.7 Absolute Lymphs (auto) 0.94 Total Counted Not Reportable Specimen Type Sample Site pH Bicarbonate Actual POC Total CO2 Base Excess O2 Saturation O2 % ABG pCO2 ABG pO2 Dexter Test O2 Delivery Device Vent Mode POC PEEP POC Pressure Suppt Blood Gas Notified Whom Blood Gas Notified Time Sodium Potassium Chloride Carbon Dioxide Anion Gap BUN Creatinine Estim Creat Clear Calc Est GFR (MDRD) Af Amer Est GFR (MDRD) Non-Af BUN/Creatinine Ratio Glucose Calcium Phosphorus Magnesium MRSA (PCR) Negative POC Glucose 119 H 08/02/18 08/03/18 08/03/18 05:00 04:10 04:10 WBC 6.4 RBC 3.39 L Hgb 10.9 L Hct 34.1 L MCV 100.6 H MCH 32.2 H MCHC 32.0 RDW 15.6 H RDW Differential 55.9 H Plt Count 215 MPV 10.0 Immature Gran % (Auto) 0.600 Neut % (Auto) 61.7 Lymph % (Auto) 16.5 L [place] % (Auto) 18.6 H Eos % (Auto) 2.4 Baso % (Auto) 0.2 Absolute Neuts (auto) 3.9 Absolute Lymphs (auto) 1.05 Total Counted Not Reportable Specimen Type Sample Site pH Bicarbonate Actual POC Total CO2 Base Excess O2 Saturation O2 % ABG pCO2 ABG pO2 Dexter Test O2 Delivery Device Vent Mode POC PEEP POC Pressure Suppt Blood Gas Notified Whom Blood Gas Notified Time Sodium 147 H 146 H Potassium 3.6 4.3 Chloride 112 H 109 H Carbon Dioxide 26.0 29.0 Anion Gap 9 8 BUN 9 8 Creatinine 0.51 L 0.52 L Estim Creat Clear Calc 110.38 108.26 Est GFR (MDRD) Af Amer 164 162 Est GFR (MDRD) Non-Af 136 134 BUN/Creatinine Ratio 17.6 15.5 Glucose 82 92 Calcium 8.4 L 9.5 Phosphorus 4.0 Magnesium 2.0 MRSA (PCR) POC Glucose 08/03/18 06:04 WBC RBC Hgb Hct MCV MCH MCHC RDW RDW Differential Plt Count MPV Immature Gran % (Auto) Neut % (Auto) Lymph % (Auto) [place] % (Auto) Eos % (Auto) Baso % (Auto) Absolute Neuts (auto) Absolute Lymphs (auto) Total Counted Specimen Type ART Sample Site L Radial pH 7.47 H Bicarbonate Actual 28.4 H POC Total CO2 30 Base Excess 5 H O2 Saturation 93 L O2 % 30 ABG pCO2 39.4 ABG pO2 62 L Dexter Test POS O2 Delivery Device Vent Vent Mode CPAP PS POC PEEP 5 POC Pressure Suppt 5 Blood Gas Notified Whom ICU MD Blood Gas Notified Time 558 Sodium Potassium Chloride Carbon Dioxide Anion Gap BUN Creatinine Estim Creat Clear Calc Est GFR (MDRD) Af Amer Est GFR (MDRD) Non-Af BUN/Creatinine Ratio Glucose Calcium Phosphorus Magnesium MRSA (PCR) POC Glucose Microbiology 07/31/18 07:05 Blood Culture (Wb) - Right Forearm Blood Culture - Preliminary No growth in 48 hours. 07/31/18 06:55 Blood Culture (Wb) - Line Draw Blood Culture - Preliminary No growth in 48 hours. 07/30/18 22:05 Sputum, Induced/Lukens Gram Stain - Final 07/30/18 22:05 Sputum, Induced/Lukens Respiratory Culture - Final Moraxella(Walt.)Catarrhalis Medical Necessity - Tobacco Use Smoking Status: Current every day smoker Assessment/Plan All Active Problems Mental confusion (Acute) ARF (acute renal failure) (Acute) Diarrhea (Acute) Altered mental status (Acute) Fracture of fibula, right, closed (Acute) Drug overdose (Acute) RECOMMENDATIONS: 1. Continue aggressive pulmonary toileting 2. Possibly transition to Unasyn therapy in the next 24-48 hours 3. Bedside swallow evaluation 4. Continue with aerosol therapy 5. Wean oxygen as tolerated 6. Increase mobility IMPRESSIONS: 1. Unintentional baclofen overdose Patient has not had baclofen in several days. This can likely be reinitiated if patient passes bedside swallow evaluation. 2. Rheumatoid arthritis on methotrexate Patient with active pneumonia secondary to Moraxella. Continue to monitor. Patient can likely receive her methotrexate on Monday if condition continues to improve. 3. Acute kidney injury RESOLVED > likely prerenal in etiology. Patient is on losartan and Lasix. Baseline creatinine appears to be around 1. Patient is being hydrated at this time. We will continue to monitor on a daily basis. 4. Acute combined respiratory failure/metabolic acidosis Likely secondary to baclofen overdose initially. Patient then developed an infiltrate in the right lower lobe. Clinical suspicion for aspiration during decreased mental status. Secretions have improved, but aggressive pulmonary toileting following extubation will be necessary. Patient growing Moraxella species. Likely narrow antibiotic spectrum later today. 5. Chronic back pain/fibromyalgia/hypertension/hyperlipidemia/limited mobility Complicates care, management, recovery and prognosis. Likely reinitiate baseline medications if patient passes swallow eval. Pepcid and heparin prophylaxis. 6. Severe sepsis RESOLVED > Patient's chest x-ray now shows a right lower lobe infiltrate. Unclear if patient had an aspiration event secondary to mental status initially. Continue antibiotics TIME: 35 minutes critical care time spent addressing patient's acute combined respiratory failure, unintentional baclofen overdose, review of all data and collaboration with care team (5:20 AM to 6:20 AM) Code Visit Inpatient E&M: [id number] [facility] Hosp L3
--- NOTE | 2018-08-03 10:16 | PCM.PN.HOSP ---
Patient Problems: Active and Suspected Problems Drug overdose (Acute) Subjective: The patient was extubated in the morning today. No fever for about 36 hours Vitals/I&O's: Vital Signs Temp Pulse Resp BP Pulse Ox 99 F 121 H 27 H 138/92 H 97 08/03/18 08:00 08/03/18 08:00 08/03/18 08:00 08/03/18 08:00 08/03/18 08:00 Oxygen Flow Rate (L/min) 3 Oxygen Delivery Method Nasal Cannula Weight: 168 lb 6.931 oz Body Mass Index (BMI) 27.9 Finger Stick Blood Glucose 120 Intake and Output for Last 24 Hours 08/01/18 08/02/18 08/03/18 23:59 23:59 23:59 Intake Total 4047.4 / 4047.4 3661.7 / 3661.7 1352.6 / 1352.6 Output Total 1300 / 1300 1900 / 1900 2150 / 2150 Balance 2747.4 / 2747.4 1761.7 / 1761.7 -797.4 / -797.4 General: Alert, Cooperative, Disoriented HEENT: Atraumatic, PERRLA, EOMI, Normocephalic Oral: Dry Mucosa Neck: Supple, No JVD, Negative Carotid Bruits Lungs: Diminished, Rhonchi, - - Patient is able to cough Cardiovascular: Regular rate, Regular Rhythm, Normal S1, Normal S2, No murmurs Abdomen: Bowel Sounds Present, Soft, Non Tender Extremities: No edema, Capillary Refill Less than 3 Seconds Skin: No rashes, No breakdown Musculoskeletal: No Tenderness to Palpation of Joints or Extremities Neurological: Cranial nerves II-XII grossly intact Psych/Mental Status: Normal Affect, Appropriate Microbiology Past 72 Hours 07/31/18 07:05 Blood Culture (Wb) - Right Forearm Blood Culture - Preliminary No growth in 48 hours. 07/31/18 06:55 Blood Culture (Wb) - Line Draw Blood Culture - Preliminary No growth in 48 hours. 07/30/18 22:05 Sputum, Induced/Lukens Gram Stain - Final 07/30/18 22:05 Sputum, Induced/Lukens Respiratory Culture - Final Moraxella(Walt.)Catarrhalis Laboratory Results 08/03/18 04:10: WBC 6.4, RBC 3.39 L, Hgb 10.9 L, Hct 34.1 L, MCV 100.6 H, MCH 32.2 H, MCHC 32.0, RDW 15.6 H, RDW Differential 55.9 H, Plt Count 215, MPV 10.0, Immature Gran % (Auto) 0.600, Neut % (Auto) 61.7, Lymph % (Auto) 16.5 L, [place] % (Auto) 18.6 H, Eos % (Auto) 2.4, Baso % (Auto) 0.2, Absolute Neuts (auto) 3.9, Absolute Lymphs (auto) 1.05, Total Counted Not Reportable 08/03/18 04:10: Sodium 146 H, Potassium 4.3, Chloride 109 H, Carbon Dioxide 29.0, Anion Gap 8, BUN 8, Creatinine 0.52 L, Estim Creat Clear Calc 108.26, Est GFR (MDRD) Af Amer 162, Est GFR (MDRD) Non-Af 134, BUN/Creatinine Ratio 15.5, Glucose 92, Calcium 9.5, Phosphorus 4.0, Magnesium 2.0 08/03/18 06:04: Specimen Type ART, Sample Site L Radial, pH 7.47 H, Bicarbonate Actual 28.4 H, POC Total CO2 30, Base Excess 5 H, O2 Saturation 93 L, O2 % 30, ABG pCO2 39.4, ABG pO2 62 L, Dexter Test POS, O2 Delivery Device Vent, Vent Mode CPAP PS, POC PEEP 5, POC Pressure Suppt 5, Blood Gas Notified Whom ICU MD, Blood Gas Notified Time 558 Current Medications Acetaminophen (Tylenol Liquid) 650 mg NG Q6H PRN PRN PRN Reason: Fever >101 Last Admin: 08/01/18 11:55 Dose: 650 mg Albuterol Sulfate (Ventolin Aerosols) 2.5 mg INHALATION Q2H PRN PRN PRN Reason: SOB &/OR WHEEZING Albuterol Sulfate (Ventolin Aerosols) 2.5 mg INHALATION Q4H.RT TOO Last Admin: 08/03/18 06:37 Dose: 2.5 mg Baclofen (Lioresal) 10 mg GT TID [facility] Chlorhexidine Gluconate () 1 each TOPICAL DAILY TOO Last Admin: 08/03/18 06:15 Dose: 1 each Famotidine (Pepcid) 20 mg GT BID [facility] Last Admin: 08/02/18 22:01 Dose: 20 mg Guaifenesin (Robitussin) 10 ml GT Q4H PRN PRN PRN Reason: Thick secretions Heparin Sodium (Porcine) (Heparin Na) 5,000 unit SC Q12 [facility] Last Admin: 08/02/18 22:00 Dose: 5,000 unit Piperacillin Sod/Tazobactam Sod (Zosyn) 3.375 gm in 50 mls @ 12.5 mls/hr IV Q8 [facility] Last Admin: 08/03/18 06:15 Dose: 12.5 mls/hr Enteral Nutritional Formula (Vital Af 1.2 Allen Liquid) 1,000 mls @ 60 mls/hr GT .[id number] [facility] Last Admin: 08/03/18 04:04 Dose: Not Given Labetalol HCl (Trandate) 20 mg IV Q6H PRN PRN PRN Reason: SBP>160 Last Admin: 07/31/18 03:00 Dose: 20 mg Lorazepam (Ativan) 2 mg IV Q2H PRN PRN PRN Reason: RESTLESSNESS Last Admin: 08/02/18 08:42 Dose: 2 mg Losartan Potassium (Cozaar) 25 mg GT DAILY [facility] Last Admin: 08/02/18 10:51 Dose: 25 mg Magnesium Hydroxide (Milk Of Magnesia) 30 ml PO DAILY PRN PRN PRN Reason: Constipation Metoprolol Tartrate (Lopressor (Beta Prudence)) 12.5 mg GT DAILY [facility] Last Admin: 08/02/18 10:51 Dose: 12.5 mg Ondansetron HCl (Zofran) 4 mg IV Q8H PRN PRN PRN Reason: Nausea Polyethylene Glycol (Miralax) 17 gm GT BID [facility] Last Admin: 08/03/18 08:15 Dose: Not Given Potassium Bicarb/Potassium Chloride (Potassium Chl 25 Meq Eff (For Liquid)) 50 meq GT BID [facility] Last Admin: 08/02/18 22:01 Dose: 50 meq Quetiapine Fumarate (Seroquel) 100 mg NG QHS [facility] Last Admin: 08/02/18 22:01 Dose: 100 mg Senna/Docusate Sodium (Senokot-S, Gloria-Colace) 2 tablet GT BID [facility] Last Admin: 08/03/18 08:15 Dose: Not Given Sodium Chloride () 5 - 30 ml IV UD PRN PRN Reason: SALINE FLUSH Last Admin: 08/01/18 12:18 Dose: 10 ml Medical Necessity - Tobacco Use Smoking Status: Current every day smoker Assessment/Plan All Active Problems Mental confusion (Acute) ARF (acute renal failure) (Acute) Diarrhea (Acute) Altered mental status (Acute) Fracture of fibula, right, closed (Acute) Drug overdose (Acute) This is a 47-year-old female with history of RA, fibromyalgia, low back pain and history of drug overdose was admitted for drug overdose, of baclofen. Patient was intubated for airway protection. Patient had a GCS of 9 intubated in ER. As per H&P, patient was confused so she overdosed unintentionally baclofen. As per , she also has history of COPD and possible obstructive sleep apnea, noncompliant with CPAP. Assessment and plan: 1. Acute encephalopathy most probably toxic encephalopathy secondary to drug overdose from baclofen: Currently on vent support. Lot Porter has been consulted for vent management. 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 No acute intracranial pathology. 2. Acute hypoxic and hypercarbic combined respiratory failure with metabolic acidosis. Mild hypokalemia: K3.4. Bicarb 21. First ABG was 7.1 /58 on room air. Repeat ABG on CPAP shows 7.4 / on 30% FiO2. Patient is extubated on 08/03/2018 Hypokalemia corrected 3. Rheumatological disease: RA, chronic back pain, fibromyalgia: She is on methotrexate, Lyrica, baclofen at home. Currently these medications are on hold. 4. Acute kidney injury, prerenal: Resolved. 5. Severe sepsis most probably from right lower lobe aspiration pneumonia, Clincally present after admission although event of aspiration might have happened before admission, prior to intubation in ER: Patient developed fever on the second day of admission on 07/30. Initially chest x-ray showed questionable right lower lobe infiltrate with minimal bibasilar infiltrates. Repeat chest x-ray shows right lower lobe infiltrate. UA shows 1+ bacteria, 0-5 WBC small LE 25 negative for pyuria/UTI. Initial admitting Chest x-ray showed no consolidation or infiltrates. CT abdomen shows mildly dilated loops of small bowel probably ileus. Lactic acid normal. Initially was on Ceftin and Zithromax. Change the antibiotic to IV Zosyn. Sputum culture is showing Moraxella other chronic comorbidities include anemia chronic iron deficits anemia, hypertension, dyslipidemia DVT prophylaxis: Heparin 5000 units twice daily Microbiology Past 72 Hours 07/31/18 07:05 Blood Culture (Wb) - Right Forearm Blood Culture - Preliminary No growth in 48 hours. 07/31/18 06:55 Blood Culture (Wb) - Line Draw Blood Culture - Preliminary No growth in 48 hours. 07/30/18 22:05 Sputum, Induced/Lukens Gram Stain - Final 07/30/18 22:05 Sputum, Induced/Lukens Respiratory Culture - Final Moraxella(Walt.)Catarrhalis Laboratory Results 08/03/18 04:10: WBC 6.4, RBC 3.39 L, Hgb 10.9 L, Hct 34.1 L, MCV 100.6 H, MCH 32.2 H, MCHC 32.0, RDW 15.6 H, RDW Differential 55.9 H, Plt Count 215, MPV 10.0, Immature Gran % (Auto) 0.600, Neut % (Auto) 61.7, Lymph % (Auto) 16.5 L, [place] % (Auto) 18.6 H, Eos % (Auto) 2.4, Baso % (Auto) 0.2, Absolute Neuts (auto) 3.9, Absolute Lymphs (auto) 1.05, Total Counted Not Reportable 08/03/18 04:10: Sodium 146 H, Potassium 4.3, Chloride 109 H, Carbon Dioxide 29.0, Anion Gap 8, BUN 8, Creatinine 0.52 L, Estim Creat Clear Calc 108.26, Est GFR (MDRD) Af Amer 162, Est GFR (MDRD) Non-Af 134, BUN/Creatinine Ratio 15.5, Glucose 92, Calcium 9.5, Phosphorus 4.0, Magnesium 2.0 08/03/18 06:04: Specimen Type ART, Sample Site L Radial, pH 7.47 H, Bicarbonate Actual 28.4 H, POC Total CO2 30, Base Excess 5 H, O2 Saturation 93 L, O2 % 30, ABG pCO2 39.4, ABG pO2 62 L, Dexter Test POS, O2 Delivery Device Vent, Vent Mode CPAP PS, POC PEEP 5, POC Pressure Suppt 5, Blood Gas Notified Whom ICU MD, Blood Gas Notified Time 558 Clinical Impression(s) from Imaging Studies Brain CT 07/29/18 20:05 IMPRESSION: 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 No acute edge cranial pathology. Abdomen/Pelvis CT 07/29/18 22:12 IMPRESSION: Mildly dilated loops of small bowel the upper abdomen which may be due to ileus or a low-grade obstruction. Enteric tube tip in the proximal stomach. This could be advanced 5-10 cm for improved positioning. Fatty liver. Chest X-Ray 07/31/18 05:55 IMPRESSION: No acute cardiopulmonary disease. Endotracheal tube tip in its expected location. Nasogastric tube tip looped in the stomach with the tip at the gastric cardia. This is satisfactory for suction. Code Visit Inpatient E&M: [id number] [facility]s Hosp L3
--- NOTE | 2018-08-03 10:18 | CASEMGMT ---
SW spoke w/pt and in room in regard to discharge plan, and possible Baclofen overdose. Pt states she got up today, and was able to walk. SW asked in the room if he feels pt is moving well enough to go home when discharged. states he does, if she is here a couple more days. states that he was told by staff pt needs to be with someone for the first 24 hours she is home, and he works a lot. SW asked if his mom or her dad may be able to sit w/pt when he is working. He states his mom may be able to do this. asked pt about his mother staying with her or her going to his mother's house initially, pt is agreeable to this. SW also asked pt about the circumstances of her admission, asked if she took too many Baclofen. Pt denies this. SW asked also if pt had any intent to harm herself, pt denies this as well. Pt states if she did take too many Baclofen she would stop taking it altogether. Pt denies this happened however. No further needs are anticipated at discharge. SW is available to pt and however should any needs arise. AMAURI Garcia, STUNTMAN
--- NOTE | 2018-08-03 10:20 | PN_ITS ---
Patient Problems: Active and Suspected Problems Drug overdose (Acute) Subjective: The patient was extubated in the morning today. No fever for about 36 hours Vitals/I&O's: Vital Signs Temp Pulse Resp BP Pulse Ox 99 F 121 H 27 H 138/92 H 97 08/03/18 08:00 08/03/18 08:00 08/03/18 08:00 08/03/18 08:00 08/03/18 08:00 Oxygen Flow Rate (L/min) 3 Oxygen Delivery Method Nasal Cannula Weight: 168 lb 6.931 oz Body Mass Index (BMI) 27.9 Finger Stick Blood Glucose 120 Intake and Output for Last 24 Hours 08/01/18 08/02/18 08/03/18 23:59 23:59 23:59 Intake Total 4047.4 / 4047.4 3661.7 / 3661.7 1352.6 / 1352.6 Output Total 1300 / 1300 1900 / 1900 2150 / 2150 Balance 2747.4 / 2747.4 1761.7 / 1761.7 -797.4 / -797.4 General: Alert, Cooperative, Disoriented HEENT: Atraumatic, PERRLA, EOMI, Normocephalic Oral: Dry Mucosa Neck: Supple, No JVD, Negative Carotid Bruits Lungs: Diminished, Rhonchi, - - Patient is able to cough Cardiovascular: Regular rate, Regular Rhythm, Normal S1, Normal S2, No murmurs Abdomen: Bowel Sounds Present, Soft, Non Tender Extremities: No edema, Capillary Refill Less than 3 Seconds Skin: No rashes, No breakdown Musculoskeletal: No Tenderness to Palpation of Joints or Extremities Neurological: Cranial nerves II-XII grossly intact Psych/Mental Status: Normal Affect, Appropriate Microbiology Past 72 Hours 07/31/18 07:05 Blood Culture (Wb) - Right Forearm Blood Culture - Preliminary No growth in 48 hours. 07/31/18 06:55 Blood Culture (Wb) - Line Draw Blood Culture - Preliminary No growth in 48 hours. 07/30/18 22:05 Sputum, Induced/Lukens Gram Stain - Final 07/30/18 22:05 Sputum, Induced/Lukens Respiratory Culture - Final Moraxella(Walt.)Catarrhalis Laboratory Results 08/03/18 04:10: WBC 6.4, RBC 3.39 L, Hgb 10.9 L, Hct 34.1 L, MCV 100.6 H, MCH 32.2 H, MCHC 32.0, RDW 15.6 H, RDW Differential 55.9 H, Plt Count 215, MPV 10.0, Immature Gran % (Auto) 0.600, Neut % (Auto) 61.7, Lymph % (Auto) 16.5 L, [place] % (Auto) 18.6 H, Eos % (Auto) 2.4, Baso % (Auto) 0.2, Absolute Neuts (auto) 3.9, Absolute Lymphs (auto) 1.05, Total Counted Not Reportable 08/03/18 04:10: Sodium 146 H, Potassium 4.3, Chloride 109 H, Carbon Dioxide 29.0, Anion Gap 8, BUN 8, Creatinine 0.52 L, Estim Creat Clear Calc 108.26, Est GFR (MDRD) Af Amer 162, Est GFR (MDRD) Non-Af 134, BUN/Creatinine Ratio 15.5, Glucose 92, Calcium 9.5, Phosphorus 4.0, Magnesium 2.0 08/03/18 06:04: Specimen Type ART, Sample Site L Radial, pH 7.47 H, Bicarbonate Actual 28.4 H, POC Total CO2 30, Base Excess 5 H, O2 Saturation 93 L, O2 % 30, ABG pCO2 39.4, ABG pO2 62 L, Dexter Test POS, O2 Delivery Device Vent, Vent Mode CPAP PS, POC PEEP 5, POC Pressure Suppt 5, Blood Gas Notified Whom ICU MD, Blood Gas Notified Time 558 Current Medications Acetaminophen (Tylenol Liquid) 650 mg NG Q6H PRN PRN PRN Reason: Fever >101 Last Admin: 08/01/18 11:55 Dose: 650 mg Albuterol Sulfate (Ventolin Aerosols) 2.5 mg INHALATION Q2H PRN PRN PRN Reason: SOB &/OR WHEEZING Albuterol Sulfate (Ventolin Aerosols) 2.5 mg INHALATION Q4H.RT TOO Last Admin: 08/03/18 06:37 Dose: 2.5 mg Baclofen (Lioresal) 10 mg GT TID [facility] Chlorhexidine Gluconate () 1 each TOPICAL DAILY TOO Last Admin: 08/03/18 06:15 Dose: 1 each Famotidine (Pepcid) 20 mg GT BID [facility] Last Admin: 08/02/18 22:01 Dose: 20 mg Guaifenesin (Robitussin) 10 ml GT Q4H PRN PRN PRN Reason: Thick secretions Heparin Sodium (Porcine) (Heparin Na) 5,000 unit SC Q12 [facility] Last Admin: 08/02/18 22:00 Dose: 5,000 unit Piperacillin Sod/Tazobactam Sod (Zosyn) 3.375 gm in 50 mls @ 12.5 mls/hr IV Q8 [facility] Last Admin: 08/03/18 06:15 Dose: 12.5 mls/hr Enteral Nutritional Formula (Vital Af 1.2 Allen Liquid) 1,000 mls @ 60 mls/hr GT .[id number] [facility] Last Admin: 08/03/18 04:04 Dose: Not Given Labetalol HCl (Trandate) 20 mg IV Q6H PRN PRN PRN Reason: SBP>160 Last Admin: 07/31/18 03:00 Dose: 20 mg Lorazepam (Ativan) 2 mg IV Q2H PRN PRN PRN Reason: RESTLESSNESS Last Admin: 08/02/18 08:42 Dose: 2 mg Losartan Potassium (Cozaar) 25 mg GT DAILY [facility] Last Admin: 08/02/18 10:51 Dose: 25 mg Magnesium Hydroxide (Milk Of Magnesia) 30 ml PO DAILY PRN PRN PRN Reason: Constipation Metoprolol Tartrate (Lopressor (Beta Prudecne)) 12.5 mg GT DAILY [facility] Last Admin: 08/02/18 10:51 Dose: 12.5 mg Ondansetron HCl (Zofran) 4 mg IV Q8H PRN PRN PRN Reason: Nausea Polyethylene Glycol (Miralax) 17 gm GT BID [facility] Last Admin: 08/03/18 08:15 Dose: Not Given Potassium Bicarb/Potassium Chloride (Potassium Chl 25 Meq Eff (For Liquid)) 50 meq GT BID [facility] Last Admin: 08/02/18 22:01 Dose: 50 meq Quetiapine Fumarate (Seroquel) 100 mg NG QHS [facility] Last Admin: 08/02/18 22:01 Dose: 100 mg Senna/Docusate Sodium (Senokot-S, Gloria-Colace) 2 tablet GT BID [facility] Last Admin: 08/03/18 08:15 Dose: Not Given Sodium Chloride () 5 - 30 ml IV UD PRN PRN Reason: SALINE FLUSH Last Admin: 08/01/18 12:18 Dose: 10 ml Medical Necessity - Tobacco Use Smoking Status: Current every day smoker Assessment/Plan All Active Problems Mental confusion (Acute) ARF (acute renal failure) (Acute) Diarrhea (Acute) Altered mental status (Acute) Fracture of fibula, right, closed (Acute) Drug overdose (Acute) This is a 47-year-old female with history of RA, fibromyalgia, low back pain and history of drug overdose was admitted for drug overdose, of baclofen. Patient was intubated for airway protection. Patient had a GCS of 9 intubated in ER. As per H&P, patient was confused so she overdosed unintentionally baclofen. As per , she also has history of COPD and possible obstructive sleep apnea, noncompliant with CPAP. Assessment and plan: 1. Acute encephalopathy most probably toxic encephalopathy secondary to drug overdose from baclofen: Currently on vent support. [employer] has been consulted for vent management. 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 No acute intracranial pathology. 2. Acute hypoxic and hypercarbic combined respiratory failure with metabolic acidosis. Mild hypokalemia: K3.4. Bicarb 21. First ABG was 7.1 /58 on room air. Repeat ABG on CPAP shows 7.4 / on 30% FiO2. Patient is extubated on 08/03/2018 Hypokalemia corrected 3. Rheumatological disease: RA, chronic back pain, fibromyalgia: She is on methotrexate, Lyrica, baclofen at home. Currently these medications are on hold. 4. Acute kidney injury, prerenal: Resolved. 5. Severe sepsis most probably from right lower lobe aspiration pneumonia, Clincally present after admission although event of aspiration might have happened before admission, prior to intubation in ER: Patient developed fever on the second day of admission on 07/30. Initially chest x-ray showed questionable right lower lobe infiltrate with minimal bibasilar infiltrates. Repeat chest x- ray shows right lower lobe infiltrate. UA shows 1+ bacteria, 0-5 WBC small LE 25 negative for pyuria/UTI. Initial admitting Chest x-ray showed no consolidation or infiltrates. CT abdomen shows mildly dilated loops of small bowel probably ileus. Lactic acid normal. Initially was on Ceftin and Zithromax. Change the antibiotic to IV Zosyn. Sputum culture is showing Moraxella other chronic comorbidities include anemia chronic iron deficits anemia, hypertension, dyslipidemia DVT prophylaxis: Heparin 5000 units twice daily Microbiology Past 72 Hours 07/31/18 07:05 Blood Culture (Wb) - Right Forearm Blood Culture - Preliminary No growth in 48 hours. 07/31/18 06:55 Blood Culture (Wb) - Line Draw Blood Culture - Preliminary No growth in 48 hours. 07/30/18 22:05 Sputum, Induced/Lukens Gram Stain - Final 07/30/18 22:05 Sputum, Induced/Lukens Respiratory Culture - Final Moraxella(Walt.)Catarrhalis Laboratory Results 08/03/18 04:10: WBC 6.4, RBC 3.39 L, Hgb 10.9 L, Hct 34.1 L, MCV 100.6 H, MCH 32.2 H, MCHC 32.0, RDW 15.6 H, RDW Differential 55.9 H, Plt Count 215, MPV 10.0, Immature Gran % (Auto) 0.600, Neut % (Auto) 61.7, Lymph % (Auto) 16.5 L, [place] % (Auto) 18.6 H, Eos % (Auto) 2.4, Baso % (Auto) 0.2, Absolute Neuts (auto) 3.9, Absolute Lymphs (auto) 1.05, Total Counted Not Reportable 08/03/18 04:10: Sodium 146 H, Potassium 4.3, Chloride 109 H, Carbon Dioxide 29.0, Anion Gap 8, BUN 8, Creatinine 0.52 L, Estim Creat Clear Calc 108.26, Est GFR (MDRD) Af Amer 162, Est GFR (MDRD) Non-Af 134, BUN/Creatinine Ratio 15.5, Glucose 92, Calcium 9.5, Phosphorus 4.0, Magnesium 2.0 08/03/18 06:04: Specimen Type ART, Sample Site L Radial, pH 7.47 H, Bicarbonate Actual 28.4 H, POC Total CO2 30, Base Excess 5 H, O2 Saturation 93 L, O2 % 30, ABG pCO2 39.4, ABG pO2 62 L, Dexter Test POS, O2 Delivery Device Vent, Vent Mode CPAP PS, POC PEEP 5, POC Pressure Suppt 5, Blood Gas Notified Whom ICU MD, Blood Gas Notified Time 558 Clinical Impression(s) from Imaging Studies Brain CT 07/29/18 20:05 IMPRESSION: 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 No acute edge cranial pathology. Abdomen/Pelvis CT 07/29/18 22:12 IMPRESSION: Mildly dilated loops of small bowel the upper abdomen which may be due to ileus or a low-grade obstruction. Enteric tube tip in the proximal stomach. This could be advanced 5-10 cm for improved positioning. Fatty liver. Chest X-Ray 07/31/18 05:55 IMPRESSION: No acute cardiopulmonary disease. Endotracheal tube tip in its expected location. Nasogastric tube tip looped in the stomach with the tip at the gastric cardia. This is satisfactory for suction. Code Visit Inpatient E&M: 41867 Subs Hosp L3
[2018-08-03] MEDS: Metoprolol Tartrate 25 MG Tablet 12.5 MG PO (13:19)
[2018-08-03] MEDS: Heparin Injection (Vial) 5,000 UNIT/ML VIAL 5000 UNIT SC ×2 (13:19→22:02)
[2018-08-03] MEDS: Losartan Potassium 25 MG Tablet PO (13:19)
[2018-08-03] MEDS: Famotidine 20 MG Tablet PO ×2 (13:19→21:52)
[2018-08-03] MEDS: Baclofen 10 MG Tablet PO ×2 (13:24→21:52)
[2018-08-03] MEDS: 0.9% NaCl Peripheral Flush Adult/Peds IV ×2 (13:32→22:17)
[2018-08-03] MEDS: QUEtiapine 100 MG Tablet PO (21:53)
[2018-08-04] VITALS (12 sets, daily range): BP systolic 151–166; BP diastolic 88–101; PULSE 88–120; RESP 16–20; TEMP 36.1–36.6; O2SAT 93–98
[2018-08-04] MEDS: Benzonatate 100 MG Capsule PO ×2 (00:55→10:03)
--- NOTE | 2018-08-04 03:40 | NURSING ---
Report called to IRIS Lee on PCU. Patient transferred to PCU 120 in wheelchair with belongings by Dominik Cummings RN
[2018-08-04] MEDS: Baclofen 10 MG Tablet PO ×2 (05:04→12:27)
[2018-08-04] MEDS: Piperacil/Tazobactam 3.375 GM/50 ML ML IV (05:04)
[2018-08-04] MEDS: Albuterol 2.5 MG/3 ML VIAL.NEB. INHALATION ×2 (07:05→11:02)
--- NOTE | 2018-08-04 07:44 | PN_ITS ---
Subjective: Patient transferred out of the intensive care unit yesterday. No acute issues reported overnight. Patient did not have any reported fever. Blood pressure was slightly elevated, but patient tolerating room air without complication. General: Alert, Oriented x3, Cooperative, No apparent distress, Well developed, Well nourished, - - Speaking in full sentences. HEENT: Atraumatic, PERRLA, EOMI, Normocephalic, - - Scleral icterus or injection noted. Oral: Moist Mucosa, No Gingival or Mucosal Lesions/ Ulcerations Neck: Supple, No JVD, No Nodes, Trachea Midline Lungs: No rhonchi, No wheeze, No rales, Diminished - Right base, - - Symmetric expansion. No dullness to percussion. Cardiovascular: Normal S1, Normal S2, No murmurs, No rub noted, No Gallop, Tachycardic Abdomen: Bowel Sounds Present, Soft, Non Tender, Non-Distended Extremities: No clubbing, No cyanosis, No edema, Capillary Refill Less than 3 Seconds Skin: No rashes, No breakdown Musculoskeletal: No Tenderness to Palpation of Joints or Extremities Lymphatic: No Cervical, Supraclavicular, or Inguinal Adenopathy Neurological: Cranial nerves II-XII grossly intact, Neuro grossly intact, Motor Exam 5/5 strength throughout Psych/Mental Status: Normal Affect, Appropriate Vital Signs Temp Pulse Resp BP Pulse Ox 36.4 C L 120 H 16 152/88 H 93 08/04/18 04:06 08/04/18 06:53 08/04/18 04:06 08/04/18 04:07 08/04/18 04:06 Oxygen Flow Rate (L/min) 3 Oxygen Delivery Method Room Air Weight: 72.2 kg Body Mass Index (BMI) 27.9 Finger Stick Blood Glucose 120 Intake and Output for Last 24 Hours 08/02/18 08/03/18 08/04/18 23:59 23:59 23:59 Intake Total 3661.7 / 3661.7 2398.6 / 2398.6 16.9 / 16.9 Output Total 1900 / 1900 2150 / 2150 Balance 1761.7 / 1761.7 248.6 / 248.6 16.9 / 16.9 Labs (Last 48 Hours) 08/03/18 08/03/18 08/03/18 04:10 04:10 06:04 WBC 6.4 RBC 3.39 L Hgb 10.9 L Hct 34.1 L MCV 100.6 H MCH 32.2 H MCHC 32.0 RDW 15.6 H RDW Differential 55.9 H Plt Count 215 MPV 10.0 Immature Gran % (Auto) 0.600 Neut % (Auto) 61.7 Lymph % (Auto) 16.5 L [place] % (Auto) 18.6 H Eos % (Auto) 2.4 Baso % (Auto) 0.2 Absolute Neuts (auto) 3.9 Absolute Lymphs (auto) 1.05 Total Counted Not Reportable Specimen Type ART Sample Site L Radial pH 7.47 H Bicarbonate Actual 28.4 H POC Total CO2 30 Base Excess 5 H O2 Saturation 93 L O2 % 30 ABG pCO2 39.4 ABG pO2 62 L Dextre Test POS O2 Delivery Device Vent Vent Mode CPAP PS POC PEEP 5 POC Pressure Suppt 5 Blood Gas Notified Whom ICU MD Blood Gas Notified Time 558 Sodium 146 H Potassium 4.3 Chloride 109 H Carbon Dioxide 29.0 Anion Gap 8 BUN 8 Creatinine 0.52 L Estim Creat Clear Calc 108.26 Est GFR (MDRD) Af Amer 162 Est GFR (MDRD) Non-Af 134 BUN/Creatinine Ratio 15.5 Glucose 92 Calcium 9.5 Phosphorus 4.0 Magnesium 2.0 Microbiology 07/31/18 07:05 Blood Culture (Wb) - Right Forearm Blood Culture - Preliminary No growth in 48 hours. 07/31/18 06:55 Blood Culture (Wb) - Line Draw Blood Culture - Preliminary No growth in 48 hours. Medical Necessity - Tobacco Use Smoking Status: Current every day smoker Assessment/Plan All Active Problems Mental confusion (Acute) ARF (acute renal failure) (Acute) Diarrhea (Acute) Altered mental status (Acute) Fracture of fibula, right, closed (Acute) Drug overdose (Acute) RECOMMENDATIONS: 1. Continue aggressive pulmonary toileting 2. Likely okay to transition to Augmentin therapy and complete 7-day course 3. Bedside swallow evaluation 4. Continue with aerosol therapy 5. Walking oximetry prior to discharge 6. Hemodynamically stable on room air. Will sign off from a critical care perspective IMPRESSIONS: 1. Unintentional baclofen overdose Patient reinitiated on baclofen therapy and appears to be tolerating well. 2. Rheumatoid arthritis on methotrexate Patient with active pneumonia secondary to Moraxella. Continue to monitor. Patient can likely receive her methotrexate on Monday from my perspective given response to antibiotics 3. Acute kidney injury RESOLVED > likely prerenal in etiology. Patient is on losartan and Lasix. Baseline creatinine appears to be around 1. Patient is being hydrated at this time. We will continue to monitor on a daily basis. 4. Acute combined respiratory failure/metabolic acidosis and Moraxella pneumonia Likely secondary to baclofen overdose initially. Patient then developed an infiltrate in the right lower lobe. Clinical suspicion for aspiration during decreased mental status. Secretions have improved, but aggressive pulmonary toileting following extubation will be necessary. Patient can likely be transitioned to Augmentin therapy to complete a 7-day course. Patient should have a walking oximetry prior to discharge. 5. Chronic back pain/fibromyalgia/hypertension/hyperlipidemia/limited mobility Complicates care, management, recovery and prognosis. Likely reinitiate baseline medications if patient passes swallow eval. Pepcid and heparin prophylaxis. 6. Severe sepsis RESOLVED > Patient's chest x-ray now shows a right lower lobe infiltrate. Unclear if patient had an aspiration event secondary to mental status initially. Continue antibiotics Code Visit Inpatient E&M: 27308 Subs Hosp L2
[2018-08-04 08:43] LABS: Absolute Lymphocyte Count 1.03 X10^3/ul (0.83-4.51); Absolute Neutrophil Count 4.7 X10^3/uL (2.0-7.7); Basophil# 0.02 X10^3/uL; Basophil% 0.3 % (0-1); Eosinophils% 1.4 % (0-5); Hematocrit 38.9 % (37-47); Hemoglobin 12.5 g/dl (12.0-15.0); Lymphocyte # 1.03 X10^3/ul (4.0); Lymphocyte % 14.5 % (19-41); Mean Corp Hgb Conc 32.1 g/gl (32-36); Mean Corpuscular Hgb 31.9 pg (27.0-32.0); Mean Corpuscular Volume 99.2 fL (81-99); Mean Platelet Vol. 9.7 fl (6.2-12.0); Monocyte# 1.21 X10^3/uL; Neutrophil % 66.2 % (47-70); Platelet Count 267 K/mm3 (150-450); RBC Distribution Width CV 15.6 % (11.6-14.6); RBC Distribution Width SD 56.6 fl (35.1-43.9); Red Blood Count 3.92 M/mm3 (4.2-5.4); White Blood Count 7.1 K/mm3 (4.4-11.0)
[2018-08-04 08:46] LABS: POSITIVE COUNT NO; POSITIVE DIFFERENTIAL NO; POSITIVE MORPHOLOGY NO
[2018-08-04 08:53] LABS: Anion Gap 9 (5-15); BUN 7 mg/dL (7-18); BUN/Creat Ratio 13.2 RATIO (10-20); Calcium,Total 10.1 mg/dL (8.5-10.1); Chloride 106 mmol/L (98-107); Creatinine, Serum 0.53 mg/dL (0.55-1.02); EST Glomerular Filtration Rate 129 mL/min (>60); Est Glom Filt Rate - Afr Amer 156 mL/min (>60); Estimated Creatinine Clearance 106.21 ml/min; Glucose 106 mg/dL (74-106); Potassium 4.1 mmol/L (3.5-5.1); Sodium Level 140 mmol/L (136-145)
[2018-08-04] MEDS: Famotidine 20 MG Tablet PO (10:03)
[2018-08-04] MEDS: Heparin Injection (Vial) 5,000 UNIT/ML VIAL 5000 UNIT SC (10:03)
[2018-08-04] MEDS: Losartan Potassium 25 MG Tablet PO (10:03)
[2018-08-04] MEDS: Metoprolol Tartrate 25 MG Tablet 12.5 MG PO (10:03)
--- NOTE | 2018-08-04 11:47 | DCINST_ITS ---
- Discharge Diagnoses Current Active Problems: Current Active and Chronic Problems HLD (hyperlipidemia) (Chronic) Anemia (Chronic) Drug overdose (Acute) You will use the following diet at home:: Cardiac Your food should be the consistency of: Regular Your liquids should be the consistency of: Regular/Thin Discharge Activity: Return to Normal Activity Weight Bearing Status: Weight bearing as tolerated Call your doctor if you observe: Fever of 101 or Higher, Shortness of breath, - - altered mental status Instructions: ED Confusion, ED Altered Loc Allergies/Adverse Reactions: Allergies progesterone Allergy (Verified 07/29/18 19:52) Itching varenicline tartrate [From Chantix] Allergy (Verified 07/29/18 19:52) suicidal Medications to take at Discharge Venlafaxine XR [Effexor Xr] 225 mg PO DAILY 01/08/14 Abatacept [Orencia Clickject] 125 mg SQ MO 11/12/16 Mirtazapine [Remeron Orally Disintegrating] 45 mg PO QHS 11/12/16 Albuterol Inhaler [Ventolin Hfa] 2 puff INHALATION Q4H PRN PRN 03/31/18 Aspirin 81 mg PO DAILY 03/31/18 Atorvastatin Calcium [Lipitor] 80 mg PO QHS 03/31/18 Esomeprazole Mag Trihydrate [Nexium] 40 mg PO DAILY 03/31/18 Estradiol [Estrace Vaginal Cream] 1 dose VAGINAL DAILY 03/31/18 Ferrous Sulfate [Iron] 1 tablet PO DAILY 03/31/18 Folic Acid 2 mg PO DAILY@0800 03/31/18 Methotrexate 20 mg PO MO 03/31/18 Metoprolol Tartrate [Lopressor (beta fan)] 12.5 mg PO DAILY 03/31/18 Nicotine [Nicotine Patch] 1 each TD DAILY 03/31/18 Oxycodone Myristate [Xtampza ER] 13.5 mg PO BID 03/31/18 Losartan Potassium [Cozaar] 25 mg PO DAILY #30 tab 04/01/18 Calcium Carbonate [Tums] 500 mg PO TIDCM #90 tab 04/25/18 Baclofen 10 mg PO BID 05/03/18 Furosemide [Lasix] 20 mg PO DAILY 05/03/18 Pregabalin [Lyrica] 150 mg PO BID 05/03/18 Rosuvastatin Calcium [Crestor] 40 mg PO DAILY 05/03/18 Mirtazapine [Remeron] 15 mg PO QHS #30 tab 05/04/18 Amox/Clavulanate Tablet [Augmentin Tablet] 875 mg PO BID #14 tablet 08/04/18 The following prescriptions were given: Amox/Clavulanate Tablet [Augmentin Tablet] 875 mg PO BID #14 tablet Primary Care Physician: Jacob Teixeira DO [Primary Care Provider] - Please follow up with your Primary Care Physician in: one week Test Results: Test results from this visit will be discussed in further detail at your follow- up appointment, if applicable. Please Follow Up With: Elie Orosco MD When: 2-3 weeks Proposed Discharge Date: 08/04/18
--- NOTE | 2018-08-04 11:47 | DS.PCM_ITS ---
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 No acute edge cranial pathology. Electronically Signed: Garrett Kent MD at 22:46 EDT , Service support , KUB X-Ray 07/29/18 21:01 IMPRESSION: Enteric tube tip in the proximal stomach. However, the side port is just above the GE junction. This should be advanced approximately 10 cm for improved positioning. Air-filled mildly dilated loops of small bowel in the left upper quadrant which may be due to ileus or obstruction. Electronically Signed: Jono Summers, at 21:48 EDT Tel , Service support , Abdomen/Pelvis CT 07/29/18 22:12 IMPRESSION: Mildly dilated loops of small bowel the upper abdomen which may be due to ileus or a low-grade obstruction. Enteric tube tip in the proximal stomach. This could be advanced 5-10 cm for improved positioning. Fatty liver. Electronically Signed: Jono Summers, at 23:30 EDT Tel , Service support , Chest X-Ray 08/02/18 05:55 IMPRESSION: Lines as above. There is more hazy parenchymal opacification in the right lung which is probably secondary to layering effusion and probable underlying airspace disease. Stable atelectasis versus early infiltrate left base. Electronically Signed: Magnolia Oseguera MD at 4:43 EDT , Service support , Laboratory Tests 07/29/18 07/29/18 07/29/18 19:55 20:00 20:00 WBC 6.6 RBC 1.97 L Hgb 6.2 L Hct 20.2 L MCV 102.5 H MCH 31.5 MCHC 30.7 L RDW 15.6 H RDW Differential 58.0 H Plt Count 165 MPV 8.5 Immature Gran % (Auto) 0.600 Neut % (Auto) 84.3 H Lymph % (Auto) 6.4 L [place] % (Auto) 8.2 Eos % (Auto) 0.3 Baso % (Auto) 0.2 Absolute Neuts (auto) 5.6 Absolute Lymphs (auto) 0.42 L Total Counted Not Reportable Differential Comment SEE COMMENT Platelet Estimate ADEQUATE Anisocytosis RARE Macrocytosis 1+ Specimen Type Sample Site pH Bicarbonate Actual POC Total CO2 Base Excess O2 Saturation O2 % ABG pCO2 ABG pO2 Dexter Test Respiration Rate O2 Delivery Device Minute Volume Vent Mode Tidal Volume POC PEEP POC Pressure Suppt Blood Gas Notified Whom Blood Gas Notified Time Sodium 150 H Potassium 2.4 L* Chloride 125 H Carbon Dioxide 14.0 L Anion Gap 11 BUN 9 Creatinine 1.14 H Estim Creat Clear Calc 49.38 Est GFR (MDRD) Af Amer 65 Est GFR (MDRD) Non-Af 54 L BUN/Creatinine Ratio 7.9 L Glucose 65 L Lactic Acid Calcium < 5.0 L* Phosphorus Magnesium Total Bilirubin 0.30 AST 14 L ALT 12 L Alkaline Phosphatase 87 Total Creatine Kinase Troponin I < 0.015 Total Protein 4.3 L Albumin 1.9 L Globulin 2.4 Albumin/Globulin Ratio 0.8 L Triglycerides Serum , Qual Urine Color Urine Clarity Urine pH Ur Specific [employer] Urine Protein Urine Glucose (UA) Urine Ketones Urine Occult Blood Urine Nitrite Urine Bilirubin Urine Urobilinogen Ur Leukocyte Esterase Urine RBC Urine WBC Ur Squamous Epith Cells Urine Bacteria Hyaline Casts Urine Mucus Salicylates Urine Opiates Screen Urine Methadone Screen Acetaminophen Ur Barbiturates Screen Ur Phencyclidine Scrn Ur Amphetamines Screen U Methamphetamin-MDMA U Benzodiazepines Scrn Urine Cocaine Screen U Cannabinoids Screen Ur Drug Screen Comment Ethyl Alcohol MRSA (PCR) POC Glucose 130 H 07/29/18 07/29/18 07/29/18 20:20 20:20 20:20 WBC RBC Hgb Hct MCV MCH MCHC RDW RDW Differential Plt Count MPV Immature Gran % (Auto) Neut % (Auto) Lymph % (Auto) [place] % (Auto) Eos % (Auto) Baso % (Auto) Absolute Neuts (auto) Absolute Lymphs (auto) Total Counted Differential Comment Platelet Estimate Anisocytosis Macrocytosis Specimen Type Sample Site pH Bicarbonate Actual POC Total CO2 Base Excess O2 Saturation O2 % ABG pCO2 ABG pO2 Dexter Test Respiration Rate O2 Delivery Device Minute Volume Vent Mode Tidal Volume POC PEEP POC Pressure Suppt Blood Gas Notified Whom Blood Gas Notified Time Sodium Potassium Chloride Carbon Dioxide Anion Gap BUN Creatinine Estim Creat Clear Calc Est GFR (MDRD) Af Amer Est GFR (MDRD) Non-Af BUN/Creatinine Ratio Glucose Lactic Acid Calcium Phosphorus Magnesium Total Bilirubin AST ALT Alkaline Phosphatase Total Creatine Kinase Troponin I Total Protein Albumin Globulin Albumin/Globulin Ratio Triglycerides Serum , Qual NEGATIVE Urine Color Urine Clarity Urine pH Ur Specific [employer] Urine Protein Urine Glucose (UA) Urine Ketones Urine Occult Blood Urine Nitrite Urine Bilirubin Urine Urobilinogen Ur Leukocyte Esterase Urine RBC Urine WBC Ur Squamous Epith Cells Urine Bacteria Hyaline Casts Urine Mucus Salicylates 2.4 L Urine Opiates Screen Urine Methadone Screen Acetaminophen < 2.0 L Ur Barbiturates Screen Ur Phencyclidine Scrn Ur Amphetamines Screen U Methamphetamin-MDMA U Benzodiazepines Scrn Urine Cocaine Screen U Cannabinoids Screen Ur Drug Screen Comment Ethyl Alcohol < 3.0 MRSA (PCR) POC Glucose 07/29/18 07/29/18 07/29/18 20:20 20:42 21:20 WBC 16.5 H RBC 4.50 Hgb 14.5 Hct 45.8 MCV 101.8 H MCH 32.2 H MCHC 31.7 L RDW 15.5 H RDW Differential 57.4 H Plt Count 364 MPV 9.1 Immature Gran % (Auto) 0.500 Neut % (Auto) 83.4 H Lymph % (Auto) 7.4 L [place] % (Auto) 8.3 Eos % (Auto) 0.1 Baso % (Auto) 0.5 Absolute Neuts (auto) 13.7 H Absolute Lymphs (auto) 1.22 Total Counted Not Reportable Differential Comment Platelet Estimate Anisocytosis Macrocytosis Specimen Type ART Sample Site L Radial pH 7.19 L* Bicarbonate Actual 18.8 L POC Total CO2 20 Base Excess -9 L O2 Saturation 83 L O2 % ABG pCO2 49.2 H ABG pO2 58 L Dexter Test NA Respiration Rate O2 Delivery Device Room Air Minute Volume Vent Mode Tidal Volume POC PEEP POC Pressure Suppt Blood Gas Notified Whom ED MD Blood Gas Notified Time Sodium Potassium Chloride Carbon Dioxide Anion Gap BUN Creatinine Estim Creat Clear Calc Est GFR (MDRD) Af Amer Est GFR (MDRD) Non-Af BUN/Creatinine Ratio Glucose Lactic Acid 1.4 Calcium Phosphorus Magnesium Total Bilirubin AST ALT Alkaline Phosphatase Total Creatine Kinase Troponin I Total Protein Albumin Globulin Albumin/Globulin Ratio Triglycerides Serum , Qual Urine Color Urine Clarity Urine pH Ur Specific [employer] Urine Protein Urine Glucose (UA) Urine Ketones Urine Occult Blood Urine Nitrite Urine Bilirubin Urine Urobilinogen Ur Leukocyte Esterase Urine RBC Urine WBC Ur Squamous Epith Cells Urine Bacteria Hyaline Casts Urine Mucus Salicylates Urine Opiates Screen Urine Methadone Screen Acetaminophen Ur Barbiturates Screen Ur Phencyclidine Scrn Ur Amphetamines Screen U Methamphetamin-MDMA U Benzodiazepines Scrn Urine Cocaine Screen U Cannabinoids Screen Ur Drug Screen Comment Ethyl Alcohol MRSA (PCR) POC Glucose 07/29/18 07/29/18 07/29/18 21:20 22:44 22:44 WBC RBC Hgb Hct MCV MCH MCHC RDW RDW Differential Plt Count MPV Immature Gran % (Auto) Neut % (Auto) Lymph % (Auto) [place] % (Auto) Eos % (Auto) Baso % (Auto) Absolute Neuts (auto) Absolute Lymphs (auto) Total Counted Differential Comment Platelet Estimate Anisocytosis Macrocytosis Specimen Type Sample Site pH Bicarbonate Actual POC Total CO2 Base Excess O2 Saturation O2 % ABG pCO2 ABG pO2 Dexter Test Respiration Rate O2 Delivery Device Minute Volume Vent Mode Tidal Volume POC PEEP POC Pressure Suppt Blood Gas Notified Whom Blood Gas Notified Time Sodium 142 Potassium 4.0 Chloride 110 H Carbon Dioxide 21.0 Anion Gap 11 BUN 14 Creatinine 2.11 H Estim Creat Clear Calc 26.68 Est GFR (MDRD) Af Amer 32 L Est GFR (MDRD) Non-Af 26 L BUN/Creatinine Ratio 6.6 L Glucose 97 Lactic Acid Calcium 7.5 L Phosphorus Magnesium Total Bilirubin 0.40 AST 24 ALT 22 Alkaline Phosphatase 154 H Total Creatine Kinase Troponin I Total Protein 7.3 Albumin 3.3 Globulin 4.0 Albumin/Globulin Ratio 0.8 L Triglycerides Serum , Qual Urine Color Yellow Urine Clarity Clear Urine pH 6.0 Ur Specific [employer] 1.015 Urine Protein 100 H Urine Glucose (UA) Normal Urine Ketones 15 H Urine Occult Blood 150 H Urine Nitrite Negative Urine Bilirubin Negative Urine Urobilinogen Normal Ur Leukocyte Esterase 25 H Urine RBC 0-5 SEEN Urine WBC 0-5 SEEN Ur Squamous Epith Cells 5-10 SEEN Urine Bacteria 1+ Hyaline Casts 0-5 SEEN Urine Mucus 1+ Salicylates Urine Opiates Screen NEGATIVE Urine Methadone Screen NEGATIVE Acetaminophen Ur Barbiturates Screen NEGATIVE Ur Phencyclidine Scrn NEGATIVE Ur Amphetamines Screen NEGATIVE U Methamphetamin-MDMA NEGATIVE U Benzodiazepines Scrn POSITIVE H Urine Cocaine Screen NEGATIVE U Cannabinoids Screen NEGATIVE Ur Drug Screen Comment Ethyl Alcohol MRSA (PCR) POC Glucose 07/29/18 07/30/18 07/30/18 23:33 02:13 04:30 WBC 12.4 H RBC 4.43 Hgb 14.7 Hct 45.0 MCV 101.6 H MCH 33.2 H MCHC 32.7 RDW 15.5 H RDW Differential 57.5 H Plt Count 355 MPV 9.2 Immature Gran % (Auto) Neut % (Auto) Lymph % (Auto) [place] % (Auto) Eos % (Auto) Baso % (Auto) Absolute Neuts (auto) Absolute Lymphs (auto) Total Counted Differential Comment Platelet Estimate Anisocytosis Macrocytosis Specimen Type ART Sample Site R Radial pH 7.27 L Bicarbonate Actual 17.8 L POC Total CO2 19 Base Excess -9 L O2 Saturation 94 L O2 % 30 ABG pCO2 38.6 ABG pO2 81 Dexter Test Respiration Rate 14 O2 Delivery Device Vent Minute Volume 6.00 Vent Mode A-C Tidal Volume 450 POC PEEP 5 POC Pressure Suppt Blood Gas Notified Whom HOSP Blood Gas Notified Time 207 Sodium Potassium Chloride Carbon Dioxide Anion Gap BUN Creatinine Estim Creat Clear Calc Est GFR (MDRD) Af Amer Est GFR (MDRD) Non-Af BUN/Creatinine Ratio Glucose Lactic Acid 1.0 Calcium Phosphorus Magnesium Total Bilirubin AST ALT Alkaline Phosphatase Total Creatine Kinase Troponin I Total Protein Albumin Globulin Albumin/Globulin Ratio Triglycerides Serum , Qual Urine Color Urine Clarity Urine pH Ur Specific [employer] Urine Protein Urine Glucose (UA) Urine Ketones Urine Occult Blood Urine Nitrite Urine Bilirubin Urine Urobilinogen Ur Leukocyte Esterase Urine RBC Urine WBC Ur Squamous Epith Cells Urine Bacteria Hyaline Casts Urine Mucus Salicylates Urine Opiates Screen Urine Methadone Screen Acetaminophen Ur Barbiturates Screen Ur Phencyclidine Scrn Ur Amphetamines Screen U Methamphetamin-MDMA U Benzodiazepines Scrn Urine Cocaine Screen U Cannabinoids Screen Ur Drug Screen Comment Ethyl Alcohol MRSA (PCR) POC Glucose 07/30/18 07/30/18 07/30/18 04:30 04:30 05:25 WBC RBC Hgb Hct MCV MCH MCHC RDW RDW Differential Plt Count MPV Immature Gran % (Auto) Neut % (Auto) Lymph % (Auto) [place] % (Auto) Eos % (Auto) Baso % (Auto) Absolute Neuts (auto) Absolute Lymphs (auto) Total Counted Differential Comment Platelet Estimate Anisocytosis Macrocytosis Specimen Type Sample Site pH Bicarbonate Actual POC Total CO2 Base Excess O2 Saturation O2 % ABG pCO2 ABG pO2 Dexter Test Respiration Rate O2 Delivery Device Minute Volume Vent Mode Tidal Volume POC PEEP POC Pressure Suppt Blood Gas Notified Whom Blood Gas Notified Time Sodium Cancelled 145 Potassium Cancelled 4.0 Chloride Cancelled 113 H Carbon Dioxide Cancelled 19.0 L Anion Gap Cancelled 13 BUN Cancelled 15 Creatinine Cancelled 1.56 H Estim Creat Clear Calc Cancelled 34.50 Est GFR (MDRD) Af Amer Cancelled 45 L Est GFR (MDRD) Non-Af Cancelled 37 L BUN/Creatinine Ratio Cancelled 9.6 L Glucose Cancelled 60 L Lactic Acid Calcium Cancelled 7.7 L Phosphorus Magnesium Total Bilirubin AST ALT Alkaline Phosphatase Total Creatine Kinase Cancelled 82 Troponin I Total Protein Albumin Globulin Albumin/Globulin Ratio Triglycerides Cancelled 160 Serum , Qual Urine Color Urine Clarity Urine pH Ur Specific [employer] Urine Protein Urine Glucose (UA) Urine Ketones Urine Occult Blood Urine Nitrite Urine Bilirubin Urine Urobilinogen Ur Leukocyte Esterase Urine RBC Urine WBC Ur Squamous Epith Cells Urine Bacteria Hyaline Casts Urine Mucus Salicylates Urine Opiates Screen Urine Methadone Screen Acetaminophen Ur Barbiturates Screen Ur Phencyclidine Scrn Ur Amphetamines Screen U Methamphetamin-MDMA U Benzodiazepines Scrn Urine Cocaine Screen U Cannabinoids Screen Ur Drug Screen Comment Ethyl Alcohol MRSA (PCR) POC Glucose 07/30/18 07/31/18 07/31/18 20:03 04:20 04:20 WBC 15.6 H RBC 3.80 L Hgb 12.0 Hct 38.6 MCV 101.6 H MCH 31.6 MCHC 31.1 L RDW 15.0 H RDW Differential 55.2 H Plt Count 248 MPV 9.5 Immature Gran % (Auto) 0.300 Neut % (Auto) 83.7 H Lymph % (Auto) 6.2 L [place] % (Auto) 9.4 Eos % (Auto) 0.3 Baso % (Auto) 0.1 Absolute Neuts (auto) 13.0 H Absolute Lymphs (auto) 0.97 Total Counted Not Reportable Differential Comment Platelet Estimate Anisocytosis Macrocytosis Specimen Type Sample Site pH Bicarbonate Actual POC Total CO2 Base Excess O2 Saturation O2 % ABG pCO2 ABG pO2 Dexter Test Respiration Rate O2 Delivery Device Minute Volume Vent Mode Tidal Volume POC PEEP POC Pressure Suppt Blood Gas Notified Whom Blood Gas Notified Time Sodium 148 H Potassium 3.4 L Chloride 115 H Carbon Dioxide 21.0 Anion Gap 12 BUN 20 H Creatinine 0.94 Estim Creat Clear Calc 59.89 Est GFR (MDRD) Af Amer 81 Est GFR (MDRD) Non-Af 67 BUN/Creatinine Ratio 21.2 H Glucose 144 H Lactic Acid Calcium 7.6 L Phosphorus Magnesium Total Bilirubin AST ALT Alkaline Phosphatase Total Creatine Kinase Troponin I Total Protein Albumin Globulin Albumin/Globulin Ratio Triglycerides Serum , Qual Urine Color Urine Clarity Urine pH Ur Specific [employer] Urine Protein Urine Glucose (UA) Urine Ketones Urine Occult Blood Urine Nitrite Urine Bilirubin Urine Urobilinogen Ur Leukocyte Esterase Urine RBC Urine WBC Ur Squamous Epith Cells Urine Bacteria Hyaline Casts Urine Mucus Salicylates Urine Opiates Screen Urine Methadone Screen Acetaminophen Ur Barbiturates Screen Ur Phencyclidine Scrn Ur Amphetamines Screen U Methamphetamin-MDMA U Benzodiazepines Scrn Urine Cocaine Screen U Cannabinoids Screen Ur Drug Screen Comment Ethyl Alcohol MRSA (PCR) POC Glucose 117 H 07/31/18 07/31/18 08/01/18 04:20 21:17 04:08 WBC 15.4 H RBC 3.52 L Hgb 11.1 L Hct 35.4 L MCV 100.6 H MCH 31.5 MCHC 31.4 L RDW 15.4 H RDW Differential 56.4 H Plt Count 192 MPV 9.4 Immature Gran % (Auto) 0.200 Neut % (Auto) 83.3 H Lymph % (Auto) 7.6 L [place] % (Auto) 8.3 Eos % (Auto) 0.5 Baso % (Auto) 0.1 Absolute Neuts (auto) 12.9 H Absolute Lymphs (auto) 1.17 Total Counted Not Reportable Differential Comment SCANNED Platelet Estimate Anisocytosis Macrocytosis Specimen Type Sample Site pH Bicarbonate Actual POC Total CO2 Base Excess O2 Saturation O2 % ABG pCO2 ABG pO2 Dexter Test Respiration Rate O2 Delivery Device Minute Volume Vent Mode Tidal Volume POC PEEP POC Pressure Suppt Blood Gas Notified Whom Blood Gas Notified Time Sodium Potassium Chloride Carbon Dioxide Anion Gap BUN Creatinine Estim Creat Clear Calc Est GFR (MDRD) Af Amer Est GFR (MDRD) Non-Af BUN/Creatinine Ratio Glucose Lactic Acid Calcium Phosphorus Magnesium Total Bilirubin AST ALT Alkaline Phosphatase Total Creatine Kinase 128 Troponin I Total Protein Albumin Globulin Albumin/Globulin Ratio Triglycerides 226 H Serum , Qual Urine Color Urine Clarity Urine pH Ur Specific [employer] Urine Protein Urine Glucose (UA) Urine Ketones Urine Occult Blood Urine Nitrite Urine Bilirubin Urine Urobilinogen Ur Leukocyte Esterase Urine RBC Urine WBC Ur Squamous Epith Cells Urine Bacteria Hyaline Casts Urine Mucus Salicylates Urine Opiates Screen Urine Methadone Screen Acetaminophen Ur Barbiturates Screen Ur Phencyclidine Scrn Ur Amphetamines Screen U Methamphetamin-MDMA U Benzodiazepines Scrn Urine Cocaine Screen U Cannabinoids Screen Ur Drug Screen Comment Ethyl Alcohol MRSA (PCR) POC Glucose 103 08/01/18 08/01/18 08/01/18 04:08 06:15 06:16 WBC RBC Hgb Hct MCV MCH MCHC RDW RDW Differential Plt Count MPV Immature Gran % (Auto) Neut % (Auto) Lymph % (Auto) [place] % (Auto) Eos % (Auto) Baso % (Auto) Absolute Neuts (auto) Absolute Lymphs (auto) Total Counted Differential Comment Platelet Estimate Anisocytosis Macrocytosis Specimen Type Sample Site pH Bicarbonate Actual POC Total CO2 Base Excess O2 Saturation O2 % ABG pCO2 ABG pO2 Dexter Test Respiration Rate O2 Delivery Device Minute Volume Vent Mode Tidal Volume POC PEEP POC Pressure Suppt Blood Gas Notified Whom Blood Gas Notified Time Sodium 146 H Potassium 3.3 L Chloride 112 H Carbon Dioxide 25.0 Anion Gap 9 BUN 10 Creatinine 0.66 Estim Creat Clear Calc 85.29 Est GFR (MDRD) Af Amer 122 Est GFR (MDRD) Non-Af 100 BUN/Creatinine Ratio 15.1 Glucose 99 Lactic Acid Calcium 8.1 L Phosphorus Magnesium Total Bilirubin AST ALT Alkaline Phosphatase Total Creatine Kinase Troponin I Total Protein Albumin Globulin Albumin/Globulin Ratio Triglycerides Serum , Qual Urine Color Urine Clarity Urine pH Ur Specific [employer] Urine Protein Urine Glucose (UA) Urine Ketones Urine Occult Blood Urine Nitrite Urine Bilirubin Urine Urobilinogen Ur Leukocyte Esterase Urine RBC Urine WBC Ur Squamous Epith Cells Urine Bacteria Hyaline Casts Urine Mucus Salicylates Urine Opiates Screen Urine Methadone Screen Acetaminophen Ur Barbiturates Screen Ur Phencyclidine Scrn Ur Amphetamines Screen U Methamphetamin-MDMA U Benzodiazepines Scrn Urine Cocaine Screen U Cannabinoids Screen Ur Drug Screen Comment Ethyl Alcohol MRSA (PCR) Negative POC Glucose 119 H 08/02/18 08/02/18 08/03/18 05:00 05:00 04:10 WBC 8.8 6.4 RBC 3.32 L 3.39 L Hgb 10.4 L 10.9 L Hct 33.4 L 34.1 L MCV 100.6 H 100.6 H MCH 31.3 32.2 H MCHC 31.1 L 32.0 RDW 15.8 H 15.6 H RDW Differential 57.6 H 55.9 H Plt Count 176 215 MPV 9.8 10.0 Immature Gran % (Auto) 0.100 0.600 Neut % (Auto) 76.3 H 61.7 Lymph % (Auto) 10.7 L 16.5 L [place] % (Auto) 11.7 H 18.6 H Eos % (Auto) 1.1 2.4 Baso % (Auto) 0.1 0.2 Absolute Neuts (auto) 6.7 3.9 Absolute Lymphs (auto) 0.94 1.05 Total Counted Not Reportable Not Reportable Differential Comment Platelet Estimate Anisocytosis Macrocytosis Specimen Type Sample Site pH Bicarbonate Actual POC Total CO2 Base Excess O2 Saturation O2 % ABG pCO2 ABG pO2 Dexter Test Respiration Rate O2 Delivery Device Minute Volume Vent Mode Tidal Volume POC PEEP POC Pressure Suppt Blood Gas Notified Whom Blood Gas Notified Time Sodium 147 H Potassium 3.6 Chloride 112 H Carbon Dioxide 26.0 Anion Gap 9 BUN 9 Creatinine 0.51 L Estim Creat Clear Calc 110.38 Est GFR (MDRD) Af Amer 164 Est GFR (MDRD) Non-Af 136 BUN/Creatinine Ratio 17.6 Glucose 82 Lactic Acid Calcium 8.4 L Phosphorus Magnesium Total Bilirubin AST ALT Alkaline Phosphatase Total Creatine Kinase Troponin I Total Protein Albumin Globulin Albumin/Globulin Ratio Triglycerides Serum , Qual Urine Color Urine Clarity Urine pH Ur Specific [employer] Urine Protein Urine Glucose (UA) Urine Ketones Urine Occult Blood Urine Nitrite Urine Bilirubin Urine Urobilinogen Ur Leukocyte Esterase Urine RBC Urine WBC Ur Squamous Epith Cells Urine Bacteria Hyaline Casts Urine Mucus Salicylates Urine Opiates Screen Urine Methadone Screen Acetaminophen Ur Barbiturates Screen Ur Phencyclidine Scrn Ur Amphetamines Screen U Methamphetamin-MDMA U Benzodiazepines Scrn Urine Cocaine Screen U Cannabinoids Screen Ur Drug Screen Comment Ethyl Alcohol MRSA (PCR) POC Glucose 08/03/18 08/03/18 08/04/18 04:10 06:04 08:20 WBC 7.1 RBC 3.92 L Hgb 12.5 Hct 38.9 MCV 99.2 H MCH 31.9 MCHC 32.1 RDW 15.6 H RDW Differential 56.6 H Plt Count 267 MPV 9.7 Immature Gran % (Auto) 0.600 Neut % (Auto) 66.2 Lymph % (Auto) 14.5 L [place] % (Auto) 17.0 H Eos % (Auto) 1.4 Baso % (Auto) 0.3 Absolute Neuts (auto) 4.7 Absolute Lymphs (auto) 1.03 Total Counted Not Reportable Differential Comment Platelet Estimate Anisocytosis Macrocytosis Specimen Type ART Sample Site L Radial pH 7.47 H Bicarbonate Actual 28.4 H POC Total CO2 30 Base Excess 5 H O2 Saturation 93 L O2 % 30 ABG pCO2 39.4 ABG pO2 62 L Dexter Test POS Respiration Rate O2 Delivery Device Vent Minute Volume Vent Mode CPAP PS Tidal Volume POC PEEP 5 POC Pressure Suppt 5 Blood Gas Notified Whom ICU Blood Gas Notified Time 558 Sodium 146 H Potassium 4.3 Chloride 109 H Carbon Dioxide 29.0 Anion Gap 8 BUN 8 Creatinine 0.52 L Estim Creat Clear Calc 108.26 Est GFR (MDRD) Af Amer 162 Est GFR (MDRD) Non-Af 134 BUN/Creatinine Ratio 15.5 Glucose 92 Lactic Acid Calcium 9.5 Phosphorus 4.0 Magnesium 2.0 Total Bilirubin AST ALT Alkaline Phosphatase Total Creatine Kinase Troponin I Total Protein Albumin Globulin Albumin/Globulin Ratio Triglycerides Serum , Qual Urine Color Urine Clarity Urine pH Ur Specific [employer] Urine Protein Urine Glucose (UA) Urine Ketones Urine Occult Blood Urine Nitrite Urine Bilirubin Urine Urobilinogen Ur Leukocyte Esterase Urine RBC Urine WBC Ur Squamous Epith Cells Urine Bacteria Hyaline Casts Urine Mucus Salicylates Urine Opiates Screen Urine Methadone Screen Acetaminophen Ur Barbiturates Screen Ur Phencyclidine Scrn Ur Amphetamines Screen U Methamphetamin-MDMA U Benzodiazepines Scrn Urine Cocaine Screen U Cannabinoids Screen Ur Drug Screen Comment Ethyl Alcohol MRSA (PCR) POC Glucose 08/04/18 08:20 WBC RBC Hgb Hct MCV MCH MCHC RDW RDW Differential Plt Count MPV Immature Gran % (Auto) Neut % (Auto) Lymph % (Auto) [place] % (Auto) Eos % (Auto) Baso % (Auto) Absolute Neuts (auto) Absolute Lymphs (auto) Total Counted Differential Comment Platelet Estimate Anisocytosis Macrocytosis Specimen Type Sample Site pH Bicarbonate Actual POC Total CO2 Base Excess O2 Saturation O2 % ABG pCO2 ABG pO2 Dexter Test Respiration Rate O2 Delivery Device Minute Volume Vent Mode Tidal Volume POC PEEP POC Pressure Suppt Blood Gas Notified Whom Blood Gas Notified Time Sodium 140 Potassium 4.1 Chloride 106 Carbon Dioxide 25.0 Anion Gap 9 BUN 7 Creatinine 0.53 L Estim Creat Clear Calc 106.21 Est GFR (MDRD) Af Amer 156 Est GFR (MDRD) Non-Af 129 BUN/Creatinine Ratio 13.2 Glucose 106 Lactic Acid Calcium 10.1 Phosphorus Magnesium Total Bilirubin AST ALT Alkaline Phosphatase Total Creatine Kinase Troponin I Total Protein Albumin Globulin Albumin/Globulin Ratio Triglycerides Serum , Qual Urine Color Urine Clarity Urine pH Ur Specific [employer] Urine Protein Urine Glucose (UA) Urine Ketones Urine Occult Blood Urine Nitrite Urine Bilirubin Urine Urobilinogen Ur Leukocyte Esterase Urine RBC Urine WBC Ur Squamous Epith Cells Urine Bacteria Hyaline Casts Urine Mucus Salicylates Urine Opiates Screen Urine Methadone Screen Acetaminophen Ur Barbiturates Screen Ur Phencyclidine Scrn Ur Amphetamines Screen U Methamphetamin-MDMA U Benzodiazepines Scrn Urine Cocaine Screen U Cannabinoids Screen Ur Drug Screen Comment Ethyl Alcohol MRSA (PCR) POC Glucose critical care- Dr Orosco Operations: None, - - splint right leg. Procedures: None Summary of Care Provided: The patient is a 47 year old F with a history of hyperlipidemia, rheumatoid arthritis, fibromyalgia, chronic low back pain and hypertension. She was admitted via the ED on 07/30/18 wafter being found by her in an unresponsive state. She was brought to the ED and was intubated o/a of GCS of 9. She had been confused about which meds she had been taking, and there was a concern that she may have taken more than she was prescribed. He was admitted and managed for acute metabolic encephalopathy likely due to drug overdose from baclofen and DYAN as well as metabolic acidosis and acute hypoxic and hypercapnic respiratory failure due to baclofen overdose.. 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 Subsequently developed severe sepsis which was thought to be due to pneumonia and was started on IV Rocephin and azithromycin empirically. Chest x- ray showed right lower lobe infiltrate which was switched to Zosyn on account of suspicion for aspiration pneumonia. Sputum culture showed 3+ gram-positive cocci in clusters-Moraxella. Patient improved and was successfully extubated. Antibiotics were switched to p.o. Augmentin and she was transferred out of the ICU to the PCU. Patient remained stable and was saturating well on room air after being transitioned off of oxygen.. She was discharged home on 08/04/2018 with a 7-day course of p.o. Augmentin. Walking pulse ox was 93% on room air. She is to follow up with her PCP and icebox man. Patient seen and examined prior to discharge. She had no complaints and felt well. She denied any fever, chills, cough, chest pain, SOB, abdominal pain, diarrhea or vomiting. 12 point review of systems was otherwise negative. Labs and vitals reviewed. o/e:' [] General: Alert, Cooperative,alert and oriented HEENT: Atraumatic, PERRLA, EOMI, Normocephalic Oral: Dry Mucosa Neck: Supple, No JVD, Negative Carotid Bruits Lungs: Diminished, no wheezes or rhonchi or crackles Cardiovascular: Regular rate, Regular Rhythm, Normal S1, Normal S2, No murmurs Abdomen: Bowel Sounds Present, Soft, Non Tender Extremities: No edema, Capillary Refill Less than 3 Seconds Skin: No rashes, No breakdown Musculoskeletal: No Tenderness to Palpation of Joints or Extremities Neurological: Cranial nerves II-XII grossly intact Psych/Mental Status: Normal Affect, Appropriate Plan as stated above. She is to follow up with PCP and icebox man. Discharge Diet: Low fat/ Low Cholesterol Discharge Activity: Return to Normal Activity Weight Bearing Status: Weight bearing as tolerated Call your doctor if you observe: Fever of 101 or Higher, Shortness of breath, - - altered mental status Home Medications: Medications to take at Discharge Venlafaxine XR [Effexor Xr] 225 mg PO DAILY 01/08/14 Abatacept [Orencia Clickject] 125 mg SQ MO 11/12/16 Mirtazapine [Remeron Orally Disintegrating] 45 mg PO QHS 11/12/16 Albuterol Inhaler [Ventolin Hfa] 2 puff INHALATION Q4H PRN PRN 03/31/18 Aspirin 81 mg PO DAILY 03/31/18 Atorvastatin Calcium [Lipitor] 80 mg PO QHS 03/31/18 Esomeprazole Mag Trihydrate [Nexium] 40 mg PO DAILY 03/31/18 Estradiol [Estrace Vaginal Cream] 1 dose VAGINAL DAILY 03/31/18 Ferrous Sulfate [Iron] 1 tablet PO DAILY 03/31/18 Folic Acid 2 mg PO DAILY@0800 03/31/18 Methotrexate 20 mg PO MO 03/31/18 Metoprolol Tartrate [Lopressor (beta fan)] 12.5 mg PO DAILY 03/31/18 Nicotine [Nicotine Patch] 1 each TD DAILY 03/31/18 Oxycodone Myristate [Xtampza ER] 13.5 mg PO BID 03/31/18 Losartan Potassium [Cozaar] 25 mg PO DAILY #30 tab 04/01/18 Calcium Carbonate [Tums] 500 mg PO TIDCM #90 tab 04/25/18 Baclofen 10 mg PO BID 05/03/18 Furosemide [Lasix] 20 mg PO DAILY 05/03/18 Pregabalin [Lyrica] 150 mg PO BID 05/03/18 Rosuvastatin Calcium [Crestor] 40 mg PO DAILY 05/03/18 Mirtazapine [Remeron] 15 mg PO QHS #30 tab 05/04/18 Amox/Clavulanate Tablet [Augmentin Tablet] 875 mg PO BID #14 tablet 08/04/18 Following Prescrptions Were Given to Patient: Amox/Clavulanate Tablet [Augmentin Tablet] 875 mg PO BID #14 tablet Primary Care Physician: Jacob Teixeira DO [Primary Care Provider] - Please follow up with your Primary Care Physician in: one week Please Follow Up With: Elie Orosco MD When: 2-3 weeks Patient Instructions: ED Altered Loc, ED Confusion Disposition: Home Minutes spent on discharge:: 40 Patient Condition:: Stable Medical Necessity - Tobacco Use Smoking Status: Current every day smoker Meaningful Use Info Meaningful Use Diagnoses (Choose all that apply): None applicable Code Visit Inpatient E&M: 50143 Disch Hosp
[2018-08-04] MEDS: Amox/Clavulanate 875 MG Tablet PO (12:27)
== END 2018-08-04 13:00 | disposition home or self-care (01) | DRG 917 ==
LOC: ED 23:03 → ICU 07-30 00:21 → PCU 08-04 03:47
PROVIDERS: Internal Medicine; Internal Medicine Critical Care Medicine; Admitting Provider Family Medicine; Emergency Provider Emergency Medicine; Family Provider Student in an Organized Health Care Education/Training Program; PCP Student in an Organized Health Care Education/Training Program; Visit Provider Student in an Organized Health Care Education/Training Program
DX: T42.8X1A Poisoning by antiparkinsonism drugs and other central muscle-tone depressants, accidental (unintentional), initial encounter (principal); J96.01 Acute respiratory failure with hypoxia; J96.02 Acute respiratory failure with hypercapnia; A41.9 Sepsis, unspecified organism; R65.20 Severe sepsis without septic shock; J69.0 Pneumonitis due to inhalation of food and vomit; G92 Toxic encephalopathy; E87.2 Acidosis; N17.9 Acute kidney failure, unspecified; R40.2422 Glasgow coma scale score 9-12, at arrival to emergency department; M79.7 Fibromyalgia; M06.9 Rheumatoid arthritis, unspecified; Z79.899 Other long term (current) drug therapy; D64.9 Anemia, unspecified; I10 Essential (primary) hypertension; E78.5 Hyperlipidemia, unspecified; M54.5 Low back pain; G89.29 Other chronic pain; F17.200 Nicotine dependence, unspecified, uncomplicated
CPT/HCPCS: 31500; 31720; 36415; 36600; 51702; 70450; 71045; 74018; 74176; 80048; 80053; 80307; 80320; 80329; 81001; 82550; 82803; 82962; 83605; 83735; 84100; 84478; 84484; 84703; 85025; 85027; 87040; 87070; 87077; 87205; 87641; 92526; 93005; 94002; 94003; 94640; 94660; 94770; 95831; 97110; 97116; 97162; 97165; 97802; 99251; 99285; J7030; J7040; J7050; A4216; G0463; G0480

== ENCOUNTER → 2018-08-06 09:30 | Outpatient (CLI) | payer OTHER, SELFPAY ==
[2018-08-06 12:25] LABS: ALB/GLOB Ratio 0.6 RATIO (0.9-2.4); AST(SGOT) 24 U/L (15-37); Alanine Aminotransfer ALT/SGPT 34 U/L (13-56); Alkaline Phosphatase 200 U/L (45-117); Anion Gap 14 (5-15); BUN 8 mg/dL (7-18); BUN/Creat Ratio 11.5 RATIO (10-20); Calcium,Total 9.9 mg/dL (8.5-10.1); Chloride 102 mmol/L (98-107); Creatinine, Serum 0.69 mg/dL (0.55-1.02); EST Glomerular Filtration Rate 95 mL/min (>60); Est Glom Filt Rate - Afr Amer 115 mL/min (>60); Globulin 5.2 g/dL (2.2-4.2); Glucose 87 mg/dL (74-106); Potassium 3.6 mmol/L (3.5-5.1); Protein, Total 8.2 g/dL (6.4-8.2); Sodium Level 138 mmol/L (136-145)
[2018-08-06 12:29] LABS: Absolute Neutrophil Count 5.9 X10^3/uL (2.0-7.7); Basophil# 0.02 X10^3/uL; Basophil% 0.2 % (0-1); Eosinophil# 0.19 X10^3/uL; Eosinophils% 1.8 % (0-5); Lymphocyte % 19.4 % (19-41); Mean Corp Hgb Conc 31.8 g/gl (32-36); Mean Corpuscular Hgb 31.7 pg (27.0-32.0); Mean Corpuscular Volume 99.5 fL (81-99); Mean Platelet Vol. 9.7 fl (6.2-12.0); Monocyte# 1.89 X10^3/uL; Monocyte% 18.3 % (0-10); Neutrophil # 5.94 X10^3/uL (2.7-7.7); Neutrophil % 57.6 % (47-70); Platelet Count 400 K/mm3 (150-450); RBC Distribution Width CV 15.3 % (11.6-14.6); RBC Distribution Width SD 55.7 fl (35.1-43.9); Red Blood Count 4.42 M/mm3 (4.2-5.4); White Blood Count 10.3 K/mm3 (4.4-11.0)
[2018-08-06 12:30] LABS: Differential Indicated SCAN CRITERIA MET; POSITIVE COUNT NO; POSITIVE DIFFERENTIAL YES; POSITIVE MORPHOLOGY YES
[2018-08-07 13:16] LABS: Pathologist Review Reviewed
== END ==
PROVIDERS: Family Provider Student in an Organized Health Care Education/Training Program; PCP Student in an Organized Health Care Education/Training Program; Referring Provider Internal Medicine Rheumatology; Visit Provider Internal Medicine Rheumatology
DX: M06.09 Rheumatoid arthritis without rheumatoid factor, multiple sites (principal); M79.7 Fibromyalgia; J45.909 Unspecified asthma, uncomplicated; I25.2 Old myocardial infarction; E11.9 Type 2 diabetes mellitus without complications; M77.00 Medial epicondylitis, unspecified elbow; Z79.899 Other long term (current) drug therapy
CPT/HCPCS: 36415; 80053; 85025

== ENCOUNTER 2018-08-08 13:11 | Emergency (ER) | payer OTHER, SELFPAY ==
[2018-08-08] VITALS (9 sets, daily range): BP systolic 71–148; BP diastolic 52–91; PULSE 101–120; RESP 16–20; TEMP 36.6; O2SAT 85–100; BMI 28.3
--- NOTE | 2018-08-08 13:28 | ED.DCSUM_ITS ---
- ER Visit Summary Date of Service: 08/08/18 Chief Complaint: Low blood pressure History of Present Illness: The patient is a 47 F who was recently admitted with respiratory failure thought to be secondary to medication overdose presents to the emergency department with low blood pressure. The patient was just released from the hospital about 5 days ago. She does have a history of hypertension. She states that since being home, she is actually been feeling well. She went to her PCP for a follow-up today. Her blood pressure on a blood pressure monitor read as 59/40. She was asymptomatic. She denies lightheadedness, dizziness, nausea, or vomiting. She states she did not take her blood pressure medic yesterday, her blood pressure was 1 over which is her normal level. She denies fevers or chills. She denies dyspnea. Physical Examination: Vital signs reviewed General: Well-nourished, well-developed Head: Normocephalic, atraumatic Eyes: Pupils equal and reactive, extraocular muscles intact Neck, supple, no lymphadenopathy Heart: Regular rate and rhythm Respiratory: No distress, clear bilaterally Abdomen: Soft, nontender, nondistended, no peritoneal signs Back: Nontender Extremities: Nontender, no edema, no cords Skin: Normal color no rash Neuro: Alert and oriented, no focal or lateralizing deficits Test Results: [] Emergency Department Course and Treatment: The patient's blood pressure was initially normal. However, she does have some borderline hypertension in the room. I did obtain screening labs and she was given fluids. Lab work does show evidence of acute kidney injury with hyponatremia, hypokalemia, and hypochloremia. Patient had not stopped her blood pressure medications on discharge. She is still taking her Lasix. I do feel that this is likely prerenal especially given her illness. There is some suspicion for adrenal insufficiency given her critical illness. I do want to admit the patient for hydration, blood pressure monitoring, and. Reevaluation of her electrolytes. The patient has refused this. She states that she wants to attempt outpatient therapy. She is aggressively hydrated. She is not on oxygen. Her x-ray was unremarkable. I am going to have the patient hold her antihypertensives until she can follow-up with her primary care. She is going to need repeat BMP likely tomorrow. The patient will not stay in the hospital. I do want her reeva luated within 24 hours. I did tell her if she cannot get in with her primary care to return to the emergency department. She is comfortable with this. Treatment Plan: [] Disposition: Discharge Impression: 1. Hypotension 2. Acute kidney injury This note was generated with [employer] dictation software. It may contain incorrect words, spelling, and punctuation that were not noted in review of the chart prior to signing ED Disposition - Plan for ED Patient: Chief Complaint: Hypotension Instructions: ED Hypotension All Causes Referrals: Jacob Teixeira DO [Primary Care Provider] - Additional Instructions: Do not take your blood pressure medications until you follow-up with Dr. Teixeira. Continue oral hydration. If your symptoms worsen at any time, please return immediately to the emergency department.
[2018-08-08] MEDS: 0.9% Normal Saline 1,000 ML 1000 ML IV (13:49)
[2018-08-08] MEDS: Ondansetron 4 MG/2 ML Vial IV (13:49)
[2018-08-08 13:57] LABS: Absolute Lymphocyte Count 1.67 X10^3/ul (0.83-4.51); Absolute Neutrophil Count 8.7 X10^3/uL (2.0-7.7); Basophil# 0.02 X10^3/uL; Basophil% 0.2 % (0-1); Eosinophil# 0.18 X10^3/uL; Eosinophils% 1.4 % (0-5); Hemoglobin 12.4 g/dl (12.0-15.0); Lymphocyte # 1.67 X10^3/ul (4.0); Mean Corp Hgb Conc 32.6 g/gl (32-36); Mean Corpuscular Hgb 31.3 pg (27.0-32.0); Mean Platelet Vol. 8.7 fl (6.2-12.0); Monocyte# 2.15 X10^3/uL; Monocyte% 16.7 % (0-10); Neutrophil # 8.72 X10^3/uL (2.7-7.7); Neutrophil % 67.8 % (47-70); Platelet Count 536 K/mm3 (150-450); RBC Distribution Width CV 14.7 % (11.6-14.6); RBC Distribution Width SD 51.7 fl (35.1-43.9); Red Blood Count 3.96 M/mm3 (4.2-5.4); White Blood Count 12.9 K/mm3 (4.4-11.0)
[2018-08-08 14:00] LABS: Differential Indicated SCAN CRITERIA MET; POSITIVE COUNT NO; POSITIVE DIFFERENTIAL YES; POSITIVE MORPHOLOGY YES
[2018-08-08 14:05] LABS: Anion Gap 12 (5-15); BUN 13 mg/dL (7-18); BUN/Creat Ratio 5.8 RATIO (10-20); Calcium,Total 8.8 mg/dL (8.5-10.1); Chloride 89 mmol/L (98-107); Creatinine, Serum 2.24 mg/dL (0.55-1.02); EST Glomerular Filtration Rate 25 mL/min (>60); Est Glom Filt Rate - Afr Amer 30 mL/min (>60); Estimated Creatinine Clearance 25.13 ml/min; Glucose 113 mg/dL (74-106); Potassium 3.2 mmol/L (3.5-5.1); Sodium Level 126 mmol/L (136-145)
[2018-08-08 14:17] LABS: Platelet Estimate MOD INC (ADEQ)
[2018-08-08 14:18] LABS: Platelet Morphology LARGE
[2018-08-08] MEDS: 0.9% Normal Saline 1,000 ML 999 ML IV (15:00)
--- NOTE | 2018-08-08 15:21 | RAD_ITS ---
STUDY: X-RAY CHEST REASON FOR EXAM: Female, 47 years old. Cough, recent pneumonia. TECHNIQUE: PA and lateral chest COMPARISON: 08/02/2018 FINDINGS: Minimal blunting of the right costophrenic angle, appears to represent atelectasis in the lateral view, rather than effusion. The lungs are otherwise clear and the infiltrates seen on prior imaging or resolved. Normal cardiomediastinal silhouette, audrey and pleural margins. No acute osseous or upper abdominal process. RAD/Chest PA and Lateral IMPRESSION: Minimal residual atelectasis the right lung base. Electronically Signed: Michael Spear, at 16:30 EDT Tel , Service support ,
[2018-08-08] MEDS: Ipratropium/Albuterol Sulfate 3 ML AMPUL.NEB INHALATION (15:39)
--- NOTE | 2018-08-08 16:27 | VDLE_ITS ---
Reason For Study: SOB RIGHT LEFT GSV is normal. GSV is normal. CFV is compressible, spontaneous, phasic, CFV is compressible, spontaneous, phasic, competent and demonstrates normal competent, and demonstrates normal augmentation. augmentation. FV is compressible, spontaneous, phasic, FV is compressible, spontaneous, phasic, competent and demonstrates normal competent and demonstrates normal augmentation. augmentation. POP V is compressible, spontaneous, phasic, POP V is compressible, spontaneous, phasic, competent and demonstrates normal competent and demonstrates normal augmentation. augmentation. T/P Trunk is compressible. T/P Trunk is compressible. PTV is compressible. PTV is compressible. RT PerV is compressible. LT PerV is compressible. Procedure Exam performed portable in ED. A preliminary report was called and/or faxed to ED. Interpretation Summary Deep veins of the lower extremities are bilaterally patent and compressible segmentally. There is no evidence of deep vein thrombosis on either side. Valvular competence appears intact within the proximal deep venous systems bilaterally. The greater saphenous veins appear bilaterally patent and compressible segmentally. Ordering Physician: Padmini Neumann Referring Physician: Jacob Teixeira Performed By: Lori Hager, JEFF, RVT
== END 2018-08-08 18:18 | disposition left against medical advice (07) ==
PROVIDERS: Emergency Medicine; Emergency Provider Emergency Medicine; Family Provider Student in an Organized Health Care Education/Training Program; PCP Student in an Organized Health Care Education/Training Program
DX: I95.2 Hypotension due to drugs (principal); N17.9 Acute kidney failure, unspecified; Z72.0 Tobacco use; I10 Essential (primary) hypertension; E78.00 Pure hypercholesterolemia, unspecified; E86.0 Dehydration; Z79.899 Other long term (current) drug therapy; Z79.82 Long term (current) use of aspirin
CPT/HCPCS: 71046; 80048; 85025; 93970; 94640; 96361; 96374; 99285; J7030; A4216; J2405

== ENCOUNTER → 2018-09-11 15:03 | Outpatient (CLI) | payer OTHER, SELFPAY ==
[2018-09-11 16:46] LABS: Alcohol, Blood (Medical)-Serum < 3.0 mg/dL
== END ==
PROVIDERS: Family Provider Student in an Organized Health Care Education/Training Program; PCP Student in an Organized Health Care Education/Training Program; Referring Provider Anesthesiology Pain Medicine; Visit Provider Anesthesiology Pain Medicine
DX: F11.20 Opioid dependence, uncomplicated (principal)
CPT/HCPCS: 36415; 80320; G0480

== ENCOUNTER → 2018-10-25 14:27 | Outpatient (CLI) | payer OTHER, SELFPAY ==
[2018-08-08 13:12] VITALS: BMI 28.3
[2018-10-25 15:36] LABS: Absolute Lymphocyte Count 2.03 X10^3/ul (0.83-4.51); Absolute Neutrophil Count 5.2 X10^3/uL (2.0-7.7); Basophil# 0.02 X10^3/uL; Basophil% 0.2 % (0-1); Eosinophil# 0.08 X10^3/uL; Hematocrit 39.8 % (37-47); Lymphocyte # 2.03 X10^3/ul (4.0); Lymphocyte % 24.2 % (19-41); Mean Corp Hgb Conc 32.7 g/gl (32-36); Mean Corpuscular Hgb 30.9 pg (27.0-32.0); Mean Corpuscular Volume 94.5 fL (81-99); Mean Platelet Vol. 8.8 fl (6.2-12.0); Monocyte# 1.03 X10^3/uL; Monocyte% 12.3 % (0-10); Neutrophil # 5.23 X10^3/uL (2.7-7.7); Neutrophil % 62.2 % (47-70); Platelet Count 279 K/mm3 (150-450); RBC Distribution Width SD 54.2 fl (35.1-43.9); Red Blood Count 4.21 M/mm3 (4.2-5.4); White Blood Count 8.4 K/mm3 (4.4-11.0)
[2018-10-25 15:59] LABS: POSITIVE COUNT NO; POSITIVE DIFFERENTIAL NO; POSITIVE MORPHOLOGY NO
[2018-10-25 17:53] LABS: Albumin, Serum 3.5 g/dL (3.2-5.0); BUN 6 mg/dL (7-18); BUN/Creat Ratio 8.2 RATIO (10-20); Creatinine, Serum 0.73 mg/dL (0.55-1.02); EST Glomerular Filtration Rate 89 mL/min (>60); Est Glom Filt Rate - Afr Amer 108 mL/min (>60); Globulin 3.5 g/dL (2.2-4.2); Glucose 101 mg/dL (74-106)
[2018-10-25 17:54] LABS: AST(SGOT) 17 U/L (15-37); Alanine Aminotransfer ALT/SGPT 12 U/L (13-56); Alkaline Phosphatase 125 U/L (45-117); Anion Gap 9 (5-15); Chloride 97 mmol/L (98-107); Potassium 2.2 mmol/L (3.5-5.1); Sodium Level 141 mmol/L (136-145)
== END ==
PROVIDERS: Family Provider Student in an Organized Health Care Education/Training Program; PCP Student in an Organized Health Care Education/Training Program; Referring Provider Internal Medicine Rheumatology; Visit Provider Internal Medicine Rheumatology
DX: M06.09 Rheumatoid arthritis without rheumatoid factor, multiple sites (principal); M79.7 Fibromyalgia; J45.909 Unspecified asthma, uncomplicated; E11.9 Type 2 diabetes mellitus without complications; Z86.73 Personal history of transient ischemic attack (TIA), and cerebral infarction without residual deficits; Z79.899 Other long term (current) drug therapy
CPT/HCPCS: 36415; 80053; 85025

== ENCOUNTER → 2018-11-30 06:43 | Outpatient (CLI) | payer OTHER, SELFPAY ==
[2018-08-08 13:12] VITALS: BMI 28.3
[2018-11-30 08:29] LABS: Amphetamine Urine VISTA NEGATIVE (<1000 ng/mL); Barbiturate Urine VISTA NEGATIVE (< 200 ng/mL); Benzodiazepine Urine VISTA NEGATIVE (< 200 ng/mL); Cocaine Urine VISTA NEGATIVE (< 300 ng/mL); Ecstacy Urine VISTA NEGATIVE (< 500 ng/mL); Methadone Urine VISTA NEGATIVE (< 300 ng/mL); PCP Urine VISTA NEGATIVE (< 25 ng/mL); THC Urine VISTA NEGATIVE (< 50 ng/mL); Vista UDS pH Range 7
== END ==
PROVIDERS: Family Provider Student in an Organized Health Care Education/Training Program; PCP Student in an Organized Health Care Education/Training Program; Referring Provider Anesthesiology Pain Medicine; Visit Provider Anesthesiology Pain Medicine
DX: F11.20 Opioid dependence, uncomplicated (principal)
CPT/HCPCS: 80307

== ENCOUNTER → 2019-02-07 08:26 | Outpatient (CLI) | payer OTHER, SELFPAY ==
[2019-02-07 09:55] LABS: Absolute Lymphocyte Count 2.02 X10^3/ul (0.83-4.51); Absolute Neutrophil Count 6.4 X10^3/uL (2.0-7.7); Basophil# 0.02 X10^3/uL; Basophil% 0.2 % (0-1); Eosinophil# 0.12 X10^3/uL; Eosinophils% 1.2 % (0-5); Hematocrit 41.4 % (37-47); Hemoglobin 13.5 g/dl (12.0-15.0); Lymphocyte # 2.02 X10^3/ul (4.0); Lymphocyte % 20.8 % (19-41); Mean Corp Hgb Conc 32.6 g/gl (32-36); Mean Corpuscular Hgb 32.2 pg (27.0-32.0); Mean Corpuscular Volume 98.8 fL (81-99); Mean Platelet Vol. 8.9 fl (6.2-12.0); Monocyte# 1.07 X10^3/uL; Neutrophil # 6.38 X10^3/uL (2.7-7.7); Neutrophil % 65.9 % (47-70); Platelet Count 423 K/mm3 (150-450); RBC Distribution Width CV 16.2 % (11.6-14.6); RBC Distribution Width SD 57.4 fl (35.1-43.9); Red Blood Count 4.19 M/mm3 (4.2-5.4); White Blood Count 9.7 K/mm3 (4.4-11.0)
[2019-02-07 09:56] LABS: POSITIVE COUNT NO; POSITIVE DIFFERENTIAL NO; POSITIVE MORPHOLOGY NO
[2019-02-07 10:09] LABS: ALB/GLOB Ratio 0.8 RATIO (0.9-2.4); AST(SGOT) 57 U/L (15-37); Alanine Aminotransfer ALT/SGPT 74 U/L (13-56); Albumin, Serum 3.2 g/dL (3.2-5.0); Alkaline Phosphatase 155 U/L (45-117); Anion Gap 9 (5-15); BUN 8 mg/dL (7-18); BUN/Creat Ratio 6.7 RATIO (10-20); Calcium,Total 8.5 mg/dL (8.5-10.1); Chloride 99 mmol/L (98-107); Creatinine, Serum 1.19 mg/dL (0.55-1.02); EST Glomerular Filtration Rate 51 mL/min (>60); Est Glom Filt Rate - Afr Amer 62 mL/min (>60); Globulin 3.9 g/dL (2.2-4.2); Glucose 95 mg/dL (74-106); Potassium 3.3 mmol/L (3.5-5.1); Protein, Total 7.1 g/dL (6.4-8.2); Sodium Level 135 mmol/L (136-145)
== END ==
PROVIDERS: Family Provider Student in an Organized Health Care Education/Training Program; PCP Student in an Organized Health Care Education/Training Program; Referring Provider Internal Medicine Rheumatology; Visit Provider Internal Medicine Rheumatology
DX: M06.09 Rheumatoid arthritis without rheumatoid factor, multiple sites (principal); M79.7 Fibromyalgia; J45.909 Unspecified asthma, uncomplicated; I25.2 Old myocardial infarction; E11.9 Type 2 diabetes mellitus without complications; M77.00 Medial epicondylitis, unspecified elbow; Z79.899 Other long term (current) drug therapy
CPT/HCPCS: 36415; 80053; 85025

== ENCOUNTER → 2019-03-18 10:49 | Outpatient (CLI) | payer OTHER, SELFPAY ==
[2018-08-08 13:12] VITALS: BMI 28.3
[2019-03-18 12:29] LABS: Absolute Lymphocyte Count 1.57 X10^3/ul (0.83-4.51); Absolute Neutrophil Count 3.3 X10^3/uL (2.0-7.7); Basophil# 0.03 X10^3/uL; Basophil% 0.5 % (0-1); Eosinophil# 0.11 X10^3/uL; Eosinophils% 1.9 % (0-5); Hematocrit 38.5 % (37-47); Hemoglobin 12.6 g/dl (12.0-15.0); Lymphocyte # 1.57 X10^3/ul (4.0); Lymphocyte % 27.7 % (19-41); Mean Corp Hgb Conc 32.7 g/gl (32-36); Mean Corpuscular Hgb 31.7 pg (27.0-32.0); Mean Corpuscular Volume 96.7 fL (81-99); Mean Platelet Vol. 8.8 fl (6.2-12.0); Monocyte% 10.6 % (0-10); Neutrophil # 3.34 X10^3/uL (2.7-7.7); Neutrophil % 58.9 % (47-70); Platelet Count 298 K/mm3 (150-450); RBC Distribution Width CV 15.2 % (11.6-14.6); RBC Distribution Width SD 52.9 fl (35.1-43.9); Red Blood Count 3.98 M/mm3 (4.2-5.4); White Blood Count 5.7 K/mm3 (4.4-11.0)
[2019-03-18 12:33] LABS: POSITIVE COUNT NO; POSITIVE DIFFERENTIAL NO; POSITIVE MORPHOLOGY NO
[2019-03-18 12:40] LABS: ALB/GLOB Ratio 1.1 RATIO (0.9-2.4); AST(SGOT) 79 U/L (15-37); Alanine Aminotransfer ALT/SGPT 61 U/L (13-56); Albumin, Serum 3.4 g/dL (3.2-5.0); Alkaline Phosphatase 249 U/L (45-117); Anion Gap 7 (5-15); BUN 11 mg/dL (7-18); BUN/Creat Ratio 10.6 RATIO (10-20); Calcium,Total 8.2 mg/dL (8.5-10.1); Chloride 104 mmol/L (98-107); Creatinine, Serum 1.04 mg/dL (0.55-1.02); EST Glomerular Filtration Rate 60 mL/min (>60); Est Glom Filt Rate - Afr Amer 72 mL/min (>60); Globulin 3.2 g/dL (2.2-4.2); Glucose 99 mg/dL (74-106); Protein, Total 6.6 g/dL (6.4-8.2); Sodium Level 138 mmol/L (136-145)
== END ==
PROVIDERS: Family Provider Student in an Organized Health Care Education/Training Program; PCP Student in an Organized Health Care Education/Training Program; Referring Provider Internal Medicine Rheumatology; Visit Provider Internal Medicine Rheumatology
DX: M06.09 Rheumatoid arthritis without rheumatoid factor, multiple sites (principal); M79.7 Fibromyalgia; J45.909 Unspecified asthma, uncomplicated; E11.9 Type 2 diabetes mellitus without complications; Z79.899 Other long term (current) drug therapy; Z86.73 Personal history of transient ischemic attack (TIA), and cerebral infarction without residual deficits
CPT/HCPCS: 36415; 80053; 85025

== ENCOUNTER → 2019-05-15 11:50 | Outpatient (CLI) | payer OTHER, SELFPAY ==
[2018-08-08 13:12] VITALS: BMI 28.3
[2019-05-15 14:07] LABS: Absolute Lymphocyte Count 1.52 X10^3/ul (0.83-4.51); Absolute Neutrophil Count 5.9 X10^3/uL (2.0-7.7); Basophil# 0.03 X10^3/uL; Basophil% 0.4 % (0-1); Eosinophil# 0.08 X10^3/uL; Hematocrit 37.7 % (37-47); Hemoglobin 12.3 g/dl (12.0-15.0); Lymphocyte # 1.52 X10^3/ul (4.0); Lymphocyte % 18.6 % (19-41); Mean Corp Hgb Conc 32.6 g/gl (32-36); Mean Corpuscular Hgb 29.5 pg (27.0-32.0); Mean Corpuscular Volume 90.4 fL (81-99); Mean Platelet Vol. 8.2 fl (6.2-12.0); Monocyte# 0.65 X10^3/uL; Monocyte% 7.9 % (0-10); Neutrophil # 5.88 X10^3/uL (2.7-7.7); Neutrophil % 71.9 % (47-70); POSITIVE COUNT NO; POSITIVE DIFFERENTIAL NO; POSITIVE MORPHOLOGY NO; Platelet Count 505 K/mm3 (150-450); RBC Distribution Width CV 13.4 % (11.6-14.6); Red Blood Count 4.17 M/mm3 (4.2-5.4); White Blood Count 8.2 K/mm3 (4.4-11.0)
[2019-05-15 14:20] LABS: ALB/GLOB Ratio 0.8 RATIO (0.9-2.4); AST(SGOT) 19 U/L (15-37); Alanine Aminotransfer ALT/SGPT 15 U/L (13-56); Albumin, Serum 2.8 g/dL (3.2-5.0); Alkaline Phosphatase 100 U/L (45-117); Anion Gap 11 (5-15); BUN 6 mg/dL (7-18); BUN/Creat Ratio 9.2 RATIO (10-20); Calcium,Total 8.4 mg/dL (8.5-10.1); Chloride 102 mmol/L (98-107); Creatinine, Serum 0.65 mg/dL (0.55-1.02); EST Glomerular Filtration Rate 102 mL/min (>60); Est Glom Filt Rate - Afr Amer 124 mL/min (>60); Globulin 3.6 g/dL (2.2-4.2); Glucose 91 mg/dL (74-106); Protein, Total 6.4 g/dL (6.4-8.2); Sodium Level 138 mmol/L (136-145)
== END ==
PROVIDERS: Family Provider Student in an Organized Health Care Education/Training Program; PCP Student in an Organized Health Care Education/Training Program; Referring Provider Internal Medicine Rheumatology; Visit Provider Internal Medicine Rheumatology
DX: M06.9 Rheumatoid arthritis, unspecified (principal); M79.7 Fibromyalgia; J45.909 Unspecified asthma, uncomplicated; E11.9 Type 2 diabetes mellitus without complications; M77.00 Medial epicondylitis, unspecified elbow; Z86.73 Personal history of transient ischemic attack (TIA), and cerebral infarction without residual deficits; Z79.899 Other long term (current) drug therapy
CPT/HCPCS: 36415; 80053; 85025

== ENCOUNTER → 2019-05-21 09:24 | Outpatient (CLI) | payer OTHER, SELFPAY ==
--- NOTE | 2019-05-21 09:26 | US_ITS ---
STUDY: ABDOMINAL ULTRASOUND - RIGHT UPPER QUADRANT REASON FOR VISIT: Female, 48 years old. Elevated enzymes TECHNIQUE: Ultrasound evaluation of the right upper quadrant was performed with real-time and static briggs-scale imaging. TECHNICAL QUALITY: Adequate. COMPARISON: July 29, 2018 CT abdomen and pelvis FINDINGS: Liver: The liver measures 18 cm. There is increased echogenicity consistent with fatty infiltration. The bile ducts are within normal limits. There is hepatic color flow. The direction of portal flow is hepatopetal. There is no demonstrated mass lesion. Gallbladder: Normal distended gallbladder. The gallbladder wall measures 1.8 mm. There is a negative sonographic Nava's sign. There is no pericholecystic fluid. There are no gallstones. Common Bile Duct (C.B.D.): The common bile duct measures 5.7 mm. Pancreas: Normal size of the head, body and tail of the pancreas. There is normal echogenicity of the pancreas. There is no demonstrated pancreatic mass or cyst. Right Kidney: Normal size of the right kidney. The right kidney measures 9.7 cm. Normal renal cortex. The right cortex measures 1.3 cm. There is no demonstrated renal mass or cyst. There is no right hydronephrosis. US/Abdomen Limited IMPRESSION: Hepatocellular disease most likely hepatic steatosis Electronically Signed: Jericho Del Cid MD at 21:36 EDT , Service support ,
== END ==
PROVIDERS: Family Provider Student in an Organized Health Care Education/Training Program; PCP Student in an Organized Health Care Education/Training Program; Referring Provider Internal Medicine Rheumatology; Visit Provider Internal Medicine Rheumatology
DX: R94.5 Abnormal results of liver function studies (principal)
CPT/HCPCS: 76705

== ENCOUNTER 2019-06-23 23:51 | Emergency (ER) | payer OTHER, SELFPAY ==
[2019-06-21 15:42] VITALS: BMI 28.3
[2019-06-23 23:52] VITALS: BP 163/105; PULSE 76; RESP 15; TEMP 36.1; O2SAT 98; BMI 28.3
--- NOTE | 2019-06-24 00:19 | EKG12_ITS ---
Test Reason : CP Blood Pressure : / mmHG Vent. Rate : 063 BPM Atrial Rate : 063 BPM P-R Int : 122 ms QRS Dur : 086 ms QT Int : 404 ms P-R-T Axes : 038 035 053 degrees QTc Int : 413 ms Normal sinus rhythm Normal ECG Confirmed by REJI OWENS, MARCIANO ([id number]), film and video editor DAVID GOETZ ([id number]) on 06/25/2019 1:40:20 PM Referred By: SAAD Confirmed By:MARCIANO MENDOZA MD
--- NOTE | 2019-06-24 00:19 | CT_ITS ---
HISTORY:HEADACHE,ELEVTED BP,BLURRY VISION X 1 WEEKHX:HTN,CVA.ASTHMA,COPD HEADACHE,ELEVTED BP,BLURRY VISION X 1 WEEKHX:HTN,CVA.ASTHMA,COPD TECHNIQUE: Multiple axial images were obtained of the brain without intravenous contrast. A radiation dose optimization technique was used for this scan. IV Contrast dosage and agent: None. COMPARISON: July 29, 2018 FINDINGS: # of images incl. paperwork: 235 INFARCT: Encephalomalacia involving the right temporoparietal lobe. Chronic lacunar infarction involving the right caudate lobe. HEMORRHAGE: None PARENCHYMAL ATTENUATION:Normal for age MASS: None MIDLINE SHIFT: None BASAL CISTERNS: Patent VENTRICLES: Normal in size and configuration for age PARANASAL SINUSES:Clear MASTOID AIR CELLS: Clear ORBITS:No acute pathology CALVARIUM: No acute pathology OTHER TISSUES: No acute pathology ASPECTS Score for Acute Strokes: 10 CT/Brain/Head without Contrast IMPRESSION: No acute intracranial pathology. Chronic changes similar prior study If symptoms persist consider mri for further evaluation if clinically indicated. Individualized dose optimization techniques were used for this CT. at 0108 Reported and signed by: Ana Maria Orta DO Electronically Signed: Ana Maria Orta DO at 1:07 EDT Tel , Service support ,
--- NOTE | 2019-06-24 00:20 | ED.VIS.GEN ---
History of Present Illness Chief Complaint: Hypertension Informant: Patient Onset: Month(s) - 1 Context: Gradual Onset Timing: Continuous, Waxes and wanes Associated Symptoms: headaches x 1 week. chest pain several days ago, none since. Narrative: Patient stopped smoking about a month ago and ever since she has been having high blood pressures. They have been 160-190 systolic and 100-125 diastolic, on average. In the past week she has been having headaches and the pressures have been averaging higher, just before this her doctor doubled her metoprolol which is her only antihypertensive. She has been compliant with her medications. She states that her headache was worse tonight and she had a hemorrhagic stroke in the past that left her with no residual deficits currently, but she has been concerned about all of that and her blood pressure numbers. It was 191 systolic tonight prior to coming here. - Past Medical History (1) Anemia Status: Chronic (2) Chronic low back pain Status: Chronic (3) HLD (hyperlipidemia) Status: Chronic (4) History of fibromyalgia Status: Chronic (5) History of rheumatoid arthritis Status: Chronic (6) Hypertension Status: Chronic Past Medical History - Allergies and Home Meds Allergies/Adverse Reactions: Allergies progesterone Allergy (Verified 06/23/19 23:57) Itching varenicline tartrate [From Chantix] Allergy (Verified 06/23/19 23:57) suicidal baclofen Adverse Reaction (Verified 06/23/19 23:57) Other Primary Care Physician: Jacob Teixeira DO [Primary Care Provider] - Surgical History: total hip arthroplasty, - - Multiple surgeries for left femur due to rheumatoid arthritis and osteoarthritis Smoking Status: Current some day smoker - Family History Maternal Family History: Reports: No pertinent history Additional Family History: Depression Paternal Family History: Reports: No pertinent history Additional Family History: Depression Review of Systems General: Denies: Chills, Fever, Sweats Eyes: Denies: Visual changes - bilaterally, Diplopia ENT: Denies: Rhinorrhea, Sore throat Cardiovascular: Reports: Chest pain - several days ago. Denies: Palpitations Respiratory: Denies: Dyspnea, Cough, Dyspnea on exertion Gastrointestinal: Denies: Abdominal pain, Nausea, Vomiting, Diarrhea, Melena, Hematochezia Genitourinary: Denies: Dysuria, Hematuria, Frequency Musculoskeletal: Reports: Arthralgias, Swelling - chronic, better than usual. Denies: Back pain Skin: Denies: Rash, Wounds Neurological: Reports: Headache. Denies: Weakness, Numbness Physical Exam Vital Signs/Narrative: Vital Signs Temp Pulse Resp BP Pulse Ox 06/23/19 23:52 97.0 F L 76 15 163/105 H 98 Inital Vital Signs reviewed: Yes General: Well nourished, Well developed, No Acute Distress - well-appearing Head: Normocephalic, Atraumatic Eyes: Perrl, EOMI ENT: Moist mucous membranes, No rhinorrhea Neck: Supple, Nontender, No JVD Cardiovascular: Regular rate, Regular rhythm, No murmurs, Normal S1, Normal S2. Negative for: Tachycardia Respiratory: No distress, CTA bilaterally, Chest nontender Abdomen: Soft, Nontender, Nondistended, Normal bowel sounds Back: Nontender, Normal Inspection Extremities: Nontender, No edema Skin: Normal color, No rash, No Trauma Neurological: Alert, Oriented x3, Cranial nerves II-XII grossly intact, Normal Strength, Normal Sensation, Normal DTR, Normal Gait Psychological: Normal affect, Normal Mood Diagnostic/Tx/Re-eval Impressions Brain CT 06/24/19 00:19 IMPRESSION: No acute intracranial pathology. Chronic changes similar prior study If symptoms persist consider mri for further evaluation if clinically indicated. Individualized dose optimization techniques were used for this CT. at 0108 Reported and signed by: Ana Maria Orta DO Electronically Signed: Ana Maria Orta DO at 1:07 EDT Tel , Service support , 06/24/19 00:19 Brain/Head without Contrast [CT] Stat Laboratory Results 06/24/19 06/24/19 06/24/19 00:03 00:03 00:03 WBC 7.7 RBC 4.12 L Hgb 12.7 Hct 38.5 MCV 93.4 MCH 30.8 MCHC 33.0 RDW Std Deviation 51.2 H RDW Coeff of Jania 14.8 H Plt Count 267 MPV 9.6 Immature Gran % (Auto) 0.900 Neut % (Auto) 76.4 H Lymph % (Auto) 14.4 L [place] % (Auto) 8.3 Eos % (Auto) 0.0 Baso % (Auto) 0.0 Absolute Neuts (auto) 5.9 Absolute Lymphs (auto) 1.11 Nucleated RBC % 0 Sodium 138 Potassium 3.8 Chloride 106 Carbon Dioxide 25.0 Anion Gap 7 BUN 19 H Creatinine 0.95 Estim Creat Clear Calc 56.03 Est GFR (MDRD) Af Amer 80 Est GFR (MDRD) Non-Af 66 BUN/Creatinine Ratio 19.9 Glucose 97 Calcium 8.4 L Troponin I < 0.015 Urine Color Straw Urine Clarity Clear Urine pH 7.0 Ur Specific [employer] [place] 1.005 Urine Protein Negative Urine Glucose (UA) Normal Urine Ketones Negative Urine Occult Blood Negative Urine Nitrite Negative Urine Bilirubin Negative Urine Urobilinogen Normal Ur Leukocyte Esterase Negative Urine RBC 0 SEEN Urine WBC 0 SEEN Ur Squamous Epith Cells 0 SEEN Urine Bacteria 0 SEEN Urine Mucus 0 SEEN - Rhythm Strip Rhythm Strip: Sinus Rhythm Rate: 63 Ectopy: None - EKG Initial EKG Interpretation: Sinus Rhythm, No Acute Injury Pattern - nml ekg - Medical Decision Making Work-up is all unremarkable. Monitored her blood pressure while in the emergency department, it was in the low 160s and low 150s. Given that she has had elevations for a month, I do not think lowering that emergently is indicated at the time we had a readings obtained. She was given Tylenol prior to the CT returning negative, it did not help her pain. She may be having headaches from the nicotine withdrawal and not just her blood pressure causing it. I will give her Reglan and Toradol prior to discharge, and prescribe her lisinopril to add to her metoprolol to help with blood pressure control, and she is encouraged to follow closely with her doctor this week. She is comfortable with that plan. ED Disposition - Plan for ED Patient: Disposition: Home or Assisted Living Diagnosis: HTN (hypertension), Cephalgia, Nicotine withdrawal Instructions: HYPERTENSION, Established, Out of Control Prescriptions: Lisinopril [Zestril] 10 mg PO DAILY #30 tab Prescription Printed Referrals: Jacob Teixeira DO [Primary Care Provider] - 3-5 Days
[2019-06-24 00:37] LABS: Bacteria 0 SEEN /hpf (None Seen); Mucous, Urine 0 SEEN /hpf (<or=2+); Red Blood Cells-Urine 0 SEEN /hpf (0-5); Squamous Epithelial Cells - UA 0 SEEN /hpf (5-10); White Blood Cells 0 SEEN /hpf (0-5)
[2019-06-24 00:41] LABS: Color, Urine Straw (Yellow); Glucose, Dipstick Normal (Normal); Ketone-Dipstick Negative (Negative); Leukocyte Esterase-Dipstick Negative /ul (Negative); Nitrite-Dipstick Negative (Negative); Occult Blood-Urine Negative /ul (Negative); Protein-Dipstick Negative (Negative); Specific Gravity, Urine 1.005 (1.002-1.030); Urine Bilirubin Dipstick Negative (Negative); Urine Clarity Clear (Clear); Urine Urobilinogen Normal (Normal)
[2019-06-24 00:42] LABS: Absolute Lymphocyte Count 1.11 X10^3/uL (0.83-4.51); Absolute Neutrophil Count 5.9 X10^3/uL (2.0-7.7); Hematocrit 38.5 % (37-47); Hemoglobin 12.7 g/dL (12.0-15.0); Lymphocyte # 1.11 X10^3/ul (4.0); Lymphocyte % 14.4 % (19-41); Mean Corpuscular Hgb 30.8 pg (27.0-32.0); Mean Corpuscular Volume 93.4 fL (81-99); Mean Platelet Vol. 9.6 fl (6.2-12.0); Monocyte# 0.64 X10^3/uL; Monocyte% 8.3 % (0-10); NRBC Flagged by Analyzer 0 % (0-5); Neutrophil # 5.88 X10^3/uL (2.7-7.7); Neutrophil % 76.4 % (47-70); Platelet Count 267 K/mm3 (150-450); RBC Distribution Width CV 14.8 % (11.6-14.6); RBC Distribution Width SD 51.2 fl (35.1-43.9); Red Blood Count 4.12 M/mm3 (4.2-5.4); White Blood Count 7.7 K/mm3 (4.4-11.0)
[2019-06-24 00:59] LABS: Anion Gap 7 (5-15); BUN 19 mg/dL (7-18); BUN/Creat Ratio 19.9 RATIO (10-20); Calcium,Total 8.4 mg/dL (8.5-10.1); Chloride 106 mmol/L (98-107); Creatinine, Serum 0.95 mg/dL (0.55-1.02); EST Glomerular Filtration Rate 66 mL/min (>60); Est Glom Filt Rate - Afr Amer 80 mL/min (>60); Estimated Creatinine Clearance 56.03 ml/min; Glucose 97 mg/dL (74-106); Potassium 3.8 mmol/L (3.5-5.1); Sodium Level 138 mmol/L (136-145)
[2019-06-24 01:07] VITALS: BP 152/94; PULSE 64; RESP 16; O2SAT 96
[2019-06-24] MEDS: Acetaminophen 500 MG Tablet 1000 MG PO (01:08)
[2019-06-24] MEDS: Ketorolac 15 MG/ML Vial IV (02:42)
[2019-06-24] MEDS: Metoclopramide 10 MG/2 ML Vial 5 MG IV (02:43)
[2019-06-24] MEDS: Lisinopril 10 MG Tablet PO (02:55)
[2019-06-24 03:00] VITALS: BP 154/91; PULSE 58; RESP 16; O2SAT 98
[2019-06-24 03:19] VITALS: BP 154/91; PULSE 57; RESP 17; O2SAT 98
== END 2019-06-24 03:29 | disposition home or self-care (01) ==
PROVIDERS: Emergency Provider Emergency Medicine; Family Provider Student in an Organized Health Care Education/Training Program; PCP Student in an Organized Health Care Education/Training Program
DX: I10 Essential (primary) hypertension (principal); F17.203 Nicotine dependence unspecified, with withdrawal; R51 Headache; E78.5 Hyperlipidemia, unspecified; M79.7 Fibromyalgia; M06.9 Rheumatoid arthritis, unspecified; Z79.82 Long term (current) use of aspirin; Z79.899 Other long term (current) drug therapy; Z86.73 Personal history of transient ischemic attack (TIA), and cerebral infarction without residual deficits
CPT/HCPCS: 70450; 80048; 81001; 84484; 85025; 93005; 96374; 96375; 99285; A4216

== ENCOUNTER → 2019-07-19 09:21 | Outpatient (CLI) | payer OTHER, SELFPAY ==
[2019-06-23 23:52] VITALS: BMI 28.3
[2019-07-19 10:14] LABS: Absolute Lymphocyte Count 1.97 X10^3/uL (0.83-4.51); Absolute Neutrophil Count 2.3 X10^3/uL (2.0-7.7); Basophil# 0.05 X10^3/uL; Eosinophil# 0.15 X10^3/uL; Eosinophils% 2.9 % (0-5); Hematocrit 38.3 % (37-47); Hemoglobin 12.6 g/dL (12.0-15.0); Lymphocyte # 1.97 X10^3/ul (4.0); Lymphocyte % 38.6 % (19-41); Mean Corp Hgb Conc 32.9 g/dL (32-36); Mean Corpuscular Hgb 31.1 pg (27.0-32.0); Mean Corpuscular Volume 94.6 fL (81-99); Mean Platelet Vol. 8.8 fl (6.2-12.0); Monocyte# 0.55 X10^3/uL; Monocyte% 10.8 % (0-10); NRBC Flagged by Analyzer 0 % (0-5); Neutrophil # 2.34 X10^3/uL (2.7-7.7); Neutrophil % 45.9 % (47-70); Platelet Count 427 K/mm3 (150-450); RBC Distribution Width CV 15.4 % (11.6-14.6); RBC Distribution Width SD 53.5 fl (35.1-43.9); Red Blood Count 4.05 M/mm3 (4.2-5.4); White Blood Count 5.1 K/mm3 (4.4-11.0)
[2019-07-19 10:53] LABS: ALB/GLOB Ratio 0.9 RATIO (0.9-2.4); AST(SGOT) 24 U/L (15-37); Alanine Aminotransfer ALT/SGPT 24 U/L (13-56); Albumin, Serum 3.5 g/dL (3.2-5.0); Alkaline Phosphatase 86 U/L (45-117); Anion Gap 8 (5-15); BUN 13 mg/dL (7-18); Calcium,Total 9.4 mg/dL (8.5-10.1); Chloride 106 mmol/L (98-107); Creatinine, Serum 0.87 mg/dL (0.55-1.02); EST Glomerular Filtration Rate 73 mL/min (>60); Est Glom Filt Rate - Afr Amer 89 mL/min (>60); Globulin 3.8 g/dL (2.2-4.2); Glucose 99 mg/dL (74-106); Potassium 3.9 mmol/L (3.5-5.1); Protein, Total 7.3 g/dL (6.4-8.2); Sodium Level 139 mmol/L (136-145)
== END ==
PROVIDERS: Family Provider Student in an Organized Health Care Education/Training Program; PCP Student in an Organized Health Care Education/Training Program; Referring Provider Internal Medicine Rheumatology; Visit Provider Internal Medicine Rheumatology
DX: M06.09 Rheumatoid arthritis without rheumatoid factor, multiple sites (principal); M79.7 Fibromyalgia; K76.0 Fatty (change of) liver, not elsewhere classified; J45.909 Unspecified asthma, uncomplicated; E11.9 Type 2 diabetes mellitus without complications; M77.00 Medial epicondylitis, unspecified elbow; Z79.899 Other long term (current) drug therapy; Z86.73 Personal history of transient ischemic attack (TIA), and cerebral infarction without residual deficits
CPT/HCPCS: 36415; 80053; 85025

== ENCOUNTER → 2019-08-13 14:07 | Outpatient (CLI) | payer OTHER, SELFPAY ==
[2019-08-13 14:02] VITALS: BMI 28.3
--- NOTE | 2019-08-13 14:09 | RAD_ITS ---
STUDY: X-RAY - LEFT KNEE REASON FOR EXAM: Pain. TECHNIQUE: 4 view(s) of the knee. COMPARISON: Radiographs 10/20/2015. FINDINGS: There is osteopenia. There is intact visualized orthopedic hardware with healed fracture deformity of the distal femur. There is osteonecrosis of the lateral femoral condyle as on the prior study. Normal visualized proximal tibia and fibula. Normal proximal tibiofibular articulation. Normal medial femorotibial compartment. There is interval development of severe joint space narrowing of the lateral femorotibial compartment with small marginal osteophytes. There is moderate joint space narrowing of the patellofemoral articulation. The soft tissue structures are unremarkable. RAD/Knee 4 or More Views IMPRESSION: Arthrosis of the lateral femorotibial and patellofemoral compartments. Osteonecrosis of the lateral femoral condyle. Healed fracture deformity of the distal femur. Electronically Signed: Shaheen Marquez MD at 10:45 EDT Tel , Service support ,
== END ==
PROVIDERS: Family Provider Student in an Organized Health Care Education/Training Program; PCP Student in an Organized Health Care Education/Training Program; Referring Provider Orthopaedic Surgery; Visit Provider Orthopaedic Surgery
DX: M17.12 Unilateral primary osteoarthritis, left knee (principal)
CPT/HCPCS: 73564

== ENCOUNTER → 2019-09-13 14:18 | Outpatient (CLI) | payer OTHER, SELFPAY ==
[2019-08-13 14:02] VITALS: BMI 28.3
[2019-09-13 15:39] LABS: Absolute Lymphocyte Count 0.82 X10^3/uL (0.83-4.51); Basophil# 0.03 X10^3/uL; Basophil% 0.3 % (0-1); Eosinophil# 0.01 X10^3/uL; Eosinophils% 0.1 % (0-5); Hematocrit 38.6 % (37-47); Hemoglobin 12.2 g/dL (12.0-15.0); Lymphocyte # 0.82 X10^3/ul (4.0); Lymphocyte % 8.7 % (19-41); Mean Corp Hgb Conc 31.6 g/dL (32-36); Mean Corpuscular Hgb 31.3 pg (27.0-32.0); Mean Platelet Vol. 8.9 fl (6.2-12.0); Monocyte# 0.31 X10^3/uL; Monocyte% 3.3 % (0-10); NRBC Flagged by Analyzer 0 % (0-5); Neutrophil # 8.02 X10^3/uL (2.7-7.7); Neutrophil % 85.4 % (47-70); Platelet Count 443 K/mm3 (150-450); RBC Distribution Width CV 16.4 % (11.6-14.6); RBC Distribution Width SD 56.1 fl (35.1-43.9); White Blood Count 9.4 K/mm3 (4.4-11.0)
[2019-09-13 16:01] LABS: AST(SGOT) 12 U/L (15-37); Alanine Aminotransfer ALT/SGPT 27 U/L (13-56); Albumin, Serum 3.7 g/dL (3.2-5.0); Alkaline Phosphatase 81 U/L (45-117); Anion Gap 6 (5-15); BUN 27 mg/dL (7-18); BUN/Creat Ratio 23.7 RATIO (10-20); Calcium,Total 9.1 mg/dL (8.5-10.1); Chloride 104 mmol/L (98-107); Creatinine, Serum 1.14 mg/dL (0.55-1.02); EST Glomerular Filtration Rate 53 mL/min (>60); Est Glom Filt Rate - Afr Amer 65 mL/min (>60); Globulin 3.7 g/dL (2.2-4.2); Glucose 119 mg/dL (74-106); Potassium 4.7 mmol/L (3.5-5.1); Protein, Total 7.4 g/dL (6.4-8.2); Sodium Level 139 mmol/L (136-145)
== END ==
PROVIDERS: Family Provider Student in an Organized Health Care Education/Training Program; PCP Student in an Organized Health Care Education/Training Program; Referring Provider Internal Medicine Rheumatology; Visit Provider Internal Medicine Rheumatology
DX: I63.9 Cerebral infarction, unspecified (principal); M06.9 Rheumatoid arthritis, unspecified; M79.7 Fibromyalgia; K76.0 Fatty (change of) liver, not elsewhere classified; J45.909 Unspecified asthma, uncomplicated; E11.9 Type 2 diabetes mellitus without complications; M77.00 Medial epicondylitis, unspecified elbow; Z79.899 Other long term (current) drug therapy; Z86.73 Personal history of transient ischemic attack (TIA), and cerebral infarction without residual deficits
CPT/HCPCS: 36415; 80053; 85025

== ENCOUNTER → 2019-12-23 08:54 | Outpatient (CLI) | payer OTHER, SELFPAY ==
[2019-08-13 14:02] VITALS: BMI 28.3
[2019-12-23 10:19] LABS: Absolute Lymphocyte Count 1.17 X10^3/uL (0.83-4.51); Basophil# 0.04 X10^3/uL; Basophil% 0.5 % (0-1); Eosinophil# 0.03 X10^3/uL; Eosinophils% 0.4 % (0-5); Hematocrit 42.6 % (37-47); Hemoglobin 13.9 g/dL (12.0-15.0); Lymphocyte # 1.17 X10^3/ul (4.0); Lymphocyte % 14.8 % (19-41); Mean Corp Hgb Conc 32.6 g/dL (32-36); Mean Corpuscular Hgb 31.5 pg (27.0-32.0); Mean Corpuscular Volume 96.6 fL (81-99); Monocyte# 0.63 X10^3/uL; NRBC Flagged by Analyzer 0 % (0-5); Neutrophil # 6.02 X10^3/uL (2.7-7.7); Neutrophil % 75.9 % (47-70); Platelet Count 270 K/mm3 (150-450); RBC Distribution Width CV 16.2 % (11.6-14.6); RBC Distribution Width SD 57.8 fl (35.1-43.9); Red Blood Count 4.41 M/mm3 (4.2-5.4); White Blood Count 7.9 K/mm3 (4.4-11.0)
[2019-12-23 10:52] LABS: ALB/GLOB Ratio 0.9 RATIO (0.9-2.4); AST(SGOT) 67 U/L (15-37); Alanine Aminotransfer ALT/SGPT 69 U/L (13-56); Albumin, Serum 3.2 g/dL (3.2-5.0); Alkaline Phosphatase 435 U/L (45-117); Anion Gap 7 (5-15); BUN 7 mg/dL (7-18); BUN/Creat Ratio 10.7 RATIO (10-20); Calcium,Total 8.4 mg/dL (8.5-10.1); Chloride 105 mmol/L (98-107); Creatinine, Serum 0.66 mg/dL (0.55-1.02); EST Glomerular Filtration Rate 101 mL/min (>60); Est Glom Filt Rate - Afr Amer 122 mL/min (>60); Globulin 3.4 g/dL (2.2-4.2); Glucose 97 mg/dL (74-106); Potassium 3.4 mmol/L (3.5-5.1); Protein, Total 6.6 g/dL (6.4-8.2); Sodium Level 141 mmol/L (136-145)
== END ==
PROVIDERS: PCP Student in an Organized Health Care Education/Training Program; Referring Provider Internal Medicine Rheumatology; Visit Provider Internal Medicine Rheumatology
DX: M06.09 Rheumatoid arthritis without rheumatoid factor, multiple sites (principal); M79.7 Fibromyalgia; K76.0 Fatty (change of) liver, not elsewhere classified; J45.909 Unspecified asthma, uncomplicated; E11.9 Type 2 diabetes mellitus without complications; M77.00 Medial epicondylitis, unspecified elbow; Z79.899 Other long term (current) drug therapy
CPT/HCPCS: 36415; 80053; 85025

== ENCOUNTER → 2020-01-23 13:38 | Outpatient (CLI) | payer OTHER, SELFPAY ==
[2019-08-13 14:02] VITALS: BMI 28.3
[2020-01-23 17:03] LABS: ALB/GLOB Ratio 0.6 RATIO (0.9-2.4); AST(SGOT) 99 U/L (15-37); Alanine Aminotransfer ALT/SGPT 29 U/L (13-56); Albumin, Serum 2.3 g/dL (3.2-5.0); Alkaline Phosphatase 185 U/L (45-117); Anion Gap 12 (5-15); BUN 3 mg/dL (7-18); BUN/Creat Ratio 3.8 RATIO (10-20); Calcium,Total 6.6 mg/dL (8.5-10.1); Chloride 91 mmol/L (98-107); Creatinine, Serum 0.79 mg/dL (0.55-1.02); EST Glomerular Filtration Rate 82 mL/min (>60); Est Glom Filt Rate - Afr Amer 99 mL/min (>60); Glucose 119 mg/dL (74-106); Protein, Total 6.3 g/dL (6.4-8.2); Sodium Level 133 mmol/L (136-145)
[2020-01-23 17:53] LABS: Potassium 2.7 mmol/L (3.5-5.1)
== END ==
PROVIDERS: PCP Student in an Organized Health Care Education/Training Program; Referring Provider Internal Medicine Rheumatology; Visit Provider Internal Medicine Rheumatology
DX: M06.09 Rheumatoid arthritis without rheumatoid factor, multiple sites (principal); M79.7 Fibromyalgia; K76.0 Fatty (change of) liver, not elsewhere classified; J45.909 Unspecified asthma, uncomplicated; E11.9 Type 2 diabetes mellitus without complications; M77.00 Medial epicondylitis, unspecified elbow; Z79.899 Other long term (current) drug therapy
CPT/HCPCS: 36415; 80053

== ENCOUNTER 2020-03-04 21:21 | Emergency (ER) | payer OTHER, SELFPAY ==
[2019-08-13 14:02] VITALS: BMI 28.3
[2020-03-04 21:22] VITALS: BP 93/66; PULSE 93; RESP 15; TEMP 36.6; O2SAT 97; BMI 30.7
--- NOTE | 2020-03-04 22:14 | ED.DCSUM_ITS ---
- ER Visit Summary Date of Service: 03/04/20 Chief Complaint: Left leg laceration History of Present Illness: The patient is a 49 F who presents with a laceration to her left lower leg that occurred today. Patient states she was cleaning her shower. Patient states that she was on her phone while she was doing this. Patient states she fell. Patient states she hit her leg on the corner of the shower door. Patient also hit her shoulder but denies any head injury or loss of consciousness. Patient only admits to mild pain of her right shoulder. Patient states her last tetanus was within 5 years. Patient describes her pain as throbbing. Patient denies any paresthesias or weakness. Patient denies any other injuries. Physical Examination: Vital signs are stable. Patient is afebrile. Patient is in no acute distress. Skin is warm and dry. There is a 10 cm full-thickness L- shaped linear laceration over the anterior aspect of the left lower leg extending to the bone. There are no foreign bodies visualized. There are no fractures noted. There is full range of motion. Sensation was intact light touch in all digits. Capillary refill was less than 2 seconds in all digits. Pedal pulses are equal bilaterally. There is no calf tenderness. Test Results: Trays of the left tibia and fibula were obtained. There is no acute fracture. These were interpreted by the radiologist and reviewed by myself. Emergency Department Course and Treatment: Patient was given a dose of Ancef here. The wound was cleaned and irrigated with copious amounts of normal saline. The wound was anesthetized with 1% plain lidocaine locally. The wound was closed with 8 simple interrupted #4 -0 Vicryl subcutaneous sutures under sterile technique. Care of the patient was turned over to Dr. Heath who will complete the laceration repair. Patient was given a prescription for Keflex. Patient was instructed to follow-up with her primary care physician in 7 to 10 days for wound recheck and suture removal. Patient understood and was agreeable with the plan. All questions were answered. Disposition: Discharge home Impression: Left leg laceration This note was generated with [employer] dictation software. It may contain incorrect words, spelling, and punctuation that were not noted in review of the chart prior to signing ED Disposition - Plan for ED Patient: Disposition: Home or Assisted Living Diagnosis: Laceration of left lower leg Instructions: ED Laceration Ext Sutr Stap Tape Prescriptions: Cephalexin [Keflex] 500 mg PO Q6 #40 cap Prescription Printed Referrals: Jacob Teixeira DO [Primary Care Provider] - 10 Day for suture removal
--- NOTE | 2020-03-04 22:20 | RAD_ITS ---
STUDY: X-RAY - LEFT TIBIA AND FIBULA REASON FOR EXAM: Female, 49 years old. Fall in shower, large laceration to lower tib/fib, bone and tendon exposed TECHNIQUE: 2 view(s) of the tibia and fibula were obtained. COMPARISON: Knee dated August 13, 2019 and ankle dated May 03, 2018 FINDINGS: There is a plate and screw fixation device noted within the visualized distal femur that is stable. There are degenerative changes of the knee. Normal visualized tibia. There is a plate and screw fixation within the distal fibula. There is a soft tissue defect along the anterolateral lower extremity. No acute fracture nor dislocation is visualized. RAD/Tibia & Fibula 2 Views IMPRESSION: No acute fracture nor dislocation identified. Postsurgical changes of the distal femur and distal fibula. Soft tissue defect within the anterolateral lower extremity consistent with an underlying laceration. Electronically Signed: Malathi Luo MD at 22:39 EDT Tel , Service support ,
[2020-03-04] MEDS: BACITRACIN 15 GM Tube 1 APPLIC TOPICAL (22:39)
[2020-03-04] MEDS: Cefazolin 1 GM/50 ML BAG IV (22:40)
[2020-03-05 00:44] VITALS: BP 98/65; PULSE 78; RESP 16; O2SAT 98
== END 2020-03-05 00:45 | disposition home or self-care (01) ==
PROVIDERS: Emergency Provider Emergency Medicine; PCP Student in an Organized Health Care Education/Training Program
DX: S81.812A Laceration without foreign body, left lower leg, initial encounter (principal); F17.200 Nicotine dependence, unspecified, uncomplicated; W19.XXXA Unspecified fall, initial encounter; Y93.E9 Activity, other interior property and clothing maintenance
CPT/HCPCS: 12004; 73590; 96365; 96366; 99285; J7050; A4216

== ENCOUNTER → 2020-03-05 09:33 | Outpatient (CLI) | payer OTHER, SELFPAY ==
[2019-08-13 14:02] VITALS: BMI 28.3
[2020-03-04 21:22] VITALS: BMI 30.7
[2020-03-05 10:28] LABS: Absolute Neutrophil Count 5.4 X10^3/uL (2.0-7.7); Basophil# 0.04 X10^3/uL; Basophil% 0.5 % (0-1); Eosinophil# 0.15 X10^3/uL; Eosinophils% 1.8 % (0-5); Hematocrit 37.2 % (37-47); Hemoglobin 11.7 g/dL (12.0-15.0); Lymphocyte % 21.2 % (19-41); Mean Corp Hgb Conc 31.5 g/dL (32-36); Mean Corpuscular Hgb 30.8 pg (27.0-32.0); Mean Corpuscular Volume 97.9 fL (81-99); Mean Platelet Vol. 9.1 fl (6.2-12.0); Monocyte# 1.06 X10^3/uL; Monocyte% 12.5 % (0-10); NRBC Flagged by Analyzer 0 % (0-5); Neutrophil # 5.38 X10^3/uL (2.7-7.7); Neutrophil % 63.1 % (47-70); Platelet Count 476 K/mm3 (150-450); RBC Distribution Width SD 53.9 fl (35.1-43.9); White Blood Count 8.5 K/mm3 (4.4-11.0)
[2020-03-05 10:43] LABS: ALB/GLOB Ratio 0.7 RATIO (0.9-2.4); AST(SGOT) 104 U/L (15-37); Alanine Aminotransfer ALT/SGPT 48 U/L (13-56); Albumin, Serum 2.7 g/dL (3.2-5.0); Alkaline Phosphatase 155 U/L (45-117); Anion Gap 6 (5-15); BUN 5 mg/dL (7-18); BUN/Creat Ratio 6.1 RATIO (10-20); Calcium,Total 8.1 mg/dL (8.5-10.1); Chloride 104 mmol/L (98-107); Creatinine, Serum 0.81 mg/dL (0.55-1.02); EST Glomerular Filtration Rate 79 mL/min (>60); Est Glom Filt Rate - Afr Amer 95 mL/min (>60); Globulin 3.9 g/dL (2.2-4.2); Glucose 98 mg/dL (74-106); Potassium 3.6 mmol/L (3.5-5.1); Protein, Total 6.6 g/dL (6.4-8.2); Sodium Level 138 mmol/L (136-145)
== END ==
PROVIDERS: PCP Student in an Organized Health Care Education/Training Program; Referring Provider Internal Medicine Rheumatology; Visit Provider Internal Medicine Rheumatology
DX: M06.09 Rheumatoid arthritis without rheumatoid factor, multiple sites (principal); M79.7 Fibromyalgia; K76.0 Fatty (change of) liver, not elsewhere classified; J45.909 Unspecified asthma, uncomplicated; E11.9 Type 2 diabetes mellitus without complications; M77.00 Medial epicondylitis, unspecified elbow; Z79.899 Other long term (current) drug therapy; Z86.73 Personal history of transient ischemic attack (TIA), and cerebral infarction without residual deficits
CPT/HCPCS: 36415; 80053; 85025

== ENCOUNTER → 2020-06-08 12:03 | Outpatient (CLI) | payer OTHER, SELFPAY ==
[2020-06-08 15:15] LABS: Absolute Lymphocyte Count 1.91 X10^3/uL (0.83-4.51); Basophil# 0.05 X10^3/uL; Basophil% 0.4 % (0-1); Eosinophil# 0.06 X10^3/uL; Eosinophils% 0.5 % (0-5); Hematocrit 29.4 % (37-47); Hemoglobin 8.8 g/dL (12.0-15.0); Lymphocyte # 1.91 X10^3/ul (4.0); Lymphocyte % 16.3 % (19-41); Mean Corp Hgb Conc 29.9 g/dL (32-36); Mean Corpuscular Hgb 29.5 pg (27.0-32.0); Mean Corpuscular Volume 98.7 fL (81-99); Mean Platelet Vol. 9.6 fl (6.2-12.0); Monocyte# 0.69 X10^3/uL; Monocyte% 5.9 % (0-10); NRBC Flagged by Analyzer 0 % (0-5); Neutrophil # 8.96 X10^3/uL (2.7-7.7); Neutrophil % 76.6 % (47-70); POSITIVE MORPHOLOGY YES; Platelet Count 444 K/mm3 (150-450); RBC Distribution Width SD 71.6 fl (35.1-43.9); Red Blood Count 2.98 M/mm3 (4.2-5.4); White Blood Count 11.7 K/mm3 (4.4-11.0)
[2020-06-08 15:44] LABS: ALB/GLOB Ratio 0.6 RATIO (0.9-2.4); AST(SGOT) 123 U/L (15-37); Alanine Aminotransfer ALT/SGPT 26 U/L (13-56); Albumin, Serum 2.2 g/dL (3.2-5.0); Alkaline Phosphatase 161 U/L (45-117); Anion Gap 11 (5-15); BUN 2 mg/dL (7-18); BUN/Creat Ratio 2.9 RATIO (10-20); Calcium,Total 6.6 mg/dL (8.5-10.1); Chloride 96 mmol/L (98-107); EST Glomerular Filtration Rate 94 mL/min (>60); Est Glom Filt Rate - Afr Amer 114 mL/min (>60); Globulin 3.9 g/dL (2.2-4.2); Glucose 80 mg/dL (74-106); Protein, Total 6.1 g/dL (6.4-8.2); Sodium Level 138 mmol/L (136-145)
[2020-06-08 15:46] LABS: Differential Indicated SCAN CRITERIA MET
[2020-06-08 16:14] LABS: Anisocytosis 2+; Hypochromasia 2+; Platelet Estimate ADEQUATE (ADEQ)
[2020-06-08 19:46] LABS: Potassium 2.3 mmol/L (3.5-5.1)
== END ==
PROVIDERS: PCP Student in an Organized Health Care Education/Training Program; Referring Provider Internal Medicine Rheumatology; Visit Provider Internal Medicine Rheumatology
DX: M06.09 Rheumatoid arthritis without rheumatoid factor, multiple sites (principal); M79.7 Fibromyalgia; K76.0 Fatty (change of) liver, not elsewhere classified; J45.909 Unspecified asthma, uncomplicated; E11.9 Type 2 diabetes mellitus without complications; M77.00 Medial epicondylitis, unspecified elbow; Z79.899 Other long term (current) drug therapy
CPT/HCPCS: 36415; 80053; 85025

== ENCOUNTER → 2020-08-24 11:36 | Outpatient (CLI) | payer OTHER, SELFPAY ==
[2020-08-24 15:33] LABS: Absolute Lymphocyte Count 1.79 X10^3/uL (0.83-4.51); Absolute Neutrophil Count 3.9 X10^3/uL (2.0-7.7); Basophil# 0.03 X10^3/uL; Basophil% 0.5 % (0-1); Eosinophil# 0.07 X10^3/uL; Eosinophils% 1.1 % (0-5); Hematocrit 25.2 % (37-47); Lymphocyte # 1.79 X10^3/ul (4.0); Lymphocyte % 28.9 % (19-41); Mean Corp Hgb Conc 31.7 g/dL (32-36); Mean Corpuscular Hgb 29.9 pg (27.0-32.0); Mean Platelet Vol. 9.4 fl (6.2-12.0); Monocyte# 0.43 X10^3/uL; Monocyte% 6.9 % (0-10); NRBC Flagged by Analyzer 0 % (0-5); Neutrophil # 3.85 X10^3/uL (2.7-7.7); Neutrophil % 62.3 % (47-70); Platelet Count 437 K/mm3 (150-450); RBC Distribution Width CV 17.9 % (11.6-14.6); RBC Distribution Width SD 59.7 fl (35.1-43.9); Red Blood Count 2.68 M/mm3 (4.2-5.4); White Blood Count 6.2 K/mm3 (4.4-11.0)
[2020-08-24 17:21] LABS: ALB/GLOB Ratio 0.6 RATIO (0.9-2.4); AST(SGOT) 50 U/L (15-37); Alanine Aminotransfer ALT/SGPT 20 U/L (13-56); Albumin, Serum 2.3 g/dL (3.2-5.0); Alkaline Phosphatase 163 U/L (45-117); Anion Gap 10 (5-15); BUN 4 mg/dL (7-18); BUN/Creat Ratio 4.1 RATIO (10-20); Calcium,Total 7.7 mg/dL (8.5-10.1); Chloride 98 mmol/L (98-107); Creatinine, Serum 0.97 mg/dL (0.55-1.02); EST Glomerular Filtration Rate 64 mL/min (>60); Est Glom Filt Rate - Afr Amer 77 mL/min (>60); Globulin 3.6 g/dL (2.2-4.2); Glucose 60 mg/dL (74-106); Potassium 2.6 mmol/L (3.5-5.1); Protein, Total 5.9 g/dL (6.4-8.2); Sodium Level 137 mmol/L (136-145)
== END ==
PROVIDERS: PCP Student in an Organized Health Care Education/Training Program; Referring Provider Internal Medicine Rheumatology; Visit Provider Internal Medicine Rheumatology
DX: M06.09 Rheumatoid arthritis without rheumatoid factor, multiple sites (principal); M79.7 Fibromyalgia; K76.0 Fatty (change of) liver, not elsewhere classified; J45.909 Unspecified asthma, uncomplicated; E11.9 Type 2 diabetes mellitus without complications; M77.00 Medial epicondylitis, unspecified elbow; Z79.899 Other long term (current) drug therapy
CPT/HCPCS: 36415; 80053; 85025

== ENCOUNTER 2020-08-24 19:52 | Inpatient (IN) | payer OTHER, SELFPAY ==
[2020-08-24 19:53] VITALS: BP 69/46; PULSE 74; RESP 14; TEMP 35.5; O2SAT 98; BMI 25.6
--- NOTE | 2020-08-24 20:05 | EKG12_ITS ---
Test Reason : ABNORMAL LABS Blood Pressure : / mmHG Vent. Rate : 068 BPM Atrial Rate : 068 BPM P-R Int : 170 ms QRS Dur : 090 ms QT Int : 506 ms P-R-T Axes : 054 065 055 degrees QTc Int : 538 ms Normal sinus rhythm Nonspecific ST abnormality Prolonged QT Abnormal ECG Confirmed by HILAROI OWENS, JAMAL ([id number]), newspaper copy editor DAVID GOETZ ([id number]) on 08/25/2020 9:05:55 AM Referred By: Jamal Hussein Confirmed By:JAMAL RICH MD
--- NOTE | 2020-08-24 20:12 | ED.DCSUM_ITS ---
History of Present Illness Chief Complaint: Abn Labs Informant: Patient Narrative: Patient reports feeling tired and fatigued for several months. She had routine lab work done today and states she was called tonight and told her potassium was 2.9 and her hemoglobin was 8 and she should go to the emergency room. In triage patient's blood pressure was noted to be in the 60s over 40s and she was brought immediately back to the room. Patient denies any new pain, stating that she has arthritis pain that is chronic and unchanged. She does state that she has not been eating well lately. She does report having a transfusion several weeks ago for similar lab changes. - Past Medical History (1) Chronic low back pain Status: Chronic (2) HLD (hyperlipidemia) Status: Chronic (3) History of fibromyalgia Status: Chronic (4) History of rheumatoid arthritis Status: Chronic (5) Hypertension Status: Chronic Past Medical History - Allergies and Home Meds Allergies/Adverse Reactions: Allergies progesterone Allergy (Verified 03/04/20 21:22) Itching varenicline tartrate [From Chantix] Allergy (Verified 03/04/20 21:22) suicidal baclofen Adverse Reaction (Verified 03/04/20 21:22) Other lisinopril Adverse Reaction (Verified 03/04/20 21:22) Angioedema Prior records reviewed: Yes Surgical History: total hip arthroplasty, - - Multiple surgeries for left femur due to rheumatoid arthritis and osteoarthritis Smoking Status: Current every day smoker - Family History Maternal Family History: Reports: No pertinent history Additional Family History: Depression Paternal Family History: Reports: No pertinent history Additional Family History: Depression Review of Systems General: Denies: Chills, Fever Eyes: Denies: Visual changes - bilaterally ENT: Denies: Bilateral ear pain Cardiovascular: Denies: Chest pain Respiratory: Denies: Dyspnea, Cough Gastrointestinal: Denies: Abdominal pain, Nausea, Vomiting, Diarrhea Genitourinary: Denies: Dysuria Neurological: Denies: Headache Hematologic: Denies: Easy bruising, Easy bleeding Allergy: Denies: Uticaria Physical Exam Vital Signs/Narrative: Vital Signs Temp Pulse Resp BP Pulse Ox 08/24/20 19:53 95.9 F L 74 14 69/46 L 98 Inital Vital Signs reviewed: Yes General: Well nourished, Well developed Head: Normocephalic ENT: Moist mucous membranes Neck: Supple Cardiovascular: Regular rate, Regular rhythm Respiratory: No distress, CTA bilaterally Abdomen: Soft, Nontender, Normal bowel sounds Skin: - - Old healed scar to the left lower leg. Mild left leg edema. No erythema or warmth. Neurological: Alert, Oriented x3, - - No focal neurologic deficits. Diagnostic/Tx/Re-eval 08/24/20 22:45 Stool Stool Occult Blood (ARNOLDO) - Final Laboratory Results 08/24/20 08/24/20 08/24/20 20:14 20:16 20:16 WBC 4.8 RBC 2.59 L Hgb 7.7 L Hct 24.1 L MCV 93.1 MCH 29.7 MCHC 32.0 RDW Std Deviation 59.7 H RDW Coeff of Jania 17.9 H Plt Count 339 MPV 10.4 Immature Gran % (Auto) 0.600 Neut % (Auto) 51.8 Lymph % (Auto) 36.4 [place] % (Auto) 8.5 Eos % (Auto) 2.1 Baso % (Auto) 0.6 Absolute Neuts (auto) 2.5 Absolute Lymphs (auto) 1.76 Nucleated RBC % 0 Platelet Estimate ADEQUATE RBC Morphology N CHROM Anisocytosis RARE Macrocytosis RARE Sodium 135 L Potassium 2.7 L* Chloride 96 L Carbon Dioxide 28.0 Anion Gap 11 BUN 5 L Creatinine 0.94 Estim Creat Clear Calc 55.37 Est GFR (MDRD) Af Amer 80 Est GFR (MDRD) Non-Af 66 BUN/Creatinine Ratio 5.3 L Glucose 71 L Lactic Acid Calcium 7.4 L Troponin I < 0.015 Urine Color Urine Clarity Urine pH Ur Specific [place] Urine Protein Urine Glucose (UA) Urine Ketones Urine Occult Blood Urine Nitrite Urine Bilirubin Urine Urobilinogen Ur Leukocyte Esterase Urine RBC Urine WBC Ur Squamous Epith Cells Urine Bacteria Urine Mucus POC Glucose 78 08/24/20 08/24/20 21:12 22:22 WBC RBC Hgb Hct MCV MCH MCHC RDW Std Deviation RDW Coeff of Jania Plt Count MPV Immature Gran % (Auto) Neut % (Auto) Lymph % (Auto) [place] % (Auto) Eos % (Auto) Baso % (Auto) Absolute Neuts (auto) Absolute Lymphs (auto) Nucleated RBC % Platelet Estimate RBC Morphology Anisocytosis Macrocytosis Sodium Potassium Chloride Carbon Dioxide Anion Gap BUN Creatinine Estim Creat Clear Calc Est GFR (MDRD) Af Amer Est GFR (MDRD) Non-Af BUN/Creatinine Ratio Glucose Lactic Acid 3.2 H* Calcium Troponin I Urine Color Yellow Urine Clarity Clear Urine pH 7.0 Ur Specific [place] 1.005 Urine Protein Negative Urine Glucose (UA) Normal Urine Ketones Negative Urine Occult Blood Negative Urine Nitrite Negative Urine Bilirubin Negative Urine Urobilinogen Normal Ur Leukocyte Esterase 25 H Urine RBC 0 SEEN Urine WBC 0-5 SEEN Ur Squamous Epith Cells 0 SEEN Urine Bacteria 1+ Urine Mucus 0 SEEN POC Glucose - EKG Initial EKG Interpretation: Sinus Rhythm - Sinus at 68 with no acute ischemia. - Medical Decision Making Patient was given a total of 3 L of IV fluid with minimal improvement in her blood pressure. Lactic acid is elevated. 40 mEq of IV potassium are ordered. Patient is given a dose of Solu-Cortef and following this blood pressure elevates into the 90s-100 systolic range. Patient did have an episode of emesis in the emergency room and is given a dose of Zofran. Stool guaiac is negative for blood. 2 units of packed RBCs were typed and crossed but not ordered to be given pending repeat labs in the morning. We will speak with hospitalist regarding admission. Addendum: When patient was seen by the hospital she had dropped her blood pressure back into the 70s again. 2 additional blood pressure readings were also low again. Patient was consented for central line. Right IJ was visua lized with ultrasound. 3 separate attempts were made to cannulized the right IJ. With ultrasound guidance I was visualizing the needle into the vessel but there was no return of blood flow. At this time patient's blood pressure is 97/56. We will hold off for any further attempts. Hospitalist is aware. There is an option of running low-dose peripheral Levophed tonight if needed or ED doc on subway repair supervisor is willing to place line later if patient drops her pressure again. ED Disposition - Plan for ED Patient:
[2020-08-24 20:20] LABS: Bedside Glucose 78 mg/dL (70-110)
[2020-08-24] MEDS: 0.9% Normal Saline 1,000 ML 1000 ML IV (20:24)
[2020-08-24 20:37] LABS: Absolute Lymphocyte Count 1.76 X10^3/uL (0.83-4.51); Absolute Neutrophil Count 2.5 X10^3/uL (2.0-7.7); Basophil# 0.03 X10^3/uL; Basophil% 0.6 % (0-1); Eosinophils% 2.1 % (0-5); Hematocrit 24.1 % (37-47); Hemoglobin 7.7 g/dL (12.0-15.0); Lymphocyte # 1.76 X10^3/ul (4.0); Lymphocyte % 36.4 % (19-41); Mean Corpuscular Hgb 29.7 pg (27.0-32.0); Mean Corpuscular Volume 93.1 fL (81-99); Mean Platelet Vol. 10.4 fl (6.2-12.0); Monocyte# 0.41 X10^3/uL; Monocyte% 8.5 % (0-10); NRBC Flagged by Analyzer 0 % (0-5); Neutrophil # 2.51 X10^3/uL (2.7-7.7); Neutrophil % 51.8 % (47-70); POSITIVE COUNT YES; Platelet Count 339 K/mm3 (150-450); RBC Distribution Width CV 17.9 % (11.6-14.6); RBC Distribution Width SD 59.7 fl (35.1-43.9); Red Blood Count 2.59 M/mm3 (4.2-5.4); White Blood Count 4.8 K/mm3 (4.4-11.0)
[2020-08-24] MEDS: Potassium Chloride 10mEq/100mL 10 MEQ/100 ML IV.SOLN. 100 MEQ IV BOLUS ×4 (20:44→23:48)
[2020-08-24 20:51] LABS: Differential Indicated SCAN CRITERIA MET
[2020-08-24 21:03] LABS: Anion Gap 11 (5-15); BUN 5 mg/dL (7-18); BUN/Creat Ratio 5.3 RATIO (10-20); Calcium,Total 7.4 mg/dL (8.5-10.1); Chloride 96 mmol/L (98-107); Creatinine, Serum 0.94 mg/dL (0.55-1.02); EST Glomerular Filtration Rate 66 mL/min (>60); Est Glom Filt Rate - Afr Amer 80 mL/min (>60); Estimated Creatinine Clearance 55.37 ml/min; Glucose 71 mg/dL (74-106); Potassium 2.7 mmol/L (3.5-5.1); Sodium Level 135 mmol/L (136-145)
[2020-08-24] MEDS: 0.9% Normal Saline 1,000 ML 999 ML IV ×2 (21:11→22:34)
[2020-08-24 21:22] LABS: Anisocytosis RARE; Macrocytosis RARE; Platelet Estimate ADEQUATE (ADEQ); Red Cell Morphology N CHROM NORMAL (NORM C&C)
[2020-08-24 21:58] LABS: Lactic Acid 3.2 mmol/L (0.4-1.9)
[2020-08-24 22:27] LABS: Mucous, Urine 0 SEEN /hpf (<or=2+); Red Blood Cells-Urine 0 SEEN /hpf (0-5); Squamous Epithelial Cells - UA 0 SEEN /hpf (5-10)
[2020-08-24 22:29] VITALS: BP 84/65; PULSE 87; RESP 22; O2SAT 93
[2020-08-24] MEDS: Hydrocortisone Sod Succinate 100 MG/2 ML Vial 50 MG IV ×2 (22:34→23:52)
[2020-08-24 22:35] LABS: Color, Urine Yellow (Yellow); Glucose, Dipstick Normal (Normal); Ketone-Dipstick Negative (Negative); Leukocyte Esterase-Dipstick 25 /ul (Negative); Nitrite-Dipstick Negative (Negative); Occult Blood-Urine Negative /ul (Negative); Protein-Dipstick Negative (Negative); Specific Gravity, Urine 1.005 (1.002-1.030); Urine Bilirubin Dipstick Negative (Negative); Urine Clarity Clear (Clear); Urine Urobilinogen Normal (Normal)
[2020-08-24 22:42] LABS: Bacteria 1+ /hpf (None Seen); White Blood Cells 0-5 SEEN /hpf (0-5)
[2020-08-24 23:17] VITALS: BP 89/74; PULSE 94; RESP 22; O2SAT 90
[2020-08-24] MEDS: 0.9% Normal Saline 1,000 ML 150 ML IV (23:48)
[2020-08-24 23:50] VITALS: BP 107/86; PULSE 95; RESP 18; O2SAT 89; O2SAT 96
[2020-08-24] MEDS: Ondansetron 4 MG/2 ML Vial IV (23:52)
[2020-08-25] VITALS (59 sets, daily range): BP systolic 59–111; BP diastolic 32–86; PULSE 84–110; RESP 16–24; TEMP 35.5–37.2; O2SAT 90–100; BMI 28.6
--- NOTE | 2020-08-25 00:41 | PCM.HP.STD ---
Problem List (1) Marijuana abuse, continuous Status: Acute (2) Mental confusion Status: Acute (3) HLD (hyperlipidemia) Status: Chronic (4) Anemia Status: Chronic (5) Hypertension Status: Chronic Qualifiers: (6) Tobacco abuse disorder Status: Chronic (7) History of rheumatoid arthritis Status: Chronic (8) History of fibromyalgia Status: Chronic (9) Chronic low back pain Status: Chronic (10) History of drug overdose Status: Chronic History of Present Illness Date of Admission: 08/25/20 Chief Complaint: confusion, weakness, abnormal labs The patient is a 50 year old female patient presents emergency room from outpatient setting due to abnormal laboratory studies. Patient had a potassium of 2.7 and a hemoglobin of 7.7 and therefore patient was sent for correction of abnormal labs. Patient has been confused and admits to using marijuana today. She denies chest pain or shortness of breath, no fevers or chills, and/or chest pain or shortness of breath she has had one episode of emesis here in the emergency room. Blood pressure has been low in the emergency room and she is received 3 L of normal saline bolus and a dose of steroids to which she responded but remains on the low side for her blood pressure which appears to be chronic. The patient is requesting nicotine patch due to her chronic smoking. Lactic acid is elevated 3.2, white blood cell count within normal limits and patient did start to receive potassium replacement therapy in the emergency room. Due to her chronic low blood pressure looking through the medical record over the past year it was felt unnecessary to place a central line in the emergency room at this time and will place patient on observation overnight to see if she gets more clarity in her mental cognition after cessation of marijuana use. Past Medical History Past Medical History (Chronic Problems): Chronic Problems HLD (hyperlipidemia) (Chronic) Anemia (Chronic) Hypertension (Chronic) Tobacco abuse disorder (Chronic) History of rheumatoid arthritis (Chronic) History of fibromyalgia (Chronic) Chronic low back pain (Chronic) History of drug overdose (Chronic) Allergies progesterone Allergy (Verified 03/04/20 21:22) Itching varenicline tartrate [From Chantix] Allergy (Verified 03/04/20 21:22) suicidal baclofen Adverse Reaction (Verified 03/04/20 21:22) Other lisinopril Adverse Reaction (Verified 03/04/20 21:22) Angioedema Home Medications: Ambulatory Orders Medication Instructions Recorded Venlafaxine XR [Effexor Xr] 150 mg PO DAILY 01/08/14 Albuterol Inhaler [Ventolin Hfa] 2 puff INHALATION Q4H PRN PRN 03/31/18 Aspirin 81 mg PO DAILY 03/31/18 Esomeprazole Mag Trihydrate 40 mg PO DAILY 03/31/18 [Nexium] Ferrous Sulfate [Iron] 1 tablet PO DAILY 03/31/18 Metoprolol Tartrate [Lopressor 25 mg PO BID 03/31/18 (beta fan)] Calcium Carbonate [Tums] 500 mg PO TIDCM #90 tab 04/25/18 Furosemide [Lasix] 20 mg PO DAILY 05/03/18 Rosuvastatin Calcium [Crestor] 40 mg PO QHS 05/03/18 Mirtazapine 45 mg PO QHS 08/08/18 Potassium Chloride [Klor-Con M10] 10 meq PO DAILY 08/08/18 Pregabalin [Lyrica] 50 mg PO BID 08/08/18 Losartan Potassium [Cozaar] 25 mg PO DAILY #30 tab 06/24/19 Surgical History: total hip arthroplasty, - - Multiple surgeries for left femur due to rheumatoid arthritis and osteoarthritis Psychiatric History: Depression TRAINING DIRECTOR History: No pertinent TRAINING DIRECTOR history Smoking Status: Current every day smoker - *Family History Maternal History Items: No pertinent history Paternal History Items: No pertinent history Review of Systems Constitutional: Reports: Weakness. Denies: Chills, Fever, Weight Change HEENT: Denies: Head Aches, Sinus Congestion, Sinus Drainage Cardiovascular: Denies: Chest Pain, Palpitations Respiratory: Denies: Cough, Shortness of breath at rest, Sputum production Gastrointestinal: Reports: Nausea, Vomiting. Denies: Abdominal Pain Genitourinary: Denies: Dysuria Musculoskeletal: Denies: Joint Pain, Joint Tenderness Skin: Denies: Rash, Wounds Neurological: Denies: Numbness, Tingling, Focal weakness Psychiatric: Denies: Anxiety, Depression, Homicidal Ideations, Suicidal Ideations Hematologic/ Lymphatic: Denies: Easy Bruising, Easy Bleeding VTE Information - Inpt Only VTE Present on Admission: No VTE Mechan Device Prophylaxis: None VTE Pharm Prophylaxis ordered?: Yes Patient Problems: Active and Suspected Problems Mental confusion (Acute) Marijuana abuse, continuous (Acute) - Physical Exam Vitals/I&O's: Vital Signs Temp Pulse Resp BP Pulse Ox 95.9 F L 95 18 107/86 H 96 08/24/20 19:53 08/24/20 23:50 08/24/20 23:50 08/24/20 23:50 08/24/20 23:50 Oxygen Flow Rate (L/min) 2 Oxygen Delivery Method Nasal Cannula Weight: 140 lb Body Mass Index (BMI) 25.6 Finger Stick Blood Glucose 78 Intake and Output for Last 24 Hours 08/23/20 08/24/20 08/25/20 23:59 23:59 23:59 Intake Total 2299 / 2299 Balance 2299 / 2299 General: Alert, Oriented x3, Cooperative HEENT: Atraumatic, PERRLA, EOMI, Normocephalic Neck: Supple, No JVD Lungs: Clear to auscultation, Normal air movement Cardiovascular: Regular rate, Normal S1, Normal S2, No murmurs Abdomen: Bowel Sounds Present, Soft, Non Tender, Obese Extremities: No edema Skin: No rashes Musculoskeletal: No Tenderness to Palpation of Joints or Extremities Neurological: Neuro grossly intact Psych/Mental Status: Normal Affect, Appropriate Microbiology Past 72 Hours 08/24/20 22:45 Stool Stool Occult Blood (ARNOLDO) - Final Laboratory Results 08/24/20 20:14: POC Glucose 78 08/24/20 20:16: WBC 4.8, RBC 2.59 L, Hgb 7.7 L, Hct 24.1 L, MCV 93.1, MCH 29.7, MCHC 32.0, RDW Std Deviation 59.7 H, RDW Coeff of Jania 17.9 H, Plt Count 339, MPV 10.4, Immature Gran % (Auto) 0.600, Neut % (Auto) 51.8, Lymph % (Auto) 36.4, [place] % (Auto) 8.5, Eos % (Auto) 2.1, Baso % (Auto) 0.6, Absolute Neuts (auto) 2.5, Absolute Lymphs (auto) 1.76, Nucleated RBC % 0, Platelet Estimate ADEQUATE, RBC Morphology N CHROM, Anisocytosis RARE, Macrocytosis RARE 08/24/20 20:16: Sodium 135 L, Potassium 2.7 L*, Chloride 96 L, Carbon Dioxide 28.0, Anion Gap 11, BUN 5 L, Creatinine 0.94, Estim Creat Clear Calc 55.37, Est GFR (MDRD) Af Amer 80, Est GFR (MDRD) Non-Af 66, BUN/Creatinine Ratio 5.3 L, Glucose 71 L, Calcium 7.4 L, Troponin I < 0.015 08/24/20 21:12: Lactic Acid 3.2 H* 08/24/20 22:22: Urine Color Yellow, Urine Clarity Clear, Urine pH 7.0, Ur Specific [place] 1.005, Urine Protein Negative, Urine Glucose (UA) Normal, Urine Ketones Negative, Urine Occult Blood Negative, Urine Nitrite Negative, Urine Bilirubin Negative, Urine Urobilinogen Normal, Ur Leukocyte Esterase 25 H, Urine RBC 0 SEEN, Urine WBC 0-5 SEEN, Ur Squamous Epith Cells 0 SEEN, Urine Bacteria 1+, Urine Mucus 0 SEEN Current Medications Sodium Chloride () 1,000 mls @ 150 mls/hr IV .[id number] [facility] Last Admin: 08/24/20 23:48 Dose: 150 mls/hr Documented by: Norepinephrine Bitartrate 8 mg (/ Sodium Chloride) 250 mls @ 9.375 mls/hr CONT INF .[id number] [facility]; Protocol Assessment/Plan All Active Problems Mental confusion (Acute) ARF (acute renal failure) (Acute) Diarrhea (Acute) Altered mental status (Acute) Fracture of fibula, right, closed (Acute) Drug overdose (Acute) Marijuana abuse, continuous (Acute) Problem List Mental confusion (Acute) HLD (hyperlipidemia) (Chronic) Anemia (Chronic) Marijuana abuse, continuous (Acute) Hypertension (Chronic) Tobacco abuse disorder (Chronic) History of rheumatoid arthritis (Chronic) History of fibromyalgia (Chronic) Chronic low back pain (Chronic) History of drug overdose (Chronic) Plan 1. Mental confusion?patient has history of drug abuse and admits to using marijuana earlier today. 2. Hypotension with elevated lactic acid.?Patient is chronically hypotensive ,however, it is unclear whether she took medication that would be causing her blood pressure to be low but it does not appear that she has a source of infection at this time. Patient has received 3 L normal saline bolus and a dose of steroids in the emergency room to elevate her blood pressure to which she has responded and will continue to observe for further progress. 3. Tobacco abuse disorder?we will place patient on nicotine patch 4. Chronic pain?due to hypotension but will hold any medications that would cause lowering of blood pressure 5. DVT prophylaxis?low molecular weight heparin 6. Repeat CBC BMP, lactic acid in the morning will allow patient have a normal diet and will replace potassium as needed 7. Anemia?consider transfusion if hemoglobin decreases no gross source identified at this time appears to be anemia of chronic disease OBSV E&M: [id number] Initial observation care L2
[2020-08-25] MEDS: proMETHazine 25 MG/ML Syringe 6.25 MG IV (00:54)
[2020-08-25 01:15] LABS: Reflex Lactate? Y
--- NOTE | 2020-08-25 01:43 | RAD_ITS ---
STUDY: X-RAY CHEST REASON FOR EXAM: Female, 50 years old. LINE ATTEMPT TECHNIQUE: Single AP portable view of the chest. COMPARISON: 08/08/2018. FINDINGS: There is no visualized central venous catheter or visualized fragments and central venous catheter. There is no demonstrated pneumothorax. There are no confluent pulmonary infiltrates. There is a small focus of chronic atelectasis or fibrosis in the peripheral right lung base, also present on previous exam. There is no demonstrated pleural effusion. Normal size heart. Normal mediastinum and audrey. Normal visualized aortic arch and descending thoracic aorta. There are no demonstrated acute fractures or destructive bone lesions. There is no demonstrated abnormality of the visualized soft tissue structures of the upper abdomen. RAD/Chest 1 View (Portable) IMPRESSION: Mild chronic changes right lung base. No evidence for acute cardiopulmonary pathology. Electronically Signed: Jaswinder Ricketts MD at 2:05 EDT , Service support ,
--- NOTE | 2020-08-25 03:10 | ED.RN ---
nicotine patch not given, relayed this to horticulture teacher kati. labs not drawn called lab to draw them lab said they could ddraw them on the floor horticulture teacher kati said they wanted to try first.
[2020-08-25] MEDS: 0.9% Normal Saline 1,000 ML 150 ML IV (03:36)
[2020-08-25 03:55] LABS: Absolute Lymphocyte Count 0.48 X10^3/uL (0.83-4.51); Absolute Neutrophil Count 4.2 X10^3/uL (2.0-7.7); Basophil# 0.02 X10^3/uL; Basophil% 0.4 % (0-1); Eosinophil# 0.01 X10^3/uL; Eosinophils% 0.2 % (0-5); Hematocrit 24.1 % (37-47); Hemoglobin 7.8 g/dL (12.0-15.0); Lymphocyte # 0.48 X10^3/ul (4.0); Lymphocyte % 10.1 % (19-41); Mean Corp Hgb Conc 32.4 g/dL (32-36); Mean Corpuscular Hgb 30.6 pg (27.0-32.0); Mean Corpuscular Volume 94.5 fL (81-99); Mean Platelet Vol. 9.3 fl (6.2-12.0); Monocyte# 0.06 X10^3/uL; Monocyte% 1.3 % (0-10); NRBC Flagged by Analyzer 0 % (0-5); Neutrophil # 4.16 X10^3/uL (2.7-7.7); Neutrophil % 87.4 % (47-70); POSITIVE DIFFERENTIAL YES; Platelet Count 487 K/mm3 (150-450); RBC Distribution Width CV 18.4 % (11.6-14.6); RBC Distribution Width SD 62.4 fl (35.1-43.9); Red Blood Count 2.55 M/mm3 (4.2-5.4); White Blood Count 4.8 K/mm3 (4.4-11.0)
[2020-08-25 04:02] LABS: Differential Indicated SCAN CRITERIA MET
[2020-08-25 04:13] LABS: Lactic Acid 0.7 mmol/L (0.4-1.9)
[2020-08-25 04:44] LABS: Differential Comment SCANNED
[2020-08-25 06:00] LABS: Anion Gap 9 (5-15); BUN 3 mg/dL (7-18); BUN/Creat Ratio 4.2 RATIO (10-20); Calcium,Total 6.3 mg/dL (8.5-10.1); Chloride 108 mmol/L (98-107); Creatinine, Serum 0.72 mg/dL (0.55-1.02); EST Glomerular Filtration Rate 90 mL/min (>60); Est Glom Filt Rate - Afr Amer 109 mL/min (>60); Estimated Creatinine Clearance 72.29 ml/min; Glucose 89 mg/dL (74-106); Magnesium 1.4 mg/dL (1.6-2.6); Phosphorus 1.5 mg/dL (2.5-4.9); Potassium 3.1 mmol/L (3.5-5.1); Sodium Level 141 mmol/L (136-145)
--- NOTE | 2020-08-25 06:18 | PCM.CON.CC ---
Reason for Consult Date of Consultation: 08/25/20 History of Present Illness: The patient is a 50-year-old female, with a history as outlined below, who presented to the emergency department on August 24 at the urging of her PCP with abnormal lab work-up and symptoms including generalized malaise and fatigue. The patient does have a history of rheumatoid arthritis, for which she is followed by Dr. Rothman of rheumatology. Her PCP, Dr. Jacob Teixeira, recently ordered lab work which revealed evidence of hypokalemia, hypophosphatemia, hypomagnesemia and anemia. The patient has been anemic now since the spring 2019. She reported that she was recently, in the last 6 months, evaluated by Dr. Velasquez through the [facility] and apparently had both upper and lower endoscopy, which failed to demonstrate any evidence of occult bleeding. The patient does have a chronic tobacco dependency history, smoking 1 pack of cigarettes per day. She also reports social marijuana use. The patient is on multi antihypertensives and a diuretic at her baseline and is also prescribed potassium supplementation. However, in speaking with the patient, her compliance with her home medication regimen is somewhat inconsistent. The patient does report the presence of audible snoring when sleeping along with nonrestorative sleep and excessive daytime sleepiness, concerning for sleep disordered breathing. It has been suggested in the past that the patient undergo a diagnostic polysomnogram, but she has failed to do so. On presentation to the emergency department, the patient was noted to be afebrile but was hypotensive with a presenting blood pressure of 69/46 mmHg. She was, nevertheless, maintaining appropriate oxygen saturations on room air. Laboratory evaluation revealed no evidence of a leukocytosis. Hemoglobin was noted to be 7.7 g/dL. Chemistry profile was notable for a sodium of 135, potassium of 2.7, chloride of 96, glucose of 71, lactate of 3.2 and calcium of 7.4. Additional work-up revealed a phosphorus of 1.5 and magnesium of 1.4. Troponin was negative. Urine analysis was unremarkable. Chest x-ray revealed no acute cardiopulmonary process. Past Medical History Past Medical History (Chronic Problems): Chronic Problems HLD (hyperlipidemia) (Chronic) Anemia (Chronic) Hypertension (Chronic) Tobacco abuse disorder (Chronic) History of rheumatoid arthritis (Chronic) History of fibromyalgia (Chronic) Chronic low back pain (Chronic) History of drug overdose (Chronic) Allergies progesterone Allergy (Verified 03/04/20 21:22) Itching varenicline tartrate [From Chantix] Allergy (Verified 03/04/20 21:22) suicidal baclofen Adverse Reaction (Verified 03/04/20 21:22) Other lisinopril Adverse Reaction (Verified 03/04/20 21:22) Angioedema Home Medications: Ambulatory Orders Medication Instructions Recorded Venlafaxine XR [Effexor Xr] 150 mg PO DAILY 01/08/14 Albuterol Inhaler [Ventolin Hfa] 2 puff INHALATION Q4H PRN PRN 03/31/18 Aspirin 81 mg PO DAILY 03/31/18 Esomeprazole Mag Trihydrate 40 mg PO DAILY 03/31/18 [Nexium] Ferrous Sulfate [Iron] 1 tablet PO DAILY 03/31/18 Metoprolol Tartrate [Lopressor 25 mg PO BID 03/31/18 (beta fan)] Calcium Carbonate [Tums] 500 mg PO TIDCM #90 tab 04/25/18 Furosemide [Lasix] 20 mg PO DAILY 05/03/18 Rosuvastatin Calcium [Crestor] 40 mg PO QHS 05/03/18 Mirtazapine 45 mg PO QHS 08/08/18 Potassium Chloride [Klor-Con M10] 10 meq PO DAILY 08/08/18 Pregabalin [Lyrica] 50 mg PO BID 08/08/18 Losartan Potassium [Cozaar] 25 mg PO DAILY #30 tab 06/24/19 traMADol [Ultram (G)] 50 mg PO TID PRN 08/25/20 Surgical History: total hip arthroplasty, - - Multiple surgeries for left femur due to rheumatoid arthritis and osteoarthritis Psychiatric History: Depression [employer] History: No pertinent [employer] history Smoking Status: Current every day smoker - *Family History Maternal History Items: No pertinent history Paternal History Items: No pertinent history Review of Systems Constitutional: Reports: Anorexia, Malaise, Fatigue. Denies: Chills, Fever Eyes: Denies: Blurred vision, Double vision HEENT: Denies: Head Aches, Sinus Congestion, Sinus Drainage Cardiovascular: Denies: Chest Pain, Palpitations Respiratory: Reports: Cough. Denies: Shortness of Breath Gastrointestinal: Denies: Abdominal Pain, Nausea, Vomiting Genitourinary: Denies: Dysuria Musculoskeletal: Reports: - - Chronic pain syndrome Skin: Denies: Rash, Wounds Neurological: Denies: Numbness, Tingling, Focal weakness Psychiatric: Reports: Depression Hematologic/ Lymphatic: Reports: Anemia Patient Problems: Active and Suspected Problems Mental confusion (Acute) Marijuana abuse, continuous (Acute) Objective: The patient's most recent lab work, culture data and imaging studies have all been personally reviewed. Stool for occult blood was negative. Blood cultures are pending. - Physical Exam Vitals/I&O's: Vital Signs Temp Pulse Resp BP Pulse Ox 97.1 F L 90 23 H 85/66 L 99 08/25/20 03:01 08/25/20 05:00 08/25/20 05:00 08/25/20 05:00 08/25/20 05:00 Oxygen Flow Rate (L/min) 2 Oxygen Delivery Method Nasal Cannula Weight: 156 lb 8.451 oz Body Mass Index (BMI) 28.6 Finger Stick Blood Glucose 78 Intake and Output for Last 24 Hours 08/23/20 08/24/20 08/25/20 23:59 23:59 23:59 Intake Total 3300 / 3300 697.58 / 697.58 Output Total 300 / 300 Balance 3300 / 3300 397.58 / 397.58 General: Alert, Cooperative, No apparent distress HEENT: Atraumatic, Normocephalic Oral: No Gingival or Mucosal Lesions/ Ulcerations Neck: Supple, No Nodes, Trachea Midline Lungs: No rhonchi, No wheeze, No rales, Diminished Cardiovascular: Regular rate, Regular Rhythm Abdomen: Bowel Sounds Present, Soft, Non Tender Extremities: No clubbing, No cyanosis, Edema Skin: No breakdown Musculoskeletal: No Muscle Wasting Lymphatic: No Cervical, Supraclavicular, or Inguinal Adenopathy Neurological: Cranial nerves II-XII grossly intact, Neuro grossly intact Psych/Mental Status: Anxious Labs (Last 48 Hours) 08/24/20 08/24/20 08/24/20 20:14 20:16 20:16 WBC 4.8 RBC 2.59 L Hgb 7.7 L Hct 24.1 L MCV 93.1 MCH 29.7 MCHC 32.0 RDW Std Deviation 59.7 H RDW Coeff of Jania 17.9 H Plt Count 339 MPV 10.4 Immature Gran % (Auto) 0.600 Neut % (Auto) 51.8 Lymph % (Auto) 36.4 [place] % (Auto) 8.5 Eos % (Auto) 2.1 Baso % (Auto) 0.6 Absolute Neuts (auto) 2.5 Absolute Lymphs (auto) 1.76 Nucleated RBC % 0 Differential Comment Platelet Estimate ADEQUATE RBC Morphology N CHROM Anisocytosis RARE Macrocytosis RARE Sodium 135 L Potassium 2.7 L* Chloride 96 L Carbon Dioxide 28.0 Anion Gap 11 BUN 5 L Creatinine 0.94 Estim Creat Clear Calc 55.37 Est GFR (MDRD) Af Amer 80 Est GFR (MDRD) Non-Af 66 BUN/Creatinine Ratio 5.3 L Glucose 71 L Lactic Acid Calcium 7.4 L Phosphorus Magnesium Troponin I < 0.015 Urine Color Urine Clarity Urine pH Ur Specific [place] Urine Protein Urine Glucose (UA) Urine Ketones Urine Occult Blood Urine Nitrite Urine Bilirubin Urine Urobilinogen Ur Leukocyte Esterase Urine RBC Urine WBC Ur Squamous Epith Cells Urine Bacteria Urine Mucus POC Glucose 78 Blood Type Antibody Screen Crossmatch 08/24/20 08/24/20 08/25/20 21:12 22:22 03:15 WBC RBC Hgb Hct MCV MCH MCHC RDW Std Deviation RDW Coeff of Jania Plt Count MPV Immature Gran % (Auto) Neut % (Auto) Lymph % (Auto) [place] % (Auto) Eos % (Auto) Baso % (Auto) Absolute Neuts (auto) Absolute Lymphs (auto) Nucleated RBC % Differential Comment Platelet Estimate RBC Morphology Anisocytosis Macrocytosis Sodium Potassium Chloride Carbon Dioxide Anion Gap BUN Creatinine Estim Creat Clear Calc Est GFR (MDRD) Af Amer Est GFR (MDRD) Non-Af BUN/Creatinine Ratio Glucose Lactic Acid 3.2 H* Calcium Phosphorus Magnesium Troponin I Urine Color Yellow Urine Clarity Clear Urine pH 7.0 Ur Specific [place] 1.005 Urine Protein Negative Urine Glucose (UA) Normal Urine Ketones Negative Urine Occult Blood Negative Urine Nitrite Negative Urine Bilirubin Negative Urine Urobilinogen Normal Ur Leukocyte Esterase 25 H Urine RBC 0 SEEN Urine WBC 0-5 SEEN Ur Squamous Epith Cells 0 SEEN Urine Bacteria 1+ Urine Mucus 0 SEEN POC Glucose Blood Type A NEGATIVE Antibody Screen NEGATIVE Crossmatch See Detail 08/25/20 08/25/20 08/25/20 03:15 03:15 03:15 WBC 4.8 RBC 2.55 L Hgb 7.8 L Hct 24.1 L MCV 94.5 MCH 30.6 MCHC 32.4 RDW Std Deviation 62.4 H RDW Coeff of Jania 18.4 H Plt Count 487 H MPV 9.3 Immature Gran % (Auto) 0.600 Neut % (Auto) 87.4 H Lymph % (Auto) 10.1 L [place] % (Auto) 1.3 Eos % (Auto) 0.2 Baso % (Auto) 0.4 Absolute Neuts (auto) 4.2 Absolute Lymphs (auto) 0.48 L Nucleated RBC % 0 Differential Comment SCANNED Platelet Estimate RBC Morphology Anisocytosis Macrocytosis Sodium Cancelled Potassium Cancelled Chloride Cancelled Carbon Dioxide Cancelled Anion Gap Cancelled BUN Cancelled Creatinine Cancelled Estim Creat Clear Calc Cancelled Est GFR (MDRD) Af Amer Cancelled Est GFR (MDRD) Non-Af Cancelled BUN/Creatinine Ratio Cancelled Glucose Cancelled Lactic Acid 0.7 Calcium Cancelled Phosphorus Cancelled Magnesium Cancelled Troponin I Urine Color Urine Clarity Urine pH Ur Specific [place] Urine Protein Urine Glucose (UA) Urine Ketones Urine Occult Blood Urine Nitrite Urine Bilirubin Urine Urobilinogen Ur Leukocyte Esterase Urine RBC Urine WBC Ur Squamous Epith Cells Urine Bacteria Urine Mucus POC Glucose Blood Type Antibody Screen Crossmatch 08/25/20 04:54 WBC RBC Hgb Hct MCV MCH MCHC RDW Std Deviation RDW Coeff of Jania Plt Count MPV Immature Gran % (Auto) Neut % (Auto) Lymph % (Auto) [place] % (Auto) Eos % (Auto) Baso % (Auto) Absolute Neuts (auto) Absolute Lymphs (auto) Nucleated RBC % Differential Comment Platelet Estimate RBC Morphology Anisocytosis Macrocytosis Sodium 141 Potassium 3.1 L Chloride 108 H Carbon Dioxide 24.0 Anion Gap 9 BUN 3 L Creatinine 0.72 Estim Creat Clear Calc 72.29 Est GFR (MDRD) Af Amer 109 Est GFR (MDRD) Non-Af 90 BUN/Creatinine Ratio 4.2 L Glucose 89 Lactic Acid Calcium 6.3 L* Phosphorus 1.5 L Magnesium 1.4 L Troponin I Urine Color Urine Clarity Urine pH Ur Specific [place] Urine Protein Urine Glucose (UA) Urine Ketones Urine Occult Blood Urine Nitrite Urine Bilirubin Urine Urobilinogen Ur Leukocyte Esterase Urine RBC Urine WBC Ur Squamous Epith Cells Urine Bacteria Urine Mucus POC Glucose Blood Type Antibody Screen Crossmatch Microbiology 08/24/20 22:45 Stool Stool Occult Blood (ARNOLDO) - Final Clinical Impression(s) from Imaging Studies Chest X-Ray 08/25/20 01:43 IMPRESSION: Mild chronic changes right lung base. No evidence for acute cardiopulmonary pathology. Electronically Signed: Jaswinder Ricketts MD at 2:05 EDT , Service support , Current Medications Enoxaparin Sodium (Enoxaparin 40 Mg/0.4 Ml Syringe) 40 mg SC DAILY [facility] Sodium Chloride () 1,000 mls @ 150 mls/hr IV .[id number] [facility] Last Admin: 08/25/20 03:36 Dose: 150 mls/hr Documented by: Norepinephrine Bitartrate 8 mg (/ Sodium Chloride) 250 mls @ 9.375 mls/hr CONT INF .[id number] [facility]; Protocol Last Titration: 08/25/20 05:00 Dose: 5 mcg/min, 9.4 mls/hr Documented by: Ondansetron HCl (Ondansetron 4 Mg/2 Ml Vial) 4 mg IV Q8H PRN PRN PRN Reason: NAUSEA/VOMITING Sodium Chloride (0.9% Saline Lock 10 Ml Syringe) 10 - 40 ml IV UD PRN PRN Reason: SALINE FLUSH Assessment/Plan Active and Suspected Problems Mental confusion (Acute) Marijuana abuse, continuous (Acute) RECOMMENDATIONS: 1. Continue Levophed and wean to maintain a mean arterial pressure at or above 65 mmHg. 2. Aggressive electrolyte repletion. 3. Send type and screen. 4. Continue to monitor blood counts daily. Plan to transfuse if hemoglobin drops below 7 g/dL. 5. Continue PPI therapy. 6. Continue bronchodilator therapy. 7. Start nicotine replacement therapy. 8. Stop continuous supplemental IV fluids. IMPRESSIONS: 1. Distributive shock The patient presented with hypotension, which could be multifactorial in etiology. Although she did have an elevated lactate, there is no discernible source of infection identified to date. The patient's hypotension may be a consequence of intravascular volume depletion due to poor p.o. intake coupled with polypharmacy, given that she is on a combination of antihypertensives/diuretic at her baseline. Plan to continue current supportive measures including vasopressor support to maintain a mean arterial pressure at or above 65 mmHg. Antihypertensives and Lasix have been discontinued. 2. Anemia The patient has known anemia and apparently underwent endoscopic evaluation within the last 6 months through the [facility], which failed to demonstrate any focal source of blood loss. The patient has been maintained on PPI therapy. I would recommend that we continue to monitor her blood counts daily, with plans to transfuse if her hemoglobin drops below 7 g/dL. At the current time, there are no overt signs of occult blood loss. 3. Hypokalemia/hypophosphatemia/hypomagnesemia Potentially medication related and/or due to lack of p.o. intake. The patient is on a diuretic along with a PPI, which has been known to cause hypomagnesemia with prolonged use. Her Lasix has been placed on hold. She will be repleted from an electrolyte perspective. Plan to recheck BMP, mag and Phos in the morning. 4. Chronic tobacco dependency Tobacco cessation counseling was provided. Nicotine replacement therapy will be offered to the patient while admitted to the hospital. 5. Concern for sleep disordered breathing The patient has symptoms concerning for underlying sleep disordered breathing including audible snoring when sleeping, nonrestorative sleep and excessive daytime sleepiness. I would recommend that she follow-up in the pulmonary medicine clinic after discharge so that a baseline, diagnostic polysomnogram can be completed. In the interim, BiPAP with a pressure support of 12/8 can be offered to the patient empirically on a nightly basis while admitted to the hospital. 6. History of depression/anxiety/hyperlipidemia/hypertension/rheumatoid arthritis Complicates care, management, recovery and prognosis. Continue to hold antihypertensives. TIME: 40 minutes of critical care time, independent of procedures, was spent addressing the patient's distributive shock, anemia, hypokalemia, hypophosphatemia, hypomagnesemia, review of all data and collaboration with the care team. [id number]) [phone]: [id number] Critical care first hour
--- NOTE | 2020-08-25 07:35 | PN_ITS ---
Patient Problems: Active and Suspected Problems Mental confusion (Acute) Marijuana abuse, continuous (Acute) Reason for Visit: Hypokalemia Hypotension Anemia Objective: GENERAL: cooperative HEENT: Atraumatic; EYES; Anicteric, Normal Conjunctiva NECK; supple, normal thyroid, RESPIRATORY: Diminished to auscultation CARDIOVASCULAR: Regular S1 S2, GI: soft, normoactive bowel sounds, : No Renal angle tenderness; EXTREMITIES: No edema, no clubbing, MUSCULOSKELETAL: no muscle waisting NEURO: Awake; no lateralizing signs. SKIN: No Rash PSYCH; Flat affect Vitals/I&O's: Vital Signs Temp Pulse Resp BP Pulse Ox 97.1 F L 96 21 H 111/73 97 08/25/20 03:01 08/25/20 07:00 08/25/20 07:00 08/25/20 07:00 08/25/20 07:00 Oxygen Flow Rate (L/min) 2 Oxygen Delivery Method Nasal Cannula Weight: 71 kg Body Mass Index (BMI) 28.6 Finger Stick Blood Glucose 78 Intake and Output for Last 24 Hours 08/23/20 08/24/20 08/25/20 23:59 23:59 23:59 Intake Total 3300 / 3300 716.38 / 716.38 Output Total 400 / 400 Balance 3300 / 3300 316.38 / 316.38 Microbiology Past 72 Hours 08/24/20 22:45 Stool Stool Occult Blood (ARNOLDO) - Final Laboratory Results 08/24/20 20:14: POC Glucose 78 08/24/20 20:16: WBC 4.8, RBC 2.59 L, Hgb 7.7 L, Hct 24.1 L, MCV 93.1, MCH 29.7, MCHC 32.0, RDW Std Deviation 59.7 H, RDW Coeff of Jania 17.9 H, Plt Count 339, MPV 10.4, Immature Gran % (Auto) 0.600, Neut % (Auto) 51.8, Lymph % (Auto) 36.4, [place] % (Auto) 8.5, Eos % (Auto) 2.1, Baso % (Auto) 0.6, Absolute Neuts (auto) 2.5, Absolute Lymphs (auto) 1.76, Nucleated RBC % 0, Platelet Estimate ADEQUATE, RBC Morphology N CHROM, Anisocytosis RARE, Macrocytosis RARE 08/24/20 20:16: Sodium 135 L, Potassium 2.7 L*, Chloride 96 L, Carbon Dioxide 28.0, Anion Gap 11, BUN 5 L, Creatinine 0.94, Estim Creat Clear Calc 55.37, Est GFR (MDRD) Af Amer 80, Est GFR (MDRD) Non-Af 66, BUN/Creatinine Ratio 5.3 L, Glucose 71 L, Calcium 7.4 L, Troponin I < 0.015 08/24/20 21:12: Lactic Acid 3.2 H* 08/24/20 22:22: Urine Color Yellow, Urine Clarity Clear, Urine pH 7.0, Ur Specific [place] 1.005, Urine Protein Negative, Urine Glucose (UA) Normal, Urine Ketones Negative, Urine Occult Blood Negative, Urine Nitrite Negative, Urine Bilirubin Negative, Urine Urobilinogen Normal, Ur Leukocyte Esterase 25 H, Urine RBC 0 SEEN, Urine WBC 0-5 SEEN, Ur Squamous Epith Cells 0 SEEN, Urine Bacteria 1+, Urine Mucus 0 SEEN 08/25/20 03:15: Blood Type A NEGATIVE, Antibody Screen NEGATIVE, Crossmatch See Detail 08/25/20 03:15: WBC 4.8, RBC 2.55 L, Hgb 7.8 L, Hct 24.1 L, MCV 94.5, MCH 30.6, MCHC 32.4, RDW Std Deviation 62.4 H, RDW Coeff of Jania 18.4 H, Plt Count 487 H, MPV 9.3, Immature Gran % (Auto) 0.600, Neut % (Auto) 87.4 H, Lymph % (Auto) 10.1 L, [place] % (Auto) 1.3, Eos % (Auto) 0.2, Baso % (Auto) 0.4, Absolute Neuts (auto) 4.2, Absolute Lymphs (auto) 0.48 L, Nucleated RBC % 0, Differential Comment SCANNED 08/25/20 03:15: Sodium Cancelled, Potassium Cancelled, Chloride Cancelled, Carbon Dioxide Cancelled, Anion Gap Cancelled, BUN Cancelled, Creatinine Cancelled, Estim Creat Clear Calc Cancelled, Est GFR (MDRD) Af Amer Cancelled, Est GFR (MDRD) Non-Af Cancelled, BUN/Creatinine Ratio Cancelled, Glucose Cancelled, Calcium Cancelled, Phosphorus Cancelled, Magnesium Cancelled 08/25/20 03:15: Lactic Acid 0.7 08/25/20 04:54: Sodium 141, Potassium 3.1 L, Chloride 108 H, Carbon Dioxide 24.0, Anion Gap 9, BUN 3 L, Creatinine 0.72, Estim Creat Clear Calc 72.29, Est GFR (MDRD) Af Amer 109, Est GFR (MDRD) Non-Af 90, BUN/Creatinine Ratio 4.2 L, Glucose 89, Calcium 6.3 L*, Phosphorus 1.5 L, Magnesium 1.4 L Current Medications Enoxaparin Sodium (Enoxaparin 40 Mg/0.4 Ml Syringe) 40 mg SC DAILY [facility] Norepinephrine Bitartrate 8 mg (/ Sodium Chloride) 250 mls @ 9.375 mls/hr CONT INF .[id number] TOO; Protocol Last Titration: 08/25/20 07:00 Dose: 5 mcg/min, 9.4 mls/hr Documented by: Potassium Chloride () 10 meq in 100 mls @ 100 mls/hr IV BOLUS Q1H TOO Stop: 08/25/20 12:29 Potassium Phosphate 30 mm/ (Sodium Chloride) 260 mls @ 42 mls/hr IV X1 ONE Stop: 08/25/20 14:41 Magnesium Sulfate () 4 gm in 100 mls @ 25 mls/hr IV X1 ONE Stop: 08/25/20 12:29 Ondansetron HCl (Ondansetron 4 Mg/2 Ml Vial) 4 mg IV Q8H PRN PRN PRN Reason: NAUSEA/VOMITING Potassium Chloride (Potassium Chloride 20 Meq Tablet) 40 meq PO X1 ONE Stop: 08/25/20 08:01 Sodium Chloride (0.9% Saline Lock 10 Ml Syringe) 10 - 40 ml IV UD PRN PRN Reason: SALINE FLUSH STROKE Vital Signs/Narrative: Vital Signs Pulse Resp BP Pulse Ox 08/25/20 07:00 96 21 H 111/73 97 08/25/20 06:00 97 20 H 96/62 99 08/25/20 05:00 90 23 H 85/66 L 99 08/25/20 04:30 89 21 H 101/74 91 08/25/20 04:00 88 18 90/69 92 08/25/20 03:45 88 19 H 100/69 96 Medical Necessity - Tobacco Use Smoking Status: Current every day smoker Assessment/Plan All Active Problems Mental confusion (Acute) ARF (acute renal failure) (Acute) Diarrhea (Acute) Altered mental status (Acute) Fracture of fibula, right, closed (Acute) Drug overdose (Acute) Marijuana abuse, continuous (Acute) patient is 50 year old lady admitted with electrolytes abnormalities 1. Acute encephalopathy - ?? marijuana induced; monitored in the icu 2. Hypotension -attributed to multiple antihypertensives and diuretisv, admitted ti ICU, started on IVF and Levophed 3. Hypokalemia - corrected per protocol 4. Hypophosphatemia - corrected per protocol 5. Hypomagnesemia - corrected per protocol 6. Hypocalcemia - corrected per protocol 7. Anemia - Secondary to chronic disorder monitoring H&H and transfuse if patient becomes symptomatic or hemoglobin falls below 7 8. DVT prophylaxis - Enoxaparin Advance planning; did discuss with the patient and family regarding advanced directives as well as CODE STATUS. Did explain the various scenarios involved ( FULL CODE, DNR CCA, DNR CCA with no intubation, and DNR CC and what each meant) patient elected to remain full code with CPR and intubation if warranted. Order was placed. Time spent on discussion 18 minutes. Active Medications Enoxaparin Sodium (Enoxaparin 40 Mg/0.4 Ml Syringe) 40 mg SC DAILY [facility] Norepinephrine Bitartrate 8 mg (/ Sodium Chloride) 250 mls @ 9.375 mls/hr CONT INF .[id number] [facility]; Protocol Last Titration: 08/25/20 07:00 Dose: 5 mcg/min, 9.4 mls/hr Documented by: Potassium Chloride () 10 meq in 100 mls @ 100 mls/hr IV BOLUS Q1H [facility] Stop: 08/25/20 12:29 Potassium Phosphate 30 mm/ (Sodium Chloride) 260 mls @ 42 mls/hr IV X1 ONE Stop: 08/25/20 14:41 Magnesium Sulfate () 4 gm in 100 mls @ 25 mls/hr IV X1 ONE Stop: 08/25/20 12:29 Ondansetron HCl (Ondansetron 4 Mg/2 Ml Vial) 4 mg IV Q8H PRN PRN PRN Reason: NAUSEA/VOMITING Potassium Chloride (Potassium Chloride 20 Meq Tablet) 40 meq PO X1 ONE Stop: 08/25/20 08:01 Sodium Chloride (0.9% Saline Lock 10 Ml Syringe) 10 - 40 ml IV UD PRN PRN Reason: SALINE FLUSH Clinical Impression(s) from Imaging Studies Chest X-Ray 08/25/20 01:43 IMPRESSION: Mild chronic changes right lung base. No evidence for acute cardiopulmonary pathology. Electronically Signed: Jaswinder Ricketts MD at 2:05 EDT , Service support , Inpatient E&M: 59729 Subs Hosp L3 Procedures: [id number] Advncd Care Plan 30 Min
[2020-08-25] MEDS: 0.9% Saline Lock 10 ML Syringe IV ×2 (08:20→20:35)
[2020-08-25] MEDS: Potassium Chloride 10mEq/100mL 10 MEQ/100 ML IV.SOLN. 100 MEQ IV BOLUS (08:21)
[2020-08-25 08:28] LABS: Ferritin 227 ng/mL (8-252); Iron 123 ug/dL (50-170); Iron Binding Capacity,Total 248 ug/dL (250-450); PERCENT IRON SATURATION 49.6 % (15.0-55.0)
[2020-08-25] MEDS: Enoxaparin 40 MG/0.4 ML Syringe SC (08:45)
[2020-08-25] MEDS: Ondansetron 4 MG/2 ML Vial IV ×2 (08:46→20:35)
[2020-08-25] MEDS: Magnesium Sulfate 4gm/100mL 4 GM/100 ML IV.SOLN. IV (09:06)
[2020-08-25] MEDS: Potassium Chloride 10mEq/100mL 10 MEQ/100 ML IV.SOLN. 75 MEQ IV BOLUS ×3 (10:34→13:18)
[2020-08-25] MEDS: traMADol 50 MG Tablet PO ×2 (12:49→20:55)
[2020-08-25] MEDS: Calcium Carbonate 500 MG Tablet PO ×3 (12:49→20:28)
--- NOTE | 2020-08-25 13:13 | CASEMGMT ---
RN CM Assessment Note Intro role of CM to patient in room. Patient is awake, alert and able to participate in assessment. Patient states she is independent, lives with her and had no care needs prior to admission. She plans to return home on discharge. The patient is currently on room air. -remains on Levophed for hypotension. Presentation: confusion, weakness. History of drug abuse and marijuana use. Diagnosis: Hypokalemia, anemia PMH: HTN, Fibromyalgia, PCP: Dr. Teixeira Specialists: none per patient Insurance: [employer] Preferred Pharmacy: [facility] Prescription Benefit: yes LNOK: Zain Martinez Living Arrangements: Lives in one story home, 3 steps into home. She states she is independent in ADL and is not requiring assistance. Tranportation: drives or family can drive DME: walker HHC: past, but does not remember name SNF: [facility] Rehab Unit [facility] after femur fracture Patient DC Goals: Home DC Plan: anticipate return home on dc with no needs identified at this time. RN CM updated patient to notify cm if any concerns re: dc arise. CM available for discharge planning coordination. Contact CM for any concerns/needs that may arise. Gonzalo SUAREZ RN ACM
[2020-08-25] MEDS: Albuterol Sulfate 8 gm Inhaler (60 puffs) 2 PUFF INHALATION (16:40)
[2020-08-25] MEDS: Na Biphos/Potassium Phosphate PACKET 1 PACKET PO ×2 (16:41→20:42)
[2020-08-25 17:01] LABS: Anion Gap 9 (5-15); BUN 3 mg/dL (7-18); BUN/Creat Ratio 3.6 RATIO (10-20); Calcium,Total 6.2 mg/dL (8.5-10.1); Chloride 110 mmol/L (98-107); Creatinine, Serum 0.84 mg/dL (0.55-1.02); EST Glomerular Filtration Rate 76 mL/min (>60); Est Glom Filt Rate - Afr Amer 92 mL/min (>60); Estimated Creatinine Clearance 61.96 ml/min; Glucose 105 mg/dL (74-106); Potassium 3.8 mmol/L (3.5-5.1); Sodium Level 142 mmol/L (136-145)
[2020-08-25] MEDS: Atorvastatin Calcium 80 MG Tablet PO (20:42)
[2020-08-25] MEDS: Mirtazapine 30 MG Tablet 45 MG PO (20:44)
[2020-08-25] MEDS: Magnesium Chloride 64 MG Delay Rel.Tablet 128 MG PO (20:50)
[2020-08-25] MEDS: Pregabalin 50 MG Capsule PO (20:51)
[2020-08-26] VITALS (34 sets, daily range): BP systolic 81–111; BP diastolic 55–77; PULSE 76–101; RESP 12–34; TEMP 36.3–37.4; O2SAT 90–99
[2020-08-26 04:07] LABS: Hematocrit 22.1 % (37-47); Mean Corp Hgb Conc 31.7 g/dL (32-36); Mean Corpuscular Volume 94.8 fL (81-99); Mean Platelet Vol. 8.5 fl (6.2-12.0); Platelet Count 362 K/mm3 (150-450); RBC Distribution Width CV 19.1 % (11.6-14.6); RBC Distribution Width SD 63.6 fl (35.1-43.9); Red Blood Count 2.33 M/mm3 (4.2-5.4); White Blood Count 7.6 K/mm3 (4.4-11.0)
[2020-08-26 04:33] LABS: Anion Gap 6 (5-15); BUN 3 mg/dL (7-18); BUN/Creat Ratio 4.5 RATIO (10-20); Calcium,Total 5.9 mg/dL (8.5-10.1); Chloride 109 mmol/L (98-107); Creatinine, Serum 0.67 mg/dL (0.55-1.02); EST Glomerular Filtration Rate 98 mL/min (>60); Est Glom Filt Rate - Afr Amer 119 mL/min (>60); Estimated Creatinine Clearance 77.68 ml/min; Glucose 94 mg/dL (74-106); Magnesium 2.3 mg/dL (1.6-2.6); Potassium 2.9 mmol/L (3.5-5.1); Sodium Level 144 mmol/L (136-145)
[2020-08-26] MEDS: Albuterol Sulfate 8 gm Inhaler (60 puffs) 2 PUFF INHALATION (05:28)
[2020-08-26] MEDS: traMADol 50 MG Tablet PO (05:38)
--- NOTE | 2020-08-26 06:10 | PN_ITS ---
Subjective: The patient was seen and examined at the bedside this morning. Events from the last 24 hours have been reviewed. The patient is currently afebrile, hemodynamically stable and maintaining appropriate oxygen saturations on 2 L/min via nasal cannula. Hemoglobin is down to 7.0 g/dL this morning. The patient remains on Levophed at 3 mcg/min to maintain hemodynamic stability. Potassium remains low this morning at 2.9 with a calcium of 5.9. When corrected for the patient's hypoalbuminemia, the patient's calcium level is 7.7 mg/dL. The patient is currently documented to be overall net +4.7 L for the hospital admission. In general, the patient does report that she feels a great deal better than yesterday. However, she is still suffering from anxiety. Objective: The patient's most recent lab work, culture data and imaging studies have all been personally reviewed. Stool occult blood was negative. Blood cultures are pending. General: Alert, Cooperative, No apparent distress HEENT: Atraumatic, PERRLA, Normocephalic Oral: No Gingival or Mucosal Lesions/ Ulcerations Neck: Supple, No Nodes, Trachea Midline Lungs: Diminished Cardiovascular: Regular rate, Regular Rhythm, Normal S1, Normal S2, No murmurs Abdomen: Bowel Sounds Present, Soft, Non Tender Extremities: No clubbing, No cyanosis, Edema Skin: No breakdown Musculoskeletal: No Muscle Wasting Lymphatic: No Cervical, Supraclavicular, or Inguinal Adenopathy Neurological: Cranial nerves II-XII grossly intact, Neuro grossly intact Psych/Mental Status: Anxious Vital Signs Temp Pulse Resp BP Pulse Ox 99.4 F H 96 16 94/65 97 08/26/20 01:00 08/26/20 05:15 08/26/20 05:00 08/26/20 05:15 08/26/20 05:00 Oxygen Flow Rate (L/min) 2 Oxygen Delivery Method Nasal Cannula Weight: 156 lb 8.451 oz Body Mass Index (BMI) 28.6 Finger Stick Blood Glucose 78 Intake and Output for Last 24 Hours 08/24/20 08/25/20 08/26/20 23:59 23:59 23:59 Intake Total 3300 / 3300 2970.48 / 2976.13 97.88 / 97.88 Output Total 1100 / 1430 530 / 530 Balance 3300 / 3300 1870.48 / 1546.13 -432.12 / -432.12 Labs (Last 48 Hours) 08/24/20 08/24/20 08/24/20 20:14 20:16 20:16 WBC 4.8 RBC 2.59 L Hgb 7.7 L Hct 24.1 L MCV 93.1 MCH 29.7 MCHC 32.0 RDW Std Deviation 59.7 H RDW Coeff of Jania 17.9 H Plt Count 339 MPV 10.4 Immature Gran % (Auto) 0.600 Neut % (Auto) 51.8 Lymph % (Auto) 36.4 [place] % (Auto) 8.5 Eos % (Auto) 2.1 Baso % (Auto) 0.6 Absolute Neuts (auto) 2.5 Absolute Lymphs (auto) 1.76 Nucleated RBC % 0 Differential Comment Platelet Estimate ADEQUATE RBC Morphology N CHROM Anisocytosis RARE Macrocytosis RARE Sodium 135 L Potassium 2.7 L* Chloride 96 L Carbon Dioxide 28.0 Anion Gap 11 BUN 5 L Creatinine 0.94 Estim Creat Clear Calc 55.37 Est GFR (MDRD) Af Amer 80 Est GFR (MDRD) Non-Af 66 BUN/Creatinine Ratio 5.3 L Glucose 71 L Lactic Acid Calcium 7.4 L Phosphorus Magnesium Iron TIBC Iron Saturation Ferritin Troponin I < 0.015 Cortisol Urine Color Urine Clarity Urine pH Ur Specific Theodore Urine Protein Urine Glucose (UA) Urine Ketones Urine Occult Blood Urine Nitrite Urine Bilirubin Urine Urobilinogen Ur Leukocyte Esterase Urine RBC Urine WBC Ur Squamous Epith Cells Urine Bacteria Urine Mucus POC Glucose 78 Blood Type Antibody Screen Crossmatch 08/24/20 08/24/20 08/25/20 21:12 22:22 03:15 WBC RBC Hgb Hct MCV MCH MCHC RDW Std Deviation RDW Coeff of Jania Plt Count MPV Immature Gran % (Auto) Neut % (Auto) Lymph % (Auto) [place] % (Auto) Eos % (Auto) Baso % (Auto) Absolute Neuts (auto) Absolute Lymphs (auto) Nucleated RBC % Differential Comment Platelet Estimate RBC Morphology Anisocytosis Macrocytosis Sodium Potassium Chloride Carbon Dioxide Anion Gap BUN Creatinine Estim Creat Clear Calc Est GFR (MDRD) Af Amer Est GFR (MDRD) Non-Af BUN/Creatinine Ratio Glucose Lactic Acid 3.2 H* Calcium Phosphorus Magnesium Iron TIBC Iron Saturation Ferritin Troponin I Cortisol Urine Color Yellow Urine Clarity Clear Urine pH 7.0 Ur Specific Theodore 1.005 Urine Protein Negative Urine Glucose (UA) Normal Urine Ketones Negative Urine Occult Blood Negative Urine Nitrite Negative Urine Bilirubin Negative Urine Urobilinogen Normal Ur Leukocyte Esterase 25 H Urine RBC 0 SEEN Urine WBC 0-5 SEEN Ur Squamous Epith Cells 0 SEEN Urine Bacteria 1+ Urine Mucus 0 SEEN POC Glucose Blood Type A NEGATIVE Antibody Screen NEGATIVE Crossmatch See Detail 08/25/20 08/25/20 08/25/20 03:15 03:15 03:15 WBC 4.8 RBC 2.55 L Hgb 7.8 L Hct 24.1 L MCV 94.5 MCH 30.6 MCHC 32.4 RDW Std Deviation 62.4 H RDW Coeff of Jania 18.4 H Plt Count 487 H MPV 9.3 Immature Gran % (Auto) 0.600 Neut % (Auto) 87.4 H Lymph % (Auto) 10.1 L [place] % (Auto) 1.3 Eos % (Auto) 0.2 Baso % (Auto) 0.4 Absolute Neuts (auto) 4.2 Absolute Lymphs (auto) 0.48 L Nucleated RBC % 0 Differential Comment SCANNED Platelet Estimate RBC Morphology Anisocytosis Macrocytosis Sodium Cancelled Potassium Cancelled Chloride Cancelled Carbon Dioxide Cancelled Anion Gap Cancelled BUN Cancelled Creatinine Cancelled Estim Creat Clear Calc Cancelled Est GFR (MDRD) Af Amer Cancelled Est GFR (MDRD) Non-Af Cancelled BUN/Creatinine Ratio Cancelled Glucose Cancelled Lactic Acid 0.7 Calcium Cancelled Phosphorus Cancelled Magnesium Cancelled Iron TIBC Iron Saturation Ferritin Troponin I Cortisol Urine Color Urine Clarity Urine pH Ur Specific Theodore Urine Protein Urine Glucose (UA) Urine Ketones Urine Occult Blood Urine Nitrite Urine Bilirubin Urine Urobilinogen Ur Leukocyte Esterase Urine RBC Urine WBC Ur Squamous Epith Cells Urine Bacteria Urine Mucus POC Glucose Blood Type Antibody Screen Crossmatch 08/25/20 08/25/20 08/25/20 04:54 04:54 08:15 WBC RBC Hgb Hct MCV MCH MCHC RDW Std Deviation RDW Coeff of Jania Plt Count MPV Immature Gran % (Auto) Neut % (Auto) Lymph % (Auto) [place] % (Auto) Eos % (Auto) Baso % (Auto) Absolute Neuts (auto) Absolute Lymphs (auto) Nucleated RBC % Differential Comment Platelet Estimate RBC Morphology Anisocytosis Macrocytosis Sodium 141 Potassium 3.1 L Chloride 108 H Carbon Dioxide 24.0 Anion Gap 9 BUN 3 L Creatinine 0.72 Estim Creat Clear Calc 72.29 Est GFR (MDRD) Af Amer 109 Est GFR (MDRD) Non-Af 90 BUN/Creatinine Ratio 4.2 L Glucose 89 Lactic Acid Calcium 6.3 L* Phosphorus 1.5 L Magnesium 1.4 L Iron 123 TIBC 248 L Iron Saturation 49.6 Ferritin 227 Troponin I Cortisol 57.90 H Urine Color Urine Clarity Urine pH Ur Specific Theodore Urine Protein Urine Glucose (UA) Urine Ketones Urine Occult Blood Urine Nitrite Urine Bilirubin Urine Urobilinogen Ur Leukocyte Esterase Urine RBC Urine WBC Ur Squamous Epith Cells Urine Bacteria Urine Mucus POC Glucose Blood Type Antibody Screen Crossmatch 08/25/20 08/26/20 08/26/20 16:27 03:55 03:55 WBC 7.6 RBC 2.33 L Hgb 7.0 L Hct 22.1 L MCV 94.8 MCH 30.0 MCHC 31.7 L RDW Std Deviation 63.6 H RDW Coeff of Jania 19.1 H Plt Count 362 MPV 8.5 Immature Gran % (Auto) Neut % (Auto) Lymph % (Auto) [place] % (Auto) Eos % (Auto) Baso % (Auto) Absolute Neuts (auto) Absolute Lymphs (auto) Nucleated RBC % Differential Comment Platelet Estimate RBC Morphology Anisocytosis Macrocytosis Sodium 142 144 Potassium 3.8 2.9 L Chloride 110 H 109 H Carbon Dioxide 23.0 29.0 Anion Gap 9 6 BUN 3 L 3 L Creatinine 0.84 0.67 Estim Creat Clear Calc 61.96 77.68 Est GFR (MDRD) Af Amer 92 119 Est GFR (MDRD) Non-Af 76 98 BUN/Creatinine Ratio 3.6 L 4.5 L Glucose 105 94 Lactic Acid Calcium 6.2 L* 5.9 L* Phosphorus Magnesium 2.3 Iron TIBC Iron Saturation Ferritin Troponin I Cortisol Urine Color Urine Clarity Urine pH Ur Specific Theodore Urine Protein Urine Glucose (UA) Urine Ketones Urine Occult Blood Urine Nitrite Urine Bilirubin Urine Urobilinogen Ur Leukocyte Esterase Urine RBC Urine WBC Ur Squamous Epith Cells Urine Bacteria Urine Mucus POC Glucose Blood Type Antibody Screen Crossmatch Microbiology 08/24/20 22:45 Stool Stool Occult Blood (ARNOLDO) - Final Clinical Impression(s) from Imaging Studies Chest X-Ray 08/25/20 01:43 IMPRESSION: Mild chronic changes right lung base. No evidence for acute cardiopulmonary pathology. Electronically Signed: Jaswinder Ricketts MD at 2:05 EDT , Service support , Medical Necessity - Tobacco Use Smoking Status: Current every day smoker Assessment/Plan All Active Problems Mental confusion (Acute) ARF (acute renal failure) (Acute) Diarrhea (Acute) Altered mental status (Acute) Fracture of fibula, right, closed (Acute) Drug overdose (Acute) Marijuana abuse, continuous (Acute) RECOMMENDATIONS: 1. Continue Levophed and wean to maintain a mean arterial pressure at or above 65 mmHg. 2. Aggressive electrolyte repletion. 3. Transfuse 1 unit of packed red blood cells today. 4. Start empiric BiPAP therapy 12/8 nightly. 5. Encourage incentive spirometer use and mobilize patient as tolerated. 6. Continue nicotine replacement therapy. IMPRESSIONS: 1. Distributive shock The patient presented with hypotension, which could be multifactorial in etiology. Although she did have an elevated lactate, there is no discernible source of infection identified to date. The patient's hypotension may be a consequence of intravascular volume depletion due to poor p.o. intake coupled with polypharmacy, given that she is on a combination of antihypertensives/diuretic at her baseline. Plan to continue current supportive measures including vasopressor support to maintain a mean arterial pressure at or above 65 mmHg. Antihypertensives and Lasix have been discontinued. 2. Anemia The patient has known anemia and apparently underwent endoscopic evaluation within the last 6 months through the [facility], which failed to demonstrate any focal source of blood loss. The patient has been maintained on PPI therapy. The patient will receive 1 unit of packed red blood cells today due to a hemoglobin of 7.0 noted this morning. At the current time, there are no overt signs of occult blood loss. 3. Hypokalemia/hypocalcemia Potentially medication related and/or due to lack of p.o. intake. She will be repleted from an electrolyte perspective. Recheck electrolytes in the morning. 4. Chronic tobacco dependency Tobacco cessation counseling was provided. Nicotine replacement therapy will be continued while the patient is admitted to the hospital. 5. Concern for sleep disordered breathing The patient has symptoms concerning for underlying sleep disordered breathing including audible snoring when sleeping, nonrestorative sleep and excessive daytime sleepiness. I would recommend that she follow-up in the pulmonary medicine clinic after discharge so that a baseline, diagnostic polysomnogram can be completed. In the interim, BiPAP with a pressure support of 12/8 can be off ered to the patient empirically on a nightly basis while admitted to the hospital. 6. History of depression/anxiety/hyperlipidemia/hypertension/rheumatoid arthritis Complicates care, management, recovery and prognosis. Continue to hold antihypertensives. TIME: 33 minutes of critical care time, independent of procedures, was spent addressing the patient's distributive shock, anemia, hypokalemia, review of all data and collaboration with the care team. [id number]) [id number] Critical care first hour
[2020-08-26 06:53] LABS: AST(SGOT) 42 U/L (15-37); Alanine Aminotransfer ALT/SGPT 18 U/L (13-56); Albumin, Serum 1.8 g/dL (3.2-5.0); Alkaline Phosphatase 134 U/L (45-117); Bilirubin, Direct 0.18 mg/dL (0.00-0.30); Phosphorus 2.9 mg/dL (2.5-4.9); Protein, Total 4.8 g/dL (6.4-8.2)
--- NOTE | 2020-08-26 07:21 | PCM.PN.HOSP ---
Patient Problems: Active and Suspected Problems Mental confusion (Acute) Marijuana abuse, continuous (Acute) Reason for Visit: Hypokalemia Subjective: patient is 50 year old lady admitted with electrolytes abnormalities patient was also found to be hypotensive started on Levophed drip admitted to the intensive care unit Seen this a.m. patient electrolyte abnormalities persist with worsening of her hypocalcemia as well as hypokalemia. Still remains on Levophed drip. Objective: GENERAL: cooperative HEENT: Atraumatic; EYES; Anicteric, Normal Conjunctiva NECK; supple, normal thyroid, RESPIRATORY: Diminished to auscultation CARDIOVASCULAR: Regular S1 S2, GI: soft, normoactive bowel sounds, : No Renal angle tenderness; EXTREMITIES: No edema, no clubbing, MUSCULOSKELETAL: no muscle waisting NEURO: Awake; no lateralizing signs. SKIN: No Rash PSYCH; Flat affect Vitals/I&O's: Vital Signs Temp Pulse Resp BP Pulse Ox 99.4 F H 76 15 107/76 97 08/26/20 01:00 08/26/20 06:00 08/26/20 06:00 08/26/20 06:00 08/26/20 06:00 Oxygen Flow Rate (L/min) 2 Oxygen Delivery Method Nasal Cannula Weight: 70.1 kg Body Mass Index (BMI) 28.6 Finger Stick Blood Glucose 78 Intake and Output for Last 24 Hours 08/24/20 08/25/20 08/26/20 23:59 23:59 23:59 Intake Total 3300 / 3300 2970.48 / 2976.13 152.08 / 152.08 Output Total 1100 / 1430 530 / 530 Balance 3300 / 3300 1870.48 / 1546.13 -377.92 / -377.92 Microbiology Past 72 Hours 08/24/20 22:45 Stool Stool Occult Blood (ARNOLDO) - Final Laboratory Results 08/25/20 04:54: Iron 123, TIBC 248 L, Iron Saturation 49.6, Ferritin 227 08/25/20 08:15: Cortisol 57.90 H 08/25/20 16:27: Sodium 142, Potassium 3.8, Chloride 110 H, Carbon Dioxide 23.0, Anion Gap 9, BUN 3 L, Creatinine 0.84, Estim Creat Clear Calc 61.96, Est GFR (MDRD) Af Amer 92, Est GFR (MDRD) Non-Af 76, BUN/Creatinine Ratio 3.6 L, Glucose 105, Calcium 6.2 L* 08/26/20 03:55: WBC 7.6, RBC 2.33 L, Hgb 7.0 L, Hct 22.1 L, MCV 94.8, MCH 30.0, MCHC 31.7 L, RDW Std Deviation 63.6 H, RDW Coeff of Jania 19.1 H, Plt Count 362, MPV 8.5 08/26/20 03:55: Sodium 144, Potassium 2.9 L, Chloride 109 H, Carbon Dioxide 29.0, Anion Gap 6, BUN 3 L, Creatinine 0.67, Estim Creat Clear Calc 77.68, Est GFR (MDRD) Af Amer 119, Est GFR (MDRD) Non-Af 98, BUN/Creatinine Ratio 4.5 L, Glucose 94, Calcium 5.9 L*, Magnesium 2.3 08/26/20 03:55: Phosphorus 2.9, Total Bilirubin 0.20, Direct Bilirubin 0.18, AST 42 H, ALT 18, Alkaline Phosphatase 134 H, Total Protein 4.8 L, Albumin 1.8 L, Globulin 3.0 Current Medications Albuterol Sulfate (Albuterol Sulfate 8 Gm Inhaler (60 Puffs)) 2 puff INHALATION Q4H PRN PRN PRN Reason: SOB &/OR WHEEZING Last Admin: 08/26/20 05:28 Dose: 2 puff Documented by: Atorvastatin Calcium (Atorvastatin Calcium 80 Mg Tablet) 80 mg PO QHS [facility] Last Admin: 08/25/20 20:42 Dose: 80 mg Documented by: Calcium Carbonate (Calcium Carbonate 500 Mg Tablet) 500 mg PO TIDCM [facility] Last Admin: 08/25/20 20:28 Dose: 500 mg Documented by: Enoxaparin Sodium (Enoxaparin 40 Mg/0.4 Ml Syringe) 40 mg SC DAILY [facility] Last Admin: 08/25/20 08:45 Dose: 40 mg Documented by: Ferrous Sulfate (Ferrous Sulfate 325 Mg Tablet) 325 mg PO 1700 [facility] Norepinephrine Bitartrate 8 mg (/ Sodium Chloride) 250 mls @ 9.375 mls/hr CONT INF .[id number] [facility]; Protocol Last Admin: 08/26/20 06:52 Dose: Not Given Documented by: Calcium Gluconate 2 gm/ Sodium (Chloride) 120 mls @ 60 mls/hr IV X1 ONE Stop: 08/26/20 09:09 Magnesium Chloride (Magnesium Chloride 64 Mg Delay Rel.Tablet) 128 mg PO BID [facility] Last Admin: 08/25/20 20:50 Dose: 128 mg Documented by: Mirtazapine (Mirtazapine 30 Mg Tablet) 45 mg PO QHS [facility] Last Admin: 08/25/20 20:44 Dose: 45 mg Documented by: Nicotine (Nicotine 14 Mg Patch) 14 mg TRANSDERM. DAILY [facility] Last Admin: 08/25/20 08:46 Dose: 14 mg Documented by: Ondansetron HCl (Ondansetron 4 Mg/2 Ml Vial) 4 mg IV Q8H PRN PRN PRN Reason: NAUSEA/VOMITING Last Admin: 08/25/20 20:35 Dose: 4 mg Documented by: Pantoprazole Sodium (Pantoprazole Sodium 40 Mg Tablet) 40 mg PO DAILY [facility] Potassium Chloride (Potassium Chloride 20 Meq Tablet) 40 meq PO X1 ONE Stop: 08/26/20 07:22 Potassium Chloride (Potassium Chloride 20 Meq Tablet) [address] [facility] Potassium Phos/Sodium Phos (Na Biphos/Potassium Phosphate Packet) 1 packet PO 4X/DAY [facility] Last Admin: 08/25/20 20:42 Dose: 1 packet Documented by: Pregabalin (Pregabalin 50 Mg Capsule) 50 mg PO BID [facility] Last Admin: 08/25/20 20:51 Dose: 50 mg Documented by: Sodium Chloride (0.9% Saline Lock 10 Ml Syringe) 10 - 40 ml IV UD PRN PRN Reason: SALINE FLUSH Last Admin: 08/25/20 20:35 Dose: 20 ml Documented by: Tramadol HCl (Tramadol 50 Mg Tablet) 50 mg PO TID PRN PRN PRN Reason: Pain Score 1-10 Last Admin: 08/26/20 05:38 Dose: 50 mg Documented by: Venlafaxine HCl (Venlafaxine Xr 150 Mg Capsule) 150 mg PO DAILY [facility] STROKE Vital Signs/Narrative: Vital Signs Pulse Resp BP Pulse Ox 08/26/20 06:00 76 15 107/76 97 08/26/20 05:15 96 94/65 08/26/20 05:00 93 16 94/65 97 08/26/20 04:00 100 21 H 92/65 91 08/26/20 03:30 83 95/64 Medical Necessity - Tobacco Use Smoking Status: Current every day smoker Assessment/Plan All Active Problems Mental confusion (Acute) ARF (acute renal failure) (Acute) Diarrhea (Acute) Altered mental status (Acute) Fracture of fibula, right, closed (Acute) Drug overdose (Acute) Marijuana abuse, continuous (Acute) patient is 50 year old lady admitted with electrolytes abnormalities 1. Acute encephalopathy - ?? marijuana induced; monitored in the icu ?Patient encephalopathy resolved. 2. Hypotension -attributed to multiple antihypertensives and diuretics, admitted ti ICU, started on IVF and Levophed -08/26/2020: Patient still remains on Levophed drip. Plan is for patient to be transferred to the progressive care unit once Levophed is weaned off. Patient antihypertensives held on admission. 3. Hypokalemia - corrected per protocol 08/26/2020: Hypokalemia persist 4. Hypophosphatemia - corrected per protocol 5. Hypomagnesemia - corrected per protocol 6. Hypocalcemia - corrected per protocol -08/26/2020 hypocalcemia persist. 7. Anemia - Secondary to chronic disorder monitoring H&H and transfuse if patient becomes symptomatic or hemoglobin falls below 7 ?08/26/2020: With patient being symptomatic (hypotension). An order was given for patient to be transfused 1 unit PRBC. 8. DVT prophylaxis - Enoxaparin Inpatient E&M: [id number] [facility] L3
[2020-08-26] MEDS: Pantoprazole Sodium 40 MG Tablet PO (09:05)
[2020-08-26] MEDS: Calcium Carbonate 500 MG Tablet PO ×2 (09:05→16:49)
[2020-08-26] MEDS: Venlafaxine XR 150 MG Capsule PO (09:05)
[2020-08-26] MEDS: Enoxaparin 40 MG/0.4 ML Syringe SC (09:06)
[2020-08-26] MEDS: Na Biphos/Potassium Phosphate PACKET 1 PACKET PO ×4 (09:06→21:22)
[2020-08-26] MEDS: Pregabalin 50 MG Capsule PO ×2 (09:13→21:22)
[2020-08-26] MEDS: Magnesium Chloride 64 MG Delay Rel.Tablet 128 MG PO ×2 (09:13→21:40)
[2020-08-26] MEDS: clonazePAM 1 MG Tablet PO ×2 (12:00→21:22)
[2020-08-26] MEDS: 0.9% Saline Lock 10 ML Syringe IV ×2 (14:50→21:22)
[2020-08-26] MEDS: Ferrous Sulfate 325 MG Tablet PO (16:49)
[2020-08-26] MEDS: Mirtazapine 30 MG Tablet 45 MG PO (21:22)
[2020-08-26] MEDS: Atorvastatin Calcium 80 MG Tablet PO (21:22)
[2020-08-27] VITALS (7 sets, daily range): BP systolic 94–98; BP diastolic 57–59; PULSE 91–103; RESP 12–16; TEMP 36.6; O2SAT 95–97
[2020-08-27 06:04] LABS: Hematocrit 23.6 % (37-47); Hemoglobin 7.4 g/dL (12.0-15.0); Mean Corp Hgb Conc 31.4 g/dL (32-36); Mean Corpuscular Hgb 29.8 pg (27.0-32.0); Mean Corpuscular Volume 95.2 fL (81-99); Mean Platelet Vol. 9.1 fl (6.2-12.0); Platelet Count 241 K/mm3 (150-450); RBC Distribution Width CV 19.3 % (11.6-14.6); RBC Distribution Width SD 64.9 fl (35.1-43.9); Red Blood Count 2.48 M/mm3 (4.2-5.4); White Blood Count 6.4 K/mm3 (4.4-11.0)
[2020-08-27 06:50] LABS: Anion Gap 6 (5-15); BUN 1 mg/dL (7-18); BUN/Creat Ratio 1.8 RATIO (10-20); Calcium,Total 6.4 mg/dL (8.5-10.1); Chloride 111 mmol/L (98-107); Creatinine, Serum 0.54 mg/dL (0.55-1.02); EST Glomerular Filtration Rate 125 mL/min (>60); Est Glom Filt Rate - Afr Amer 151 mL/min (>60); Estimated Creatinine Clearance 96.39 ml/min; Glucose 83 mg/dL (74-106); Potassium 3.7 mmol/L (3.5-5.1); Sodium Level 143 mmol/L (136-145)
[2020-08-27] MEDS: traMADol 50 MG Tablet PO (07:15)
[2020-08-27] MEDS: Calcium Carbonate 500 MG Tablet PO ×2 (07:43→11:06)
[2020-08-27] MEDS: Enoxaparin 40 MG/0.4 ML Syringe SC (09:08)
[2020-08-27] MEDS: Venlafaxine XR 150 MG Capsule PO (09:08)
[2020-08-27] MEDS: Pantoprazole Sodium 40 MG Tablet PO (09:08)
[2020-08-27] MEDS: Na Biphos/Potassium Phosphate PACKET 1 PACKET PO ×2 (09:08→13:11)
[2020-08-27] MEDS: Magnesium Chloride 64 MG Delay Rel.Tablet 128 MG PO (09:08)
[2020-08-27] MEDS: clonazePAM 1 MG Tablet PO (09:14)
[2020-08-27] MEDS: Pregabalin 50 MG Capsule PO (09:14)
--- NOTE | 2020-08-27 11:48 | DCINST_ITS ---
- Discharge Diagnoses Current Active Problems: Current Active and Chronic Problems Mental confusion (Acute) HLD (hyperlipidemia) (Chronic) Anemia (Chronic) Marijuana abuse, continuous (Acute) Hypertension (Chronic) Tobacco abuse disorder (Chronic) History of rheumatoid arthritis (Chronic) History of fibromyalgia (Chronic) Chronic low back pain (Chronic) History of drug overdose (Chronic) You will use the following diet at home:: Regular Discharge Activity: May not drive while taking narcotic pain medications. Allergies/Adverse Reactions: Allergies progesterone Allergy (Verified 03/04/20 21:22) Itching varenicline tartrate [From Chantix] Allergy (Verified 03/04/20 21:22) suicidal baclofen Adverse Reaction (Verified 03/04/20 21:22) Other lisinopril Adverse Reaction (Verified 03/04/20 21:22) Angioedema Medications to take at Discharge Venlafaxine XR [Effexor Xr] 150 mg PO DAILY 01/08/14 Albuterol Inhaler [Ventolin Hfa] 2 puff INHALATION Q4H PRN PRN 03/31/18 Esomeprazole Mag Trihydrate [Nexium] 40 mg PO DAILY 03/31/18 Ferrous Sulfate [Iron] 1 tablet PO DAILY 03/31/18 Calcium Carbonate [Tums] 500 mg PO TIDCM #90 tab 04/25/18 Rosuvastatin Calcium [Crestor] 40 mg PO QHS 05/03/18 Mirtazapine 45 mg PO QHS 08/08/18 Pregabalin [Lyrica] 50 mg PO BID 08/08/18 traMADol [Ultram] 50 mg PO TID PRN 08/25/20 Clonazepam [Klonopin] 1 mg PO BID 08/26/20 Abatacept [Orencia] 125 mg SQ QWEEK 08/27/20 Magnesium Oxide [Mag-Oxide] 200 mg PO BID #60 tab 08/27/20 Na Biphos/Potassium Phosphate [Neutra-Phos Packet] 1 packet PO 4X/DAY #120 packet 08/27/20 Potassium Chloride [K-Dur] 20 meq PO BIDCM #60 tab 08/27/20 The following prescriptions were given: Potassium Chloride [K-Dur] 20 meq PO BIDCM #60 tab Transmission Status: Pending to [facility] #30 Magnesium Oxide [Mag-Oxide] 200 mg PO BID #60 tab Transmission Status: Pending to [facility] #[facility] Na Biphos/Potassium Phosphate [Neutra-Phos Packet] 1 packet PO 4X/DAY #120 packet Transmission Status: Pending to [facility] #30 Primary Care Physician: Jacob Teixeira DO [Primary Care Provider] - Please follow up with your Primary Care Physician in: In 5 to 7 days for repeat labs including BMP, phosphorus endoscopic Test Results: Test results from this visit will be discussed in further detail at your follow- up appointment, if applicable. Proposed Discharge Date: 08/27/20
--- NOTE | 2020-08-27 11:55 | CASEMGMT ---
This RN CM to room to discuss discharge plan with pt at this time. Pt states no concerns with going home with at discharge. Pt states no need for any further therapy/resources at this time. Pt voices no further questions/concerns/needs at this time. [place]
--- NOTE | 2020-08-27 11:57 | PCM.DC.SUM ---
Discharge Date and Diagnosis - Problem List Patient Problems: Active and Suspected Problems Mental confusion (Acute) Marijuana abuse, continuous (Acute) Date of Admission: 08/25/20 Date of Discharge: 08/27/20 - Primary Discharge Diagnosis Acute Problems: Active Problems Mental confusion (Acute) Marijuana abuse, continuous (Acute) - Secondary Discharge Diagnosis Chronic Problems: Chronic Problems HLD (hyperlipidemia) (Chronic) Anemia (Chronic) Hypertension (Chronic) Tobacco abuse disorder (Chronic) History of rheumatoid arthritis (Chronic) History of fibromyalgia (Chronic) Chronic low back pain (Chronic) History of drug overdose (Chronic) Hospital Course and Treatment Imaging Results: Clinical Impression(s) from Imaging Studies Chest X-Ray 08/25/20 01:43 IMPRESSION: Mild chronic changes right lung base. No evidence for acute cardiopulmonary pathology. Electronically Signed: Jaswinder Ricketts MD at 2:05 EDT , Service support , Operations: None, - - splint right leg. Summary of Care Provided: 1. Acute encephalopathy - ?? marijuana induced; monitored in the icu ?Patient encephalopathy resolved. 2. Hypotension -attributed to multiple antihypertensives and diuretics, admitted ti ICU, started on IVF and Levophed -08/26/2020: Patient still remains on Levophed drip. Plan is for patient to be transferred to the progressive care unit once Levophed is weaned off. Patient antihypertensives held on admission. -08/27/2020 patient antihypertensives were discontinued on discharge 3. Hypokalemia - corrected per protocol 08/26/2020: Hypokalemia persist ?08/27/2020 prescription for potassium written on discharge 4. Hypophosphatemia - corrected per protocol ?08/27/2020 prescription for Neutra-Phos K written on discharge 5. Hypomagnesemia - corrected per protocol ?08/27/2020 prescription for magnesium oxide written on discharge 6. Hypocalcemia - corrected per protocol -08/26/2020 hypocalcemia persist. ?Continued patient home calcium on discharge 7. Anemia - Secondary to chronic disorder monitoring H&H and transfuse if patient becomes symptomatic or hemoglobin falls below 7 ?08/26/2020: With patient being symptomatic (hypotension). An order was given for patient to be transfused 1 unit PRBC. 8. DVT prophylaxis - Enoxaparin Patient Problems: Active and Suspected Problems Mental confusion (Acute) Marijuana abuse, continuous (Acute) Objective: GENERAL: cooperative HEENT: Atraumatic; EYES; Anicteric, Normal Conjunctiva NECK; supple, normal thyroid, RESPIRATORY: Diminished to auscultation CARDIOVASCULAR: Regular S1 S2, GI: soft, normoactive bowel sounds, : No Renal angle tenderness; EXTREMITIES: No edema, no clubbing, MUSCULOSKELETAL: no muscle waisting NEURO: Awake; no lateralizing signs. SKIN: No Rash PSYCH; Flat affect - Physical Exam Vitals/I&O's: Vital Signs Temp Pulse Resp BP Pulse Ox 97.9 F 103 H 16 98/59 L 96 08/27/20 09:05 08/27/20 09:05 08/27/20 09:05 08/27/20 09:05 08/27/20 09:05 Oxygen Flow Rate (L/min) 2 Oxygen Delivery Method Room Air Weight: 71.2 kg Body Mass Index (BMI) 28.6 Finger Stick Blood Glucose 78 Intake and Output for Last 24 Hours 08/25/20 08/26/20 08/27/20 23:59 23:59 23:59 Intake Total 2970.48 / 2976.13 1088.88 / 1088.88 700 / 700 Output Total 1100 / 1430 680 / 680 Balance 1870.48 / 1546.13 408.88 / 408.88 700 / 700 Microbiology Past 72 Hours 08/25/20 03:15 Blood Culture (Wb) - Left Forearm Blood Culture - Preliminary No growth in 48 hours. 08/25/20 03:40 Blood Culture (Wb) - Right Hand Blood Culture - Preliminary No growth in 48 hours. 08/24/20 22:45 Stool Stool Occult Blood (ARNOLDO) - Final Laboratory Results 08/25/20 03:15: Crossmatch See Detail 08/27/20 05:40: WBC 6.4, RBC 2.48 L, Hgb 7.4 L, Hct 23.6 L, MCV 95.2, MCH 29.8, MCHC 31.4 L, RDW Std Deviation 64.9 H, RDW Coeff of Jania 19.3 H, Plt Count 241, MPV 9.1 08/27/20 05:40: Sodium 143, Potassium 3.7, Chloride 111 H, Carbon Dioxide 26.0, Anion Gap 6, BUN 1 L, Creatinine 0.54 L, Estim Creat Clear Calc 96.39, Est GFR (MDRD) Af Amer 151, Est GFR (MDRD) Non-Af 125, BUN/Creatinine Ratio 1.8 L, Glucose 83, Calcium 6.4 L* Current Medications Albuterol Sulfate (Albuterol Sulfate 8 Gm Inhaler (60 Puffs)) 2 puff INHALATION Q4H PRN PRN PRN Reason: SOB &/OR WHEEZING Last Admin: 08/26/20 05:28 Dose: 2 puff Documented by: Atorvastatin Calcium (Atorvastatin Calcium 80 Mg Tablet) 80 mg PO QHS [facility] Last Admin: 08/26/20 21:22 Dose: 80 mg Documented by: Calcium Carbonate (Calcium Carbonate 500 Mg Tablet) 500 mg PO TIDCM [facility] Last Admin: 08/27/20 11:06 Dose: 500 mg Documented by: Clonazepam (Clonazepam 1 Mg Tablet) 1 mg PO BID [facility] Last Admin: 08/27/20 09:14 Dose: 1 mg Documented by: Enoxaparin Sodium (Enoxaparin 40 Mg/0.4 Ml Syringe) 40 mg SC DAILY [facility] Last Admin: 08/27/20 09:08 Dose: 40 mg Documented by: Ferrous Sulfate (Ferrous Sulfate 325 Mg Tablet) 325 mg PO 1700 [facility] Last Admin: 08/26/20 16:49 Dose: 325 mg Documented by: Magnesium Chloride (Magnesium Chloride 64 Mg Delay Rel.Tablet) 128 mg PO BID [facility] Last Admin: 08/27/20 09:08 Dose: 128 mg Documented by: Mirtazapine (Mirtazapine 30 Mg Tablet) 45 mg PO QHS [facility] Last Admin: 08/26/20 21:22 Dose: 45 mg Documented by: Nicotine (Nicotine 14 Mg Patch) 14 mg TRANSDERM. DAILY [facility] Last Admin: 08/27/20 09:08 Dose: 14 mg Documented by: Ondansetron HCl (Ondansetron 4 Mg/2 Ml Vial) 4 mg IV Q8H PRN PRN PRN Reason: NAUSEA/VOMITING Last Admin: 08/25/20 20:35 Dose: 4 mg Documented by: Pantoprazole Sodium (Pantoprazole Sodium 40 Mg Tablet) 40 mg PO DAILY [facility] Last Admin: 08/27/20 09:08 Dose: 40 mg Documented by: Potassium Chloride (Potassium Ch[facility] 20 Meq Tablet) [facility] Admin: 08/27/20 07:43 Dose: 40 meq Documented by: Potassium Phos/Sodium Phos (Na Biphos/Potassium Phosphate Packet) 1 packet PO 4X/DAY [facility] Last Admin: 08/27/20 09:08 Dose: 1 packet Documented by: Pregabalin (Pregabalin 50 Mg Capsule) 50 mg PO BID [facility] Last Admin: 08/27/20 09:14 Dose: 50 mg Documented by: Sodium Chloride (0.9% Saline Lock 10 Ml Syringe) 10 - 40 ml IV UD PRN PRN Reason: SALINE FLUSH Last Admin: 08/26/20 21:22 Dose: 10 ml Documented by: Tramadol HCl (Tramadol 50 Mg Tablet) 50 mg PO TID PRN PRN PRN Reason: Pain Score 1-10 Last Admin: 08/27/20 07:15 Dose: 50 mg Documented by: Venlafaxine HCl (Venlafaxine Xr 150 Mg Capsule) 150 mg PO DAILY [facility] Last Admin: 08/27/20 09:08 Dose: 150 mg Documented by: Discharge Diet: No Restrictions Discharge Activity: May not drive while taking narcotic pain medications. Home Medications: Medications to take at Discharge Venlafaxine XR [Effexor Xr] 150 mg PO DAILY 01/08/14 Albuterol Inhaler [Ventolin Hfa] 2 puff INHALATION Q4H PRN PRN 03/31/18 Esomeprazole Mag Trihydrate [Nexium] 40 mg PO DAILY 03/31/18 Ferrous Sulfate [Iron] 1 tablet PO DAILY 03/31/18 Calcium Carbonate [Tums] 500 mg PO TIDCM #90 tab 04/25/18 Rosuvastatin Calcium [Crestor] 40 mg PO QHS 05/03/18 Mirtazapine 45 mg PO QHS 08/08/18 Pregabalin [Lyrica] 50 mg PO BID 08/08/18 traMADol [Ultram] 50 mg PO TID PRN 08/25/20 Clonazepam [Klonopin] 1 mg PO BID 08/26/20 Abatacept [Orencia] 125 mg SQ QWEEK 08/27/20 Magnesium Oxide [Mag-Oxide] 200 mg PO BID #60 tab 08/27/20 Na Biphos/Potassium Phosphate [Neutra-Phos Packet] 1 packet PO 4X/DAY #120 packet 08/27/20 Potassium Chloride [K-Dur] 20 meq PO BIDCM #60 tab 08/27/20 Following Prescriptions Were Given to Patient: Potassium Chloride [K-Dur] 20 meq PO BIDCM #60 tab Transmission Status: Pending to Qype #30 Magnesium Oxide [Mag-Oxide] 200 mg PO BID #60 tab Transmission Status: Pending to Qype #30 Na Biphos/Potassium Phosphate [Neutra-Phos Packet] 1 packet PO 4X/DAY #120 packet Transmission Status: Pending to Qype #30 Primary Care Physician: Jacob Teixeira DO [Primary Care Provider] - Please follow up with your Primary Care Physician in: In 5 to 7 days for repeat labs including BMP, phosphorus endoscopic Disposition: Home Minutes spent on discharge:: 35 Patient Condition:: Stable Meaningful Use Info Meaningful Use Diagnoses (Choose all that apply): None applicable Inpatient E&M: [id number] [facility]
--- NOTE | 2020-08-28 14:18 | CASEMGMT ---
IRIS CM Discharge Follow-Up Phone Call. Lace:???11???Strata: 3 Discharge Date: 08/27/20 Adm Dx:?? Hypotension, Hypokalemia Attempted discharge f/u phone call. No answer. VM message left for pt to return call if she has any questions/concerns/needs. Phone number provided. Tiffanie SUAREZ RN CM
== END 2020-08-27 13:34 | disposition home or self-care (01) | DRG 917 ==
LOC: ED 20:24 → ICU 08-25 01:37 → PCU 08-26 17:51
PROVIDERS: Internal Medicine Critical Care Medicine; Admitting Provider Family Medicine; Emergency Provider Emergency Medicine; PCP Student in an Organized Health Care Education/Training Program; Referring Provider Family Medicine; Visit Provider Internal Medicine
DX: T40.7X1A Poisoning by cannabis (derivatives), accidental (unintentional), initial encounter (principal); G92 Toxic encephalopathy; R57.8 Other shock; E78.5 Hyperlipidemia, unspecified; M06.9 Rheumatoid arthritis, unspecified; M79.7 Fibromyalgia; I10 Essential (primary) hypertension; G89.29 Other chronic pain; F17.200 Nicotine dependence, unspecified, uncomplicated; E87.6 Hypokalemia; E83.51 Hypocalcemia; E83.39 Other disorders of phosphorus metabolism; M19.90 Unspecified osteoarthritis, unspecified site; F32.9 Major depressive disorder, single episode, unspecified; D63.8 Anemia in other chronic diseases classified elsewhere; E83.42 Hypomagnesemia; F41.9 Anxiety disorder, unspecified
CPT/HCPCS: 36415; 71045; 80048; 80076; 81001; 82274; 82533; 82728; 82962; 83540; 83550; 83605; 83735; 84100; 84484; 85025; 85027; 86850; 86900; 86901; 86920; 86922; 87040; 93005; 94002; 94003; 97802; 97803; 99285; 99406; J7030; J7050; P9016; A4216; J0610; J2405

== ENCOUNTER → 2020-09-10 09:01 | Outpatient (CLI) | payer OTHER, SELFPAY ==
[2020-08-25 03:11] VITALS: BMI 28.6
[2020-09-10 10:49] LABS: Ferritin 191 ng/mL (8-252); Iron 110 ug/dL (50-170); Iron Binding Capacity,Total 215 ug/dL (250-450); PERCENT IRON SATURATION 51.2 % (15.0-55.0)
== END ==
PROVIDERS: PCP Student in an Organized Health Care Education/Training Program; Referring Provider Internal Medicine Rheumatology; Visit Provider Internal Medicine Rheumatology
DX: M79.7 Fibromyalgia (principal); K76.0 Fatty (change of) liver, not elsewhere classified; J45.909 Unspecified asthma, uncomplicated; E11.9 Type 2 diabetes mellitus without complications; M77.00 Medial epicondylitis, unspecified elbow; Z79.899 Other long term (current) drug therapy; M06.09 Rheumatoid arthritis without rheumatoid factor, multiple sites
CPT/HCPCS: 36415; 82728; 83540; 83550

== ENCOUNTER → 2020-09-18 12:10 | Outpatient (CLI) | payer OTHER, SELFPAY ==
[2020-08-25 03:11] VITALS: BMI 28.6
[2020-09-18 15:55] LABS: Ferritin 163 ng/mL (8-252); Iron 61 ug/dL (50-170); Iron Binding Capacity,Total 300 ug/dL (250-450); PERCENT IRON SATURATION 20.3 % (15.0-55.0)
== END ==
PROVIDERS: PCP Student in an Organized Health Care Education/Training Program; Referring Provider Internal Medicine Rheumatology; Visit Provider Internal Medicine Rheumatology
DX: M06.09 Rheumatoid arthritis without rheumatoid factor, multiple sites (principal); M79.7 Fibromyalgia; K76.0 Fatty (change of) liver, not elsewhere classified; J45.909 Unspecified asthma, uncomplicated; E11.9 Type 2 diabetes mellitus without complications; M77.00 Medial epicondylitis, unspecified elbow; Z79.899 Other long term (current) drug therapy
CPT/HCPCS: 36415; 82728; 83540; 83550

== ENCOUNTER → 2020-11-30 09:18 | Outpatient (CLI) | payer OTHER, SELFPAY ==
[2020-08-25 03:11] VITALS: BMI 28.6
[2020-11-30 09:55] LABS: Absolute Lymphocyte Count 1.52 X10^3/uL (0.83-4.51); Absolute Neutrophil Count 3.7 X10^3/uL (2.0-7.7); Basophil# 0.03 X10^3/uL; Basophil% 0.5 % (0-1); Eosinophil# 0.08 X10^3/uL; Eosinophils% 1.3 % (0-5); Lymphocyte # 1.52 X10^3/ul (4.0); Lymphocyte % 25.1 % (19-41); Mean Corp Hgb Conc 32.6 g/dL (32-36); Mean Corpuscular Hgb 30.4 pg (27.0-32.0); Mean Corpuscular Volume 93.1 fL (81-99); Mean Platelet Vol. 8.4 fl (6.2-12.0); Monocyte# 0.69 X10^3/uL; Monocyte% 11.4 % (0-10); NRBC Flagged by Analyzer 0 % (0-5); Neutrophil # 3.73 X10^3/uL (2.7-7.7); Neutrophil % 61.5 % (47-70); Platelet Count 314 K/mm3 (150-450); RBC Distribution Width SD 44.2 fl (35.1-43.9); Red Blood Count 4.94 M/mm3 (4.2-5.4); White Blood Count 6.1 K/mm3 (4.4-11.0)
[2020-11-30 10:42] LABS: ALB/GLOB Ratio 0.8 RATIO (0.9-2.4); AST(SGOT) 44 U/L (15-37); Alanine Aminotransfer ALT/SGPT 33 U/L (13-56); Albumin, Serum 3.4 g/dL (3.2-5.0); Alkaline Phosphatase 162 U/L (45-117); Anion Gap 8 (5-15); BUN 5 mg/dL (7-18); BUN/Creat Ratio 7.3 RATIO (10-20); Calcium,Total 9.4 mg/dL (8.5-10.1); Chloride 106 mmol/L (98-107); Creatinine, Serum 0.69 mg/dL (0.55-1.02); EST Glomerular Filtration Rate 95 mL/min (>60); Est Glom Filt Rate - Afr Amer 115 mL/min (>60); Glucose 107 mg/dL (74-106); Potassium 3.8 mmol/L (3.5-5.1); Protein, Total 7.4 g/dL (6.4-8.2); Sodium Level 142 mmol/L (136-145)
== END ==
PROVIDERS: PCP Student in an Organized Health Care Education/Training Program; Referring Provider Internal Medicine Rheumatology; Visit Provider Internal Medicine Rheumatology
DX: M06.09 Rheumatoid arthritis without rheumatoid factor, multiple sites (principal); M79.7 Fibromyalgia; K76.0 Fatty (change of) liver, not elsewhere classified; J45.909 Unspecified asthma, uncomplicated; E11.9 Type 2 diabetes mellitus without complications; M77.00 Medial epicondylitis, unspecified elbow; Z79.899 Other long term (current) drug therapy
CPT/HCPCS: 36415; 80053; 85025

== ENCOUNTER → 2020-12-14 10:02 | Outpatient (CLI) | payer OTHER, SELFPAY ==
[2020-08-25 03:11] VITALS: BMI 28.6
[2020-12-14 12:42] LABS: Ferritin 160 ng/mL (8-252); Iron 213 ug/dL (50-170); Iron Binding Capacity,Total 346 ug/dL (250-450); PERCENT IRON SATURATION 61.6 % (15.0-55.0)
== END ==
PROVIDERS: PCP Student in an Organized Health Care Education/Training Program; Referring Provider Internal Medicine Rheumatology; Visit Provider Internal Medicine Rheumatology
DX: M06.09 Rheumatoid arthritis without rheumatoid factor, multiple sites (principal); M79.7 Fibromyalgia; K76.0 Fatty (change of) liver, not elsewhere classified; J45.909 Unspecified asthma, uncomplicated; E11.9 Type 2 diabetes mellitus without complications; M77.00 Medial epicondylitis, unspecified elbow; Z79.899 Other long term (current) drug therapy
CPT/HCPCS: 36415; 82728; 83540; 83550

== ENCOUNTER → 2021-02-22 10:23 | Outpatient (CLI) | payer OTHER, SELFPAY ==
[2020-08-25 03:11] VITALS: BMI 28.6
[2021-02-22 12:44] LABS: Absolute Lymphocyte Count 1.71 X10^3/uL (0.83-4.51); Absolute Neutrophil Count 4.8 X10^3/uL (2.0-7.7); Basophil# 0.05 X10^3/uL; Basophil% 0.6 % (0-1); Eosinophil# 0.08 X10^3/uL; Hematocrit 33.2 % (37-47); Hemoglobin 11.5 g/dL (12.0-15.0); Lymphocyte # 1.71 X10^3/ul (0.83-4.51); Lymphocyte % 21.8 % (19-41); Mean Corp Hgb Conc 34.6 g/dL (32-36); Mean Corpuscular Hgb 34.6 pg (27.0-32.0); Mean Platelet Vol. 9.2 fl (6.2-12.0); Monocyte# 1.11 X10^3/uL; Monocyte% 14.1 % (0-10); NRBC Flagged by Analyzer 0 % (0-5); Neutrophil # 4.77 X10^3/uL (2.7-7.7); Neutrophil % 60.8 % (47-70); Platelet Count 544 K/mm3 (150-450); RBC Distribution Width CV 12.8 % (11.6-14.6); RBC Distribution Width SD 45.8 fl (35.1-43.9); Red Blood Count 3.32 M/mm3 (4.2-5.4); White Blood Count 7.9 K/mm3 (4.4-11.0)
[2021-02-22 13:15] LABS: ALB/GLOB Ratio 0.9 RATIO (0.9-2.4); AST(SGOT) 68 U/L (15-37); Alanine Aminotransfer ALT/SGPT 57 U/L (13-56); Albumin, Serum 2.8 g/dL (3.2-5.0); Alkaline Phosphatase 235 U/L (45-117); Anion Gap 14 (5-15); BUN 2 mg/dL (7-18); BUN/Creat Ratio 2.3 RATIO (10-20); Calcium,Total 7.8 mg/dL (8.5-10.1); Chloride 84 mmol/L (98-107); Creatinine, Serum 0.87 mg/dL (0.55-1.02); EST Glomerular Filtration Rate 72 mL/min (>60); Est Glom Filt Rate - Afr Amer 88 mL/min (>60); Globulin 3.2 g/dL (2.2-4.2); Glucose 164 mg/dL (74-106); Potassium 2.2 mmol/L (3.5-5.1); Sodium Level 124 mmol/L (136-145)
== END ==
PROVIDERS: PCP Student in an Organized Health Care Education/Training Program; Referring Provider Internal Medicine Rheumatology; Visit Provider Internal Medicine Rheumatology
DX: M06.09 Rheumatoid arthritis without rheumatoid factor, multiple sites (principal); M79.7 Fibromyalgia; K76.0 Fatty (change of) liver, not elsewhere classified; J45.909 Unspecified asthma, uncomplicated; E11.9 Type 2 diabetes mellitus without complications; M77.00 Medial epicondylitis, unspecified elbow; Z79.899 Other long term (current) drug therapy
CPT/HCPCS: 36415; 80053; 85025

== ENCOUNTER → 2021-05-28 09:38 | Outpatient (CLI) | payer OTHER, SELFPAY ==
[2020-08-25 03:11] VITALS: BMI 28.6
[2021-05-28 12:13] LABS: Absolute Lymphocyte Count 2.26 X10^3/uL (0.83-4.51); Absolute Neutrophil Count 5.6 X10^3/uL (2.0-7.7); Basophil# 0.09 X10^3/uL; Eosinophil# 0.12 X10^3/uL; Eosinophils% 1.3 % (0-5); Hematocrit 35.8 % (37-47); Hemoglobin 11.6 g/dL (12.0-15.0); Lymphocyte # 2.26 X10^3/ul (0.83-4.51); Lymphocyte % 24.6 % (19-41); Mean Corp Hgb Conc 32.4 g/dL (32-36); Mean Corpuscular Hgb 32.4 pg (27.0-32.0); Monocyte# 0.91 X10^3/uL; Monocyte% 9.9 % (0-10); NRBC Flagged by Analyzer 0 % (0-5); Neutrophil # 5.63 X10^3/uL (2.7-7.7); Neutrophil % 61.1 % (47-70); Platelet Count 341 K/mm3 (150-450); RBC Distribution Width CV 14.4 % (11.6-14.6); RBC Distribution Width SD 52.6 fl (35.1-43.9); Red Blood Count 3.58 M/mm3 (4.2-5.4); White Blood Count 9.2 K/mm3 (4.4-11.0)
[2021-05-28 12:46] LABS: ALB/GLOB Ratio 0.9 RATIO (0.9-2.4); AST(SGOT) 97 U/L (15-37); Alanine Aminotransfer ALT/SGPT 39 U/L (13-56); Albumin, Serum 3.3 g/dL (3.2-5.0); Alkaline Phosphatase 250 U/L (45-117); Anion Gap 11 (5-15); BUN 4 mg/dL (7-18); BUN/Creat Ratio 5.4 RATIO (10-20); Calcium,Total 8.6 mg/dL (8.5-10.1); Chloride 99 mmol/L (98-107); Creatinine, Serum 0.73 mg/dL (0.55-1.02); EST Glomerular Filtration Rate 88 mL/min (>60); Est Glom Filt Rate - Afr Amer 107 mL/min (>60); Globulin 3.7 g/dL (2.2-4.2); Glucose 49 mg/dL (74-106); Potassium 4.7 mmol/L (3.5-5.1); Sodium Level 134 mmol/L (136-145)
== END ==
PROVIDERS: PCP Student in an Organized Health Care Education/Training Program; Referring Provider Internal Medicine Rheumatology; Visit Provider Internal Medicine Rheumatology
DX: M06.09 Rheumatoid arthritis without rheumatoid factor, multiple sites (principal); M79.7 Fibromyalgia; K76.0 Fatty (change of) liver, not elsewhere classified; J45.909 Unspecified asthma, uncomplicated; E11.9 Type 2 diabetes mellitus without complications; M77.00 Medial epicondylitis, unspecified elbow; Z79.899 Other long term (current) drug therapy
CPT/HCPCS: 36415; 80053; 85025

== ENCOUNTER → 2021-07-01 09:46 | Outpatient (CLI) | payer OTHER, SELFPAY ==
--- NOTE | 2021-07-01 09:49 | RAD_ITS ---
STUDY: X-RAY - RIGHT SHOULDER REASON FOR EXAM: Right shoulder pain, no specific injury, right shoulder surgery. TECHNIQUE: 4 view(s) of the shoulder. COMPARISON: Radiographs 10/20/2015. FINDINGS: There are small marginal osteophytes of the humeral head and joint space narrowing of the glenohumeral joint. Status post resection of the distal clavicle, subacromial decompression. Normal humeral head and visualized proximal humerus. There is calcific tendinitis. Normal visualized pulmonary apex. RAD/Shoulder min 2 Views IMPRESSION: Calcific tendinitis. Glenohumeral arthrosis. Electronically Signed: Shaheen Marquez MD at 10:53 EDT Tel , Service support ,
== END ==
PROVIDERS: PCP Student in an Organized Health Care Education/Training Program; Referring Provider Anesthesiology Pain Medicine; Visit Provider Anesthesiology Pain Medicine
DX: M25.511 Pain in right shoulder (principal)
CPT/HCPCS: 73030

== ENCOUNTER 2021-07-28 11:15 | Emergency (ER) | payer OTHER, SELFPAY ==
[2021-07-28 11:17] VITALS: BP 98/71; PULSE 114; RESP 20; TEMP 35.8; O2SAT 100; BMI 26.9
--- NOTE | 2021-07-28 12:10 | EX.ED.DYSGE1 ---
HPI History of Present Illness Chief Complaint: Abn Labs Informant: patient Onset/Context/Timing Onset: Yesterday Narrative Narrative: Patient states she had some labs checked yesterday at [facility] urgent care when she went there for diarrhea and was called today and advised to come to the emergency department because her potassium and hemoglobin were both very low. She states she has felt malaised recently and has had diarrhea for a little over a week, somewhere between 5 and 10 bouts per day, the diarrhea is made better transiently when she takes Imodium. She denies any blood in it or melena. She denies any abdominal pain, nausea, vomiting, fevers or chills, lightheadedness or syncope. She denies any recent travel out of the area or country, antibiotic prescriptions, suspicious food ingestion or undercooked meats, ground water ingestion that is new for her, she has not had no history of C. difficile, and has had no recent contact with anyone that she knows of with similar symptoms. She states she has a longstanding history of anemia and requests that I figure out why. [facility] Medical History AA (alcohol abuse) Anemia ARF (acute renal failure) Drug overdose Fibromyalgia Fx shaft fibula-closed HLD (hyperlipidemia) HTN (hypertension) Rheumatoid arthritis Substance abuse Home Medications albuterol sulfate [Ventolin HFA] 2 puff INHALATION Q4H PRN PRN 03/31/18 [History Last Taken 08/07/18] esomeprazole magnesium [Nexium] 40 mg PO DAILY 03/31/18 [History Last Taken 08/07/18] mirtazapine 45 mg PO QHS 08/08/18 [History Last Taken 08/07/18] pregabalin 100 mg PO BID 08/08/18 [History Last Taken 08/07/18] tramadol 50 mg PO TID PRN 08/25/20 [History Last Taken Unknown] clonazepam 1 mg PO BID 08/26/20 [History Last Taken Unknown] abatacept 125 mg SQ QWEEK 08/27/20 [History Last Taken Unknown] potassium chloride 20 meq PO BIDCM #60 tab 08/27/20 [Rx Last Taken Unknown] atorvastatin [Lipitor] 40 mg PO DAILY 07/28/21 [History Last Taken Unknown] duloxetine 60 mg PO DAILY 07/28/21 [History Last Taken Unknown] folic acid 2 mg PO DAILY 07/28/21 [History Last Taken Unknown] prednisone 10 mg PO DAILY 07/28/21 [History Last Taken Unknown] spironolactone 25 mg PO DAILY 07/28/21 [History Last Taken Unknown] Allergy/AdvReac Type Severity Reaction Status Date / Time progesterone Allergy Itching Verified 07/28/21 11:20 varenicline tartrate Allergy suicidal Verified 07/28/21 11:20 [From Chantix] baclofen AdvReac Other Verified 07/28/21 11:20 lisinopril AdvReac Angioedema Verified 07/28/21 11:20 Social History Smoking Status: Current every day smoker tobacco type: cigarettes ROS ROS ED Constitutional Constitutional ED: Reports malaise; Denies chills or fever(s) Eyes Eyes: Denies change in vision or diplopia ENT ENT ED: Denies rhinorrhea or sore throat Cardiovascular Cardiovascular: Denies chest pain or palpitations Respiratory/Chest Respiratory/Chest: Denies cough or dyspnea Gastrointestinal Gastrointestinal: Reports diarrhea; Denies abdominal pain, hematochezia, melena, nausea or vomiting Genitourinary Genitourinary ED: Denies dysuria or hematuria Musculoskeletal Musculoskeletal: Denies back pain or neck pain Integumentary Denies abscess or rash Neurologic Neurologic: Denies headache(s), paresthesias or weakness Psychiatric Psychiatric: Denies anxiety or suicidal thoughts EXAM Physical Exam Const Vital Signs: 07/28/21 11:17 07/28/21 11:57 07/28/21 13:15 Temperature 96.5 F L Temperature Source Temporal Pulse Rate 114 H 99 Respiratory Rate 20 H 19 H Respiratory Effort Normal Non-Labored Respiratory Pattern Normal Blood Pressure 98/71 119/83 H Blood Pressure Mean 80 95 Pulse Ox 100 96 Oxygen Delivery Method Room Air Room Air 07/28/21 15:00 Temperature Temperature Source Pulse Rate 92 Respiratory Rate 20 H Respiratory Effort Respiratory Pattern Blood Pressure 101/63 Blood Pressure Mean 75 Pulse Ox Oxygen Delivery Method Room Air Positive well nourished and well developed General Appearance ED: well developed and NAD HEENT Reports moist mucous membranes normocephalic and atraumatic Eyes PERRL and EOMs intact bilaterally Neck full ROM and supple Resp normal respiratory effort and clear to auscultation bilaterally Cardio regular rate, regular rhythm and no murmurs Rate: Negative for tachycardic GI non-tender and non-distended Auscultation: normoactive bowel sounds Palpation: soft Back/Spine no CVA tenderness General Back: other FROM Extremity normal to inspection General Extremety ED: Negative for edema, pulses abnormal or tenderness General Extremity: Negative for edema or pulses abnormal Neuro oriented x3, CN's II-XII intact bilaterally and no sensory deficits noted Sensorium / Orientation: awake and alert Motor Exam: strength 5/5 throughout Skin no rashes or lesions noted and no wounds MDM MDM MDM Narrative Medical decision making narrative: Potassium is low at 2.4, we gave her 2 runs of IV 10 mEq as well as a dose of oral 40 mEq. Her hemoglobin is 9.7, no need for transfusion. It is macrocytic, I am happy to send off for B12 and folate levels and advised that she take a multivitamin until she follows up with her primary care doctor. I offered admission, she really does not want to stay and is not extremely weak/symptomatic given the level, I suspect this is related to her diarrhea, which she did not have here to send for testing which we attempted. Patient states she already has potassium tablets at home. She has not been taking them but will now. Lab Data Attestation: I reviewed the patient's lab results. Labs: Laboratory Results - last 24 hr 07/28/21 07/28/21 07/28/21 12:05 12:05 12:05 WBC 5.7 RBC 2.96 L Hgb 9.7 L Hct 30.3 L MCV 102.4 H MCH 32.8 H MCHC 32.0 RDW Std Deviation 60.0 H RDW Coeff of Jania 16.2 H Plt Count 154 MPV 10.6 Neut % (Auto) Not Reportable Absolute Neuts (auto) 3.6 Absolute Lymphs (auto) 1.48 Total Counted 100 Neutrophils % (Manual) 61 Band Neutrophils % 2 Lymphocytes % (Manual) 26 Monocytes % (Manual) 7 Eosinophils % (Manual) 1 Metamyelocytes % 3 H Diff Path Review May foll Platelet Estimate ADEQUATE RBC Morphology N CHROM Anisocytosis 1+ Sodium 140 Potassium 2.4 L* Chloride 107 Carbon Dioxide 23.0 Anion Gap 10 BUN 4 L Creatinine 0.53 L Estim Creat Clear Calc 98.20 Est GFR (MDRD) Af Amer 155 Est GFR (MDRD) Non-Af 128 BUN/Creatinine Ratio 7.5 L Glucose 81 Calcium 7.4 L Vitamin B12 Folate Blood Type A NEGATIVE Antibody Screen NEGATIVE 07/28/21 07/28/21 12:05 12:53 WBC RBC Hgb Hct MCV MCH MCHC RDW Std Deviation RDW Coeff of Jania Plt Count MPV Neut % (Auto) Absolute Neuts (auto) Absolute Lymphs (auto) Total Counted Neutrophils % (Manual) Band Neutrophils % Lymphocytes % (Manual) Monocytes % (Manual) Eosinophils % (Manual) Metamyelocytes % Diff Path Review Platelet Estimate RBC Morphology Anisocytosis Sodium Potassium Chloride Carbon Dioxide Anion Gap BUN Creatinine Estim Creat Clear Calc Est GFR (MDRD) Af Amer Est GFR (MDRD) Non-Af BUN/Creatinine Ratio Glucose Calcium Vitamin B12 878 Folate 4.30 Blood Type Antibody Screen Discharge Plan Triage Chief Complaint: Abn Labs ED Provider: Sahil Pathak Dx/Rx/DC Orders Clinical Impression: Hypokalemia due to excessive gastrointestinal loss of potassium, Acute diarrhea, Anemia, macrocytic Instructions: ED Anemia, Type Not Specified (Adult), ED Hypokalemia Prescriptions: No Action esomeprazole magnesium [Nexium] 40 MG capsule 40 mg PO DAILY RF: 0 albuterol sulfate [Ventolin HFA] 1 INHALER inhaler 2 puff inhalation Q4H PRN PRN (Reason: Sob &/Or Wheezing) RF: 0 mirtazapine 45 MG tablet,disintegrating 45 mg PO QHS RF: 0 pregabalin 50 capsule 100 mg PO BID RF: 0 tramadol 50 MG tablet 50 mg PO TID PRN (Reason: Pain Score 1-10) RF: 0 clonazepam 1 MG tablet 1 mg PO BID RF: 0 abatacept 125 MG/ML syringe 125 mg SQ QWEEK RF: 0 potassium chloride 20 MEQ tablet 20 meq PO BIDCM Qty: 60 RF: 0 atorvastatin [Lipitor] 40 mg tablet 40 mg PO DAILY RF: 0 prednisone 10 mg Tablet 10 mg PO DAILY RF: 0 spironolactone 25 mg tablet 25 mg PO DAILY RF: 0 folic acid 1 mg Tablet 2 mg PO DAILY RF: 0 duloxetine 60 mg capsule,delayed release(DR/EC) 60 mg PO DAILY RF: 0 Primary Care Provider: Jacob Teixeira Referrals: Jacob Teixeira DO [Primary Care Provider] - As soon as possible Disposition Disposition: Home, Self Care
[2021-07-28 12:18] LABS: Hematocrit 30.3 % (37-47); Hemoglobin 9.7 g/dL (12.0-15.0); Mean Corpuscular Hgb 32.8 pg (27.0-32.0); Mean Corpuscular Volume 102.4 fL (81-99); Mean Platelet Vol. 10.6 fl (6.2-12.0); POSITIVE COUNT YES; POSITIVE MORPHOLOGY YES; Platelet Count 154 K/mm3 (150-450); RBC Distribution Width CV 16.2 % (11.6-14.6); Red Blood Count 2.96 M/mm3 (4.2-5.4); White Blood Count 5.7 K/mm3 (4.4-11.0)
[2021-07-28 12:19] LABS: Differential Indicated MANUAL DIFF
[2021-07-28 12:35] LABS: Anion Gap 10 (5-15); BUN 4 mg/dL (7-18); BUN/Creat Ratio 7.5 RATIO (10-20); Calcium,Total 7.4 mg/dL (8.5-10.1); Chloride 107 mmol/L (98-107); Creatinine, Serum 0.53 mg/dL (0.55-1.02); EST Glomerular Filtration Rate 128 mL/min (>60); Est Glom Filt Rate - Afr Amer 155 mL/min (>60); Glucose 81 mg/dL (74-106); Potassium 2.4 mmol/L (3.5-5.1); Sodium Level 140 mmol/L (136-145)
[2021-07-28 13:06] LABS: Eosinophil 1 % (0-5); Lymphocyte 26 % (19-41); Metamyelocyte 3 % (0-1); Monocyte 7 % (0-10); Neutrophil-Band 2 % (0-5); Neutrophil-Segmented 61 % (47-70); Total Cells Counted 100 (MANUAL DIFF)
[2021-07-28 13:07] LABS: Anisocytosis 1+; Platelet Estimate ADEQUATE (ADEQ); Red Cell Morphology N CHROM NORMAL (NORM C&C)
[2021-07-28 13:09] LABS: Absolute Lymphocyte Count 1.48 X10^3/uL (0.83-4.51); Absolute Neutrophil Count 3.6 X10^3/uL (2.0-7.7)
[2021-07-28 13:15] VITALS: BP 119/83; PULSE 99; RESP 19; O2SAT 96
[2021-07-28] MEDS: Potassium Chloride 10mEq/100mL 10 MEQ/100 ML IV.SOLN. 100 MEQ IV BOLUS ×2 (13:20→14:22)
[2021-07-28] MEDS: Potassium Chloride Oral Tablet 20 MEQ 40 MEQ PO (13:29)
[2021-07-28 13:47] LABS: Vitamin B12 878 pg/mL (211-911)
[2021-07-28 15:00] VITALS: BP 101/63; PULSE 92; RESP 20
[2021-07-28 16:08] VITALS: BP 101/63; PULSE 91; RESP 17; O2SAT 95
[2021-07-29 12:40] LABS: Pathologist Review Reviewed
== END 2021-07-28 16:09 | disposition home or self-care (01) ==
PROVIDERS: Emergency Provider Emergency Medicine; PCP Student in an Organized Health Care Education/Training Program
DX: E87.6 Hypokalemia (principal); R19.7 Diarrhea, unspecified; D53.9 Nutritional anemia, unspecified; F17.210 Nicotine dependence, cigarettes, uncomplicated; E78.5 Hyperlipidemia, unspecified; M06.9 Rheumatoid arthritis, unspecified; M79.7 Fibromyalgia; I10 Essential (primary) hypertension; Z79.899 Other long term (current) drug therapy; Z79.52 Long term (current) use of systemic steroids
CPT/HCPCS: 80048; 82607; 82746; 85025; 86850; 86900; 86901; 96365; 96366; 99283; A4216

== ENCOUNTER → 2021-08-17 08:24 | Outpatient (CLI) | payer OTHER, SELFPAY ==
[2021-08-17 09:56] LABS: Absolute Lymphocyte Count 2.75 X10^3/uL (0.83-4.51); Absolute Neutrophil Count 5.6 X10^3/uL (2.0-7.7); Basophil# 0.08 X10^3/uL; Basophil% 0.8 % (0-1); Eosinophil# 0.16 X10^3/uL; Eosinophils% 1.6 % (0-5); Hematocrit 31.6 % (37-47); Hemoglobin 9.7 g/dL (12.0-15.0); Lymphocyte # 2.75 X10^3/ul (0.83-4.51); Lymphocyte % 28.1 % (19-41); Mean Corp Hgb Conc 30.7 g/dL (32-36); Mean Corpuscular Hgb 31.4 pg (27.0-32.0); Mean Corpuscular Volume 102.3 fL (81-99); Monocyte# 1.11 X10^3/uL; Monocyte% 11.3 % (0-10); NRBC Flagged by Analyzer 0 % (0-5); Neutrophil # 5.59 X10^3/uL (2.7-7.7); Neutrophil % 57.2 % (47-70); Platelet Count 341 K/mm3 (150-450); RBC Distribution Width CV 16.3 % (11.6-14.6); Red Blood Count 3.09 M/mm3 (4.2-5.4); White Blood Count 9.8 K/mm3 (4.4-11.0)
[2021-08-17 10:21] LABS: ALB/GLOB Ratio 0.6 RATIO (0.9-2.4); AST(SGOT) 53 U/L (15-37); Alanine Aminotransfer ALT/SGPT 19 U/L (13-56); Albumin, Serum 2.2 g/dL (3.2-5.0); Alkaline Phosphatase 197 U/L (45-117); Anion Gap 12 (5-15); BUN 3 mg/dL (7-18); BUN/Creat Ratio 4.2 RATIO (10-20); Calcium,Total 8.5 mg/dL (8.5-10.1); Chloride 104 mmol/L (98-107); Creatinine, Serum 0.72 mg/dL (0.55-1.02); EST Glomerular Filtration Rate 90 mL/min (>60); Est Glom Filt Rate - Afr Amer 109 mL/min (>60); Glucose 92 mg/dL (74-106); Potassium 3.8 mmol/L (3.5-5.1); Protein, Total 6.2 g/dL (6.4-8.2); Sodium Level 139 mmol/L (136-145)
== END ==
PROVIDERS: PCP Student in an Organized Health Care Education/Training Program; Referring Provider Internal Medicine Rheumatology; Visit Provider Internal Medicine Rheumatology
DX: M06.09 Rheumatoid arthritis without rheumatoid factor, multiple sites (principal); M79.7 Fibromyalgia; K76.0 Fatty (change of) liver, not elsewhere classified; J45.909 Unspecified asthma, uncomplicated; E11.9 Type 2 diabetes mellitus without complications; M77.00 Medial epicondylitis, unspecified elbow; Z79.899 Other long term (current) drug therapy
CPT/HCPCS: 36415; 80053; 85025

== ENCOUNTER 2021-08-18 10:07 | Emergency (ER) | payer OTHER, SELFPAY ==
[2021-08-18 10:09] VITALS: PULSE 120; RESP 16; TEMP 37.2; O2SAT 100; BMI 27.4
--- NOTE | 2021-08-18 10:28 | VDLE_ITS ---
Reason For Study: Swelling RIGHT LEFT CFV is compressible, spontaneous, phasic, GSV is normal. competent and demonstrates normal CFV is compressible, spontaneous, phasic, augmentation. competent, and demonstrates normal Procedure augmentation. This is a venous duplex using B-mode, color FV is compressible, spontaneous, phasic, flow and spectral Doppler. competent and demonstrates normal Exam performed portable in ED. augmentation. A preliminary report was called and/or faxed POP V is compressible, spontaneous, phasic, to Erich. competent and demonstrates normal augmentation. T/P Trunk is compressible. PTV is compressible. LT PerV is compressible. VL/Venous Duplex US, Unilateral Interpretation Summary There is no evidence of left lower extremity deep vein thrombosis. Left great s aphenous vein appears patent and compressible segmentally. Normal flow patterns right common femoral vein Ordering Physician: Scottie Jung Referring Physician: Jacob Teixeira Performed By: Adelaide Madsen RVT
--- NOTE | 2021-08-18 10:29 | ED.VIS.LOWEX ---
HPI History of Present Illness Chief Complaint: Lower Extremity Injury Detail of Chief Complaint: Left lower extremity swelling without any trauma. Informant: patient Occured/Mechanism Mechanism/Context: No injury Onset/Context/Timing Onset: Days Context: Gradual Onset Timing: Continuous Current Severity: Mild Maximum Severity: Mild Associated Symptoms Associated Symptoms: Negative for Parasthesia, Weakness and Loss of Funtion Narrative Narrative: 31-year-old female complaining of left lower leg swelling. Said began on Monday. She had a prior history of some swelling there and it worked up. No prior history of DVT or PE. She denies any falls or trauma. She denies any fever or chills. Patient has had prior fracture left ankle on that leg and needed orthopedic surgery Prior similar symptoms: Yes Recent Illness/Hospitalization: No PFSH PFSH Medical History AA (alcohol abuse) Anemia ARF (acute renal failure) CVA (cerebral vascular accident) Drug overdose Fibromyalgia Fx shaft fibula-closed HLD (hyperlipidemia) HTN (hypertension) Rheumatoid arthritis Substance abuse Home Medications albuterol sulfate [Ventolin HFA] 2 puff INHALATION Q4H PRN PRN 03/31/18 [History Last Taken 08/07/18] esomeprazole magnesium [Nexium] 40 mg PO DAILY 03/31/18 [History Last Taken 08/07/18] mirtazapine 45 mg PO QHS 08/08/18 [History Last Taken 08/07/18] pregabalin 100 mg PO BID 08/08/18 [History Last Taken 08/07/18] tramadol 50 mg PO TID PRN 08/25/20 [History Last Taken Unknown] clonazepam 1 mg PO BID 08/26/20 [History Last Taken Unknown] abatacept 125 mg SQ QWEEK 08/27/20 [History Last Taken Unknown] potassium chloride 20 meq PO BIDCM #60 tab 08/27/20 [Rx Last Taken Unknown] atorvastatin [Lipitor] 40 mg PO DAILY 07/28/21 [History Last Taken Unknown] duloxetine 60 mg PO DAILY 07/28/21 [History Last Taken Unknown] folic acid 2 mg PO DAILY 07/28/21 [History Last Taken Unknown] prednisone 10 mg PO DAILY 07/28/21 [History Last Taken Unknown] spironolactone 25 mg PO DAILY 07/28/21 [History Last Taken Unknown] Allergy/AdvReac Type Severity Reaction Status Date / Time progesterone Allergy Itching Verified 08/18/21 10:09 varenicline tartrate Allergy suicidal Verified 08/18/21 10:09 [From Chantix] baclofen AdvReac Other Verified 08/18/21 10:09 lisinopril AdvReac Angioedema Verified 08/18/21 10:09 Social History Smoking Status: Current every day smoker tobacco type: cigarettes ROS ROS ED ROS Narrative Denies recent illness. Review of Systems ROS Unobtainable: Denies due to encephalopathy Constitutional Constitutional ED: Denies fever(s) Eyes Eyes: Denies change in vision ENT ENT ED: Denies ear pain Cardiovascular Cardiovascular: Denies chest pain Respiratory/Chest Respiratory/Chest: Denies cough or dyspnea Gastrointestinal Gastrointestinal: Denies abdominal pain, diarrhea, nausea or vomiting Genitourinary Genitourinary ED: Denies dysuria Musculoskeletal Musculoskeletal: Denies myalgias Integumentary Denies rash Neurologic Neurologic: Denies headache(s) Psychiatric Psychiatric: Denies depression Endocrine Endocrinology: Denies polyuria Hematologic/Lymphatic Hematologic/Lymphatic: Denies easy bruising Allergic/Immunologic Allergic/Immunologic ED: Denies urticaria EXAM Physical Exam Narrative Exam Narrative: No acute distress vital signs stable afebrile does not look septic or toxic. HEENT exam unremarkable. Moist remembers. Lungs clear to auscultation. Heart regular rhythm rate about 100 no murmur. Abdomen soft nontender normal bowel sounds no peritoneal signs. No pulsatile mass. Moving all 4 extremities. Mild swelling left lower leg. Nonpitting edema. Mild calf tenderness. No cords. No cellulitis. No trauma. She has normal flexion-extension of both the left hip knee and ankle. Dorsi plantarflexion intact. Normal sensation. Normal DP pulse. Right lower extremity is unremarkable nonswollen. Const Vital Signs: 08/18/21 10:09 Temperature 98.9 F Temperature Source Temporal Pulse Rate 120 H Respiratory Rate 16 Pulse Ox 100 Oxygen Delivery Method Room Air Positive well nourished and well developed; Negative for cachectic, contractures or unkempt General Appearance ED: well developed and NAD; Negative for unkempt, cachectic or contractures Nutritional Appearance: Negative for cachectic HEENT Reports moist mucous membranes normocephalic and atraumatic; Negative for trauma or tenderness Eyes PERRL Neck full ROM and supple Thyroid: Negative for tender Chest Wall inspection of chest normal and palpation of chest normal Resp normal respiratory effort, no retractions and clear to auscultation bilaterally Auscultation: Negative for rales, rhonchi or wheezes Cardio regular rate, regular rhythm, S1 normal heart sound, S2 normal heart sound and no murmurs GI non-tender, non-distended and no masses Auscultation: normoactive bowel sounds Palpation: soft; Negative for tender, guarding or rebound tenderness present Back/Spine Negative for no CVA tenderness Extremity normal to inspection and full ROM General Extremety ED: Yes edema; Negative for cyanosis General Extremity: edema; Negative for cyanosis Neuro oriented x3 and moves all extremities Sensorium / Orientation: alert, oriented to person, oriented to place and oriented to time Motor Exam: strength 5/5 throughout Psych mental status grossly normal Appearance: Negative for unkempt Skin No no wounds Lesions: no lesions Rashes: no rashes Trauma: Negative for abrasion MDM MDM MDM Narrative Medical decision making narrative: Patient on left lateral leg swelling. No history of recent trauma. Ultrasound being obtained to rule out DVT. There is no signs of infection. Exam at 12:00 the patient is doing well. Will be discharged home. We went over her x-ray results and her noninvasive study. Elevate the leg. Motrin. Follow-up if not improving. Radiography Diagnostic Testing: Clinical Impression(s) from Imaging Studies Tibia/Fibula X-Ray 08/18/21 11:07 IMPRESSION: Status post ORIF of the distal fibula. Soft tissue swelling. Electronically Signed: Quirino Horan MD at 11:20 EDT , Service support , Noninvasive study of the left lower extremity showed no DVT per the heavy equipment service technician.X-ray left tib-fib 2 views AP lateral interpreted by myself and the radiologist shows no acute abnormality. There is old orthopedic surgery with metallic hardware in both the distal femur and distal lower leg. There is no acute fracture. Discharge Plan Triage Chief Complaint: Lower Extremity Injury ED Provider: Scottie Jung Dx/Rx/DC Orders Clinical Impression: Left leg swelling Prescriptions: No Action esomeprazole magnesium [Nexium] 40 MG capsule 40 mg PO DAILY RF: 0 albuterol sulfate [Ventolin HFA] 1 INHALER inhaler 2 puff inhalation Q4H PRN PRN (Reason: Sob &/Or Wheezing) RF: 0 mirtazapine 45 MG tablet,disintegrating 45 mg PO QHS RF: 0 pregabalin 50 capsule 100 mg PO BID RF: 0 tramadol 50 MG tablet 50 mg PO TID PRN (Reason: Pain Score 1-10) RF: 0 clonazepam 1 MG tablet 1 mg PO BID RF: 0 abatacept 125 MG/ML syringe 125 mg SQ QWEEK RF: 0 potassium chloride 20 MEQ tablet 20 meq PO BIDCM Qty: 60 RF: 0 atorvastatin [Lipitor] 40 mg tablet 40 mg PO DAILY RF: 0 prednisone 10 mg Tablet 10 mg PO DAILY RF: 0 spironolactone 25 mg tablet 25 mg PO DAILY RF: 0 folic acid 1 mg Tablet 2 mg PO DAILY RF: 0 duloxetine 60 mg capsule,delayed release(DR/EC) 60 mg PO DAILY RF: 0 Primary Care Provider: Jacob Teixeira Referrals: Jacob Teixeira, [Primary Care Provider] - 1 Week if not improving Activity Restrictions/Additional Instructions: Ice and elevate your leg to decrease pain and swelling. Motrin for pain and swelling. Follow-up with your doctor if not improving. Your x-ray and ultrasound were both unremarkable. Disposition Disposition: Home, Self Care
--- NOTE | 2021-08-18 11:07 | RAD_ITS ---
STUDY: X-RAY - LEFT TIBIA AND FIBULA REASON FOR EXAM: Female, 51 years old. Pain TECHNIQUE: 2 view(s) of the tibia and fibula were obtained. COMPARISON: Comparison is made with prior study dated 03/04/2020. FINDINGS: Normal visualized tibia. The patient is status post open reduction and internal fixation of the distal fibula. No acute fracture is seen. Prior ORIF of the distal femur. Osteoarthritis of the knee joint. Soft tissue swelling RAD/Tibia & Fibula 2 Views IMPRESSION: Status post ORIF of the distal fibula. Soft tissue swelling. Electronically Signed: Quirino Horan MD at 11:20 EDT , Service support ,
[2021-08-18 12:06] VITALS: BP 138/49; PULSE 89; RESP 18; TEMP 36.7; O2SAT 94
== END 2021-08-18 12:07 | disposition home or self-care (01) ==
PROVIDERS: Emergency Provider Emergency Medicine; PCP Student in an Organized Health Care Education/Training Program
DX: M79.89 Other specified soft tissue disorders (principal); F17.210 Nicotine dependence, cigarettes, uncomplicated; E78.5 Hyperlipidemia, unspecified; M06.9 Rheumatoid arthritis, unspecified; Z79.899 Other long term (current) drug therapy; Z79.52 Long term (current) use of systemic steroids
CPT/HCPCS: 73590; 93971; 99282

== ENCOUNTER 2022-02-07 09:35 | Outpatient (CLI) | payer OTHER, SELFPAY ==
[2022-02-07 10:14] LABS: Absolute Neutrophil Count 6.6 X10^3/uL (2.0-7.7); Basophil# 0.07 X10^3/uL; Basophil% 0.7 % (0-1); Eosinophil# 0.15 X10^3/uL; Eosinophils% 1.6 % (0-5); Hematocrit 38.4 % (37-47); Hemoglobin 12.1 g/dL (12.0-15.0); Lymphocyte % 18.1 % (19-41); Mean Corp Hgb Conc 31.5 g/dL (32-36); Mean Corpuscular Hgb 28.5 pg (27.0-32.0); Mean Corpuscular Volume 90.4 fL (81-99); Mean Platelet Vol. 8.7 fl (6.2-12.0); Monocyte# 0.85 X10^3/uL; Monocyte% 9.1 % (0-10); NRBC Flagged by Analyzer 0 % (0-5); Neutrophil # 6.57 X10^3/uL (2.7-7.7); Platelet Count 396 K/mm3 (150-450); RBC Distribution Width CV 19.3 % (11.6-14.6); Red Blood Count 4.25 M/mm3 (4.2-5.4); White Blood Count 9.4 K/mm3 (4.4-11.0)
[2022-02-07 10:55] LABS: ALB/GLOB Ratio 0.8 RATIO (0.9-2.4); AST(SGOT) 46 U/L (15-37); Alanine Aminotransfer ALT/SGPT 38 U/L (13-56); Albumin, Serum 3.4 g/dL (3.2-5.0); Alkaline Phosphatase 187 U/L (45-117); Anion Gap 7 (5-15); BUN 15 mg/dL (7-18); BUN/Creat Ratio 16.1 RATIO (10-20); Calcium,Total 9.2 mg/dL (8.5-10.1); Chloride 103 mmol/L (98-107); Creatinine, Serum 0.93 mg/dL (0.55-1.02); EST Glomerular Filtration Rate 67 mL/min (>60); Est Glom Filt Rate - Afr Amer 81 mL/min (>60); Globulin 4.2 g/dL (2.2-4.2); Glucose 99 mg/dL (74-106); Protein, Total 7.6 g/dL (6.4-8.2); Sodium Level 136 mmol/L (136-145)
== END 2022-02-07 23:59 | disposition home or self-care (01) ==
PROVIDERS: PCP Student in an Organized Health Care Education/Training Program; Referring Provider Internal Medicine Rheumatology; Visit Provider Internal Medicine Rheumatology
DX: M06.09 Rheumatoid arthritis without rheumatoid factor, multiple sites (principal); E11.9 Type 2 diabetes mellitus without complications; M79.7 Fibromyalgia; K76.0 Fatty (change of) liver, not elsewhere classified; J45.909 Unspecified asthma, uncomplicated; M77.00 Medial epicondylitis, unspecified elbow; Z79.899 Other long term (current) drug therapy
CPT/HCPCS: 36415; 80053; 85025

== ENCOUNTER → 2022-05-02 | Outpatient (CLI) | payer OTHER, SELFPAY ==
[2022-05-02 09:53] LABS: Absolute Lymphocyte Count 1.81 X10^3/uL (0.83-4.51); Absolute Neutrophil Count 5.3 X10^3/uL (2.0-7.7); Basophil# 0.05 X10^3/uL; Basophil% 0.6 % (0-1); Eosinophil# 0.15 X10^3/uL; Eosinophils% 1.8 % (0-5); Hematocrit 28.6 % (37-47); Lymphocyte # 1.81 X10^3/ul (0.83-4.51); Lymphocyte % 21.6 % (19-41); Mean Corpuscular Hgb 21.9 pg (27.0-32.0); Mean Corpuscular Volume 78.1 fL (81-99); Mean Platelet Vol. 8.2 fl (6.2-12.0); Monocyte# 0.98 X10^3/uL; Monocyte% 11.7 % (0-10); NRBC Flagged by Analyzer 0 % (0-5); Neutrophil # 5.31 X10^3/uL (2.7-7.7); Neutrophil % 63.5 % (47-70); Platelet Count 523 K/mm3 (150-450); RBC Distribution Width CV 18.6 % (11.6-14.6); Red Blood Count 3.66 M/mm3 (4.2-5.4); White Blood Count 8.4 K/mm3 (4.4-11.0)
[2022-05-02 10:12] LABS: ALB/GLOB Ratio 0.8 RATIO (0.9-2.4); AST(SGOT) 20 U/L (15-37); Alanine Aminotransfer ALT/SGPT 12 U/L (13-56); Alkaline Phosphatase 180 U/L (45-117); Anion Gap 13 (5-15); BUN 5 mg/dL (7-18); BUN/Creat Ratio 5.6 RATIO (10-20); Calcium,Total 8.3 mg/dL (8.5-10.1); Chloride 102 mmol/L (98-107); Creatinine, Serum 0.89 mg/dL (0.55-1.02); EST Glomerular Filtration Rate 71 mL/min (>60); Est Glom Filt Rate - Afr Amer 85 mL/min (>60); Globulin 3.8 g/dL (2.2-4.2); Glucose 90 mg/dL (74-106); Potassium 3.9 mmol/L (3.5-5.1); Protein, Total 6.8 g/dL (6.4-8.2); Sodium Level 134 mmol/L (136-145)
== END | disposition home or self-care (01) ==
LOC: MTLAB 07:14
PROVIDERS: PCP Student in an Organized Health Care Education/Training Program; Referring Provider Internal Medicine Rheumatology; Visit Provider Internal Medicine Rheumatology
DX: M06.09 Rheumatoid arthritis without rheumatoid factor, multiple sites (principal); E11.9 Type 2 diabetes mellitus without complications; M79.7 Fibromyalgia; K76.0 Fatty (change of) liver, not elsewhere classified; J45.909 Unspecified asthma, uncomplicated; M77.00 Medial epicondylitis, unspecified elbow; Z79.899 Other long term (current) drug therapy
CPT/HCPCS: 36415; 80053; 85025

== ENCOUNTER → 2022-08-04 | Outpatient (CLI) | payer OTHER, SELFPAY ==
[2022-08-04 10:01] LABS: Absolute Lymphocyte Count 1.08 X10^3/uL (0.83-4.51); Absolute Neutrophil Count 4.7 X10^3/uL (2.0-7.7); Basophil# 0.03 X10^3/uL; Basophil% 0.4 % (0-1); Eosinophil# 0.11 X10^3/uL; Eosinophils% 1.6 % (0-5); Hematocrit 21.6 % (37-47); Lymphocyte # 1.08 X10^3/ul (0.83-4.51); Mean Corp Hgb Conc 25.5 g/dL (32-36); Mean Corpuscular Hgb 20.5 pg (27.0-32.0); Mean Corpuscular Volume 80.6 fL (81-99); Mean Platelet Vol. 8.5 fl (6.2-12.0); Monocyte# 0.71 X10^3/uL; Monocyte% 10.5 % (0-10); NRBC Flagged by Analyzer 0.9 % (0-5); Neutrophil # 4.74 X10^3/uL (2.7-7.7); POSITIVE COUNT YES; POSITIVE MORPHOLOGY YES; Platelet Count 627 K/mm3 (150-450); RBC Distribution Width CV 24.3 % (11.6-14.6); RBC Distribution Width SD 71.1 fl (35.1-43.9); Red Blood Count 2.68 M/mm3 (4.2-5.4); White Blood Count 6.8 K/mm3 (4.4-11.0)
[2022-08-04 10:06] LABS: Differential Indicated SCAN CRITERIA MET
[2022-08-04 10:38] LABS: ALB/GLOB Ratio 0.7 RATIO (0.9-2.4); AST(SGOT) 14 U/L (15-37); Alanine Aminotransfer ALT/SGPT 9 U/L (13-56); Albumin, Serum 2.5 g/dL (3.2-5.0); Alkaline Phosphatase 203 U/L (45-117); Anion Gap 6 (5-15); BUN 6 mg/dL (7-18); BUN/Creat Ratio 7.5 RATIO (10-20); Calcium,Total 8.5 mg/dL (8.5-10.1); Chloride 106 mmol/L (98-107); EST Glomerular Filtration Rate 80 mL/min (>60); Est Glom Filt Rate - Afr Amer 97 mL/min (>60); Globulin 3.8 g/dL (2.2-4.2); Glucose 87 mg/dL (74-106); Potassium 4.6 mmol/L (3.5-5.1); Protein, Total 6.3 g/dL (6.4-8.2); Sodium Level 137 mmol/L (136-145)
[2022-08-04 10:40] LABS: Hemoglobin 5.5 g/dL (12.0-15.0)
[2022-08-04 10:45] LABS: Anisocytosis 1+
[2022-08-05 13:06] LABS: Pathologist Review Reviewed
== END | disposition home or self-care (01) ==
LOC: MTLAB 08:53
PROVIDERS: PCP Student in an Organized Health Care Education/Training Program; Referring Provider Internal Medicine Rheumatology; Visit Provider Internal Medicine Rheumatology
DX: M06.09 Rheumatoid arthritis without rheumatoid factor, multiple sites (principal); E11.9 Type 2 diabetes mellitus without complications; M79.7 Fibromyalgia; K76.0 Fatty (change of) liver, not elsewhere classified; J45.909 Unspecified asthma, uncomplicated; M77.00 Medial epicondylitis, unspecified elbow; Z79.899 Other long term (current) drug therapy
CPT/HCPCS: 36415; 80053; 85025

== ENCOUNTER 2022-08-05 12:18 | Emergency (ER) | payer OTHER, SELFPAY ==
[2022-08-05 12:20] VITALS: BP 103/56; PULSE 101; RESP 16; TEMP 36.6; O2SAT 99; BMI 35.4
--- NOTE | 2022-08-05 13:42 | ED.RN ---
PT CALLED BACK FROM TRIAGE. NOT PRESENT IN ED WAITING ROOM. PT LWBS AT 1325.
== END 2022-08-05 13:46 | disposition left against medical advice (07) ==
LOC: ED 13:46
PROVIDERS: PCP Student in an Organized Health Care Education/Training Program
DX: Z53.21 Procedure and treatment not carried out due to patient leaving prior to being seen by health care provider (principal)

== ENCOUNTER 2022-08-06 04:45 | Emergency (ER) | payer OTHER, SELFPAY ==
[2022-08-06] VITALS (12 sets, daily range): BP systolic 99–141; BP diastolic 45–79; PULSE 93–113; RESP 17–23; TEMP 36.4–36.8; O2SAT 94–100; BMI 35.4
--- NOTE | 2022-08-06 05:08 | EDS_ITS ---
HPI History of Present Illness Chief Complaint: Abn Labs Narrative Narrative: Patient is a 51-year-old female with history of hypertension asthma smoking and intermittent anemia. She states that she had basic blood work obtained 2 days ago and was called and informed her hemoglobin is very low and that she will need a transfusion. Patient states she has been feeling somewhat cold and slightly short of breath but otherwise has been at her baseline. She denies any chest pain or abdominal pain she denies any hematuria or hematochezia. She states that she has been worked up for this in the past with no cause of her intermittent drops in the blood volume. At this time as she has concerned that her hemoglobin is low and believes she will require a transfusion she presents for evaluation [facility] Medical History AA (alcohol abuse) Anemia ARF (acute renal failure) CVA (cerebral vascular accident) Drug overdose Fibromyalgia Fx shaft fibula-closed HLD (hyperlipidemia) HTN (hypertension) Rheumatoid arthritis Substance abuse Home Medications albuterol sulfate 90 mcg/actuation aerosol inhaler (Ventolin HFA) 2 puff inhalation Q4H PRN PRN Sob &/Or Wheezing 03/31/18 [History Last Taken 08/07/18] esomeprazole magnesium 40 mg capsule,delayed release (Nexium) 40 mg PO DAILY stomach 03/31/18 [History Last Taken 08/07/18] mirtazapine 45 mg disintegrating tablet 45 mg PO QHS SLEEP 08/08/18 [History Last Taken 08/07/18] pregabalin 50 mg capsule 100 mg PO BID 08/08/18 [History Last Taken 08/07/18] tramadol 50 mg tablet 50 mg PO TID PRN Pain Score 1-10 08/25/20 [History Last Taken Unknown] clonazepam 1 mg tablet 1 mg PO BID anxiety 08/26/20 [History Last Taken Unknown] abatacept 125 mg/mL subcutaneous syringe 125 mg SQ QWEEK rhematoid arthritis 08/27/20 [History Last Taken Unknown] potassium chloride 20 mEq tablet,extended release(part/cryst) 20 meq PO BIDCM #60 tabs 08/27/20 [Rx Last Taken Unknown] atorvastatin 40 mg tablet (Lipitor) 40 mg PO DAILY 07/28/21 [History Last Taken Unknown] duloxetine 60 mg capsule,delayed release 60 mg PO DAILY 07/28/21 [History Last Taken Unknown] folic acid 1 mg tablet 2 mg PO DAILY 07/28/21 [History Last Taken Unknown] prednisone 10 mg tablet 10 mg PO DAILY 07/28/21 [History Last Taken Unknown] spironolactone 25 mg tablet 25 mg PO DAILY 07/28/21 [History Last Taken Unknown] Allergy/AdvReac Type Severity Reaction Status Date / Time progesterone Allergy Itching Verified 08/06/22 04:49 varenicline tartrate Allergy suicidal Verified 08/06/22 04:49 [From Chantix] baclofen AdvReac 'made me Verified 08/06/22 04:49 loopy' lisinopril AdvReac Angioedema Verified 08/06/22 04:49 Social History Smoking Status: Current every day smoker tobacco type: cigarettes ROS ROS ED Constitutional Constitutional ED: Denies chills or fever(s) ENT ENT ED: Denies sore throat Cardiovascular Cardiovascular: Denies chest pain or palpitations Respiratory/Chest Respiratory/Chest: Reports dyspnea; Denies cough Gastrointestinal Gastrointestinal: Denies abdominal pain, diarrhea, melena, nausea or vomiting Genitourinary Genitourinary ED: Denies dysuria or hematuria Musculoskeletal Musculoskeletal: Denies myalgias Integumentary Denies rash Neurologic Neurologic: Denies headache(s) or weakness Hematologic/Lymphatic Hematologic/Lymphatic: Denies easy bleeding or easy bruising EXAM Physical Exam Const Vital Signs: 08/06/22 04:45 08/06/22 04:45 08/06/22 06:45 Temperature 97.6 F L 97.6 F L 98 F Temperature Source Temporal Temporal Oral Pulse Rate 113 H 96 98 Respiratory Rate 17 17 18 Blood Pressure 141/45 H 120/59 L Blood Pressure Mean 77 79 Pulse Ox 97 99 95 Oxygen Delivery Method Room Air Room Air Room Air Positive well nourished, well developed and obese General Appearance ED: well developed Nutritional Appearance: obese Eyes PERRL and EOMs intact bilaterally General Eye ED: Yes pale conjunctiva Neck supple Resp normal respiratory effort Resp Narrative: Breath sounds are diminished throughout with faint expiratory wheeze consistent with history of asthma and smoking but no signs of distress Cardio regular rate and regular rhythm Rate: other Other Details: Radial pulses are plus 2 out of 4 bilaterally they are equal and symmetric GI normal to inspection, nondistended, normoactive bowel sounds, non-tender and non-distended GI Narrative: No voluntary guarding or rigidity no pulsatile mass Auscultation: normoactive bowel sounds Palpation: soft Narrative: Patient deferred rectal exam Extremity normal to inspection Neuro oriented x3, CN's II-XII intact bilaterally and no sensory deficits noted Sensorium / Orientation: alert Psych mental status grossly normal Skin no rashes or lesions noted Skin Narrative: Skin is pale in color but capillary refill is less than 3 seconds MDM MDM MDM Narrative Medical decision making narrative: Patient presented to the ER awake and alert with stable vitals and a soft nonsurgical abdomen. Chart review revealed that her hemoglobin was 5.5 on August 04. In order to ensure this was not lab error repeat labs were obtained. This confirmed hemoglobin is truly low and she will require transfusion. We discussed looking for causes of her anemia such as with a rectal exam but patient does not want that performed at this time as she states she has been worked up for this in the past with no cause. The patient is hemodynamically stable and therefore do not feel there is need for admission based on her anemia especially as she reports this is happened twice in the past and she has undergone a complete outpatient work-up. Therefore patient will be transfused 2 units of blood and following this as long as she remains hemodynamically stable will be safe for discharge. Lab Data Attestation: I reviewed the patient's lab results. Labs: Laboratory Results - last 24 hr 08/06/22 08/06/22 08/06/22 05:15 05:15 05:15 WBC 6.2 RBC 2.98 L Hgb 6.1 L Hct 23.5 L MCV 78.9 L MCH 20.5 L MCHC 26.0 L RDW Std Deviation 66.6 H RDW Coeff of Jania 23.4 H Plt Count 676 H MPV 8.2 Immature Gran % (Auto) 1.900 H Neut % (Auto) 65.2 Lymph % (Auto) 16.4 L [place] % (Auto) 14.1 H Eos % (Auto) 1.9 Baso % (Auto) 0.5 Absolute Neuts (auto) 4.0 Absolute Lymphs (auto) 1.01 Nucleated RBC % 0.5 Differential Comment SCANNED Polychromasia RARE Hypochromasia 1+ Anisocytosis 2+ Microcytosis 2+ PT 13.1 INR 1.0 APTT 24.7 Sodium 136 Potassium 4.1 Chloride 100 Carbon Dioxide 28.0 Anion Gap 8 BUN 4 L Creatinine 0.82 Estim Creat Clear Calc 65.63 Est GFR (MDRD) Af Amer 93 Est GFR (MDRD) Non-Af 77 BUN/Creatinine Ratio 4.9 L Glucose 94 Calcium 8.7 Blood Type Antibody Screen Crossmatch 08/06/22 08/06/22 05:15 05:15 WBC RBC Hgb Hct MCV MCH MCHC RDW Std Deviation RDW Coeff of Jania Plt Count MPV Immature Gran % (Auto) Neut % (Auto) Lymph % (Auto) [place] % (Auto) Eos % (Auto) Baso % (Auto) Absolute Neuts (auto) Absolute Lymphs (auto) Nucleated RBC % Differential Comment Polychromasia Hypochromasia Anisocytosis Microcytosis PT INR APTT Sodium Potassium Chloride Carbon Dioxide Anion Gap BUN Creatinine Estim Creat Clear Calc Est GFR (MDRD) Af Amer Est GFR (MDRD) Non-Af BUN/Creatinine Ratio Glucose Calcium Blood Type A NEGATIVE Antibody Screen NEGATIVE Crossmatch See Detail Discharge Plan Triage Chief Complaint: Abn Labs ED Provider: Yo Jorgensen Dx/Rx/DC Orders Clinical Impression: Anemia, Hypertension, Tobacco abuse disorder Instructions: Anemia Prescriptions: No Action esomeprazole magnesium [Nexium] 40 MG capsule 40 mg PO DAILY albuterol sulfate [Ventolin HFA] 1 INHALER inhaler 2 puff inhalation Q4H PRN PRN (Reason: Sob &/Or Wheezing) mirtazapine 45 MG tablet,disintegrating 45 mg PO QHS pregabalin 50 capsule 100 mg PO BID tramadol 50 MG tablet 50 mg PO TID PRN (Reason: Pain Score 1-10) clonazepam 1 MG tablet 1 mg PO BID abatacept 125 MG/ML syringe 125 mg SQ QWEEK Rx Instructions: pt takes every . potassium chloride 20 MEQ tablet 20 meq PO BIDCM Qty: 60 0RF atorvastatin [Lipitor] 40 mg tablet 40 mg PO DAILY Label Comments: Take 1 tablet by mouth daily at bedtime. prednisone 10 mg Tablet 10 mg PO DAILY spironolactone 25 mg tablet 25 mg PO DAILY Label Comments: Take 1 tablet by mouth once daily. folic acid 1 mg Tablet 2 mg PO DAILY duloxetine 60 mg capsule,delayed release(DR/EC) 60 mg PO DAILY Label Comments: Take 1 capsule by mouth once daily. Primary Care Provider: Jacob Teixeira Referrals: Jacob Teixeira DO [Primary Care Provider] - Disposition Disposition: Home, Self Care
[2022-08-06 05:31] LABS: Absolute Lymphocyte Count 1.01 X10^3/uL (0.83-4.51); Basophil# 0.03 X10^3/uL; Basophil% 0.5 % (0-1); Eosinophil# 0.12 X10^3/uL; Eosinophils% 1.9 % (0-5); Hematocrit 23.5 % (37-47); Hemoglobin 6.1 g/dL (12.0-15.0); Lymphocyte # 1.01 X10^3/ul (0.83-4.51); Lymphocyte % 16.4 % (19-41); Mean Corpuscular Hgb 20.5 pg (27.0-32.0); Mean Corpuscular Volume 78.9 fL (81-99); Mean Platelet Vol. 8.2 fl (6.2-12.0); Monocyte# 0.87 X10^3/uL; Monocyte% 14.1 % (0-10); NRBC Flagged by Analyzer 0.5 % (0-5); Neutrophil # 4.01 X10^3/uL (2.7-7.7); Neutrophil % 65.2 % (47-70); POSITIVE MORPHOLOGY YES; Platelet Count 676 K/mm3 (150-450); RBC Distribution Width CV 23.4 % (11.6-14.6); RBC Distribution Width SD 66.6 fl (35.1-43.9); Red Blood Count 2.98 M/mm3 (4.2-5.4); White Blood Count 6.2 K/mm3 (4.4-11.0)
[2022-08-06 05:32] LABS: Differential Indicated SCAN CRITERIA MET
[2022-08-06 05:41] LABS: Partial Thromboplast Time 24.7 Seconds (24.1-36.2); Prothrombin Time (Protime)PT. 13.1 SECONDS (11.7-14.9)
[2022-08-06 05:43] LABS: Anion Gap 8 (5-15); BUN 4 mg/dL (7-18); BUN/Creat Ratio 4.9 RATIO (10-20); Calcium,Total 8.7 mg/dL (8.5-10.1); Chloride 100 mmol/L (98-107); Creatinine, Serum 0.82 mg/dL (0.55-1.02); EST Glomerular Filtration Rate 77 mL/min (>60); Est Glom Filt Rate - Afr Amer 93 mL/min (>60); Estimated Creatinine Clearance 65.63 ml/min; Glucose 94 mg/dL (74-106); Potassium 4.1 mmol/L (3.5-5.1); Sodium Level 136 mmol/L (136-145)
[2022-08-06 06:24] LABS: Anisocytosis 2+; Differential Comment SCANNED; Microcytosis 2+
[2022-08-06 06:25] LABS: Hypochromasia 1+; Polychromasia RARE
== END 2022-08-06 13:00 | disposition home or self-care (01) ==
PROVIDERS: Emergency Provider Emergency Medicine; PCP Student in an Organized Health Care Education/Training Program; Visit Provider Emergency Medicine
DX: D64.9 Anemia, unspecified (principal); I10 Essential (primary) hypertension; F17.210 Nicotine dependence, cigarettes, uncomplicated; E66.9 Obesity, unspecified
CPT/HCPCS: 36430; 80048; 85025; 85610; 85730; 86850; 86900; 86901; 86920; 86922; 99282; J7050; P9016; A4216